=== PATIENT | male | born 1930 | race Caucasian/White ===

== ENCOUNTER 2017-05-22 13:32 | Inpatient (IN) | payer MEDICARE ==
[~2017-05-22] VITALS: Ht 182.9 cm; Wt 79.4 kg
[~2017-05-22 13:32] MED LIST: AMLODIPINE BESYL5 MG PO; ASPIRIN EC81 MG PO; BRIMONIDINE TAR10 ML OP; DORZOLAMIDE-TIM10 ML OP; FUROSEMIDE40 MG PO; GABAPENTIN300 MG PO; LANTUS 3ML100 UNITS/ SC; LATANOPROST2.5 ML OP; LUMIGAN2.5 M1 OP; NOVOLOG100 UNITS1 SC; OMEPRAZOLE40 MG PO; PINDOLOL5 MG PO; POTASSIUM CHLO10 ME1 PO; SIMVASTATIN40 MG PO; TAMSULOSIN HCL0.4 MG PO; TIZANIDINE HCL4 MG PO
--- NOTE | 2017-05-22 15:04 | Diagnostic Imaging Report ---
EXAM: XR CHEST 1 VIEW DATE: 05/22/2017 2:07 PM INDICATION: Altered mental status COMPARISON: None FINDINGS: Lines and Tubes: Battery pack device overlies right upper abdomen/lower chest. Heart and Mediastinum: Widening of the mediastinum with questionable prominence of the arch. Vascular calcifications present. Lungs and Pleura: Mild elevation right hemidiaphragm. Minimal basilar opacities. Chin partially secures apices. Bones and Soft Tissues: No acute findings. IMPRESSION: 1. Probable prominence aortic arch. 2. Basilar atelectasis, with developing pneumonia, particularly on the left, not excluded. Signed by: Dr. Joshua Nguyen MD on 05/22/2017 3:01 PM
[2017-05-22 15:32] LABS: BASOPHILS # (AUTO) 0.1 (0.0-0.1); BASOPHILS % 0.6 % (0.0-1.0); EOSINOPHILS # (AUTO) 0.1 (0.0-0.4); EOSINOPHILS % 0.6 % (0.0-6.0); HEMOGLOBIN 11.9 g/dL (14.0-18.0); LYMPHOCYTES # (AUTO) 1.3 (1.0-3.2); LYMPHOCYTES % 11.7 % (18.0-39.1); MEAN CORPUSCULAR HEMOGLOBIN 27.1 pg (28-32); MEAN CORPUSCULAR HGB CONC 30.5 g/dL (31-35); MEAN CORPUSCULAR VOLUME 88.8 fL (81-99); MONOCYTES # (AUTO) 0.9 (0.2-0.8); MONOCYTES % 7.7 % (4.4-11.3); NEUTROPHILS % 78.6 % (38.7-80.0); PLATELET COUNT 265 x10e3/uL (140-360); RED BLOOD COUNT 4.39 x10e6/uL (4.3-5.7); RED CELL DISTRIBUTION WIDTH 15.7 % (11.7-14.4)
[2017-05-22 15:33] LABS: BILIRUBIN,URINE NEGATIVE (NEGATIVE); COLOR,URINE YELLOW (YELLOW); KETONES,URINE 2+ (NEGATIVE); LEUKOCYTE ESTERASE ,URINE 2+ (NEGATIVE); NITRITE,URINE NEGATIVE (NEGATIVE); PROTEIN,URINE DIPSTICK 3+ (NEGATIVE); URINE UROBILINOGEN 0.2 mg/dL (0.2 - 1)
[2017-05-22 15:40] LABS: CLARITY,URINE TURBID (CLEAR)
[2017-05-22 15:47] LABS: BACTERIA,URINE MODERATE /HPF; WBC,URINE (MAN) >50 /HPF (0-5); YEAST,URINE FEW
--- NOTE | 2017-05-22 15:55 | Diagnostic Imaging Report ---
Examination: CT BRAIN WITHOUT CONTRAST History:Confusion. Altered mental status. Comparison studies:Head CT performed 2016 Technique: Axial images were obtained from the skull base to the vertex. Coronal and sagittal images reconstructed from the axial data. Intravenous contrast: None Findings: Scalp: No abnormalities. Bones: No fractures, blastic or lytic lesions. Brain sulci: Mild volume loss for age. Ventricles: No hydrocephalus. Extra-axial space: No acute hemorrhage. Bifrontal subdural hygromas, unchanged (15 mm thick on the right and 11 mm thick on the left). 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 There are mild patchy areas of hypoattenuation in the periventricular and subcortical white matter, nonspecific. No masses, hemorrhage, or acute cortical-based vascular insults. Sellar/suprasellar region: No abnormalities. Craniocervical junction: Patent foramen magnum. No Chiari one malformation. Incidental findings: Dependent fluid in the partially visualized right maxillary sinus. Near complete opacification of the right anterior ethmoid air cells. Atherosclerotic calcification of the cavernous and supraclinoid internal carotid and V4 segments of the bilateral vertebral arteries. Impression: 1. No new acute intracranial abnormalities when compared to prior head CT performed April 20, 2017. Specifically, no acute infarct in the right lentiform nucleus or intraparenchymal or extra-axial hemorrhage. 2. Unchanged chronic lacunar infarcts, as above. 3. Unchanged mild chronic microvascular ischemic change. 4. Unchanged mild generalized volume loss. 5. Unchanged bifrontal subdural hygromas. Signed by: Dr. Ryann Harmon M.D. on 05/22/2017 3:51 PM
[2017-05-22 15:58] LABS: ALBUMIN 3.1 g/dL (3.5-5.0); ALBUMIN/GLOBULIN RATIO 0.8 (0.8-2.0); ANION GAP 16.6 mmol/L (8-16); CALCIUM 10.1 mg/dL (8.4-10.2); CREATININE, SERUM 1.61 mg/dL (0.72-1.25); POTASSIUM 3.6 mmol/L (3.5-5.1)
[2017-05-22 16:20] LABS: THYROID STIMULATING HORMONE 1.146 uIU/mL (0.350-4.940); TROPONIN I 0.085 ng/mL (0-0.300)
[2017-05-22] MEDS ORDERED: DEXTROSE 50% SYRINGE 50 ML IV PRN (16:45)
[2017-05-22] MEDS ORDERED: CEFEPIME HCL 1GM 1 GM in WATER STERILE 10ML VIAL 10 ML IV ONE (17:30)
[2017-05-22] MEDS ORDERED: AZITHROMYCIN 500MG/NS 250 ML 250 ML IV ONE (17:30)
[2017-05-22] MEDS: D5.45%NS/KCL 20MEQ 1,000 ML IV SCH (17:45)
[2017-05-22 19:35] VITALS: BP 180/85
[2017-05-22 20:30] VITALS: BP 180/85
[2017-05-22] MEDS: INSULIN REGULAR, HUMAN 100 UNIT/1 ML 3ML VIAL SQ SCH (21:00)
[2017-05-23 00:19] VITALS: BP 161/74
[2017-05-23] MEDS ORDERED: CEFEPIME HCL 1 GM VIAL ONE ×2 (01:43→21:49)
[2017-05-23] MEDS ORDERED: SODIUM CHLORIDE 0.9% 200 ML ONE (01:44)
[2017-05-23] MEDS: D5.45%NS/KCL 20MEQ 1,000 ML IV SCH ×4 (01:46→22:38)
[2017-05-23] MEDS: CEFEPIME HCL 1GM 1 GM in WATER STERILE 10ML VIAL 10 ML IV SCH ×4 (01:54→22:31)
[2017-05-23 04:00] VITALS: BP 169/77
[2017-05-23 06:57] LABS: CREATINE KINASE MB 3.5 ng/mL (0.00-5.00); TROPONIN I 0.078 ng/mL (0-0.300)
[2017-05-23 08:00] VITALS: BP 158/83
[2017-05-23] MEDS: INSULIN REGULAR, HUMAN 100 UNIT/1 ML 3ML VIAL SQ SCH ×4 (08:03→20:54)
[2017-05-23] MEDS: AZITHROMYCIN 500MG/NS 250 ML 250 ML IV SCH (09:51)
[2017-05-23 12:00] VITALS: BP 147/65
[2017-05-23 16:00] VITALS: BP 184/85
[2017-05-23 20:00] VITALS: BP 188/66
[2017-05-23] MEDS ORDERED: CLONIDINE HCL 0.1 MG/24 HR 1 EA PATCH TOP SCH (23:00)
[2017-05-24] VITALS: BP 141/53
[2017-05-24 04:00] VITALS: BP 114/59
[2017-05-24] MEDS ORDERED: CEFEPIME HCL 1 GM VIAL ONE ×2 (05:33→21:39)
[2017-05-24 06:17] LABS: BASOPHILS # (AUTO) 0.1 (0.0-0.1); BASOPHILS % 0.8 % (0.0-1.0); EOSINOPHILS # (AUTO) 0.1 (0.0-0.4); EOSINOPHILS % 1.6 % (0.0-6.0); HEMATOCRIT 32.6 % (38.2-49.6); HEMOGLOBIN 10.1 g/dL (14.0-18.0); LYMPHOCYTES # (AUTO) 1.4 (1.0-3.2); LYMPHOCYTES % 17.6 % (18.0-39.1); MEAN CORPUSCULAR HEMOGLOBIN 27.7 pg (28-32); MEAN CORPUSCULAR VOLUME 89.6 fL (81-99); MONOCYTES # (AUTO) 0.7 (0.2-0.8); MONOCYTES % 8.5 % (4.4-11.3); NEUTROPHILS # (AUTO) 5.6 (2.1-6.9); PLATELET COUNT 202 x10e3/uL (140-360); RED BLOOD COUNT 3.64 x10e6/uL (4.3-5.7); RED CELL DISTRIBUTION WIDTH 15.5 % (11.7-14.4)
[2017-05-24] MEDS: CEFEPIME HCL 1GM 1 GM in WATER STERILE 10ML VIAL 10 ML IV SCH ×3 (06:18→21:47)
[2017-05-24 06:43] LABS: ANION GAP 9.9 mmol/L (8-16); CALCIUM 8.7 mg/dL (8.4-10.2); CREATININE, SERUM 1.56 mg/dL (0.72-1.25); POTASSIUM 3.9 mmol/L (3.5-5.1)
[2017-05-24 08:00] VITALS: BP 186/81
[2017-05-24] MEDS: D5.45%NS/KCL 20MEQ 1,000 ML IV SCH ×2 (08:19→17:49)
[2017-05-24] MEDS: AZITHROMYCIN 500MG/NS 250 ML 250 ML IV SCH (08:19)
[2017-05-24] MEDS: INSULIN REGULAR, HUMAN 100 UNIT/1 ML 3ML VIAL SQ SCH ×4 (08:20→21:47)
[2017-05-24] MEDS ORDERED: MICAFUNGIN SODIUM 50 MG/50 ML BAG IV SCH (10:15)
[2017-05-24 12:00] VITALS: BP 180/77
[2017-05-24] MEDS: MICAFUNGIN SODIUM 50 ML IV SCH (13:02)
[2017-05-24 16:00] VITALS: BP 193/89
[2017-05-25] MEDS: D5.45%NS/KCL 20MEQ 1,000 ML IV SCH ×3 (00:45→17:05)
[2017-05-25] MEDS ORDERED: LABETALOL HCL IV 5 MG/ML 20ML MDV IV STA (05:13)
[2017-05-25] MEDS: CEFEPIME HCL 1GM 1 GM in WATER STERILE 10ML VIAL 10 ML IV SCH ×3 (06:00→21:59)
[2017-05-25 06:10] LABS: BASOPHILS # (AUTO) 0.1 (0.0-0.1); BASOPHILS % 0.7 % (0.0-1.0); EOSINOPHILS # (AUTO) 0.2 (0.0-0.4); HEMATOCRIT 34.4 % (38.2-49.6); HEMOGLOBIN 10.3 g/dL (14.0-18.0); LYMPHOCYTES # (AUTO) 1.6 (1.0-3.2); LYMPHOCYTES % 22.6 % (18.0-39.1); MEAN CORPUSCULAR HEMOGLOBIN 27.2 pg (28-32); MEAN CORPUSCULAR HGB CONC 29.9 g/dL (31-35); MONOCYTES # (AUTO) 0.6 (0.2-0.8); NEUTROPHILS # (AUTO) 4.5 (2.1-6.9); NEUTROPHILS % 65.3 % (38.7-80.0); PLATELET COUNT 173 x10e3/uL (140-360); RED BLOOD COUNT 3.78 x10e6/uL (4.3-5.7); RED CELL DISTRIBUTION WIDTH 15.6 % (11.7-14.4)
[2017-05-25 06:36] LABS: CALCIUM 8.9 mg/dL (8.4-10.2); CREATININE, SERUM 1.45 mg/dL (0.72-1.25)
--- NOTE | 2017-05-25 06:47 | Diagnostic Imaging Report ---
EXAM: CHEST SINGLE (PORTABLE), AP 1 view DATE: 05/25/2017 5:13 AM Time stamp on exam: 0552 hours INDICATION: Shortness of breath COMPARISON: AP view of the chest May 22, 2017 FINDINGS: LINES/TUBES: None LUNGS: Bibasilar atelectasis. PLEURA: No effusions or pneumothorax. HEART AND MEDIASTINUM: Normal size and contour. BONES AND SOFT TISSUES: No acute findings. Generator projects over the right chest. Chronic right posterior rib deformities. IMPRESSION: No interval change. Signed by: Dr. Rama Martinez M.D. on 05/25/2017 6:44 AM
[2017-05-25] MEDS: INSULIN REGULAR, HUMAN 100 UNIT/1 ML 3ML VIAL SQ SCH ×4 (07:30→20:36)
[2017-05-25] MEDS: ALBUTEROL/IPRATROPIUM 3 ML NEB NEB SCH ×3 (07:50→20:15)
[2017-05-25 08:00] VITALS: BP 193/92
[2017-05-25] MEDS: AZITHROMYCIN 500MG/NS 250 ML 250 ML IV SCH (09:25)
[2017-05-25 09:26] VITALS: BP 160/77
[2017-05-25] MEDS: MICAFUNGIN SODIUM 50 ML IV SCH (11:42)
[2017-05-25 12:00] VITALS: BP 175/71
[2017-05-25] MEDS: HYDRALAZINE HCL 20 MG/ML VIAL IV PRN ×2 (12:36→20:33)
[2017-05-25] MEDS ORDERED: CEFEPIME HCL 1 GM VIAL ONE ×2 (14:20→23:25)
[2017-05-25 16:00] VITALS: BP 160/79
[2017-05-25 20:00] VITALS: BP 190/78
[2017-05-25] MEDS: ACETAMINOPHEN 650 MG SUPP PR PRN (20:34)
[2017-05-26] VITALS: BP 133/63
[2017-05-26] MEDS: D5.45%NS/KCL 20MEQ 1,000 ML IV SCH ×3 (00:45→16:55)
[2017-05-26] MEDS: ALBUTEROL/IPRATROPIUM 3 ML NEB NEB SCH ×4 (01:20→20:35)
[2017-05-26 04:00] VITALS: BP 165/74
[2017-05-26] MEDS ORDERED: CEFEPIME HCL 1 GM VIAL ONE ×3 (05:01→21:25)
[2017-05-26] MEDS: CEFEPIME HCL 1GM 1 GM in WATER STERILE 10ML VIAL 10 ML IV SCH ×3 (05:09→21:26)
[2017-05-26] MEDS: AZITHROMYCIN 500MG/NS 250 ML 250 ML IV SCH (07:48)
[2017-05-26 08:00] VITALS: BP 170/81
[2017-05-26] MEDS: INSULIN REGULAR, HUMAN 100 UNIT/1 ML 3ML VIAL SQ SCH ×4 (08:04→21:32)
[2017-05-26 12:00] VITALS: BP 176/76
[2017-05-26] MEDS: HYDRALAZINE HCL 20 MG/ML VIAL IV PRN ×2 (12:10→17:33)
[2017-05-26] MEDS: MICAFUNGIN SODIUM 50 ML IV SCH (12:58)
[2017-05-26] MEDS: ACETAMINOPHEN 650 MG SUPP PR PRN (14:12)
[2017-05-26 16:00] VITALS: BP 177/75
[2017-05-26 20:00] VITALS: BP 157/80
[2017-05-27] VITALS: BP 183/76
[2017-05-27] MEDS: HYDRALAZINE HCL 20 MG/ML VIAL IV PRN (00:27)
[2017-05-27] MEDS: D5.45%NS/KCL 20MEQ 1,000 ML IV SCH ×2 (00:45→09:11)
[2017-05-27 04:00] VITALS: BP 172/70
[2017-05-27] MEDS ORDERED: CEFEPIME HCL 1 GM VIAL ONE (04:55)
[2017-05-27] MEDS: CEFEPIME HCL 1GM 1 GM in WATER STERILE 10ML VIAL 10 ML IV SCH (05:09)
[2017-05-27] MEDS: INSULIN REGULAR, HUMAN 100 UNIT/1 ML 3ML VIAL SQ SCH ×2 (07:30→12:38)
[2017-05-27] MEDS: ALBUTEROL/IPRATROPIUM 3 ML NEB NEB SCH ×2 (07:59→13:44)
[2017-05-27 08:00] VITALS: BP_SYST 101; BP_SYST 165; BP_DIAS 72; BP_DIAS 73
[2017-05-27] MEDS: AZITHROMYCIN 500MG/NS 250 ML 250 ML IV SCH (09:10)
[2017-05-27] MEDS ORDERED: BUPIVACAINE 0.25%/EPI 30ML SDV INJ ONE (11:10)
[2017-05-27 12:00] VITALS: BP 154/68
[2017-05-27] MEDS: MICAFUNGIN SODIUM 50 ML IV SCH (12:00)
[2017-05-27] MEDS ORDERED: CEFEPIME HCL 1 GM VIAL IV SCH (14:00)
[2017-05-27] MEDS ORDERED: WATER STERILE 10 ML VIAL IV SCH (14:00)
== END 2017-05-27 16:01 | DRG 727 ==
LOC: ER 13:38 → ERHOLD 17:59 → UNDOADMIN 17:59 → ERHOLD 18:00 → MED/SURG2 18:01 → ERHOLD 18:01
DX: B37.49 Other urogenital candidiasis (principal); J18.9 Pneumonia, unspecified organism; J44.0 Chronic obstructive pulmonary disease with (acute) lower respiratory infection; I11.0 Hypertensive heart disease with heart failure; D64.9 Anemia, unspecified; I50.9 Heart failure, unspecified; E86.0 Dehydration; E11.9 Type 2 diabetes mellitus without complications; F03.90 Unspecified dementia, unspecified severity, without behavioral disturbance, psychotic disturbance, mood disturbance, and anxiety; J44.1 Chronic obstructive pulmonary disease with (acute) exacerbation; Z86.73 Personal history of transient ischemic attack (TIA), and cerebral infarction without residual deficits; R63.0 Anorexia; I25.10 Atherosclerotic heart disease of native coronary artery without angina pectoris; Z66 Do not resuscitate
CPT/HCPCS: 36415; 70450; 71010; 80048; 80053; 81001; 82550; 82553; 82948; 84443; 84484; 85025; 87040; 87086; 93005; 99285; J0360; J0456; J0692; J7050; J7799

== ENCOUNTER 2017-08-16 16:59 | Inpatient (IN) | payer MEDICARE ==
[~2017-08-16] VITALS: Ht 182.9 cm; Wt 87.8 kg
--- OUTSIDE RECORDS SUMMARY | 2017-08-16 17:01 | XMS REPORT | Clinical Summary ---
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 Disp. Refills Start End Date Status Date tamsulosin (FLOMAX) 0.4 Take 0.4 mg by mouth 3 08/20/19 Active mg capsule,extended nightly. 17 release 24hr brimonidine (ALPHAGAN) Administer 1 drop to the 08/16/19 Active 0.15 % ophthalmic right eye 3 (three) times 17 solution a day. gabapentin (NEURONTIN) Take 300 mg by mouth 3 07/21/19 Active 300 mg capsule (three) times a day. 17 furosemide (LASIX) 20 mg Take 20 mg by mouth 2 07/21/19 Active tablet (two) times a day. 17 NOVOLOG 100 unit/mL Inject 10-18 Units under 07/21/19 Active injection the skin 3 (three) times 17 a day before meals. LANTUS 100 unit/mL Inject 45 Units under the 07/21/19 Active injection (vial) skin every morning. 17 amLODIPine (NORVASC) 5 mg Take 5 mg by mouth every 07/21/19 Active tablet morning. 17 simvastatin (ZOCOR) 40 MG Take 40 mg by mouth 07/21/19 Active tablet nightly. 17 omeprazole (PriLOSEC) 40 Take 40 mg by mouth 07/21/19 Active MG capsule daily. 17 bimatoprost (LUMIGAN) Administer 1 drop to the Active 0.01 % ophthalmic drops right eye nightly. dorzolamide-timolol Administer 1 drop to the Active (COSOPT) 22.3-6.8 mg/mL right eye 3 (three) times ophthalmic solution a day. pindolol (VISKEN) 5 MG Take 5 mg by mouth 2 3 02/23/20 Active tablet (two) times a day. 17 tiZANidine (ZANAFLEX) 4 TAKE 1 TABELT BY MOUTH 2 3 12/14/19 Active MG tablet TIMES A DAY 17 aspirin (ECOTRIN) 81 MG Take 81 mg by mouth Active enteric coated tablet daily. sodium chloride 0.9 % Take 10 mg/hr by 03/11/20 Discontin solution for nebulization nebulization 17 ued 0.88 mL with albuterol 5 continuously. mg/mL solution for nebulization 0.6 mg sodium,potassium,mag Please use as directed 354 mL 0 09/10/19 Discontin sulfates (SUPREP BOWEL 17 17 ued PREP KIT) 17.5-3.13-1.6 gram recon soln amoxicillin-pot TAKE 1 TABLET BY MOUTH 0 03/07/20 03/11/20 Discontin clavulanate (AUGMENTIN) TWICE A DAY WITH FOOD FOR 17 17 ued 500-125 mg per tablet 10 DAYS TRUE METRIX GLUCOSE TEST 02/29/20 03/11/20 Discontin STRIP strip test strips 17 17 ued TRUEPLUS LANCETS 28 gauge 02/29/20 03/11/20 Discontin misc 17 17 ued amLODIPine (NORVASC) 2.5 Take 2.5 mg by mouth 03/28/20 Discontin mg tablet every evening. 17 ued latanoprost (XALATAN) Administer 1 drop to the 1.5 mL 0 03/25/2011/06 0.005 % ophthalmic right eye nightly for 30 17 17 solution days. potassium chloride Take 15 mL (20 mEq total) 450 mL 0 03/25/2004/24 (KAYCIEL) 20 mEq/15 mL by mouth daily for 30 17 17 solution days. Active Problems Problem Noted Date SOB (shortness of breath) 03/11/2017 Tubular adenoma of colon 10/11/2016 Diverticulosis large intestine w/o perforation or abscess w/o bleeding 10/11 Internal hemorrhoids 10/11/2016 Personal history of colonic polyps 09/09/2016 Heme positive stool 09/09/2016 Encounters Date Type Specialty Care Team Description 04/18/2017 Emergency Emergency Medicine Jose Douglas CLARENCE (acute kidney injury) - MD Jason (Primary Dx); 04/19/2017 Hypoglycemia 03/11/2017 [facility] General Internal Medicine Matthias Parson COPD exacerbation - Encounter Isidro Sanders MD (Primary Dx) 03/28/2017 Shabbir Steel MD 10/11/2016 Office Visit Gastroenterology Daquan Mccurdy MD Tubular adenoma of colon (Primary Dx); Diverticulosis large intestine w/o perforation or abscess w/o bleeding; Internal hemorrhoids 10/06/2016 Hospital Gastroenterology Daquan Mccurdy MD Encounter 09/21/2016 [facility] General Internal Medicine Physician, Emergency, MD - Encounter Rehrer, Amilcar Obrien DO 09/22/2016 Shabbir Steel MD 09/21/2016 Orders Only General Internal Medicine Denton Huerta MD 09/21/2016 Orders Only Emergency Medicine Rehrer, Amilcar Obrien DO 09/09/2016 Office Visit Gastroenterology Daquan Mccurdy MD Personal history of colonic polyps (Primary Dx); Heme positive stool after 08/15/2016 Family History Medical History Relation Name Comments Cancer Brother No Known Problems Father No Known Problems Maternal Aunt No Known Problems Maternal Grandfather No Known Problems Maternal Grandmother No Known Problems Maternal Uncle No Known Problems Mother No Known Problems Paternal Aunt No Known Problems Paternal Grandfather No Known Problems Paternal Grandmother No Known Problems Paternal Uncle No Known Problems Sister Garcia's esophagus Neg Hx Breast cancer Neg Hx Celiac disease Neg Hx Cirrhosis Neg Hx Colon cancer Neg Hx Colon polyps Neg Hx Crohn's disease Neg Hx Cystic fibrosis Neg Hx Eating disorder Neg Hx Esophageal cancer Neg Hx GERD Neg Hx EDUCATION REP Cancer Neg Hx Hemochromatosis Neg Hx Inflammatory bowel Neg Hx disease Irritable bowel syndrome Neg Hx Liver cancer Neg Hx Liver disease Neg Hx Pancreatic cancer Neg Hx Pancreatitis Neg Hx Rectal cancer Neg Hx Stomach cancer Neg Hx Ulcerative colitis Neg Hx Relation Name Status Comments Brother Father Maternal Aunt Maternal Grandfather Maternal Grandmother Maternal Uncle Mother Paternal Aunt Paternal Grandfather Paternal Grandmother Paternal Uncle Sister Social History Tobacco Use Types Packs/Day Years Used Date Former Smoker Quit: 09/09/1966 Alcohol Use Drinks/Week oz/Week Comments No Sex Assigned at Date Recorded Not on file Last Filed Vital Signs Vital Sign Reading Time Taken Blood Pressure 153/80 04/19/2017 1:00 AM CDT Pulse 82 04/19/2017 1:00 AM CDT Temperature 36.7 C (98.1 F) 04/18/2017 8:44 PM CDT Respiratory Rate 17 04/19/2017 1:00 AM CDT Oxygen Saturation 98% 04/19/2017 1:00 AM CDT Inhaled Oxygen - - Concentration Weight 94.7 kg (208 lb 11.2 oz) 03/22/2017 4:00 AM CDT Height 182.9 cm (6') 04/18/2017 8:44 PM CDT Body Mass Index 28.3 03/22/2017 4:00 AM CDT Plan of Treatment Health Maintenance Due Date Last Done Comments ZOSTER VACCINE 1990 PNEUMOCOCCAL 1995 POLYSACCHARIDE VACCINE AGE 65 AND OVER PNEUMOCOCCAL-13 1995 INFLUENZA VACCINE 01/18/2017 Procedures Procedure Name Priority Date/Time Associated Diagnosis Comments HC CATH DUAL LUMEN PICC Routine 03/21/2017 Results for this 12:51 PM CDT procedure are in the results section. HC US GUIDED VASCULAR Routine 03/21/2017 Results for this ACCESS 12:51 PM CDT procedure are in the results section. HC CVL PICC INSERT 5 YRS Routine 03/21/2017 Results for this OR > 12:51 PM CDT procedure are in the results section. EEG AWAKE/ASLEEP LESS Routine 03/15/2017 Results for this THAN 41 MIN 10:34 PM CDT procedure are in the results section. after 08/15/2016 Results * POC glucose (04/19/2017 1:26 AM) Only the most recent of 105 results within the time period is included. Component Value Ref Range POC glucose 142 (H) 65 - 100 mg/dL Comment: Meter ID: [id number] Treasury Director: Sandy Hernandez Specimen Performing Laboratory [facility]OMIC MEDICINE [address] [place] [address] [place] [address] * Estimated GFR (04/19/2017 1:22 AM) Only the most recent of 23 results within the time period is included. Component Value Ref Range GFR Non Af Amer 36 (A) mL/min/1.73 m2 GFR Af Amer 43 (A) mL/min/1.73 m2 Comment: Chronic kidney disease: <60 mL/min/1.73m2 Kidney failure: <15 mL/min/1.73m2 The estimated GFR is calculated from the IDMS-traceable Modification of Diet in Renal Disease Equation. The accuracy of the calculation is poor when the creatinine is normal. Calculated values >90 mL/min/1.73m2 are not reported. This equation has not been validated in children (<18 years), women, the elderly (>70 years), or ethnic groups other than Caucasians and Americans. Specimen Performing Laboratory Plasma specimen [facility]OMIC MEDICINE [address] [place] [address] * Basic metabolic panel (04/19/2017 1:22 AM) Only the most recent of 21 results within the time period is included. Component Value Ref Range Sodium 143 135 - 150 mEq/L Potassium 3.5 3.5 - 5.0 mEq/L Chloride 112 (H) 100 - 109 mEq/L CO2 23 (L) 24 - 32 mmol/L Anion gap 8 7 - 15 mEq/L Comment: Starting from September , anion gap calculation no longer incorporates potassium. Please note the change. BUN 33 (H) 7 - 18 mg/dL Creatinine 1.8 (H) 0.8 - 1.5 mg/dL Glucose 121 (H) 65 - 100 mg/dL Calcium 7.6 (L) 8.6 - 10.7 mg/dL Specimen Performing Laboratory Plasma specimen [facility]OM[facility]IC[facility] [address] [place] [address] * CBC with platelet and differential (04/18/2017 9:41 PM) Only the most recent of 13 results within the time period is included. Component Value Ref Range WBC 11.0 4.2 - 11.0 k/uL RBC 3.56 (L) 4.04 - 5.86 m/uL HGB 10.0 (L) 13.0 - 17.3 g/dL HCT 31.5 (L) 34.0 - 45.0 % MCV 88.5 80.0 - 98.0 fL MCH 28.1 27.0 - 34.0 pg MCHC 31.7 31.5 - 36.5 g/dL RDW - SD 51.1 (H) 37.0 - 51.0 fL MPV 10.3 7.4 - 10.4 fL Platelet count 232 150 - 400 k/uL Nucleated RBC 0.00 /100 WBC Neutrophils 74.2 (H) 36.0 - 66.0 % Lymphocytes 16.3 (L) 24.0 - 44.0 % Monocytes 7.6 (H) 0.0 - 6.0 % Eosinophils 1.0 0.0 - 6.0 % Basophils 0.3 0.0 - 1.2 % Immature granulocytes 0.6 0.0 - 1.0 % Specimen Performing Laboratory Blood [facility]OMIC MEDICINE [address] [place] [address] * CT Head Wo Contrast (04/18/2017 9:28 PM) Only the most recent of 3 results within the time period is included. Specimen Performing Laboratory [facility] [address] [place] [address] Narrative EXAMINATION: CT HEAD WO CONTRAST CLINICAL HISTORY: fall COMPARISON:04/16/[address] TECHNIQUE: Noncontrast enhanced images of the brain were obtained from the skull base to the vertex. Both soft tissue and bone reconstruction algorithms were performed. CT scans are performed using radiation dose reduction techniques (iterative reconstruction and/or automated exposure control). Technical factors are evaluated and adjusted to ensure appropriate moderation of exposure. Automated dose management technology is applied to adjust radiation exposure while achieving a diagnostic quality image. FINDINGS: No significant change from the prior head CT. 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 There is a generalized age-related brain parenchymal volume loss. Patchy hypoattenuation of the supratentorial white matter, likely chronic microangiopathic changes. Mild cerebrovascular calcifications. The brain parenchyma is otherwise unremarkable. The brady-white matter differentiation is preserved. No evidence of acute intra or extra-axial hemorrhage, mass, mass effect or acute territorial infarction. There is no acute hydrocephalus. Basal cisterns are patent. No acute soft tissue hematoma or laceration. No skull fractures or aggressive bony lesions. Mild paranasal sinus mucosal thickening is nonspecific. The mastoid air cells are clear. Orbits are normal. IMPRESSION: Involutional changes as detailed above with no acute intracranial abnormality. [facility]-[id number] Procedure Note Interface, Radiology Results Incoming - 04/18/2017 9:36 PM CDT EXAMINATION: CT HEAD WO CONTRAST CLINICAL HISTORY: fall COMPARISON: 04/16/[address] TECHNIQUE: Noncontrast enhanced images of the brain were obtained from the skull base to the vertex. Both soft tissue and bone reconstruction algorithms were performed. CT scans are performed using radiation dose reduction techniques (iterative reconstruction and/or automated exposure control). Technical factors are evaluated and adjusted to ensure appropriate moderation of exposure. Automated dose management technology is applied to adjust radiation exposure while achieving a diagnostic quality image. FINDINGS: No significant change from the prior head CT. 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 There is a generalized age-related brain parenchymal volume loss. Patchy hypoattenuation of the supratentorial white matter, likely chronic microangiopathic changes. Mild cerebrovascular calcifications. The brain parenchyma is otherwise unremarkable. The brady-white matter differentiation is preserved. No evidence of acute intra or extra-axial hemorrhage, mass, mass effect or acute territorial infarction. There is no acute hydrocephalus. Basal cisterns are patent. No acute soft tissue hematoma or laceration. No skull fractures or aggressive bony lesions. Mild paranasal sinus mucosal thickening is nonspecific. The mastoid air cells are clear. Orbits are normal. IMPRESSION: Involutional changes as detailed above with no acute intracranial abnormality. [facility]-[id number] * CT Cervical Spine Wo Contrast (03/28/2017 4:31 PM) Specimen Performing Laboratory [facility] [address] [place] [address] Narrative EXAMINATION:CT CERVICAL SPINE WO CONTRAST CLINICAL HISTORY:lower extremities weakness COMPARISON:None. TECHNIQUE: Axial helical CT images throughout the cervical spine were performed without IV contrast. Sagittal and coronal reformatted images were generated. All CT images were acquired using low-dose technique with automated exposure control. FINDINGS: There is no evidence of acute fracture, subluxation, or dislocation. There is normal cervical lordosis and alignment. Vertebral bodies are preserved. There is no evidence of paraspinal hematoma. There is anterior interbody fusion with plate and screws between C5 and C6 levels with solid ankylosis of the disc space. There is a mild superjacent segment disease at C4-C5 level with disc space narrowing and mild posterior disc ossified complex. Minimal spondylotic anterior translation of C3 and C4 is appreciated. IMPRESSION: No acute cervical spine bony abnormality. [facility]-[id number] Procedure Note Interface, Radiology Results Incoming - 03/28/2017 4:40 PM CDT EXAMINATION: CT CERVICAL SPINE WO CONTRAST CLINICAL HISTORY: lower extremities weakness COMPARISON: None. TECHNIQUE: Axial helical CT images throughout the cervical spine were performed without IV contrast. Sagittal and coronal reformatted images were generated. All CT images were acquired using low-dose technique with automated exposure control. FINDINGS: There is no evidence of acute fracture, subluxation, or dislocation. There is normal cervical lordosis and alignment. Vertebral bodies are preserved. There is no evidence of paraspinal hematoma. There is anterior interbody fusion with plate and screws between C5 and C6 levels with solid ankylosis of the disc space. There is a mild superjacent segment disease at C4-C5 level with disc space narrowing and mild posterior disc ossified complex. Minimal spondylotic anterior translation of C3 and C4 is appreciated. IMPRESSION: No acute cervical spine bony abnormality. [facility]-[id number] * XR Abdomen 1 Vw (03/28/2017 3:20 PM) Specimen Performing Laboratory [facility] [address] [place] [address] Narrative PROCEDURE:XR ABDOMEN 1 VW CLINICAL HISTORY:ABDOMINAL PAIN COMPARISON:April 05, 2015 TECHNIQUE: A single view of the abdomen was performed in the AP supine projection. FINDINGS: No indirect evidence of free air is seen.. No distended loops of small or large bowel are identified. No radiopaque calculus is identified in the abdomen. Surgical shawnee are seen projected over the right upper quadrant of the abdomen consistent with prior cholecystectomy. IMPRESSION: Nonspecific bowel gas pattern. [id number] . Procedure Note Interface, Radiology Results Incoming - 03/28/2017 4:09 PM CDT PROCEDURE: XR ABDOMEN 1 VW CLINICAL HISTORY: ABDOMINAL PAIN COMPARISON: April 05, 2015 TECHNIQUE: A single view of the abdomen was performed in the AP supine projection. FINDINGS: No indirect evidence of free air is seen.. No distended loops of small or large bowel are identified. No radiopaque calculus is identified in the abdomen. Surgical shawnee are seen projected over the right upper quadrant of the abdomen consistent with prior cholecystectomy. IMPRESSION: Nonspecific bowel gas pattern. [id number] . * Phosphorus level (03/28/2017 5:30 AM) Only the most recent of 5 results within the time period is included. Component Value Ref Range Phosphorus 2.8 2.5 - 4.5 mg/dL Specimen Performing Laboratory Plasma specimen [facility] [address] [place] [address] * Magnesium level (03/28/2017 5:30 AM) Only the most recent of 6 results within the time period is included. Component Value Ref Range Magnesium 2.30 1.60 - 2.40 mg/dL Specimen Performing Laboratory Plasma specimen [facility]OM[facility]IC[facility] [address] [place] [address] * Salmonella/shigella culture (03/27/2017 4:08 PM) Component Value Ref Range Salmonella/shigella No Aeromonas isolated culture isolate Comment: Specimen Information Specimen Source: Stool Specimen Site: Nonpreserved Specimen Performing Laboratory [facility] [address] [address] * Gastrointestinal panel (03/27/2017 4:08 PM) Component Value Ref Range Gastrointestinal panel Negative for all pathogens tested: Negative for Salmonella Negative for Campylobacter Negative for Diarrheagenic E coli/Shigella Negative for Shiga-like toxin-producing E coli Negative for Plesiomonas shigelloides Negative for Yersinia enterocolitica Negative for Vibrio species Negative for Clostridium difficile (Toxin A/B) Negative for Cryptosporidium Negative for Giardia lamblia Negative for Cyclospora cayeteanensis Negative for Entamoeba histolytica Negative for Adenovirus F 40/41 Negative for Astrovirus Negative for Norovirus GI/GII Negative for Rotavirus A Negative for Sapovirus Negative for Clostridium difficile toxin Negative for E coli 0157 This real-time PCR assay detects the presence of nucleic acids (RNA or DNA) for the gastrointestinal pathogens listed. A result of "Not-detected" does not exclude the possibility of the presence of one or more pathogens at concentrations less than the detectable limits of the assay. Comment: Specimen Information Specimen Source: Stool Specimen Site: Nonpreserved Specimen Performing Laboratory [facility] AND [address] [address] * ECG 12 lead (03/23/2017 12:30 PM) Only the most recent of 5 results within the time period is included. Component Value Ref Range Ventricular rate 69 Atrial rate 56 QRSD interval 84 QT interval 472 QTC interval 505 QRS axis 1 30 T wave axis 11 EKG impression Atrial fibrillation with a competing junctional pacemaker-Prolonged QT-Abnormal ECG-In automated comparison with ECG of 11-MAR-2017 13:06,-Atrial fibrillation has replaced Junctional rhythm- Specimen Performing Laboratory [facility] MUSE [address] [place] [address] * [place] Modified Barium Swallow (03/23/2017 12:10 PM) [facility]imen [facility] [address] [place] [address] Narrative EXAMINATION:FL MODIFIED BARIUM SWALLOW CLINICAL HISTORY:Dysphagia COMPARISON:None. Fluoroscopy time: 1.8 minutes FINDINGS: The patient swallowed varying consistencies of barium under direct lateral fluoroscopic evaluation. The study was performed in conjunction with speech pathology. IMPRESSION: Mild aspiration is seen with thin barium which is clear with chin tuck maneuver.. The patient otherwise swallowed the remainder of the consistencies without evidence of laryngeal penetration or aspiration. Please refer to Speech Pathology report for further details. [id number] Procedure Note Interface, Radiology Results Incoming - 03/23/2017 3:46 PM CDT EXAMINATION: FL MODIFIED BARIUM SWALLOW CLINICAL HISTORY: Dysphagia COMPARISON: None. Fluoroscopy time: 1.8 minutes FINDINGS: The patient swallowed varying consistencies of barium under direct lateral fluoroscopic evaluation. The study was performed in conjunction with speech pathology. IMPRESSION: Mild aspiration is seen with thin barium which is clear with chin tuck maneuver.. The patient otherwise swallowed the remainder of the consistencies without evidence of laryngeal penetration or aspiration. Please refer to Speech Pathology report for further details. [id number] * Vancomycin level, random (03/22/2017 6:00 AM) Only the most recent of 2 results within the time period is included. Component Value Ref Range Vancomycin, random 9.4 ug/mL Comment: Therapeutic Ranges: Peak 30.0 - 40.0 ug/mL Trough 10.0 - 20.0 ug/mL Specimen Performing Laboratory Blood [facility] AND GENOMIC MEDICINE [address] [address] * Urea nitrogen, urine, random (03/21/2017 5:50 PM) Component Value Ref Range Urea nitrogen, urine, 1,122 mg/dL random Specimen Performing Laboratory Urine [facility] DEPARTMENT OF PATHOLOGY AND GENOMIC MEDICINE [address] [place] [address] * Sodium level, urine, random (03/21/2017 5:50 PM) Component Value Ref Range Sodium, urine, random 27 (A) mEQ/L Specimen Performing Laboratory Urine - Urine, clean [facility] AND GENOMIC MEDICINE catch [place] [address] * Protein, urine, random (03/21/2017 5:50 PM) Component Value Ref Range Protein, urine random 222 mg/dL Specimen Performing Laboratory Urine - Urine, clean [facility] AND GENOMIC MEDICINE catch [address] [place] [address] * Potassium, urine, random (03/21/2017 5:50 PM) Component Value Ref Range Potassium, urine, random 29 mEq/L Specimen Performing Laboratory Urine - Urine, clean [facility] AND GENOMIC MEDICINE catch [address] [place] [address] * Creatinine level, urine, random (03/21/2017 5:50 PM) Component Value Ref Range Creatinine, urine, random 140 mg/dL Specimen Performing Laboratory Urine - Urine, clean [facility] AND GENOMIC MEDICINE catch [address] [place] [address] * C difficile toxin (03/21/2017 4:44 PM) Component Value Ref Range Clostridium difficile No Clostridium difficle toxin present toxin Comment: Specimen Information Specimen Source: Stool Specimen Site: Nonpreserved Specimen Performing Laboratory Stool - Nonpreserved [facility] DEPARTMENT OF PATHOLOGY AND GENOMIC MEDICINE [address] [place] [address] * PICC INSERTION (03/21/2017 12:51 PM) Narrative Agustina Pinzon RN 03/21/2017 12:51 PM PICC insertion Date/Time: 03/21/2017 12:47 PM Performed by: AGUSTINA PINZON Authorized by: SHABBIR STEEL Consent: Consent obtained:Written Consent given by:Patient and spouse Risks discussed: arterial puncture, incorrect placement, nerve damage, bleeding, infection and pneumothorax Alternatives discussed:No treatment Royal protocol: Procedure explained and questions answered to patient or proxy's satisfaction: yes Relevant documents present and verified: yes Test results available and properly labeled: yes Imaging studies available: yes Required blood products, implants, devices, and special equipment available: yes Site/side marked: yes Immediately prior to procedure, a time out was called: yes Patient identity confirmed:Verbally with patient, arm band, provided demographic data and hospital-assigned identification number Pre-procedure details: Hand hygiene: Hand hygiene performed prior to insertion Sterile barrier technique: All elements of maximal sterile technique followed Skin preparation:ChloraPrep Skin preparation agent: Skin preparation agent completely dried prior to procedure PICC Line Placement Details (Will create an LDA): Extremity Cirumference Upper (cm):34 Extremity Circumference Forearm (cm):33 Extremity Circumference Site:32.5 Patient position:Flat Vessel Size (mm):3 Indication:Vesicants Location:Left basilic Site selection rationale:DEVICE TO RIGHT CHEST Device Type:Valved Catheter size:5 Fr PICC Characteristics: Catheter Brand:POWER PICC SOLO 5FR TLS CATHETER External Catheter Length (cm):0 Internal Catheter Length (cm):47 Total Catheter Length (cm):47 Catheter Lot Number:[id number] Catheter Expiration Date:09/17/2017 Procedure Details: Landmarks identified: yes Ultrasound guidance: yes Sterile ultrasound techniques: Sterile gel and sterile probe covers were used Number of attempts:1 Number of PICC kits used during procedure:1 Purpose of procedure:PICC Placement Successful PICC Placement: Yes Patency/Placement:Flushes without difficulty, positive blood return and flushed with 10 mL normal saline PICC placed utlizing ultrasound-guided Modified Seldinger Technique: Yes Dressing/Securement:Gauze applied and catheter securement device Blood Loss Amount:Less than 20 mL Post-Procedure Details: Post-procedure:Dressing applied Name of provider who confirmed tip placement::POSITIVE 3CG CONFIRMATION IN PROGRESS, EASY FLUSH WITH BLOOD ASPIRTATION Patient tolerance of procedure:Tolerated well, no immediate complications Comments: PT HAS RIGHT INTERNAL DEVICE IMPLANTED 10 YEARS AGO PER AT BEDSIDE. STATED PT HAD A "CRUSHED HAND AND NEEDED IT FOR NERVE PROBLEMS, LEFT ARM BASILIC VEIN ACCESSED AND PLACED 5FR TLS POWER PICC FOR MULTIPLE IV DRIPS AT 47CM. NO COMPLICATIONS, POSITIVE PLACEMENT OF 3CG TIP CONFIRMATION AND PLACED IN PROGRESS PER POLICY. REPORTED OFF TO KALYANI ARMENDARIZ RN * FL GI NG or OG Tube Placement (03/19/2017 12:53 PM) Specimen Performing Laboratory [facility] [address] [place] [address] Narrative Title:Nasogastric tube placement with steerable angiographic catheter and guidewire. Reason for exam:Nasogastric tube placement with angiographic catheter and guidewire. Technique: Fluoroscopy time 3.9 minutes. 2 images. Comparison studies: Chest x-ray 03/18/2017 PROCEDURE: A nasogastric gastric tube was passed without fluoroscopic guidance and persistently entered the trachea. A angiographic catheter with guidewire was inserted through the nasal sinuses and the guidewire was passed with fluoroscopy into the esophagus and into the stomach. A nasogastric tube was then inserted and passed into the stomach. Proper nasogastric tube placement coiled in the stomach was documented by fluoroscopy and overhead spot films. IMPRESSION: The patient tolerated the procedure well and left the radiology Department in good condition. [id number] Procedure Note Interface, Radiology Results Incoming - 03/19/2017 4:46 PM CDT Title:Nasogastric tube placement with steerable angiographic catheter and guidewire. Reason for exam:Nasogastric tube placement with angiographic catheter and guidewire. Technique: Fluoroscopy time 3.9 minutes. 2 images. Comparison studies: Chest x-ray 03/18/2017 PROCEDURE: A nasogastric gastric tube was passed without fluoroscopic guidance and persistently entered the trachea. A angiographic catheter with guidewire was inserted through the nasal sinuses and the guidewire was passed with fluoroscopy into the esophagus and into the stomach. A nasogastric tube was then inserted and passed into the stomach. Proper nasogastric tube placement coiled in the stomach was documented by fluoroscopy and overhead spot films. IMPRESSION: The patient tolerated the procedure well and left the radiology Department in good condition. [id number] * XR Chest 1 Vw Portable (03/18/2017 7:35 PM) Only the most recent of 5 results within the time period is included. Specimen Performing Laboratory [facility] [address] [place] [id number] Narrative EXAMINATION:XR CHEST 1 VW PORTABLE CLINICAL HISTORY:Fever COMPARISON:Single view chest from 03/09/1717 IMPRESSION: No significant change in appearance of the chest when compared to previous exam. The lungs are clear. No focal consolidation or pleural effusion. No pneumothorax or midline shift. The mediastinal contours and cardiac silhouette are unchanged. Atherosclerotic disease. The bones are unremarkable. [id number] Procedure Note Interface, Radiology Results Incoming - 03/18/2017 7:47 PM CDT EXAMINATION: XR CHEST 1 VW PORTABLE CLINICAL HISTORY: Fever COMPARISON: Single view chest from 03/09/1717 IMPRESSION: No significant change in appearance of the chest when compared to previous exam. The lungs are clear. No focal consolidation or pleural effusion. No pneumothorax or midline shift. The mediastinal contours and cardiac silhouette are unchanged. Atherosclerotic disease. The bones are unremarkable. [id number] * Blood culture, aerobic & anaerobic (03/18/2017 5:39 PM) Only the most recent of 4 results within the time period is included. Component Value Ref Range Blood culture isolate No growth after 5 days of incubation. Comment: Specimen Information Specimen Source: Blood Specimen Site: Hand Right Specimen Performing Laboratory Blood [facility] DEPARTMENT OF PATHOLOGY AND GENOMIC MEDICINE [address] [place] [address] * IR Lumbar Puncture by Radiology (03/17/2017 12:01 PM) Specimen Performing Laboratory [facility] [address] [place] [address] Narrative Examination: Fluoroscopic guided lumbar puncture. CLINICAL HISTORY: LP COMPARISON STUDIES: None PROCEDURE: Fluoroscopy time: 0.4 minutes. Informed consent was obtained. The procedure and risks as well as other options were discussed. The lower back was prepped and draped in a sterile fashion. Local anesthetic was given. A 20-gauge spinal needle was placed into the subarachnoid space using fluoroscopic guidance. The opening pressure was 25 cm of water. 16 cc of clear cerebral spinal fluid were removed and sent to the laboratory for analysis. Patient tolerated the procedure well and left the radiology department in good condition. IMPRESSION: There were no complications. [id number] Procedure Note Interface, Radiology Results Incoming - 03/17/2017 1:20 PM CDT Examination: Fluoroscopic guided lumbar puncture. CLINICAL HISTORY: LP COMPARISON STUDIES: None PROCEDURE: Fluoroscopy time: 0.4 minutes. Informed consent was obtained. The procedure and risks as well as other options were discussed. The lower back was prepped and draped in a sterile fashion. Local anesthetic was given. A 20-gauge spinal needle was placed into the subarachnoid space using fluoroscopic guidance. The opening pressure was 25 cm of water. 16 cc of clear cerebral spinal fluid were removed and sent to the laboratory for analysis. Patient tolerated the procedure well and left the radiology department in good condition. IMPRESSION: There were no complications. [id number] * Gram stain only (03/17/2017 11:45 AM) Component Value Ref Range Gram stain result No WBC's or organisms seen Comment: Specimen Information Specimen Source: CSF (Spinal Fluid) Specimen Site: Tube 3 Specimen Performing Laboratory Cerebrospinal fluid - [facility] DEPARTMENT OF PATHOLOGY AND GENOMIC MEDICINE Tube [address] [place] [address] * West Nile virus by PCR, CSF (03/17/2017 11:45 AM) Component Value Ref Range West Nile virus PCR, CSF Not-Detected Not-Detected West Nile virus PCR, CSF See link below for PDF Lab ReportComment: Specimen Performing Laboratory Cerebrospinal fluid [facility] DEPARTMENT OF PATHOLOGY AND GENOMIC MEDICINE [address] [place] [address] Narrative CSF TUBE # 3 ABOUT 1CC * West Nile virus antibody IgM, CSF (03/17/2017 11:45 AM) Component Value Ref Range West Nile IgM, CSF 0.01 <=0.89 IV Comment: INTERPRETIVE INFORMATION: West Nile Virus Ab IgM by ROSARIO, CSF 0.89 IV or less ...... Negative - No significant level of West Nile virus IgM antibody detected. 0.90-1.10 IV ......... Equivocal - Questionable presence of West Nile virus IgM antibody detected. Repeat testing in 10-14 days may be helpful. 1.11 IV or greater ... Positive - Presence of IgM antibody to West Nile virus detected, suggestive of current or recent infection. This test is intended to be used as a semi-quantitative means of detecting West Nile virus-specific IgM in CSF samples in which there is a clinical suspicion of West Nile virus infection. This test should not be used solely for quantitative purposes, nor should the results be used without correlation to clinical history or other data. Because other members of the Flaviviridae family, such as [place] encephalitis virus, show extensive cross-reactivity with West Nile virus, serologic testing specific for these species should be considered. The detection of antibodies to West Nile virus in cerebrospinal fluid may indicate central nervous system infection. However, consideration must be given to possible contamination by blood or transfer of serum antibodies across the blood-brain barrier. Test developed and characteristics determined by [facility]. See Compliance Statement B: [facility] Performed by [facility], [address] [place] [id number] www.[employer], Murray Johnson MD - Lab. Director Specimen Performing Laboratory Cerebrospinal fluid [facility] [address] [place] [address] Narrative CSF TUBE # 3 ABOUT 1CC * West Nile virus antibody IgG, CSF (03/17/2017 11:45 AM) Component Value Ref Range West Nile IgG, CSF 0.07 <=1.29 IV Comment: INTERPRETIVE INFORMATION: West Nile Virus Ab IgG by ROSARIO, CSF 1.29 IV or less ....... Negative: No significant level of West Nile virus IgG antibody detected. 1.30 - 1.49 IV ........ Equivocal: Questionable presence of West Nile virus IgG antibody detected. Repeat testing in 10-14 days may be helpful. 1.50 IV or greater .... Positive: Presence of IgG antibody to West Nile virus detected, suggestive of current or past infection. This test is intended to be used as a semi-quantitative means of detecting West Nile virus-specific IgG in CSF samples in which there is a clinical suspicion of West Nile Virus infection. This test should not be used solely for quantitative purposes, nor should the results be used without correlation to clinical history or other data. Because other members of the Flaviviridae family, such as [place] encephalitis virus, show extensive cross-reactivity with West Nile virus, serologic testing specific for these species should be considered. The detection of antibodies to West Nile virus in cerebrospinal fluid may indicate central nervous system infection. However, consideration must be given to possible contamination by blood or transfer of serum antibodies across the blood-brain barrier. Test developed and characteristics determined by [facility]. See Compliance Statement B: [facility] Performed by [facility], [address] [place] [phone] www[facility], Murray Johnson MD - Lab. Director Specimen Performing Laboratory Cerebrospinal fluid [facility] [address] [place] [address] Narrative CSF TUBE # 3 ABOUT 1CC * Fungal antibodies by CF, CSF (03/17/2017 11:45 AM) Component Value Ref Range Coccidioides Ab CF, CSF <1:2 <1:2 Comment: INTERPRETIVE INFORMATION: Coccidioides Ab by Complement Fixation (CF) Any titer suggests past or current infection. However, greater than 30% of cases with chronic residual pulmonary disease have negative CF tests. Titers of less than 1:32 (even as low as 1:2) may indicate past infection or self-limited disease; titers greater than or equal to 1:32 may indicate disseminated infection. CF serology may be used to follow therapy. Antibody in CSF is considered diagnostic for coccidioidal meningitis, although 10% of patients with coccidioidal meningitis will not have antibody in CSF. Blastomyces Ab CF, CSF see note Comment: SOURCE: CSF BLASTOMYCES ANTIBODY, COMPLEMENT FIXATION, CSF BLASTOMYCES ANTIBODY <1:1 REFERENCE RANGE: <1:1 INTERPRETIVE CRITERIA: <1:1 Antibody Not Detected > or=1:1 Antibody Detected Diagnosis of infections of the central nervous system is accomplished by demonstrating the presence of intrathecally-produced specific antibody. Interpretation of results may be complicated by low antibody levels found in CSF, passive transfer of antibody from blood, and contamination via bloody taps. The interpretation of CSF results must consider CSF-serum antibody ratios to the infectious agent. This test was developed and its analytical performance characteristics have been determined by [facility]. It has not been cleared or approved by FDA. This assay has been validated pursuant to the CLIA regulations and is used for clinical purposes. This is a temporary referral of an in house test [facility] reference ranges do not apply. Test performed by: [facility] [address] [place] [address] Performed at: [facility] [address] [place] [address] Histoplasma Ab mycelial <1:2 <1:2 CF, CSF Histoplasma Ab yeast CF, <1:2 <1:2 CSF Aspergillus Ab CF, CSF <1:2 <1:2 Comment: INTERPRETIVE INFORMATION: Fungal Abs, CSF by Complement Fixation (CF) Test performed on cerebrospinal fluid sample. The clinical significance and criteria for the interpretation of these results have only been established for the Coccidioides Antibody test and not for remainder of this panel. Performed by [facility], [address] [place] [phone] www[facility], Murray Johnson MD - Lab. Director Specimen Performing Laboratory Cerebrospinal fluid [facility] [address] [place] [address] Narrative CSF TUBE # 3 ABOUT 1CC * Miscellaneous referral test (03/17/2017 11:45 AM) Component Value Ref Range [facility] test name ARBOVIRUS PANEL TO [facility] test result SEE NOTE Comment: Arbovirus Ab Panel IgG and IgM, CSF [place]) Encep Ab, IgG,CSF....<1:10 REFERENCE: <1:10 [place] Encep Ab, IgM,CSF....<1:10 REFERENCE: <1:10 [place] Enceph Ab, IgG, CSF....<1:10 REFERENCE: <1:10 [place] Enceph Ab, IgM, CSF....<1:10 REFERENCE: <1:10 [place] Enceph Ab, IgG, CSF....<1:10 REFERENCE: <1:10 [place] Enceph Ab, IgM, CSF....<1:10 REFERENCE: <1:10 [place] Enceph Ab, IgG, CSF....<1:10 REFERENCE: <1:10 [place] Enceph Ab, IgM, CSF....<1:10 REFERENCE: <1:10 Performing LAB [facility] [address] [facility] [address] Specimen Performing Laboratory [facility] [address] [place] [address] Narrative CSF TUBE # 2 ABOUT 3CC- CHEMISTRY TUBE # 3 ABOUT 1CC- SEND OUTS TUBE # 3 ABOUT 3CC- HEMATOLOGY CSF CELLCOUNT DONE ON TUBE #4 * Herpes simplex virus by PCR (03/17/2017 11:45 AM) Component Value Ref Range Herpes virus, PCR Not-Detected Not-Detected Herpes virus, PCR See link below for PDF Lab ReportComment: Specimen Performing Laboratory [facility] DEPARTMENT OF PATHOLOGY AND GENOMIC MEDICINE [address] [place] [address] Narrative CSF TUBE # 3 ABOUT 1CC * Oligoclonal banding, CSF (03/17/2017 11:45 AM) Component Value Ref Range Protein, CSF 64 (H) 15 - 45 mg/dL Prealbumin, CSF 2.0 (L) 3.5 - 11.1 % Albumin, CSF 64.8 40.8 - 66.2 % Alpha 1, CSF 4.1 2.3 - 6.4 % Alpha 2, CSF 9.7 6.1 - 12.6 % Beta, CSF 13.6 11.7 - 24.1 % Gamma, CSF 5.8 5.6 - 12.2 % CSF extended See CommentComment: No oligoclonal bands are seen. interpretation CSF interpretation See CommentComment: Babak Pedersen MD; Marito Suárez, PhD; Mady Grant, PhD; Sandy Kelley MD Specimen Performing Laboratory Cerebrospinal fluid [facility] DEPARTMENT OF PATHOLOGY AND GENOMIC MEDICINE [address] [place] [address] * Gram stain (03/17/2017 11:45 AM) Only the most recent of 2 results within the time period is included. Component Value Ref Range Gram stain isolate Occasional WBC's No organisms seen Comment: Specimen Information Specimen Source: CSF (Spinal Fluid) Specimen Site: CSF (spinal fluid) Specimen Performing Laboratory Cerebrospinal fluid - CSF [facility] DEPARTMENT OF PATHOLOGY AND GENOMIC MEDICINE (spinal fluid) [address] [place] [address] Narrative CSF TUBE # 3 ABOUT 1CC * CSF culture (03/17/2017 11:45 AM) Component Value Ref Range CSF culture isolate No growth after 3 days. Comment: Specimen Information Specimen Source: CSF (Spinal Fluid) Specimen Site: CSF (spinal fluid) Specimen Performing Laboratory Cerebrospinal fluid - CSF [facility] DEPARTMENT OF PATHOLOGY AND GENOMIC MEDICINE (spinal fluid) [address] [place] [address] Narrative CSF TUBE # 3 ABOUT 1CC * CSF cell count with differential (03/17/2017 11:45 AM) Component Value Ref Range Color, CSF Colorless Appearance, CSF Clear CSF supernatant Colorless RBC, CSF 1 0 - 1 /CMM WBC, CSF 1 0 - 4 /CMM Lymphocytes, CSF 60 30 - 90 % Monocytes, CSF 40 10 - 50 % Specimen Performing Laboratory Cerebrospinal fluid [facility] DEPARTMENT OF PATHOLOGY AND GENOMIC MEDICINE [address] [place] [address]. [place] [address] Narrative CSF TUBE # 2 ABOUT 3CC- CHEMISTRY TUBE # 3 ABOUT 1CC- SEND OUTS TUBE # 3 ABOUT 3CC- HEMATOLOGY * Protein, CSF (03/17/2017 11:45 AM) Component Value Ref Range Protein, CSF 81 (H) 12 - 60 mg/dL Specimen Performing Laboratory Cerebrospinal fluid [facility]MENT OF PATHOLOGY AND GENOMIC MEDICINE [address] [place] [address]. [place] [address] Narrative CSF TUBE # 2 ABOUT 3CC- CHEMISTRY TUBE # 3 ABOUT 1CC- SEND OUTS TUBE # 3 ABOUT 3CC- HEMATOLOGY * Glucose level, CSF (03/17/2017 11:45 AM) Component Value Ref Range Glucose, CSF 92 (H) 41 - 84 mg/dL Specimen Performing Laboratory Cerebrospinal fluid [facility]PARTMENT OF PATHOLOGY AND GENOMIC MEDICINE [address] [place] [address]. [place] [address] Narrative CSF TUBE # 2 ABOUT 3CC- CHEMISTRY TUBE # 3 ABOUT 1CC- SEND OUTS TUBE # 3 ABOUT 3CC- HEMATOLOGY * Partial thromboplastin time, activated (03/17/2017 8:02 AM) Only the most recent of 2 results within the time period is included. Component Value Ref Range PTT 36.9 (H) 23.0 - 36.0 sec Comment: PTT therapeutic range for unfractionated heparin is 61.0-112.0 seconds which corresponds to Anti-Xa 0.3-0.7 U/ml. Note: Change in Panic Value The PTT Panic Value is changing from 110 sec. to 100 sec. due to new instrumentation and reagents. Correlation studies have been performed to validate this result. Specimen Performing Laboratory Blood [facility] DEPARTMENT OF PATHOLOGY AND GENOMIC MEDICINE [address] [place] [address]. [place] [address] * Prothrombin time with INR (03/17/2017 8:02 AM) Only the most recent of 2 results within the time period is included. Component Value Ref Range Prothrombin time 15.3 (H) 12.0 - 15.0 sec INR 1.20 (H) 0.92 - 1.12 Comment: For patients on anticoagulant therapy, reference ranges below: Indication: INR Value Treatment of Venous Thrombosis, 2.0-3.0 pulmonary emboli, or prophylaxis of a venous thrombosis, or systemic emboli. High dose, high risk patients 3.0-4.5 with mechanical valves. NOTE: INR values over 3.0 are sometimes associated with gastrointestinal hemorrhage, especially values over 4.0. Specimen Performing Laboratory Blood [facility] DEPARTMENT OF PATHOLOGY AND GENOMIC MEDICINE [address] [place] [address] * Urinalysis screen and microscopy, with reflex to culture (03/16/2017 1:53 PM) Component Value Ref Range Specimen site Catheterized Color, UA Yellow Appearance, UA Slightly-Cloudy Specific gravity, UA 1.011 1.001 - 1.035 pH, UA 5.0 5.0 - 8.5 Protein, UA 3+ (A) Negative Glucose, UA Negative Negative Ketones, UA Trace (A) Negative Bilirubin, UA Negative Negative Blood, UA Small (A) Negative Nitrite, UA Negative Negative Urobilinogen, UA Negative <2.0 Leukocyte esterase, UA Large (A) Negative WBC, UA 40 (A) 0 - 1 /HPF RBC, UA 27 (H) 0 - 1 /HPF Bacteria, UA Trace None seen Yeast, UA Moderate (A) Yeast with pseudohyphae, None seen UA Hyaline casts, UA 34 /LPF Specimen Performing Laboratory Urine [facility] DEPARTMENT OF PATHOLOGY AND GENOMIC MEDICINE [address] [place] [address] * Urine culture (03/16/2017 1:51 PM) Component Value Ref Range Urine culture isolate Melba glabrata 10-4 cfu/ml The performance characteristics of this assay on this isolate were validated by the Microbiology Laboratory at [facility]. This source has not been approved by the U.S. Food and Drug Administration. The results are not intended to be used as the sole means for clinical diagnosis or patient management. The Microbiology Laboratory is authorized under the clinical Laboratory Improvement Amendments of 1988 (CLIA-88) to perform high complexity testing. (A) Comment: Specimen Information Specimen Source: Urine Specimen Site: See UA Specimen Performing Laboratory Urine [facility] DEPARTMENT OF PATHOLOGY AND GENOMIC MEDICINE [address] [place] [address] Organism Antibiotic Method Susceptibility Melba glabrata Micafungin BP 0.016 mcg/mL: Susceptible Melba glabrata Amphotericin B BP 1 mcg/mL Melba glabrata Posiconazole BP 1 mcg/mL Melba glabrata Itraconazole BP 0.5 mcg/mL Melba glabrata Fluconazole BP 16 mcg/mL: Susceptible * EEG (routine) (03/15/2017 10:34 PM) Narrative ROUTINE EEG REPORT Patient Name: Robbie Veliz Date of : 1930 Gender: male Date of Procedure: 03/15/2017 Indication AMS Background activity consists of occipital rhythm of 4/5 c/s poorly organized. Central activity 3-4 c/s. There is a slow and sharp wave focus noted in the left central parietal region, which appear to be intermittently active throughout the recording. No epileptic discharges were noted. Awake Recording: was performed, no abnormality detected Sleep Recording: was not performed Hyperventilation: was not performed Photic Stimulation: was performed, no abnormality detected Impression EEG not only shows generalized slowness of background activity compatible with diffuse encephalopathic process, but also demonstrates the presence of the intermittent slow and sharp wave activity arising from the left central parietal focus. This abnormality can be potentially epileptogenic. Clinical correlation required for full interpretation of these findings. ICD10 Code/Diagnosis: AMS * B natriuretic peptide (03/14/2017 6:40 AM) Only the most recent of 6 results within the time period is included. Component Value Ref Range BNP 239 (H) 0 - 100 pg/mL Specimen Performing Laboratory Blood [facility] OF [facility]OLOGY AND GENOMIC MEDICINE [address] [place] [address] [place] [address] * ECG ED Preliminary Interpretation - NOT AN ORDER (03/12/2017 8:17 AM) Narrative Matthias Parson Jr., MD 03/12/20178:17 AM ECG ED Preliminary Interpretation - Not an Order Performed by: MATTHIAS PARSON JR Authorized by: MATTHIAS PARSON JR ECG reviewed by ED Physician in the absence of a senior web architect: yes Interpretation: Interpretation: abnormal Rate: ECG rate:60 ECG rate assessment: normal Rhythm: Rhythm comment:Sinus arrhythmia Ectopy: Ectopy: none QRS: QRS axis:Normal Conduction: Conduction: normal ST segments: ST segments:Normal T waves: T waves: normal Comments: Wandering baseline. * Bedside glucose (03/11/2017 9:07 PM) Component Value Ref Range POC glucose 330 mg/dl Specimen Performing Laboratory Blood * Arterial blood gas (03/11/2017 5:34 PM) Component Value Ref Mason[employer] Teacher HANK [facility] Collection site LRA O2 therapy 2L pH, arterial 7.368 7.350 - 7.450 units pCO2, arterial 35.8 35.0 - 45.0 mmHg pO2, arterial 71.0 (L) 80.0 - 90.0 mmHg O2 saturation, arterial 94.3 (L) 95.0 - 100.0 % Base excess, arterial -4.7 mEq/L Bicarbonate 20.6 (L) 21.0 - 28.0 mEq/L O2 content 15.6 VOL% FiO2, inspired O2% 28.0 % Carboxyhemoglobin 0.7 0.0 - 1.4 % Comment: Reference Ranges: Carboxyhemoglobin Non smoker: 0.0 - 2.0% Smoker: 2.1 - 5.0% Heavy smoker: 5.1 - 9% Methemoglobin 0.8 0.0 - 1.0 % Hemoglobin, blood gas 11.9 (L) 14.0 - 18.0 g/dL pO2, A-a 88.0 mmHg Specimen Performing Laboratory Blood [facility] [address] [place] [address] [place] [address] * Troponin (03/11/2017 8:00 AM) Only the most recent of 4 results within the time period is included. Component Value Ref Range Troponin 0.02 0.00 - 0.60 ng/mL Comment: 0.11 - 1.49 ng/ml May indicate increased risk of acute coronary syndrome. >=1.5 ng/ml Consistent with acute myocardial infarction. The diagnostic value of a single normal or non-diagnostic result is questionable. Serial samples at 2-6 hour intervals are required to rule out acute myocardial injury. Specimen Performing Laboratory Plasma specimen [facility] [address] [place] [address] [place] [address] * NM Lung Ventilation Perfusion (03/11/2017 7:49 AM) Specimen Performing Laboratory [facility] [address] [place] [id number] Narrative PROCEDURE: NUCLEAR MEDICINENM LUNG VENTILATION PERFUSION CLINICAL HISTORY:hx of lung cancer with new sob hypoxia r o PE COMPARISON:Chest x-ray 03/11/2017 TECHNIQUE: The ventilation portion of the study was performed by inhalation of 16 of xenon- 133 gas with images taken in the posterior projection during the single breath, equilibrium, and washout phases. Following injection of 4.5 mCi of 99m-Tc MAA without infiltration. Images of the lungs were taken in the posterior, anterior, RPO, LPO, DYE, GUINEAN, right and left lateral projections. The images were acquired on a dual head GE camera system. FINDINGS: The ventilation study demonstrates uniform uptake of isotope with good washout and no air trapping.. The lung perfusion study demonstrates no peripheral wedge-shaped perfusion defects. The correlative chest radiograph done within the past 24 hours shows pulmonary vascular congestion.. IMPRESSION: Low probability for pulmonary embolus. [id number] . Procedure Note Interface, Radiology Results Incoming - 03/11/2017 8:02 AM CDT PROCEDURE: NUCLEAR MEDICINE NM LUNG VENTILATION PERFUSION CLINICAL HISTORY:hx of lung cancer with new sob hypoxia r o PE COMPARISON: Chest x-ray 03/11/2017 TECHNIQUE: The ventilation portion of the study was performed by inhalation of 16 of xenon- 133 gas with images taken in the posterior projection during the single breath, equilibrium, and washout phases. Following injection of 4.5 mCi of 99m-Tc MAA without infiltration. Images of the lungs were taken in the posterior, anterior, RPO, LPO, DYE, GUINEAN, right and left lateral projections. The images were acquired on a dual head GE camera system. FINDINGS: The ventilation study demonstrates uniform uptake of isotope with good washout and no air trapping.. The lung perfusion study demonstrates no peripheral wedge-shaped perfusion defects. The correlative chest radiograph done within the past 24 hours shows pulmonary vascular congestion.. IMPRESSION: Low probability for pulmonary embolus. [id number] . * PV Duplex Venous Lower Extremity (03/11/2017 6:33 AM) Specimen Performing Laboratory [facility] [address] [place] [address] Narrative EXAMINATION:US DUPLEX VENOUS LOWER EXTREMITY LEFT CLINICAL HISTORY:asymmetric LE swelling. COMPARISON:None. TECHNIQUE:Grayscale, color Doppler, and spectral waveform analysis of the left lower extremity deep venous systems was performed. The common femoral, superficial femoral, proximal deep femoral, greater saphenous, and popliteal veins were evaluated. The calf vessels were also evaluated. Spectral Doppler evaluation of the right common femoral vein was also performed. FINDINGS: The left common femoral, superficial femoral, and popliteal veins are compressible. They demonstrate normal venous waveforms and response to augmentation. There is flow in the visualized calf veins. There is no evidence of a popliteal or Goel's cyst. The right common femoral vein is also patent. IMPRESSION: No evidence of venous thrombosis of the visualized left lower extremity veins. [facility]-[id number] Procedure Note [facility], Radiology Results Incoming - 03/11/2017 6:38 AM CDT EXAMINATION: US DUPLEX VENOUS LOWER EXTREMITY LEFT CLINICAL HISTORY: asymmetric LE swelling. COMPARISON: None. TECHNIQUE: Grayscale, color Doppler, and spectral waveform analysis of the left lower extremity deep venous systems was performed. The common femoral, superficial femoral, proximal deep femoral, greater saphenous, and popliteal veins were evaluated. The calf vessels were also evaluated. Spectral Doppler evaluation of the right common femoral vein was also performed. FINDINGS: The left common femoral, superficial femoral, and popliteal veins are compressible. They demonstrate normal venous waveforms and response to augmentation. There is flow in the visualized calf veins. There is no evidence of a popliteal or Goel's cyst. The right common femoral vein is also patent. IMPRESSION: No evidence of venous thrombosis of the visualized left lower extremity veins. [facility]-[id number] * Venous blood gas (03/11/2017 4:42 AM) Component Value Ref [employer] JDZ[facility] Collection site L WRIST O2 therapy BYPAP Respiratory rate 21 bpm pH, venous 7.318 (L) 7.320 - 7.420 units pCO2, venous 51.6 (H) 45.0 - 51.0 mmHg pO2, venous 51.5 (H) 25.0 - 40.0 mmHg O2 saturation, venous 83.9 (H) 40.0 - 70.0 % Base excess, venous 0.3 -2.0 - 2.0 mEq/L O2 content 13.8 VOL% Carboxyhemoglobin 1.0 0.0 - 1.4 % Comment: Reference Ranges: Carboxyhemoglobin Non smoker: 0.0 - 2.0% Smoker: 2.1 - 5.0% Heavy smoker: 5.1 - 9% Methemoglobin 0.1 0.0 - 1.0 % Hemoglobin, blood gas 11.8 (L) 14.0 - 18.0 g/dL Specimen Performing Laboratory Blood [facility] [place] [address] * Creatine kinase, total (CPK) (03/11/2017 4:07 AM) Only the most recent of 3 results within the time period is included. Component Value Ref Range Creatine kinase 295 (H) 61 - 224 U/L Specimen Performing Laboratory Plasma specimen [facility] [address] [place] [address] * Comprehensive metabolic panel (03/11/2017 4:07 AM) Only the most recent of 2 results within the time period is included. Component Value Ref Range Sodium 141 135 - 150 mEq/L Potassium 4.3 3.5 - 5.0 mEq/L Chloride 108 100 - 109 mEq/L CO2 26 24 - 32 mmol/L Anion gap 7 7 - 15 mEq/L Comment: Starting from September , anion gap calculation no longer incorporates potassium. Please note the change. BUN 28 (H) 7 - 18 mg/dL Creatinine 1.9 (H) 0.8 - 1.5 mg/dL Glucose 182 (H) 65 - 100 mg/dL Calcium 8.8 8.6 - 10.7 mg/dL Protein 6.7 6.3 - 8.2 g/dL Albumin 3.3 3.2 - 5.0 g/dL A/G ratio 1.0 0.7 - 3.8 Alkaline phosphatase 72 30 - 120 U/L AST 27 15 - 37 U/L ALT 43 30 - 65 U/L Total bilirubin 0.4 0.2 - 1.2 mg/dL Specimen Performing Laboratory Plasma specimen [facility] [address] [place] [address] * Surgical pathology request (10/06/2016 9:40 AM) Specimen Performing Laboratory Other [facility] DEPARTMENT OF PATHOLOGY AND GENOMIC MEDICINE [address] [place] [id number] * Lipid panel (09/22/2016 4:49 AM) Component Value Ref Range Cholesterol 126 120 - 200 mg/dL Triglycerides 151 (H) 50 - 150 mg/dL HDL cholesterol 35 (L) 40 - 60 mg/dL LDL cholesterol 72Comment: Result obtained by direct LDL mg/dL measurement Specimen Performing Laboratory [facility] [address] [place] [address] * Myoglobin (09/21/2016 2:08 PM) Component Value Ref Range Myoglobin 187.0 (H) 16.3 - 96.5 ng/mL Specimen Performing Laboratory [facility] [address] [place] [address] * CK-MB (09/21/2016 2:08 PM) Only the most recent of 2 results within the time period is included. Component Value Ref Range CK-MB 6.1 (H) 0.5 - 3.2 ng/mL Specimen Performing Laboratory [facility] [address] [place] [address] after 08/15/2016 Insurance Payer Benefit Subscriber ID Type Phone Address Plan / Group [employer] TEX[employer] xxxxxxxxx [facility]
--- OUTSIDE RECORDS SUMMARY | 2017-08-16 17:01 | XMS REPORT ---
[facility] Address Unknown Phone Unavailable Care Team Providers Care Lump Receiver Name Role Phone PURA MENON Unavailable Unavailable SHAN EVANGELISTA Unavailable Unavailable Problems This patient has no known problems. Allergies, Adverse Reactions, Alerts This patient has no known allergies or adverse reactions. Medications This patient has no known medications. Results Test Description Test Time Test Comments Text Results Atomic Results Result Comments CHEST SINGLE (PORTABLE) [place] [address] Patient Name: ROBBIE MICHAEL MR #: [id number] : 1930 Age/Sex: 86/M Req #: [id number] Adm Physician: PURA MENON MD Ordered by: PURA MENON MD Report #: [id number] Location: MED/SURG Room/Bed: [facility] Procedure: [id number] DX/CHEST SINGLE (PORTABLE) Exam Date: Exam Time: REPORT STATUS: Signed EXAM: CHEST SINGLE (PORTABLE), AP 1 view DATE: 05/25/2017 5:13 AM Time stamp on exam: 0552 hours INDICATION: Shortness of breath COMPARISON: AP view of the chest May 22, 2017 FINDINGS: LINES/TUBES: None LUNGS: Bibasilar atelectasis. PLEURA: No effusions or pneumothorax. HEART AND MEDIASTINUM: Normal size and contour. BONES AND SOFT TISSUES: No acute findings. Generator projects over the right chest. Chronic right posterior rib deformities. IMPRESSION: No interval change. Signed by: Dr. Bill Martinez M.D. on 05/25/2017 6:44 AM Dictated By: BILL MARTINEZ MD 3 Transcribed By: SEVEN on 05/25/17643 COPY TO: PURA MENON MD CHEST SINGLE (PORTABLE) [place] [address] Patient Name: ROBBIE MICHAEL MR #: [id number] : 1930 Age/Sex: 86/M Req #: [id number] Adm Physician: Ordered by: ANAT GALVAN MD Report #: [id number] Location: ER Room/Bed: Procedure: [id number] DX/CHEST SINGLE (PORTABLE) Exam Date: 05/22/17 Exam Time: 1415 REPORT STATUS: Signed EXAM: XR CHEST 1 VIEW DATE: 05/22/2017 2:07 PM INDICATION: Altered mental status COMPARISON: None FINDINGS: Lines and Tubes: Battery pack device overlies right upper abdomen/lower chest. Heart and Mediastinum: Widening of the mediastinum with questionable prominence of the arch. Vascular calcifications present. Lungs and Pleura: Mild elevation right hemidiaphragm. Minimal basilar opacities. Chin partially secures apices. Bones and Soft Tissues: No acute findings. IMPRESSION: 1. Probable prominence aortic arch. 2. Basilar atelectasis, with developing pneumonia , particularly on the left, not excluded. Signed by: Dr. Raza Nguyen MD on 05/22/2017 3:01 PM Dictated By: RAZA NGUYEN MD 1501 Transcribed By: SEVEN on 1501 COPY TO: ANAT GALVAN MD CT BRAIN WO [place] [address] Patient Name: ROBBIE MICHAEL MR #: [id number] : 1930 Age/Sex: 86/M Req # : [id number] Adm Physician: Ordered by: ANAT GALVAN MD Report #: [id number] Location: ER Room/Bed: Procedure: [id number] CT/CT BRAIN WO Exam Date: 05/22/17 Exam Time: 1415 REPORT STATUS: Signed Examination: CT BRAIN WITHOUT CONTRAST History:Confusion. Altered mental status. Comparison studies:Head CT performed 2016 Technique: Axial images were obtained from the skull base to the vertex. Coronal and sagittal images reconstructed from the axial data. Intravenous contrast: None Findings: Scalp: No abnormalities. Bones: No fractures, blastic or lytic lesions. Brain sulci : Mild volume loss for age. Ventricles: No hydrocephalus. Extra-axial space: No acute hemorrhage. Bifrontal subdural hygromas, unchanged (15 mm thick on the right and 11 mm thick on the left). 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 There are mild patchy areas of hypoattenuation in the periventricular and subcortical white matter, nonspecific. No masses, hemorrhage, or acute cortical-based vascular insults. Sellar/suprasellar region: No abnormalities. Craniocervical junction: Patent foramen magnum. No Chiari one malformation. Incidental findings: Dependent fluid in the partially visualized right maxillary sinus. Near complete opacification of the right anterior ethmoid air cells. Atherosclerotic calcification of the cavernous and supraclinoid internal carotid and V4 segments of the bilateral vertebral arteries. Impression: 1. No new acute intracranial abnormalities when compared to prior head CT performed April 20, 2017. Specifically, no acute infarct in the right lentiform nucleus or intraparenchymal or extra-axial hemorrhage. 2. Unchanged chronic lacunar infarcts, as above. 3. Unchanged mild chronic microvascular ischemic change. 4. Unchanged mild generalized volume loss. 5. Unchanged bifrontal subdural hygromas. Signed by: Dr. Rylie Harmon M.D. on 05/22/2017 3:51 PM Dictated By: RYLIE JIMENEZ MD 50 COPY TO: ANAT GALVAN MD CT PELVIS W [place] [address] Patient Name: ROBBIE MICHAEL MR #: [id number] : 1930 Age/Sex: 86/M Req # : [id number] Adm Physician: SHAN EVANGELISTA MD Ordered by: JACKIE GUAJARDO MD Report #: [id number] Location: [facility] Room/Bed: [place] [address] _ Procedure: [id number] CT/CT PELVIS W Exam Date: 04/20/17 Exam Time: 2009 REPORT STATUS: Signed EXAM: CT PELVIS W DATE: 04/20/2017 6:35 PM INDICATION: S STAT CT CYSTOGRAM FOR HEMATURIA S [id number] S 2009 COMPARISON: None TECHNIQUE: CT cystogram of the pelvis was scanned using a multidetector helical scanner. CT of the pelvis was performed before and after inflation of contrast into the bladder. Coronal and sagittal reformations were obtained. Routine CT cystogram protocol performed. Instilled Contrast: 50 ml Isovue 370 FINDINGS: GI TRACT: Extensive diverticulosis. No bowel obstruction. VESSELS: Severe atherosclerotic calcifications with focal chronic infrarenal abdominal aortic dissection as seen on previous CT, though suboptimally assessed without IV contrast. PERITONEUM/RETROPERITONEUM: Mild bilateral retroperitoneal stranding again noted. LYMPH NODES: No lymphadenopathy REPRODUCTIVE ORGANS/BLADDER: A Shepherd is seen in the bladder which is thick-walled/ trabeculated; small diverticula is seen anteriorly. Mild bilateral ureterectasis with right inferior renal lesion better seen on CT abdomen. Prostate is borderline enlarged with possible TURP defect. SOFT TISSUES: Unremarkable BONES: Degenerative changes are seen about the spine. IMPRESSION: Findings which can be seen with cystitis, possibly chronic given borderline prostate size and presumed TURP defect. Correlate with urinalysis. Mild bilateral ureterectasis as seen on prior CT. Signed by: Dr Marcie Stanley MD on 04/20/2017 9:22 PM Dictated By: MARCIE STANLEY MD 21 Transcribed By: SEVEN on 04/20/172121 COPY TO: JACKIE GUAJARDO MD CT ABDOMEN/PELVIS WO [place] [address] Patient Name: ROBBIE MICHAEL MR #: [id number] : 1930 Age/Sex: 86/M Req #: [id number] Adm Physician: Ordered by: HOUSTON CARRILLO MD Report #: [id number] Location: ER Room/Bed: Procedure: [id number] CT/CT ABDOMEN/PELVIS WO Exam Date: 04/20/17 Exam Time: 0551 REPORT STATUS: Signed EXAM: CT ABDOMEN/ PELVIS WO DATE: 04/20/2017 5:07 AM INDICATION: Trauma, pain COMPARISON: None TECHNIQUE: The abdomen and pelvis were scanned using a multidetector helical scanner. Coronal and sagittal reformations were obtained. Routine protocol performed. IV Contrast none FINDINGS: Lack of IV contrast decreases sensitivity in evaluating abdominal and pelvic organs. LOWER THORAX: Right basilar scarring and volume loss with trace right pleural effusion and/or thickening. Extensive coronary artery and aortic atherosclerotic calcification. LIVER/BILIARY: No masses. No ductal dilatation. GALLBLADDER: Removed SPLEEN: Unremarkable PANCREAS: Unremarkable ADRENALS: No nodules KIDNEYS/BLADDER: There is an indeterminate 1.5 cm right inferior renal hyperdense lesion. Mild bilateral hydroureteronephrosis related to bladder distention. Bladder appears mildly thick-walled given distention. Bilateral perinephric and perivesicular stranding/edema. GI TRACT: No distention, wall thickening or evidence of obstruction. Extensive diverticulosis. VESSELS: Severe atherosclerotic calcifications throughout the vasculature. Likely focal chronic dissection of the infrarenal abdominal aorta, but not aneurysmal (2.4 cm). PERITONEUM/ RETROPERITONEUM: No free air or fluid LYMPH NODES: No lymphadenopathy REPRODUCTIVE ORGANS: Prostate is normal in size. SOFT TISSUES: Fat- containing left inguinal hernia. BONES: Multilevel degenerative changes. No acute bony abnormality seen. IMPRESSION: 1. Mild bilateral hydroureteronephrosis related to distended bladder with findings of possible cystitis. Correlate with urinalysis. 2. Indeterminate 1.4 cm right inferior renal lesion. Consider follow-up ultrasound or CT/MRI renal mass protocol for characterization. 3. No evidence of acute internal traumatic injury on suboptimal noncontrast evaluation. Signed by: Dr Marcie Stanley MD on 04/20/2017 6:57 AM Dictated By: MARCIE STANLEY MD 6 Transcribed By: SEVEN on 04/20/17656 COPY TO: HOUSTON CARRILLO MD HAND 3+ VIEWS RIGHT [place] [address] Patient Name: ROBBIE MICHAEL MR #: [id number] : 1930 Age/Sex: 86/M Req #: [id number] Adm Physician: Ordered by: HOUSTON CARRILLO MD Report #: [id number] Location: ER Room/Bed: Procedure: DX/HAND 3+ VIEWS RIGHT Exam Date: Exam Time: REPORT STATUS: Signed HAND 3+ VIEWS RIGHT Comparison: None Clinical history: S LACERATION BTW 4TH AND 5TH DIGIT S Y Findings: No radiopaque foreign body. No acute fracture or dislocation. Scattered PIP/DIP degenerative changes. Vascular calcifications and chondrocalcinosis of the TFCC. Impression: No acute bony abnormality a radiopaque foreign body. Signed by: Dr Marcie Stanley MD on 04/20/2017 6:47 AM Dictated By: MARCIE STANLEY MD Transcribed By: SEVEN on 04/20/1747 COPY TO: HOUSTON CARRILLO MD PELVIS AP 1-2 VIEWS [place] [address] Patient Name: ROBBIE MICHAEL MR #: [id number] : 1930 Age/Sex: 86/M Req #: [id number] Adm Physician: Ordered by: HOUSTON CARRILLO MD Report #: [id number] Location: ER Room/Bed: Procedure: [id number] DX/PELVIS AP 1-2 VIEWS Exam Date: Exam Time: REPORT STATUS: Signed PELVIS AP 1-2 VIEWS Comparison: None Clinical history: Pain Findings: Vascular calcifications. Mild bilateral hip degenerative changes. No acute fracture or dislocation seen. Impression: No acute bony abnormality Signed by: Dr Marcie Stanley MD on 04/20/2017 6:48 AM Dictated By: MARCIE STANLEY MD Transcribed By: SEVEN on 04/20/1748 COPY TO: HOUSTON CARRILLO MD CT MAXIO FAC/PARANAS WO [place] [address] Patient Name: ROBBIE MICHAEL MR #: [id number] : 1930 Age/Sex: 86/M Req #: [id number] Adm Physician: Ordered by: HOUSTON CARRILLO MD Report #: [id number] Location: ER Room/Bed: Procedure: [id number] CT/CT MAXIO FAC/PARANAS WO Exam Date: 04/20/17 Exam Time: 0500 REPORT STATUS: Signed History:Status post fall. Comparison studies: None Technique: Axial images were obtained through the maxillofacial region. Coronal and sagittal images reconstructed from the axial data. Intravenous contrast: None Findings: Soft tissues: Mild perinasal soft tissue edema/hematoma. Mild soft tissue prominence in the anterior aspect of the nasal septum. Bones: Acute displaced fracture of the nasal bones and perpendicular plate of the ethmoid/nasal septum. Orbits: Globes: Intact Extra or intraconal abnormalities: None. Paranasal sinuses: Mild mucosal thickening in bilateral anterior ethmoid and maxillary sinuses. IMPRESSION: 1. Mild perinasal soft tissue edema/hematoma. 2. Acute displaced fracture of the nasal bones and nasal septum. Signed by: Dr. Janeth Rodrigez M.D. on 04/20/2017 7:01 AM Dictated By: JANETH RODRIGEZ MD 0 Transcribed By: SEVEN on 04/20/17700 COPY TO: HOUSTON CARRILLO MD CHEST SINGLE (PORTABLE) [place] [address] Patient Name: ROBBIE MICHAEL MR #: [id number] : 1930 Age/Sex: 86/M Req #: [id number] Adm Physician: Ordered by: HOUSTON CARRILLO MD Report #: [id number] Location: ER Room/Bed: Procedure: [id number] DX/CHEST SINGLE (PORTABLE) Exam Date: Exam Time: REPORT STATUS: Signed CHEST SINGLE (PORTABLE), 04/20/2017 4:47 AM Technique: CHEST SINGLE (PORTABLE) Comparison: None available. Clinical history: Fall, pain Findings: See Impression Impression: Limited portable AP views are provided 1. Lines/tubes: Electronic device overlies the right chest wall. Partially imaged ACDF. 2. Heart size within normal limits. Prominent mediastinum which may be related to technique. 3. No consolidation or pneumothorax. 4. Mildly elevated right hemidiaphragm with small right effusion versus pleural thickening. Signed by: Dr Marcie Stanley MD on 04/20/2017 6:43 AM Dictated By: MARCIE STANLEY MD 2 Transcribed By: SEVEN on 04/20/17642 COPY TO: HOUSTON CARRILLO MD CT CERVICAL SPINE WO [facility] [address] [place] [address] Patient Name: ROBBIE MICHAEL MR #: [id number] : 1930 Age/Sex: 86/M Req #: [id number] Adm Physician: Ordered by: HOUSTON CARRILLO MD Report #: [id number] Location: ER Room/Bed: Procedure: [id number] CT/CT CERVICAL SPINE WO Exam Date: 04/20/17 Exam Time: 0500 REPORT STATUS: Signed History: Status post fall. Comparison studies: None Technique: Axial images were obtained through the cervical region.. Coronal and sagittal images reconstructed from the axial data.. Intravenous contrast: None Findings: Fractures: None. Soft tissue injuries: Moderate prominence of prevertebral soft tissues from level C3-C7 may represent prevertebral soft tissue edema. Atlantoaxial articulation: Intact. Alignment: Loss of normal cervical lordosis may be positional or due to muscle spasm. No scoliosis. 1.5 mm grade 1 anterolisthesis at C7-T1 is likely degenerative. Cervicomedullary junction: No abnormalities. The foramen magnum is patent. Soft tissues: Extensive vascular calcification in V4 segment of bilateral vertebral arteries, bilateral carotid bulb and common carotid arteries. Vertebrae: Expected postoperative changes from prior anterior cervical spine fusion at level C5-C6 with complete osseous bridging at this level. Metallic plate and screws are intact. Suboptimal evaluation at this level due to metallic streak artifacts. No fractures, infection or neoplasm. Degenerative changes: Moderate degenerative changes in the anterior atlantodental joint. C2-C3: Bilateral facet arthrosis without foraminal stenosis. C3-C4: Mild left foraminal stenosis due to facet arthrosis. C4-C5 : Moderate degenerative disc disease with decreased intervertebral disc space , endplate sclerosis and anterior vertebral osteophyte. Mild left foraminal stenosis due to facet and uncovertebral arthrosis. C5-C6: Moderate right and mild left foraminal stenosis due to facet and uncovertebral arthrosis. C6-C7 : Mild right foraminal stenosis due to uncovertebral arthrosis. C7-T1: Mild right foraminal stenosis due to facet and uncovertebral arthrosis.. IMPRESSION: 1. No acute cervical spine fracture. Loss of normal cervical lordosis is either positional or due to muscle spasm. Nonspecific moderate prominence of prevertebral soft tissues may represent edema. 2. Ligament , spinal cord and or vascular abnormalities cannot be excluded on the basis of this examination. 3. Cervical spondylosis as detailed above. Expected postoperative changes from prior anterior cervical spine fusion at level C5- C6. Signed by: Dr. Janeth Rodrigez M.D. on 04/20/2017 6:52 AM Dictated By: JANETH RODRIGEZ MD 1 Transcribed By: SEVEN on 04/20/17651 COPY TO: HOUSTON CARRILLO MD CT BRAIN WO [place] [address] Patient Name: ROBBIE MICHAEL MR #: [id number] : 1930 Age/Sex: 86/M Req # : [id number] Adm Physician: Ordered by: HOUSTON CARRILLO MD Report #: [id number] Location: ER Room/Bed: Procedure: [id number] CT/CT BRAIN WO Exam Date: 04/20/17 Exam Time: 0500 REPORT STATUS: Signed EXAMINATION: Head CT without contrast. HISTORY:Trauma, status post fall. COMPARISON:None. TECHNIQUE: Multidetector axial images were obtained from the foramen magnum to the vertex without contrast. The images were reconstructed using brain and bone algorithms. Thin section brain images were reformatted into coronal and sagittal planes. Intravenous contrast: None IMAGE QUALITY: Acceptable. FINDINGS: Skull/scalp: No abnormality. Parenchyma: Nonspecific bilateral frontoparietal confluent and patchy white matter hypodensity are likely related to small vessel ischemic changes. Focal hypodensity involving the left caudate head, anterior limb of left internal capsule and anterior aspect of left putamen with associated regional volume loss and exvacuodilatation of the left frontal horn of lateral ventricle represents chronic encephalomalacia related to old vascular insult. Focal hypodensity in right lentiform nucleus represents age indeterminate lacunar infarct. No acute hemorrhage, mass or acute major vascular territorial infarct. Arteries: Marked atherosclerotic calcification in bilateral carotid siphon and V4 segment of the vertebral arteries. Dural sinuses: No abnormal density suggestive of thrombosis. Ventricles: Exvacuodilatation of the frontal horn of left lateral ventricle. No hydrocephalus. Extra-axial spaces: No abnormal density. Brain volume: Advanced generalized cerebral volume loss. Craniocervical junction : No mass, Chiari malformation, or basilar invagination. Sella: No mass. Paranasal/mastoid sinuses: Mild mucosal thickening in bilateral anterior ethmoid sinuses. Incidental finding: Mild perinasal soft tissue edema/hematoma with acute mildly displaced nasal bone fracture. IMPRESSION: 1. No acute posttraumatic intracranial abnormality. 2. Age indeterminate lacunar infarct in right lentiform nucleus. Old vascular insult in left striato- capsular region. 3. Mild supratentorial white matter microvascular ischemic changes. 4. Advanced generalized cerebral volume loss. 5. Incidental perinasal soft tissue edema/hematoma with acute displaced nasal bone fracture. Signed by: Dr. Janeth Rodrigez M.D. on 6:57 AM Dictated By: JANETH RODRIGEZ MD 6 Transcribed By: SEVEN on 04/20/17656 COPY TO: HOUSTON CARRILLO MD US RENAL RETROPERITONEAL COMP [place] [address] Patient Name: ROBBIE MICHAEL MR #: [id number] : 1930 Age/Sex: 86/M [facility] #: [id number] [facility] Physician: SHAN EVANGELISTA MD Ordered by: SHAN EVANGELISTA MD Report #: [id number] Location: [facility] Room/Bed: [place] [address] Procedure: [id number] US/US RENAL RETROPERITONEAL COMP Exam Date: 04/20/17 Exam Time: 1123 REPORT STATUS: Signed PROCEDURE: US RETROPERITONEAL ( KIDNEY ). COMPARISON: Abdominal CT 04/20/2017. INDICATIONS: Right Renal Lesion TECHNIQUE: Hercules- scale and color sonographic images of the bilateral kidneys and bladder where obtained in transverse and longitudinal planes. FINDINGS: RIGHT KIDNEY: 11.7 x 6.3 x 5.6 cm, cortex 1.8 cm Cysts: Inferior pole 1.5 x 1.6 x 1.5 cm hypoechoic lesion with well-defined posterior back wall and posterior acoustic enhancement. No detectable vascularity. Solid masses: None Stones: None Hydronephrosis: Mild Echogenicity: Increased LEFT KIDNEY: 10.9 x 5.5 x 5.2 cm, cortex 1.5 cm Cysts: Interpolar 1 x 0.8 x 1.2 cm anechoic simple cyst. No detectable vascularity. Solid masses: None Stones: None Hydronephrosis: Mild Echogenicity: Increased Bladder: Decompressed with Shepherd catheter in place. Prostate: Not visualized CONCLUSION: 1. Hypoechoic lesion in the inferior right renal pole corresponds to the lesion on same day non-contrast CT and may represent a cyst with internal debris given its attenuation on CT. Given probable low GFR, recommend follow up ultrasound in 6 months. 2. Increased echogenicity of the kidneys compatible with medical renal disease. 3. Mild bilateral hydronephrosis. Dictated by: Ike Reilly M.D. on 04/20/2017 at 12:16 Electronically approved by: Ike Reilly M.D. on 04/20/2017 at 12:16 Dictated By: IKE REILLY MD 1216 Transcribed By: XANDER on 04/20/17 1216 COPY TO: SHAN EVANGELISTA MD
[2017-08-16] MEDS ORDERED: CEFTRIAXONE SOD 1 GM VIAL IV SCH (17:30)
[2017-08-16] MEDS ORDERED: AZITHROMYCIN 500MG/NS 250 ML 250 ML IV ONE (17:30)
[2017-08-16] MEDS ORDERED: ALBUTEROL SULF 0.083% NEB SOLN 3 ML NEB NEB STA (17:39)
[2017-08-16] MEDS ORDERED: IPRATROPIUM BROMIDE 0.02% 2.5 ML NEB NEB STA (17:39)
--- NOTE | 2017-08-16 18:00 | Diagnostic Imaging Report ---
PROCEDURE: A single AP view of the chest. COMPARISON: Chest x-ray 05/25/2017. INDICATIONS: SHORTNESS OF BREATH FINDINGS: Lines/tubes: Partially visualized right sided battery pack. Lungs: Central pulmonary venous congestion with bibasilar atelectasis. Pleura: Small bilateral pleural effusions. Heart and mediastinum: Mild cardiomegaly. Atherosclerotic calcifications in the aorta. Bones: No acute bony abnormality. Stable anterior cervical fusion plate. IMPRESSION: Central pulmonary venous congestion with bilateral pleural effusions, likely mild fluid overload. Bibasilar atelectasis. Dictated by: Perry Ford M.D. on 08/16/2017 at 17:59 Electronically approved by: Perry Ford M.D. on 08/16/2017 at 17:59
[2017-08-16 18:28] LABS: BASOPHILS % 0.4 % (0.0-1.0); EOSINOPHILS # (AUTO) 0.1 (0.0-0.4); EOSINOPHILS % 1.1 % (0.0-6.0); HEMATOCRIT 28.2 % (38.2-49.6); HEMOGLOBIN 9.1 g/dL (14.0-18.0); LYMPHOCYTES # (AUTO) 1.3 (1.0-3.2); LYMPHOCYTES % 14.7 % (18.0-39.1); MEAN CORPUSCULAR HEMOGLOBIN 27.4 pg (28-32); MEAN CORPUSCULAR HGB CONC 32.3 g/dL (31-35); MEAN CORPUSCULAR VOLUME 84.9 fL (81-99); MONOCYTES # (AUTO) 0.8 (0.2-0.8); MONOCYTES % 8.7 % (4.4-11.3); NEUTROPHILS # (AUTO) 6.8 (2.1-6.9); NEUTROPHILS % 74.7 % (38.7-80.0); PLATELET COUNT 212 x10e3/uL (140-360); RED BLOOD COUNT 3.32 x10e6/uL (4.3-5.7); RED CELL DISTRIBUTION WIDTH 14.6 % (11.7-14.4)
[2017-08-16 18:39] LABS: INR 1.16; PROTHROMBIN TIME 13.9 seconds (11.9-14.5)
[2017-08-16 18:48] LABS: ALBUMIN 3.3 g/dL (3.5-5.0); ALBUMIN/GLOBULIN RATIO 1.2 (0.8-2.0); ANION GAP 13.7 mmol/L (8-16); CALCIUM 8.9 mg/dL (8.4-10.2); CREATININE, SERUM 1.63 mg/dL (0.72-1.25); POTASSIUM 4.7 mmol/L (3.5-5.1)
[2017-08-16 18:54] LABS: CREATINE KINASE MB 9.1 ng/mL (0-5.0)
[2017-08-16 20:26] LABS: BILIRUBIN,URINE NEGATIVE (NEGATIVE); COLOR,URINE YELLOW (YELLOW); KETONES,URINE NEGATIVE (NEGATIVE); LEUKOCYTE ESTERASE ,URINE NEGATIVE (NEGATIVE); NITRITE,URINE NEGATIVE (NEGATIVE); PROTEIN,URINE DIPSTICK 3+ (NEGATIVE); URINE UROBILINOGEN 0.2 mg/dL (0.2 - 1)
[2017-08-16 20:27] LABS: CLARITY,URINE SL CLOUDY (CLEAR)
[2017-08-16] MEDS ORDERED: FUROSEMIDE INJ 10 MG/ML 4 ML VIAL IV ONE (20:30)
[2017-08-16 20:38] LABS: MUCUS,URINE MANY (RARE); RBC,URINE 0-5 /HPF (0-5); WBC,URINE (MAN) 0-5 /HPF (0-5)
[2017-08-16] MEDS ORDERED: SODIUM CHLORIDE FLUSH 10 ML SYR INJ PRN (20:45)
[2017-08-16] MEDS ORDERED: DEXTROSE 50% SYRINGE 50 ML IV PRN (20:45)
--- OUTSIDE RECORDS SUMMARY | 2017-08-16 21:16 | XMS REPORT | Clinical Summary ---
Author Author [facility] Organization [place] [facility] Address Unknown Phone Unavailable Care Team Providers Care Veneer Drier Tailer Name Role Phone Inocente Paulino MD PCP [...] MD Jason (Primary Dx); 04/19/2017 Hypoglycemia 03/11/2017 [facility] General Internal Medicine Matthias Parson COPD exacerbation - Encounter Isidro Sanders MD (Primary Dx) 03/28/2017 Shabbir Steel MD 10/11/2016 Office Visit Gastroenterology Daquan Mccurdy MD Tubular adenoma of colon (Primary Dx); Diverticulosis large intestine w/o perforation or abscess w/o bleeding; Internal hemorrhoids 10/06/2016 Hospital Gastroenterology Daquan Mccurdy MD Encounter 09/21/2016 [facility] General Internal Medicine Physician, Emergency, MD - [...] Esophageal cancer Neg Hx GERD Neg Hx KAI WHAKARURUHAU Cancer Neg Hx Hemochromatosis Neg Hx Inflammatory [...] 65 - 100 mg/dL Comment: Meter ID: [id number] Head Filter Press Tender: Sandy Hernandez Specimen Performing Laboratory [facility] DEPARTMENT OF PATHOLOGY AND GENOMIC MEDICINE [address] [place] [address] [place] [address] * Estimated GFR (04/19/2017 1:22 AM) Only [...] and Americans. Specimen Performing Laboratory Plasma specimen [facility] DEPARTMENT OF PATHOLOGY AND GENOMIC MEDICINE [address] [place] [address] * Basic metabolic panel (04/19/2017 1:22 AM) [...] 10.7 mg/dL Specimen Performing Laboratory Plasma specimen [facility] DEPARTMENT OF PATHOLOGY AND GENOMIC MEDICINE [address] [place] [address] * CBC with platelet and differential (04/18/2017 [...] - 1.0 % Specimen Performing Laboratory Blood [facility] DEPARTMENT OF PATHOLOGY AND GENOMIC MEDICINE [address] [place] [address] * CT Head Wo Contrast (04/18/2017 9:28 PM) Only the most recent of 3 results within the time period is included. Specimen Performing Laboratory [facility] [address] [place] [address] Narrative EXAMINATION: CT HEAD WO CONTRAST CLINICAL [...] detailed above with no acute intracranial abnormality. [id number] Procedure Note Interface, Radiology Results Incoming - [...] detailed above with no acute intracranial abnormality. [id number] * CT Cervical Spine Wo Contrast (03/28/2017 4:31 PM) Specimen Performing Laboratory [facility] [address] [place] [address] Narrative EXAMINATION:CT CERVICAL SPINE WO CONTRAST CLINICAL [...] IMPRESSION: No acute cervical spine bony abnormality. [id number] Procedure Note Interface, Radiology Results Incoming - [...] IMPRESSION: No acute cervical spine bony abnormality. [id number] * XR Abdomen 1 Vw (03/28/2017 3:20 PM) Specimen Performing Laboratory [facility] [address] [place] [address] Narrative PROCEDURE:XR ABDOMEN 1 VW CLINICAL HISTORY:ABDOMINAL [...] prior cholecystectomy. IMPRESSION: Nonspecific bowel gas pattern. [id number] . Procedure Note Interface, Radiology Results Incoming [...] prior cholecystectomy. IMPRESSION: Nonspecific bowel gas pattern. [id number] . * Phosphorus level (03/28/2017 5:30 AM) Only the most recent of 5 results within the time period is included. Component Value Ref Range Phosphorus 2.8 2.5 - 4.5 mg/dL Specimen Performing Laboratory Plasma specimen [facility] DEPARTMENT OF PATHOLOGY AND GENOMIC MEDICINE [address] [place] [address] * Magnesium level (03/28/2017 5:30 AM) Only the most recent of 6 results within the time period is included. Component Value Ref Range Magnesium 2.30 1.60 - 2.40 mg/dL Specimen Performing Laboratory Plasma specimen [facility] DEPARTMENT OF PATHOLOGY AND GENOMIC MEDICINE [address] [place] [address] * Salmonella/shigella culture (03/27/2017 4:08 PM) Component Value Ref Range Salmonella/shigella No Aeromonas isolated culture isolate Comment: Specimen Information Specimen Source: Stool Specimen Site: Nonpreserved Specimen Performing Laboratory [facility] AND [address] [address] * Gastrointestinal panel (03/27/2017 4:08 PM) Component [...] Site: Nonpreserved Specimen Performing Laboratory [facility] AND [address] [address] * ECG 12 lead (03/23/2017 12:30 PM) [...] has replaced Junctional rhythm- Specimen Performing Laboratory [facility] MUSE [address] [place] [address] * FL Modified Barium Swallow (03/23/2017 12:10 PM) Specimen [facility] [address] [place] [address] Narrative EXAMINATION:FL MODIFIED BARIUM SWALLOW CLINICAL HISTORY:Dysphagia [...] to Speech Pathology report for further details. [id number] Procedure Note Interface, Radiology Results Incoming - [...] to Speech Pathology report for further details. [id number] * Vancomycin level, random (03/22/2017 6:00 AM) Only the most recent of 2 results within the time period is included. Component Value Ref Range Vancomycin, random 9.4 ug/mL Comment: Therapeutic Ranges: Peak 30.0 - 40.0 ug/mL Trough 10.0 - 20.0 ug/mL Specimen Performing Laboratory Blood [facility] DEPARTMENT OF PATHOLOGY AND GENOMIC MEDICINE [place] [address] * Urea nitrogen, urine, random (03/21/2017 5:50 PM) Component Value Ref Range Urea nitrogen, urine, 1,122 mg/dL random Specimen Performing Laboratory Urine [facility] DEPARTMENT OF PATHOLOGY AND GENOMIC MEDICINE [address] [place] [address] * Sodium level, urine, random (03/21/2017 5:50 PM) Component Value Ref Range Sodium, urine, random 27 (A) mEQ/L Specimen Performing Laboratory Urine - Urine, clean [facility] DEPARTMENT OF PATHOLOGY AND GENOMIC MEDICINE [place] [address] * Protein, urine, random (03/21/2017 5:50 PM) Component Value Ref Range Protein, urine random 222 mg/dL Specimen Performing Laboratory Urine - Urine, clean [facility] DEPARTMENT OF PATHOLOGY AND GENOMIC MEDICINE catch [address] [place] [address] * Potassium, urine, random (03/21/2017 5:50 PM) Component Value Ref Range Potassium, urine, random 29 mEq/L Specimen Performing Laboratory Urine - Urine, clean [facility] DEPARTMENT OF PATHOLOGY AND GENOMIC MEDICINE catch [address] [place] [address] * Creatinine level, urine, random (03/21/2017 5:50 PM) Component Value Ref Range Creatinine, urine, random 140 mg/dL Specimen Performing Laboratory Urine - Urine, clean [facility] DEPARTMENT OF PATHOLOGY AND GENOMIC MEDICINE catch [address] [place] [address] * C difficile toxin (03/21/2017 4:44 PM) Component Value Ref Range Clostridium difficile No Clostridium difficle toxin present toxin Comment: Specimen Information Specimen Source: Stool Specimen Site: Nonpreserved Specimen Performing Laboratory Stool - Nonpreserved [facility] DEPARTMENT OF PATHOLOGY AND GENOMIC MEDICINE [address] [place] [address] * PICC INSERTION (03/21/2017 12:51 PM) Narrative Agustina Pinzon RN 03/21/2017 12:51 PM PICC insertion Date/Time: 03/21/2017 12:47 PM Performed by: AGUSTINA PINZON Authorized by: SHABBIR STEEL Consent: Consent obtained:Written Consent given by:Patient and spouse Risks discussed: arterial puncture, incorrect placement, nerve damage, bleeding, infection and pneumothorax Alternatives discussed:No treatment [place] protocol: Procedure explained and questions answered to [...] (cm):47 Total Catheter Length (cm):47 Catheter Lot Number:[id number] Catheter Expiration Date:09/17/2017 Procedure Details: Landmarks identified: [...] Placement (03/19/2017 12:53 PM) Specimen Performing Laboratory [facility] [address] [place] [address] Narrative Title:Nasogastric tube placement with steerable angiographic [...] left the radiology Department in good condition. [id number] Procedure Note Interface, Radiology Results Incoming - [...] left the radiology Department in good condition. [id number] * XR Chest 1 Vw Portable (03/18/2017 7:35 PM) Only the most recent of 5 results within the time period is included. Specimen Performing Laboratory [facility] [address] [place] [address] Narrative EXAMINATION:XR CHEST 1 VW PORTABLE CLINICAL HISTORY:Fever COMPARISON:Single view chest from 03/09/1717 IMPRESSION: No significant change in appearance of the chest when compared to previous exam. The lungs are clear. No focal consolidation or pleural effusion. No pneumothorax or midline shift. The mediastinal contours and cardiac silhouette are unchanged. Atherosclerotic disease. The bones are unremarkable. [id number] Procedure Note Interface, Radiology Results Incoming - [...] unchanged. Atherosclerotic disease. The bones are unremarkable. [id number] * Blood culture, aerobic & anaerobic (03/18/2017 5:39 PM) Only the most recent of 4 results within the time period is included. Component Value Ref Range Blood culture isolate No growth after 5 days of incubation. Comment: Specimen Information Specimen Source: Blood Specimen Site: Hand Right Specimen Performing Laboratory Blood [facility] DEPARTMENT OF PATHOLOGY AND GENOMIC MEDICINE [address] [place] [address] * IR Lumbar Puncture by Radiology (03/17/2017 12:01 PM) Specimen Performing Laboratory [facility] [address] [place] [address] Narrative Examination: Fluoroscopic guided lumbar puncture. CLINICAL [...] good condition. IMPRESSION: There were no complications. [id number] Procedure Note Interface, Radiology Results Incoming - [...] good condition. IMPRESSION: There were no complications. [id number] * Gram stain only (03/17/2017 11:45 AM) Component Value Ref Range Gram stain result No WBC's or organisms seen Comment: Specimen Information Specimen Source: CSF (Spinal Fluid) Specimen Site: Tube 3 Specimen Performing Laboratory Cerebrospinal fluid - [facility] DEPARTMENT OF PATHOLOGY AND GENOMIC MEDICINE Tube 3 [address] [place] [address] * West Nile virus by PCR, CSF (03/17/2017 11:45 AM) Component Value Ref Range West Nile virus PCR, CSF Not-Detected Not-Detected West Nile virus PCR, CSF See link below for PDF Lab ReportComment: Specimen Performing Laboratory Cerebrospinal fluid [facility] DEPARTMENT OF PATHOLOGY AND GENOMIC MEDICINE [address] [place] [address] Narrative CSF TUBE # 3 ABOUT 1CC [...] members of the Flaviviridae family, such as Anderson encephalitis virus, show extensive cross-reactivity with West Nile virus, serologic testing specific for these species should be considered. The detection of antibodies to West Nile virus in cerebrospinal fluid may indicate central nervous system infection. However, consideration must be given to possible contamination by blood or transfer of serum antibodies across the blood-brain barrier. Test developed and characteristics determined by [facility]. See Compliance Statement B: Futon/CS Performed by [facility], [address] [place] [phone] [email or web address].[employer], [place] Johnson MD - Lab. Director Specimen Performing Laboratory Cerebrospinal fluid [facility] [address] [place] [address] Narrative CSF TUBE # 3 ABOUT 1CC [...] members of the Flaviviridae family, such as Anderson encephalitis virus, show extensive cross-reactivity with West Nile virus, serologic testing specific for these species should be considered. The detection of antibodies to West Nile virus in cerebrospinal fluid may indicate central nervous system infection. However, consideration must be given to possible contamination by blood or transfer of serum antibodies across the blood-brain barrier. Test developed and characteristics determined by [facility]. See Compliance Statement B: Futon/CS Performed by [facility], [address] [place] [phone] [email or web address][employer], Murray Johnson MD - Lab. Director Specimen Performing Laboratory Cerebrospinal fluid [facility] [address] [place] [address] Narrative CSF TUBE # 3 ABOUT 1CC [...] analytical performance characteristics have been determined by [facility]. It has not been cleared or approved by FDA. This assay has been validated pursuant to the CLIA regulations and is used for clinical purposes. This is a temporary referral of an in house test [facility] reference ranges do not apply. Test performed by: [facility] [address] [place] [address] Performed at: [facility] [address] [place] [address] Histoplasma Ab mycelial <1:2 <1:2 CF, CSF [...] for remainder of this panel. Performed by [facility], [address] [place] [phone] www[employer], Murray Johnson MD - Lab. Director Specimen Performing Laboratory Cerebrospinal fluid [facility] [address] [place] [address] Narrative CSF TUBE # 3 ABOUT 1CC * Miscellaneous referral test (03/17/2017 11:45 AM) Component Value Ref Range [facility] test name ARBOVIRUS PANEL TO [facility] test result SEE NOTE Comment: Arbovirus Ab Panel IgG and IgM, CSF [place] Encep Ab, IgG,CSF....<1:10 REFERENCE: <1:10 [place] Encep Ab, IgM,CSF....<1:10 REFERENCE: <1:10 [place] Enceph Ab, IgG, CSF....<1:10 REFERENCE: <1:10 [place] Enceph Ab, IgM, CSF....<1:10 REFERENCE: <1:10 Anderson Enceph Ab, IgG, CSF....<1:10 REFERENCE: <1:10 [place] Enceph Ab, IgM, CSF....<1:10 REFERENCE: <1:10 [place] Enceph Ab, IgG, CSF....<1:10 REFERENCE: <1:10 [place] Enceph Ab, IgM, CSF....<1:10 REFERENCE: <1:10 Performing LAB [facility] [address] [facility] [address] [address] [facility] [address] [place] [address] Narrative CSF TUBE # 2 ABOUT 3CC- CHEMISTRY TUBE # 3 ABOUT 1CC- SEND OUTS TUBE # 3 ABOUT 3CC- HEMATOLOGY CSF CELLCOUNT DONE ON TUBE #4 * Herpes simplex virus by PCR (03/17/2017 11:45 AM) Component Value Ref Range Herpes virus, PCR Not-Detected Not-Detected Herpes virus, PCR See link below for PDF Lab ReportComment: Specimen Performing Laboratory [facility] DEPARTMENT OF PATHOLOGY AND GENOMIC MEDICINE [address] [place] [address] Narrative CSF TUBE # 3 ABOUT 1CC [...] Kelley MD Specimen Performing Laboratory Cerebrospinal fluid [facility] DEPARTMENT OF PATHOLOGY AND GENOMIC MEDICINE [address] [place] [address] * Gram stain (03/17/2017 11:45 AM) Only the most recent of 2 results within the time period is included. Component Value Ref Range Gram stain isolate Occasional WBC's No organisms seen Comment: Specimen Information Specimen Source: CSF (Spinal Fluid) Specimen Site: CSF (spinal fluid) Specimen Performing Laboratory Cerebrospinal fluid - CSF [facility] DEPARTMENT OF PATHOLOGY AND GENOMIC MEDICINE (spinal fluid) [address] [place] [address] Narrative CSF TUBE # 3 ABOUT 1CC * CSF culture (03/17/2017 11:45 AM) Component Value Ref Range CSF culture isolate No growth after 3 days. Comment: Specimen Information Specimen Source: CSF (Spinal Fluid) Specimen Site: CSF (spinal fluid) Specimen Performing Laboratory Cerebrospinal fluid - CSF [facility] DEPARTMENT OF PATHOLOGY AND GENOMIC MEDICINE (spinal fluid) [address] [place] [address] Narrative CSF TUBE # 3 ABOUT 1CC * CSF cell count with differential (03/17/2017 11:45 AM) Component Value Ref Range Color, CSF Colorless Appearance, CSF Clear CSF supernatant Colorless RBC, CSF 1 0 - 1 /CMM WBC, CSF 1 0 - 4 /CMM Lymphocytes, CSF 60 30 - 90 % Monocytes, CSF 40 10 - 50 % Specimen Performing Laboratory Cerebrospinal fluid [facility] DEPARTMENT OF PATHOLOGY AND GENOMIC MEDICINE [address] [place] [address]. [place] [address] Narrative CSF TUBE # 2 ABOUT 3CC- CHEMISTRY TUBE # 3 ABOUT 1CC- SEND OUTS TUBE # 3 ABOUT 3CC- HEMATOLOGY * Protein, CSF (03/17/2017 11:45 AM) Component Value Ref Range Protein, CSF 81 (H) 12 - 60 mg/dL Specimen Performing Laboratory Cerebrospinal fluid [facility] DEPARTMENT OF PATHOLOGY AND GENOMIC MEDICINE [address] [place] [address]. [place] [address] Narrative CSF TUBE # 2 ABOUT 3CC- CHEMISTRY TUBE # 3 ABOUT 1CC- SEND OUTS TUBE # 3 ABOUT 3CC- HEMATOLOGY * Glucose level, CSF (03/17/2017 11:45 AM) Component Value Ref Range Glucose, CSF 92 (H) 41 - 84 mg/dL Specimen Performing Laboratory Cerebrospinal fluid [facility] DEPARTMENT OF PATHOLOGY AND GENOMIC MEDICINE [address] [place] [address]. [place] [address] Narrative CSF TUBE # 2 ABOUT 3CC- [...] validate this result. Specimen Performing Laboratory Blood [facility] DEPARTMENT OF PATHOLOGY AND GENOMIC MEDICINE [address] [place] [address]. [place] [address] * Prothrombin time with INR (03/17/2017 8:02 [...] values over 4.0. Specimen Performing Laboratory Blood [facility] DEPARTMENT OF PATHOLOGY AND GENOMIC MEDICINE [address] [place] [address] * Urinalysis screen and microscopy, with reflex [...] UA 34 /LPF Specimen Performing Laboratory Urine [facility] DEPARTMENT OF PATHOLOGY AND GENOMIC MEDICINE [address] [place] [address] * Urine culture (03/16/2017 1:51 PM) Component Value Ref Range Urine culture isolate Melba glabrata 10-4 cfu/ml The performance characteristics of this assay on this isolate were validated by the Microbiology Laboratory at [facility]. This source has not been approved by [...] Site: See UA Specimen Performing Laboratory Urine [facility] DEPARTMENT OF PATHOLOGY AND GENOMIC MEDICINE [address] [place] [address] Organism Antibiotic Method Susceptibility Melba glabrata Micafungin [...] - 100 pg/mL Specimen Performing Laboratory Blood [facility] DEPARTMENT OF PATHOLOGY AND GENOMIC MEDICINE [address] [place] [address] [place] [address] * ECG ED Preliminary Interpretation - NOT AN ORDER (03/12/2017 8:17 AM) Narrative Matthias Parson Jr., MD 03/12/20178:17 AM ECG ED Preliminary Interpretation - Not an Order Performed by: MATTHIAS PARSON JR Authorized by: MATTHIAS PARSON JR ECG reviewed by ED Physician in the absence of a project director: yes Interpretation: Interpretation: abnormal Rate: ECG rate:60 [...] gas (03/11/2017 5:34 PM) Component Value Ref [employer] HANK MACK Collection site LRA O2 therapy [...] A-a 88.0 mmHg Specimen Performing Laboratory Blood [facility] DEPARTMENT OF PATHOLOGY AND GENOMIC MEDICINE [address] [place] [address] [place] [address] * Troponin (03/11/2017 8:00 AM) Only the [...] myocardial injury. Specimen Performing Laboratory Plasma specimen [facility] DEPARTMENT OF PATHOLOGY AND GENOMIC MEDICINE [address] [place] [address] [place] [address] * NM Lung Ventilation Perfusion (03/11/2017 7:49 AM) Specimen Performing Laboratory [facility] [address] [place] [address] Narrative PROCEDURE: NUCLEAR MEDICINENM LUNG VENTILATION PERFUSION [...] in the posterior, anterior, RPO, LPO, DYE, CYMRAES, right and left lateral projections. The images were acquired on a dual head GE camera system. FINDINGS: The ventilation study demonstrates uniform uptake of isotope with good washout and no air trapping.. The lung perfusion study demonstrates no peripheral wedge-shaped perfusion defects. The correlative chest radiograph done within the past 24 hours shows pulmonary vascular congestion.. IMPRESSION: Low probability for pulmonary embolus. [id number] . Procedure Note Interface, Radiology Results Incoming [...] in the posterior, anterior, RPO, LPO, DYE, CYMRAES, right and left lateral projections. The images were acquired on a dual head GE camera system. FINDINGS: The ventilation study demonstrates uniform uptake of isotope with good washout and no air trapping.. The lung perfusion study demonstrates no peripheral wedge-shaped perfusion defects. The correlative chest radiograph done within the past 24 hours shows pulmonary vascular congestion.. IMPRESSION: Low probability for pulmonary embolus. [id number] . * PV Duplex Venous Lower Extremity (03/11/2017 6:33 AM) Specimen Performing Laboratory [facility] [address] [place] [address] Narrative EXAMINATION:US DUPLEX VENOUS LOWER EXTREMITY LEFT [...] of the visualized left lower extremity veins. [id number] Procedure Note [employer], Radiology Results Incoming - 03/11/2017 6:38 AM [...] of the visualized left lower extremity veins. [id number] * Venous blood gas (03/11/2017 4:42 AM) Component Value Ref [employer] JDZD Collection site L WRIST O2 therapy [...] - 18.0 g/dL Specimen Performing Laboratory Blood [facility] DEPARTMENT OF PATHOLOGY AND GENOMIC MEDICINE [place] [address] * Creatine kinase, total (CPK) (03/11/2017 4:07 AM) Only the most recent of 3 results within the time period is included. Component Value Ref Range Creatine kinase 295 (H) 61 - 224 U/L Specimen Performing Laboratory Plasma specimen [facility] DEPARTMENT OF PATHOLOGY AND GENOMIC MEDICINE [address] [place] [address] * Comprehensive metabolic panel (03/11/2017 4:07 AM) [...] 1.2 mg/dL Specimen Performing Laboratory Plasma specimen [facility] DEPARTMENT OF PATHOLOGY AND GENOMIC MEDICINE [address] [place] [address] * Surgical pathology request (10/06/2016 9:40 AM) Specimen Performing Laboratory Other [facility] DEPARTMENT OF PATHOLOGY AND GENOMIC MEDICINE [address] [place] [address] * Lipid panel (09/22/2016 4:49 AM) Component Value Ref Range Cholesterol 126 120 - 200 mg/dL Triglycerides 151 (H) 50 - 150 mg/dL HDL cholesterol 35 (L) 40 - 60 mg/dL LDL cholesterol 72Comment: Result obtained by direct LDL mg/dL measurement Specimen Performing Laboratory [facility] DEPARTMENT OF PATHOLOGY AND GENOMIC MEDICINE [address] [place] [address] * Myoglobin (09/21/2016 2:08 PM) Component Value Ref Range Myoglobin 187.0 (H) 16.3 - 96.5 ng/mL Specimen Performing Laboratory [facility] DEPARTMENT OF PATHOLOGY AND GENOMIC MEDICINE [address] [place] [address] * CK-MB (09/21/2016 2:08 PM) Only the most recent of 2 results within the time period is included. Component Value Ref Range CK-MB 6.1 (H) 0.5 - 3.2 ng/mL Specimen Performing Laboratory [facility] DEPARTMENT OF PATHOLOGY AND GENOMIC MEDICINE [address] [place] [address] after 08/15/2016 Insurance Payer Benefit Subscriber ID Type Phone Address Plan / Group [employer] xxxxxxxxx [facility]
[2017-08-16] MEDS: INSULIN REGULAR, HUMAN 100 UNIT/1 ML 3ML VIAL SQ SCH (21:31)
[2017-08-16] MEDS: HYDRALAZINE HCL 20 MG/ML VIAL IV PRN (23:15)
[2017-08-17] VITALS (8 sets, daily range): BP systolic 129–203; BP diastolic 61–132
[2017-08-17] MEDS ORDERED: ACETAMINOPHEN325 M1 PO (02:06)
[2017-08-17 03:38] LABS: CREATINE KINASE MB 7.6 ng/mL (0-5.0)
[2017-08-17] MEDS: ALBUTEROL/IPRATROPIUM 3 ML NEB NEB SCH ×6 (07:00→21:00)
[2017-08-17] MEDS: INSULIN REGULAR, HUMAN 100 UNIT/1 ML 3ML VIAL SQ SCH ×4 (08:00→21:22)
[2017-08-17] MEDS ORDERED: INFLUENZA VIRUS VAC SPLIT INJ 0.5 ML SYR IM ONE (09:00)
[2017-08-17] MEDS: FUROSEMIDE INJ 10 MG/ML 4 ML VIAL IV SCH ×2 (09:02→17:07)
[2017-08-17] MEDS: HYDRALAZINE HCL 20 MG/ML VIAL IV PRN ×2 (09:03→15:05)
[2017-08-17 11:17] LABS: CREATINE KINASE MB 8.7 ng/mL (0-5.0)
[2017-08-17] MEDS: ASPIRIN 81 MG ENTERIC COATED PO SCH (12:03)
[2017-08-17] MEDS: AMLODIPINE BESYLATE 5 MG TAB PO SCH (12:04)
[2017-08-17] MEDS: PANTOPRAZOLE SOD 40 MG TABEC PO SCH (12:04)
[2017-08-17] MEDS ORDERED: BISCOLAX10 MG RC (13:07)
[2017-08-17] MEDS ORDERED: CLONIDINE1 EAC1 (13:07)
[2017-08-17] MEDS ORDERED: DOCUSATE SODIU100 MG PO (13:07)
[2017-08-17] MEDS ORDERED: AUGMENTIN 500-1 EACH PO (13:07)
[2017-08-17] MEDS ORDERED: ATIVAN0.5 MG PO (13:07)
[2017-08-17] MEDS ORDERED: LISINOPRIL10 MG PO (13:07)
[2017-08-17] MEDS ORDERED: TRAZODONE HCL50 MG PO (13:07)
[2017-08-17] MEDS ORDERED: CLONIDINE HCL 0.1 MG/24 HR 1 EA PATCH TOP SCH (13:15)
[2017-08-17] MEDS ORDERED: LORAZEPAM 0.5 MG TAB PO PRN (13:15)
[2017-08-17] MEDS ORDERED: BISACODYL 10 MG SUPP PR PRN (13:15)
[2017-08-17] MEDS: DORZOLAMIDE/TIMOLOL (OPTH SOL) 10 ML DRPETTE OP SCH ×2 (15:00→21:20)
[2017-08-17] MEDS: LIDOCAINE 5% PATCH TP SCH (15:04)
[2017-08-17] MEDS: BRIMONIDINE TARTRATE 0.15% OPTH DRPS 10ML BTL OP SCH ×2 (15:04→21:00)
[2017-08-17] MEDS: GABAPENTIN 300 MG CAP PO SCH ×2 (15:05→21:21)
[2017-08-17] MEDS ORDERED: FUROSEMIDE 40 MG TAB PO SCH (17:00)
[2017-08-17] MEDS ORDERED: FUROSEMIDE 20 MG TAB PO SCH (17:00)
[2017-08-17] MEDS: DOCUSATE SODIUM 100 MG CAP PO SCH (17:07)
[2017-08-17] MEDS: LISINOPRIL 20 MG TAB PO SCH (17:07)
[2017-08-17] MEDS: TIZANIDINE HCL 4 MG TAB PO SCH (17:08)
[2017-08-17] MEDS: BIMATOPROST(OPTH) 2.5 ML BOTTLE OP SCH (21:00)
[2017-08-17] MEDS: LATANOPROST(OPTH) 2.5 ML BTL OP SCH (21:00)
[2017-08-17] MEDS: SIMVASTATIN 40 MG TAB PO SCH (21:21)
[2017-08-17] MEDS: TAMSULOSIN HCL 0.4 MG CAP PO SCH (21:21)
[2017-08-17] MEDS: TRAZODONE HCL 50 MG TAB PO SCH (21:21)
[2017-08-18] VITALS (7 sets, daily range): BP systolic 146–167; BP diastolic 66–72
[2017-08-18] MEDS: ALBUTEROL/IPRATROPIUM 3 ML NEB NEB SCH ×6 (01:37→23:23)
[2017-08-18 07:19] LABS: BASOPHILS # (AUTO) 0.1 (0.0-0.1); BASOPHILS % 0.5 % (0.0-1.0); EOSINOPHILS # (AUTO) 0.3 (0.0-0.4); EOSINOPHILS % 3.1 % (0.0-6.0); HEMATOCRIT 27.4 % (38.2-49.6); HEMOGLOBIN 8.7 g/dL (14.0-18.0); LYMPHOCYTES # (AUTO) 1.4 (1.0-3.2); LYMPHOCYTES % 14.9 % (18.0-39.1); MEAN CORPUSCULAR HEMOGLOBIN 27.7 pg (28-32); MEAN CORPUSCULAR HGB CONC 31.8 g/dL (31-35); MEAN CORPUSCULAR VOLUME 87.3 fL (81-99); MONOCYTES % 10.5 % (4.4-11.3); NEUTROPHILS # (AUTO) 6.6 (2.1-6.9); PLATELET COUNT 220 x10e3/uL (140-360); RED BLOOD COUNT 3.14 x10e6/uL (4.3-5.7); RED CELL DISTRIBUTION WIDTH 14.9 % (11.7-14.4)
[2017-08-18] MEDS: INSULIN REGULAR, HUMAN 100 UNIT/1 ML 3ML VIAL SQ SCH ×4 (07:30→21:00)
[2017-08-18 07:43] LABS: CALCIUM 8.5 mg/dL (8.4-10.2); CREATININE, SERUM 1.75 mg/dL (0.72-1.25)
[2017-08-18] MEDS ORDERED: INSULIN DETEMIR 100 UNIT/ML PEN SQ SCH (09:00)
[2017-08-18] MEDS: TIZANIDINE HCL 4 MG TAB PO SCH ×2 (09:00→17:00)
[2017-08-18] MEDS ORDERED: POTASSIUM CHLORIDE 10 MEQ TABCR PO SCH (09:00)
[2017-08-18] MEDS: DORZOLAMIDE/TIMOLOL (OPTH SOL) 10 ML DRPETTE OP SCH ×3 (09:00→21:00)
[2017-08-18] MEDS: FUROSEMIDE INJ 10 MG/ML 4 ML VIAL IV SCH ×2 (09:53→17:29)
[2017-08-18] MEDS: BRIMONIDINE TARTRATE 0.15% OPTH DRPS 10ML BTL OP SCH ×3 (09:53→21:00)
[2017-08-18] MEDS: ASPIRIN 81 MG ENTERIC COATED PO SCH (09:54)
[2017-08-18] MEDS: GABAPENTIN 300 MG CAP PO SCH ×3 (09:54→22:25)
[2017-08-18] MEDS: INSULIN DETEMIR 100 UNIT/ML PEN SQ SCH (09:54)
[2017-08-18] MEDS: POTASSIUM CHLORIDE 20 MEQ TAB CR PO SCH (09:54)
[2017-08-18] MEDS: LISINOPRIL 20 MG TAB PO SCH ×2 (09:54→17:30)
[2017-08-18] MEDS: PANTOPRAZOLE SOD 40 MG TABEC PO SCH (09:54)
[2017-08-18] MEDS: DOCUSATE SODIUM 100 MG CAP PO SCH ×2 (09:54→17:29)
[2017-08-18] MEDS: AMLODIPINE BESYLATE 5 MG TAB PO SCH (09:54)
[2017-08-18] MEDS: LIDOCAINE 5% PATCH TP SCH (09:55)
--- NOTE | 2017-08-18 13:55 | Consultation ---
DATE OF CONSULTATION: August 17, 2017 CARDIOLOGY CONSULTATION ATTENDING PHYSICIAN: Dr. Alvaro Martin. Thank you so much for asking us to see Mr. Veliz again in consultation. He is an elderly 87-year-old man with severe COPD and type 2 adult onset diabetes who was sent from the [facility] because of development of shortness of breath. HISTORY OF PRESENT ILLNESS: The patient's family tells me that he was felt to be dehydrated according to laboratory studies a week or so ago and instructed to drink more fluids, but then he noted he started developing trace of edema in the legs and more shortness of breath. PAST MEDICAL HISTORY: Long and complex. He had a right lower lobectomy for lung cancer in 2009. He had a crush injury to his right arm with pain in 1997 and had a nerve stimulator implanted in his chest that goes down the arm. He was hospitalized in 2017 at [facility] for recurrent pneumonia and urinary tract infections. CURRENT MEDICATIONS: 1. Furosemide 40 mg b.i.d., which was started on hospital admission. 2. Amlodipine 5 mg daily. 3. Simvastatin 40 mg at bedtime. 4. Ceftriaxone. 5. Sliding scale insulin. 6. Aspirin 81 mg daily. 7. Potassium 20 mEq daily. 8. Hydralazine. PERSONAL AND SOCIAL HISTORY: He has not smoked in many years. REVIEW OF SYSTEMS CARDIAC: He has never known of any coronary disease or chest pains. PHYSICAL EXAMINATION GENERAL: Shows an elderly white man, sitting on the side of the bed, wearing nasal cannula oxygen. VITALS: Blood pressure 150/70 and pulse is 70 and irregular. HEENT: Otherwise unremarkable. NECK: No jugular venous distention. THORAX: There is a right thoracotomy scar and there is a device in the right chest wall. HEART: Sounds S1 and S2 are equal and regular. No distinct murmur. LUNGS: Diffuse rhonchi bilaterally. ABDOMEN: Protuberant. EXTREMITIES: Trace pretibial edema. LABORATORY DATA: Admitting laboratory study showed BUN of 42 and creatinine 1.63. Hemoglobin 9.1. Glucose 235. BNP 666. Troponins are negative x2. ASSESSMENT: 1. Congestive heart failure, diagnosed by elevated BNP and trace edema. 2. Severe chronic obstructive pulmonary disease. 3. Renal insufficiency. 4. Type 2 adult onset diabetes. 5. Mild dementia. 6. Arrhythmia as noted by telemetry strips with competing junctional rhythm and sinus bradycardia. 7. Anemia. 8. History of lung cancer. PLAN: Agree with diuresis. We will check echocardiogram and EKGs. We will monitor him on telemetry. I have discussed these findings with the family at the bedside. Thank you for asking to see him in consultation. Job#: [id number] VAS
[2017-08-18] MEDS: LATANOPROST(OPTH) 2.5 ML BTL OP SCH (21:00)
[2017-08-18] MEDS: BIMATOPROST(OPTH) 2.5 ML BOTTLE OP SCH (21:00)
[2017-08-18] MEDS: TAMSULOSIN HCL 0.4 MG CAP PO SCH (22:25)
[2017-08-18] MEDS: TRAZODONE HCL 50 MG TAB PO SCH (22:25)
[2017-08-18] MEDS: SIMVASTATIN 40 MG TAB PO SCH (22:25)
[2017-08-19] VITALS (9 sets, daily range): BP systolic 133–177; BP diastolic 61–74
[2017-08-19] MEDS: ALBUTEROL/IPRATROPIUM 3 ML NEB NEB SCH ×6 (03:15→23:26)
[2017-08-19 06:55] LABS: BASOPHILS % 0.4 % (0.0-1.0); EOSINOPHILS # (AUTO) 0.3 (0.0-0.4); EOSINOPHILS % 3.2 % (0.0-6.0); HEMATOCRIT 26.4 % (38.2-49.6); HEMOGLOBIN 8.2 g/dL (14.0-18.0); LYMPHOCYTES # (AUTO) 1.5 (1.0-3.2); LYMPHOCYTES % 17.4 % (18.0-39.1); MEAN CORPUSCULAR HEMOGLOBIN 27.6 pg (28-32); MEAN CORPUSCULAR HGB CONC 31.1 g/dL (31-35); MEAN CORPUSCULAR VOLUME 88.9 fL (81-99); MONOCYTES # (AUTO) 0.8 (0.2-0.8); MONOCYTES % 9.3 % (4.4-11.3); NEUTROPHILS # (AUTO) 5.9 (2.1-6.9); NEUTROPHILS % 69.1 % (38.7-80.0); PLATELET COUNT 199 x10e3/uL (140-360); RED BLOOD COUNT 2.97 x10e6/uL (4.3-5.7); RED CELL DISTRIBUTION WIDTH 14.8 % (11.7-14.4)
[2017-08-19 07:23] LABS: ANION GAP 14.4 mmol/L (8-16); CALCIUM 8.7 mg/dL (8.4-10.2); CREATININE, SERUM 2.46 mg/dL (0.72-1.25); POTASSIUM 5.4 mmol/L (3.5-5.1)
[2017-08-19] MEDS: GABAPENTIN 300 MG CAP PO SCH ×3 (08:59→20:44)
[2017-08-19] MEDS: POTASSIUM CHLORIDE 20 MEQ TAB CR PO SCH (08:59)
[2017-08-19] MEDS: DOCUSATE SODIUM 100 MG CAP PO SCH ×2 (08:59→17:00)
[2017-08-19] MEDS: DORZOLAMIDE/TIMOLOL (OPTH SOL) 10 ML DRPETTE OP SCH ×3 (08:59→21:05)
[2017-08-19] MEDS: BRIMONIDINE TARTRATE 0.15% OPTH DRPS 10ML BTL OP SCH ×3 (08:59→21:04)
[2017-08-19] MEDS: ASPIRIN 81 MG ENTERIC COATED PO SCH (08:59)
[2017-08-19] MEDS: FUROSEMIDE INJ 10 MG/ML 4 ML VIAL IV SCH ×2 (08:59→17:00)
[2017-08-19] MEDS: LISINOPRIL 20 MG TAB PO SCH ×2 (08:59→17:00)
[2017-08-19] MEDS: PANTOPRAZOLE SOD 40 MG TABEC PO SCH (08:59)
[2017-08-19] MEDS: LIDOCAINE 5% PATCH TP SCH (09:00)
[2017-08-19] MEDS: INSULIN DETEMIR 100 UNIT/ML PEN SQ SCH (09:07)
[2017-08-19] MEDS: INSULIN REGULAR, HUMAN 100 UNIT/1 ML 3ML VIAL SQ SCH ×4 (09:08→20:47)
[2017-08-19] MEDS: TIZANIDINE HCL 4 MG TAB PO SCH ×2 (09:09→17:00)
[2017-08-19 09:31] LABS: THYROID STIMULATING HORMONE 2.999 uIU/mL (0.350-4.940)
--- NOTE | 2017-08-19 11:44 | Diagnostic Imaging Report ---
PROCEDURE:US RETROPERITONEAL ( KIDNEY ). COMPARISON:Patients [facility], CT, CT ABDOMEN/PELVIS WO, 04/20/2017, 5:51. Patients [facility], US, US RETROPERITONEAL ( KIDNEY )., 04/20/2017, 11:23. INDICATIONS:CLARENCE TECHNIQUE: Hercules-scale and color sonographic images of the bilateral kidneys and bladder where obtained in transverse and longitudinal planes. FINDINGS: RIGHT KIDNEY: 11.0 cm, cortex 1.1 cm Cysts: Stable 1.6 x 1.3 x 1.2 cm cystic, anechoic, mostly exophytic simple cyst in the inferior aspect. Solid masses: None. A 2.1 x 0.7 x 0.7 cm elongated hyperechoic area in the medial mid right aspect corresponds to crescentic perirenal fat noted on prior CT dated 04/20/2017 Stones: None Hydronephrosis: None Echogenicity: Increased There is trace free fluid surrounding the right kidney, similar to prior CT LEFT KIDNEY: 9.7 cm, cortex 1.2 Cysts: stable 1.0 x 0.7 x 0.8 cm cystic, anechoic, partially exophytic lesion in the superior pole cm Solid masses: None. Stones: None Hydronephrosis: None Echogenicity: Increased Bladder: Decompressed, with Shepherd catheter in place. Incidental note is made of a left pleural effusion. CONCLUSION: 1. Decreased size of the left kidney compared to the right. Increased bilateral renal cortical echogenicity, consistent with medical renal disease. No hydronephrosis, stones or obstruction. 2. Trace free fluid surrounding the right kidney, similar to prior CT. 3. Stable bilateral simple cysts. 4. Left pleural effusion. Steve Santos M.D. Dictated by: Steve Santos M.D. on 08/19/2017 at 11:44 Electronically approved by: Steve Santos M.D. on 08/19/2017 at 11:44
[2017-08-19] MEDS ORDERED: SOD POLYSTYRENE SULFONATE SUSP 15 GM/60 ML BTL PO STA (13:08)
[2017-08-19] MEDS ORDERED: LACTULOSE SYRUP 20 GM/30 ML UDC PO STA (13:08)
[2017-08-19] MEDS: SODIUM CHLORIDE 0.9% 1000ML 1,000 ML IV SCH (18:56)
--- NOTE | 2017-08-19 19:11 | Consultation ---
DATE OF CONSULTATION: August 19, 2017 HISTORY OF PRESENT ILLNESS: This is an 87-year-old white gentleman who is known to our nephrology service. He had seen in the office for chronic kidney disease. Has multiple medical issues including history of COPD. Had lung cancer, status post right lower lobectomy, history of hypertension, history of hyperlipidemia, congestive heart failure, possibly dementia, type 2 diabetes, anemia and arrhythmia. Currently laying supine in no apparent distress. Renal consult for management of kidney failure. Labs show white count 8.49. Hemoglobin 8.2. Platelets 199,000. Potassium 5.4. Bicarbonate 23. BUN 54. Creatinine 2.46. ALLERGIES: NO APPARENT DRUG ALLERGIES. Workup includes kidney ultrasound which I ordered today, shows right kidney 11 cm. No solid mass was noted but a 2.1 cm elongated hyperechoic area in the medial mid right aspect corresponding to crescentic perirenal fat noted on CT. Left kidney 9.7 cm. Bilateral echogenic kidneys. Stable bilateral simple cyst, left-sided pleural effusion. Chest x-ray, please see official report, shows central pulmonary vascular congestion and bilateral pleural effusions. SOCIAL HISTORY: Patient used to smoke in the past, has quit. Denies smoking or alcohol use. CURRENT MEDICATIONS: Include Prinivil 20 mg p.o. b.i.d. and lactulose p.r.n., hydralazine p.r.n. He is on furosemide 40 mg IV twice a day, gabapentin 300 mg p.o. b.i.d. He is also on albuterol and Atrovent nebulizers. Aspirin 81 mg daily. He is on a clonidine, Catapres TTS #1 topically q. 7 days. He is on gabapentin 300 mg p.o. t.i.d. Insulin. Lactulose p.r.n.. He is on simvastatin 40 mg at bedtime. Flomax 0.4 mg at bedtime. Zanaflex 4 mg p.o. b.i.d. and trazodone 50 mg p.o. nightly. FAMILY HISTORY: Significant for hypertension. Urine and blood cultures so far negative. PHYSICAL EXAMINATION: GENERAL: Awake, alert and lying supine. No apparent distress. VITALS: Blood pressure 143/66, pulse rate 44, afebrile, respiratory rate 20. Oxygen saturation 100% on 2 liters nasal cannula. HEAD AND NECK: Cornea clear. Arcus senilis noted. Oral mucosa dry. Neck veins flat. LUNGS: Somewhat decreased air entry lower zones, mostly, but occasional rhonchi. No rales noted. HEART: S1 and S2 audible. ABDOMEN: Otherwise soft and nontender. LOWER EXTREMITY EXAMINATION: No edema. IMPRESSION: 1. [id number] kidney failure. 2. Underlying nephrosclerosis. 3. Chronic kidney disease stage 3. 4. Hyperkalemia. PLAN: Patient is on regular diet which I am going to change to a strict 2 gram potassium diet. No orange juice. I will discontinue lisinopril and diuretics. No clear cut evidence of congestive heart failure at this point in time. I will obtain clinic records from our [place] facility. Please see workup. Job#: [id number]
[2017-08-19] MEDS: TAMSULOSIN HCL 0.4 MG CAP PO SCH (20:44)
[2017-08-19] MEDS: TRAZODONE HCL 50 MG TAB PO SCH (20:44)
[2017-08-19] MEDS: SIMVASTATIN 40 MG TAB PO SCH (20:46)
[2017-08-19] MEDS: HYDRALAZINE HCL 20 MG/ML VIAL IV PRN (20:49)
[2017-08-19] MEDS: BIMATOPROST(OPTH) 2.5 ML BOTTLE OP SCH (21:05)
[2017-08-19] MEDS: LATANOPROST(OPTH) 2.5 ML BTL OP SCH (21:05)
[2017-08-20] VITALS (7 sets, daily range): BP systolic 158–179; BP diastolic 70–83
[2017-08-20] MEDS: ALBUTEROL/IPRATROPIUM 3 ML NEB NEB SCH ×6 (01:52→22:00)
[2017-08-20] MEDS: SODIUM CHLORIDE 0.9% 1000ML 1,000 ML IV SCH (04:00)
[2017-08-20] MEDS: HYDRALAZINE HCL 20 MG/ML VIAL IV PRN (08:00)
[2017-08-20 08:09] LABS: ALBUMIN 3.2 g/dL (3.5-5.0); ALBUMIN/GLOBULIN RATIO 1.1 (0.8-2.0); ANION GAP 15.4 mmol/L (8-16); CALCIUM 8.6 mg/dL (8.4-10.2); CREATININE, SERUM 2.16 mg/dL (0.72-1.25); POTASSIUM 4.4 mmol/L (3.5-5.1)
[2017-08-20] MEDS: DORZOLAMIDE/TIMOLOL (OPTH SOL) 10 ML DRPETTE OP SCH ×3 (08:10→20:58)
[2017-08-20] MEDS: BRIMONIDINE TARTRATE 0.15% OPTH DRPS 10ML BTL OP SCH ×3 (08:10→20:58)
[2017-08-20] MEDS: TIZANIDINE HCL 4 MG TAB PO SCH ×2 (08:10→16:55)
[2017-08-20] MEDS: LIDOCAINE 5% PATCH TP SCH (08:10)
[2017-08-20] MEDS: ASPIRIN 81 MG ENTERIC COATED PO SCH (08:10)
[2017-08-20] MEDS: DOCUSATE SODIUM 100 MG CAP PO SCH ×2 (08:10→16:55)
[2017-08-20] MEDS: GABAPENTIN 300 MG CAP PO SCH ×3 (08:10→21:10)
[2017-08-20] MEDS: PANTOPRAZOLE SOD 40 MG TABEC PO SCH (08:10)
[2017-08-20] MEDS: INSULIN REGULAR, HUMAN 100 UNIT/1 ML 3ML VIAL SQ SCH ×4 (09:56→20:39)
[2017-08-20] MEDS: INSULIN DETEMIR 100 UNIT/ML PEN SQ SCH (09:57)
--- NOTE | 2017-08-20 11:49 | Diagnostic Imaging Report ---
EXAMINATION: CHEST SINGLE (PORTABLE) INDICATION: \S\CHF \[id number] \S\1105 \S\Y COMPARISON: Chest radiograph from 08/16/2017 FINDINGS: AP view TUBES and LINES: Generator projecting over the right lower chest, unchanged. LUNGS: Lungs are well inflated. Bibasilar atelectasis. Central pulmonary vascular congestion. PLEURA: No pleural effusion or pneumothorax. HEART AND MEDIASTINUM: Prominent cardiac silhouette.. BONES AND SOFT TISSUES: Cervical spine fusion. Unchanged right-sided rib fractures. Soft tissues are unremarkable. UPPER ABDOMEN: No free air under the diaphragm. IMPRESSION: Interval worsening bilateral central pulmonary vascular congestion. Signed by: Dr. Marika Dumont M.D. on 08/20/2017 11:45 AM
[2017-08-20] MEDS ORDERED: EPOETIN ALFA 10000 UNIT/ML VIAL SC NR (16:00)
[2017-08-20] MEDS: FERROUS SULFATE 325 MG TAB PO SCH (16:46)
[2017-08-20] MEDS: IRON SUCROSE 100 MG in SODIUM CHLORIDE 0.9% 100 ML 100 ML IV SCH (16:46)
[2017-08-20] MEDS: BIMATOPROST(OPTH) 2.5 ML BOTTLE OP SCH (20:59)
[2017-08-20] MEDS: LATANOPROST(OPTH) 2.5 ML BTL OP SCH (21:10)
[2017-08-20] MEDS: TAMSULOSIN HCL 0.4 MG CAP PO SCH (21:10)
[2017-08-20] MEDS: TRAZODONE HCL 50 MG TAB PO SCH (21:10)
[2017-08-20] MEDS: SIMVASTATIN 40 MG TAB PO SCH (21:10)
[2017-08-21] VITALS (9 sets, daily range): BP systolic 125–184; BP diastolic 61–112
[2017-08-21] MEDS: ALBUTEROL/IPRATROPIUM 3 ML NEB NEB SCH ×6 (03:00→23:05)
[2017-08-21 07:23] LABS: BASOPHILS % 0.4 % (0.0-1.0); EOSINOPHILS # (AUTO) 0.2 (0.0-0.4); EOSINOPHILS % 3.1 % (0.0-6.0); HEMOGLOBIN 8.8 g/dL (14.0-18.0); LYMPHOCYTES # (AUTO) 1.5 (1.0-3.2); LYMPHOCYTES % 18.6 % (18.0-39.1); MEAN CORPUSCULAR HEMOGLOBIN 27.8 pg (28-32); MEAN CORPUSCULAR HGB CONC 31.4 g/dL (31-35); MEAN CORPUSCULAR VOLUME 88.3 fL (81-99); MONOCYTES # (AUTO) 0.7 (0.2-0.8); MONOCYTES % 8.8 % (4.4-11.3); NEUTROPHILS # (AUTO) 5.3 (2.1-6.9); NEUTROPHILS % 67.6 % (38.7-80.0); PLATELET COUNT 231 x10e3/uL (140-360); RED BLOOD COUNT 3.17 x10e6/uL (4.3-5.7); RED CELL DISTRIBUTION WIDTH 14.3 % (11.7-14.4)
[2017-08-21] MEDS: INSULIN REGULAR, HUMAN 100 UNIT/1 ML 3ML VIAL SQ SCH ×4 (07:30→21:19)
[2017-08-21 07:45] LABS: ALBUMIN 2.8 g/dL (3.5-5.0); ALBUMIN/GLOBULIN RATIO 1.1 (0.8-2.0); CALCIUM 8.3 mg/dL (8.4-10.2); CREATININE, SERUM 1.68 mg/dL (0.72-1.25)
[2017-08-21] MEDS: DOCUSATE SODIUM 100 MG CAP PO SCH ×2 (08:21→16:55)
[2017-08-21] MEDS: FERROUS SULFATE 325 MG TAB PO SCH ×2 (08:21→16:45)
[2017-08-21] MEDS: DORZOLAMIDE/TIMOLOL (OPTH SOL) 10 ML DRPETTE OP SCH ×3 (08:21→21:21)
[2017-08-21] MEDS: BRIMONIDINE TARTRATE 0.15% OPTH DRPS 10ML BTL OP SCH ×3 (08:21→21:20)
[2017-08-21] MEDS: ASPIRIN 81 MG ENTERIC COATED PO SCH (08:21)
[2017-08-21] MEDS: INSULIN DETEMIR 100 UNIT/ML PEN SQ SCH (08:22)
[2017-08-21] MEDS: TIZANIDINE HCL 4 MG TAB PO SCH ×2 (08:22→16:55)
[2017-08-21] MEDS: GABAPENTIN 300 MG CAP PO SCH ×3 (08:22→21:21)
[2017-08-21] MEDS: LIDOCAINE 5% PATCH TP SCH (08:22)
[2017-08-21] MEDS: PANTOPRAZOLE SOD 40 MG TABEC PO SCH (08:22)
[2017-08-21] MEDS: HYDRALAZINE HCL 20 MG/ML VIAL IV PRN ×2 (08:40→16:45)
[2017-08-21] MEDS ORDERED: FUROSEMIDE INJ 10 MG/ML 4 ML VIAL IV NR (11:15)
[2017-08-21] MEDS: IRON SUCROSE 100 MG in SODIUM CHLORIDE 0.9% 100 ML 100 ML IV SCH ×3 (15:45→21:20)
[2017-08-21] MEDS: AZELASTINE HCL 137 MCG NASAL SPRAY NS SCH ×2 (16:44→16:56)
[2017-08-21] MEDS: TAMSULOSIN HCL 0.4 MG CAP PO SCH (21:21)
[2017-08-21] MEDS: BIMATOPROST(OPTH) 2.5 ML BOTTLE OP SCH (21:21)
[2017-08-21] MEDS: LATANOPROST(OPTH) 2.5 ML BTL OP SCH (21:21)
[2017-08-21] MEDS: TRAZODONE HCL 50 MG TAB PO SCH (21:21)
[2017-08-21] MEDS: SIMVASTATIN 40 MG TAB PO SCH (21:21)
[2017-08-22 00:20] VITALS: BP 124/81
[2017-08-22 01:13] VITALS: BP 124/81
[2017-08-22] MEDS: ALBUTEROL/IPRATROPIUM 3 ML NEB NEB SCH ×3 (02:49→11:00)
[2017-08-22 04:50] VITALS: BP 183/77
[2017-08-22 07:12] LABS: BASOPHILS % 0.5 % (0.0-1.0); EOSINOPHILS # (AUTO) 0.3 (0.0-0.4); EOSINOPHILS % 3.2 % (0.0-6.0); HEMATOCRIT 26.9 % (38.2-49.6); HEMOGLOBIN 8.5 g/dL (14.0-18.0); LYMPHOCYTES # (AUTO) 1.7 (1.0-3.2); LYMPHOCYTES % 19.1 % (18.0-39.1); MEAN CORPUSCULAR HEMOGLOBIN 27.5 pg (28-32); MEAN CORPUSCULAR HGB CONC 31.6 g/dL (31-35); MEAN CORPUSCULAR VOLUME 87.1 fL (81-99); MONOCYTES # (AUTO) 0.8 (0.2-0.8); MONOCYTES % 8.9 % (4.4-11.3); NEUTROPHILS # (AUTO) 5.8 (2.1-6.9); NEUTROPHILS % 65.9 % (38.7-80.0); PLATELET COUNT 226 x10e3/uL (140-360); RED BLOOD COUNT 3.09 x10e6/uL (4.3-5.7); RED CELL DISTRIBUTION WIDTH 14.3 % (11.7-14.4)
[2017-08-22] MEDS: INSULIN REGULAR, HUMAN 100 UNIT/1 ML 3ML VIAL SQ SCH ×2 (07:30→12:13)
[2017-08-22 07:41] VITALS: BP 175/73
[2017-08-22 07:54] LABS: ANION GAP 12.8 mmol/L (8-16); CALCIUM 8.3 mg/dL (8.4-10.2); CREATININE, SERUM 1.62 mg/dL (0.72-1.25); POTASSIUM 3.8 mmol/L (3.5-5.1)
[2017-08-22] MEDS: FERROUS SULFATE 325 MG TAB PO SCH (08:24)
[2017-08-22] MEDS: PANTOPRAZOLE SOD 40 MG TABEC PO SCH (08:25)
[2017-08-22] MEDS: BRIMONIDINE TARTRATE 0.15% OPTH DRPS 10ML BTL OP SCH (08:25)
[2017-08-22] MEDS: GABAPENTIN 300 MG CAP PO SCH (08:25)
[2017-08-22] MEDS: ASPIRIN 81 MG ENTERIC COATED PO SCH (08:25)
[2017-08-22] MEDS: LIDOCAINE 5% PATCH TP SCH (08:25)
[2017-08-22] MEDS: DOCUSATE SODIUM 100 MG CAP PO SCH (08:25)
[2017-08-22] MEDS: TIZANIDINE HCL 4 MG TAB PO SCH (08:25)
[2017-08-22] MEDS: AZELASTINE HCL 137 MCG NASAL SPRAY NS SCH (08:26)
[2017-08-22] MEDS: INSULIN DETEMIR 100 UNIT/ML PEN SQ SCH (08:36)
[2017-08-22 08:39] LABS: ANISOCYTOSIS SLIGHT; EOSINOPHILS % (MANUAL) 4 % (0-7); HYPOCHROMASIA SLIGHT; LYMPHOCYTES % (MANUAL) 26 % (19-48); MONOCYTES % (MANUAL) 4 % (3.4-9.0); NEUTROPHILS % (MANUAL) 66 % (40-74); PLATELET ESTIMATE ADEQUATE; PLATELET MORPHOLOGY COMMENT FEW LARGE; POIKILOCYTOSIS SLIGHT; RBC MORPHOLOGY COMMENT NORMAL
[2017-08-22 08:45] VITALS: BP 175/73
[2017-08-22] MEDS ORDERED: DORZOLAMIDE/TIMOLOL (OPTH SOL) 10 ML DRPETTE OP SCH (09:15)
[2017-08-22 11:58] VITALS: BP 163/71
[2017-08-22] MEDS ORDERED: HYDRALAZINE HCL 25 MG TAB PO SCH (12:50)
[2017-08-22] MEDS: IRON SUCROSE 100 MG in SODIUM CHLORIDE 0.9% 100 ML 100 ML IV SCH (12:55)
[2017-08-22] MEDS ORDERED: CLONIDINE HCL 0.1 MG/24 HR 1 EA PATCH TOP SCH (13:15)
== END 2017-08-22 14:26 | DRG 291 ==
LOC: ER 16:59 → ERHOLD 21:13 → MED/SURG 22:25
DX: I13.0 Hypertensive heart and chronic kidney disease with heart failure and stage 1 through stage 4 chronic kidney disease, or unspecified chronic kidney disease (principal); I50.33 Acute on chronic diastolic (congestive) heart failure; N17.9 Acute kidney failure, unspecified; E11.22 Type 2 diabetes mellitus with diabetic chronic kidney disease; F03.90 Unspecified dementia, unspecified severity, without behavioral disturbance, psychotic disturbance, mood disturbance, and anxiety; E87.5 Hyperkalemia; J44.9 Chronic obstructive pulmonary disease, unspecified; N18.3 Chronic kidney disease, stage 3 (moderate); D50.9 Iron deficiency anemia, unspecified; E78.5 Hyperlipidemia, unspecified; I25.10 Atherosclerotic heart disease of native coronary artery without angina pectoris; Z85.118 Personal history of other malignant neoplasm of bronchus and lung; I49.8 Other specified cardiac arrhythmias; R00.1 Bradycardia, unspecified; Z79.82 Long term (current) use of aspirin
CPT/HCPCS: 36415; 71045; 76770; 80048; 80053; 81001; 82550; 82553; 82607; 82728; 82948; 83540; 83735; 83880; 84443; 84466; 84484; 85025; 85045; 85610; 85730; 87040; 87086; 87400; 93005; 93306; 94640; 96372; 99284; J0360; J0456; J0696; J1756; J1940; J7030; Q4081

== ENCOUNTER 2017-09-12 18:52 | Inpatient (IN) | payer MEDICARE ==
[~2017-09-12] VITALS: Ht 182.9 cm; Wt 87.5 kg
[~2017-09-12 18:52] MED LIST changes: +ACETAMINOPHEN325 M1 PO; +ATIVAN0.5 MG PO; +AUGMENTIN 500-1 EACH PO; +BISCOLAX10 MG RC; +CLONIDINE1 EAC1; +DOCUSATE SODIU100 MG PO; +LISINOPRIL10 MG PO; +TRAZODONE HCL50 MG PO
--- OUTSIDE RECORDS SUMMARY | 2017-09-12 18:54 | XMS REPORT | Continuity of Care Document ---
Author Author [facility] Organization [facility] Address [address] [place] [address] Phone Unavailable Care Team Providers Care Engraver Automatic Name Role Phone NO, PCP PCP Unavailable Insurance Providers Guarantor KerenBrian Address [address] [place] [address] Email [email or web address] Payer Medicare A & B Policy Number [id number] Subscriber's Name Brian Veliz Sindy Relationship 18 Self / Same As Patient Group Name RETIRED Effective Date 95 Advance Directives Directive Response Recorded Date/Time Does the patient have an advance directive? No 08/16/17 10:52pm If yes, is advance directive on file with [facility]? No 08/16/17 10:52pm If not on file with [facility] will patient provide a copy? Yes 08/16/17 10:52pm Do you have a Directive to Physician? Yes 08/16/17 6:45pm Do you have a Medical Power of Tube Mounter? Yes 08/16/17 6:45pm Do you have an out of hospital Do Not Resuscitate Order? No 08/16/17 6:45pm Do you have any special needs we should be aware of? No 08/16/17 6:45pm Do you have a support person here with you today? Yes 08/16/17 6:45pm Did patient receive Notice of Privacy Practices? Yes 08/16/17 6:45pm Did patient receive patient rights and responsibilities? Yes 08/16/17 6:45pm Problems Medical Problem Onset Date Status Anemia Unknown CHF (congestive heart failure) Unknown Fall Unknown Hypoglycemia Unknown Laceration of hand Unknown Nasal bone fracture Unknown Nasal laceration Unknown Pneumonia Unknown Renal insufficiency Unknown UTI (urinary tract infection) Unknown Medications Current Home Medications Medication Dose Units Route Directions Days Qty Instructions Start Date Acetaminophen 325 Mg Tablet 650 Mg Oral Every 8 Hours as needed for Pain Amlodipine Besylate 5 Mg Tablet 5 Mg Oral Every 12 Hours 30 Tab Amoxicillin/Potassium Clav (Augmentin 500-125 Tablet) 1 Each Tablet 500 Mg Oral Every 12 Hours 10 Days 60 Tab Aspirin (Aspirin Ec) 81 Mg Tablet.dr 81 Mg Oral Daily 30 Tab Bimatoprost (Lumigan) 2.5 Ml Drops 2.5 Ml Ophthalmic Bedtime Bisacodyl (Biscolax) 10 Mg Supp.rect 10 Supp Rectal Daily as needed for Constipation Brimonidine Tartrate 10 Ml Drops 10 Ml Ophthalmic Three Times A Day Clonidine 1 Each Patch.tdwk 0.1 Mg Use As Directed Docusate Sodium 100 Mg Capsule 100 Mg Oral Twice A Day Dorzolamide Hcl/Timolol Maleat (Dorzolamide-Timolol Eye Drops) 10 Ml Drops 10 Ml Ophthalmic Three Times A Day Furosemide 40 Mg Tablet 20 Mg Oral Twice A Day 30 Tab Gabapentin 300 Mg Capsule 300 Mg Oral Three Times A Day 60 Cap Insulin Aspart (Novolog) 100 Units/1 Ml Inj Subcutaneously Three Times A Day Insulin Glargine (Lantus 3ML Pen) 100 Units/1 Ml Inj 7 Units Subcutaneously Daily Latanoprost 2.5 Ml Drops 2.5 Ml Ophthalmic Bedtime Lisinopril 10 Mg Tablet 20 Mg Oral Twice A Day 30 Tab Lorazepam (Ativan*) 0.5 Mg Tablet 0.5 Mg Oral Every 8 Hours as needed for Anxiety 60 Tab Omeprazole 40 Mg Capsule.dr 1 Cap Oral Daily Pindolol 5 Mg Tablet 1 Tab Oral Twice A Day Potassium Chloride 10 Meq Tab.er.prt 20 Meq Oral Daily Simvastatin 40 Mg Tablet 40 Mg Oral Today At 9:00PM 30 Tab Tamsulosin Hcl 0.4 Mg Cap.er.24h 1 Tab Oral Bedtime Tizanidine Hcl 4 Mg Tablet 4 Mg Oral Twice A Day Trazodone Hcl 50 Mg Tablet 50 Mg Oral Bedtime 30 Tab Social History Social History Problem Response Recorded Date/Time Onset Date Status Hx Psychiatric Problems Y - T[facility] 08/16/2017 10:52pm Not Applicable Not Applicable Hx Eating Disorder No 08/16/2017 10:52pm Not Applicable Not Applicable Hx Substance Use Disorder Y - RECENT [facility] 08/16/2017 10:52pm Not Applicable Not Applicable Hx Depression No 08/16/2017 10:52pm Not Applicable Not Applicable Hx Alcohol Use No 08/16/2017 10:52pm Not Applicable Not Applicable Hx Substance Use Treatment Y - [facility] RECENT 08/16/2017 10:52pm Not Applicable Not Applicable Hx Physical Abuse No 08/16/2017 10:52pm Not Applicable Not Applicable Smoking Status Start Date Stop Date Former smoker Hospital Discharge Instructions No hospital discharge instruction information available. Plan of Care Discharge Date 08/22/17 2:26pm Disposition TRANSFER LONG-TERM Instructions/Education Provided Congestive Heart Failure Prescriptions See Medication Section Functional Status Query Response Date Recorded FUNCTIONAL STATUS . August 18, 2017 4:46pm Assistive Devices Standard Walker August 16, 2017 11:00pm Ambulation Ability Standby Assistance August 16, 2017 11:00pm Toileting Ability Minimum Assistance August 22, 2017 1:45pm Allergies, Adverse Reactions, Alerts No known allergies. Immunizations No immunization information available. Vital Signs Acute Vital Signs Vital Response Date/Time Temperature (Fahrenheit) 96.2 degrees F (97.6 - 99.5) 08/22/2017 11:58am Pulse Pulse Rate (adult) 51 bpm (60 - 90) 08/22/2017 11:58am Respiratory Rate 18 bpm (12 - 24) 08/22/2017 11:58am Blood Pressure 163/71 mm Hg 08/22/2017 11:58am Height 6 ft 0 in 08/17/2017 11:53am Weight 193.56 lb 08/18/2017 8:40am Body Mass Index 26.3 kg/m^2 08/21/2017 11:47pm Results Laboratory Results Test Name Result Units Flags Reference Collection Date/Time Result Date/ Time Comments Hemoglobin A1c Percent 7.1 % H 4.0-7.0 04/20/2017 4:55am 04/20/2017 10: 38am Triglycerides Level 121 MG/DL 0-149 04/20/2017 4:55am 04/20/2017 10: 37am Cholesterol Level 120 MD/DL 0-199 04/20/2017 4:55am 04/20/2017 10:37am Less than 200 mg/dL Low Risk 201 - 239 mg/dL Borderline Risk 240 mg/dl and greater High Risk LDL Cholesterol 60 MG/DL 60-130 04/20/2017 4:55am 04/20/2017 10:37am HDL Cholesterol 36 MG/DL L 40-60 04/20/2017 4:55am 04/20/2017 10:37am Cholesterol/HDL Ratio 3.3 L 3.9-4.7 04/20/2017 4:55am 04/20/2017 10: 37am Urine Yeast FEW H NONE 05/22/2017 3:10pm 05/22/2017 3:47pm White Blood Count 8.83 x10e3/uL 4.8-10.8 08/22/2017 6:30am 08/22/2017 7 :45am Red Blood Count 3.09 x10e6/uL L 4.3-5.7 08/22/2017 6:30am 08/22/2017 7: 45am Hemoglobin 8.5 g/dL L 14.0-18.0 08/22/2017 6:30am 08/22/2017 7:45am Hematocrit 26.9 % L 38.2-49.6 08/22/2017 6:30am 08/22/2017 7:45am Mean Corpuscular Volume 87.1 fL 81-99 08/22/2017 6:30am 08/22/2017 7: 45am Mean Corpuscular Hemoglobin 27.5 pg L 28-32 08/22/2017 6:30am 2017 7:45am Mean Corpuscular Hemoglobin Concent 31.6 g/dL 31-35 08/22/2017 6:30am 08/22/2017 7:45am Red Cell Distribution Width 14.3 % 11.7-14.4 08/22/2017 6:30am 2017 7:45am Platelet Count 226 x10e3/uL 140-360 08/22/2017 6:30am 08/22/2017 7: 45am Neutrophils (%) (Auto) 65.9 % 38.7-80.0 08/22/2017 6:3008/22/2017 7: 45am Lymphocytes (%) (Auto) 19.1 % 18.0-39.1 08/22/2017 6:08/22/2017 7: 45am Monocytes (%) (Auto) 8.9 % 4.4-11.3 08/22/2017 6:30am 08/22/2017 7: 45am Eosinophils (%) (Auto) 3.2 % 0.0-6.0 08/22/2017 6:3008/22/2017 7: 45am Basophils (%) (Auto) 0.5 % 0.0-1.0 08/22/2017 6:3008/22/2017 7:45am IM GRANULOCYTES % 2.4 % H 0.0-1.0 08/22/2017 6:08/22/2017 7:45am Neutrophils # (Auto) 5.8 2.1-6.9 08/22/2017 6:08/22/2017 7:45am Lymphocytes # (Auto) 1.7 1.0-3.2 08/22/2017 6:3008/22/2017 7:45am Monocytes # (Auto) 0.8 0.2-0.8 08/22/2017 6:08/22/2017 7:45am Eosinophils # (Auto) 0.3 0.0-0.4 08/22/2017 6:08/22/2017 7:45am Basophils # (Auto) 0.0 0.0-0.1 08/22/2017 6:3008/22/2017 7:45am Absolute Immature Granulocyte (auto 0.21 x10e3/uL H 0-0.1 08/22/2017 6: 3008/22/2017 7:45am Differential Total Cells Counted 100 08/22/2017 6:3008/22/2017 8 :39am Neutrophils % (Manual) 66 % 40-74 08/22/2017 6:08/22/2017 8:39am Lymphocytes % (Manual) 26 % 19-48 08/22/2017 6:3008/22/2017 8:39am Monocytes % (Manual) 4 % 3.4-9.0 08/22/2017 6:3008/22/2017 8:39am Eosinophils % (Manual) 4 % 0-7 08/22/2017 6:30am 08/22/2017 8:39am Platelet Estimate ADEQUATE 08/22/2017 6:30am 08/22/2017 8:39am Platelet Morphology Comment FEW LARGE 08/22/2017 6:30am 08/22/2017 8:39am Hypochromasia SLIGHT 08/22/2017 6:30am 08/22/2017 8:39am Poikilocytosis SLIGHT 08/22/2017 6:30am 08/22/2017 8:39am Anisocytosis SLIGHT 08/22/2017 6:30am 08/22/2017 8:39am Red Cell Morphology Comment NORMAL 08/22/2017 6:30am 08/22/2017 8: 39am Percent Reticulocyte Count 1.0 % 0.8-2.2 08/19/2017 6:00am 08/19/2017 9 :00am Prothrombin Time 13.9 seconds 11.9-14.5 08/16/2017 5:55pm 08/16/2017 6: 40pm Prothromb Time International Ratio 1.16 08/16/2017 5:55pm 2017 6:40pm Oral Anticoagulant Therapy INR Values: 1. Low Intensity Therapy 1.5 - 2.0 2. Moderate Intensity Therapy 2.0 - 3.0 3. High Intensity Therapy(1) 2.5 - 3.5 4. High Intensity Therapy(2) 3.0 - 4.0 5. Panic Value INR > 5.0 Activated Partial Thromboplast Time 38.0 seconds H 23.8-35.5 08/16/2017 5 :55pm 08/16/2017 6:40pm Urine Color YELLOW YELLOW 08/16/2017 8:08pm 08/16/2017 8:28pm Urine Clarity SL CLOUDY H CLEAR 08/16/2017 8:08pm 08/16/2017 8:28pm Urine Specific [place] 1.015 1.010-1.025 08/16/2017 8:08pm 2017 8:28pm Urine pH 5 5 - 7 08/16/2017 8:08pm 08/16/2017 8:28pm Urine Leukocyte Esterase NEGATIVE NEGATIVE 08/16/2017 8:08pm 2017 8:28pm Urine Nitrite NEGATIVE NEGATIVE 08/16/2017 8:08pm 08/16/2017 8:28pm Urine Protein 3+ H NEGATIVE 08/16/2017 8:08pm 08/16/2017 8:28pm Urine Glucose (UA) NEGATIVE NEGATIVE 08/16/2017 8:08pm 08/16/2017 8: 28pm Urine Ketones NEGATIVE NEGATIVE 08/16/2017 8:08pm 08/16/2017 8:28pm Urine Urobilinogen 0.2 mg/dL 0.2 - 1 08/16/2017 8:08pm 08/16/2017 8: 28pm Urine Bilirubin NEGATIVE NEGATIVE 08/16/2017 8:08pm 08/16/2017 8: 28pm Urine Blood TRACE H NEGATIVE 08/16/2017 8:08pm 08/16/2017 8:28pm Urine WBC 0-5 /HPF 0-5 08/16/2017 8:08pm 08/16/2017 8:38pm Urine RBC 0-5 /HPF 0-5 08/16/2017 8:08pm 08/16/2017 8:38pm Urine Bacteria NONE /HPF NONE 08/16/2017 8:08pm 08/16/2017 8:38pm Urine Epithelial Cells NONE /LPF NONE 08/16/2017 8:08pm 08/16/2017 8: 38pm Urine Mucus MANY H RARE 08/16/2017 8:08pm 08/16/2017 8:38pm Sodium Level 134 mmol/L L 136-145 08/22/2017 6:30am 08/22/2017 7:55am Potassium Level 3.8 mmol/L 3.5-5.1 08/22/2017 6:30am 08/22/2017 7:55am Chloride Level 103 mmol/L 98-107 08/22/2017 6:30am 08/22/2017 7:55am Influenza Virus Types A,B Antigen NEGATIVE NEGATIVE 08/16/2017 5:55pm 08/16/2017 6:47pm Carbon Dioxide Level 22 mmol/L 22-08/22/2017 6:30am 08/22/2017 7: 55am Anion Gap 12.8 mmol/L 8-16 08/22/2017 6:30am 08/22/2017 7:55am Blood Urea Nitrogen 47 mg/dL H 7-26 08/22/2017 6:30am 08/22/2017 7:55am Creatinine 1.62 mg/dL H 0.72-1.25 08/22/2017 6:30am 08/22/2017 7:55am BUN/Creatinine Ratio 29 H 6-25 08/22/2017 6:30am 08/22/2017 7:55am Estimat Glomerular Filtration Rate 41 ML/MIN L 60- 08/22/2017 6:30am 10/2017 7:55am Ranges were taken from the National Kidney Disease Education Program and the National Kid[employer] Foundation literature. Reference ranges: 60 or greater: Normal 16-59 (for 3 consecutive months): Chronic kidney disease 15 or less: Kidney failure Glucose Level 129 mg/dL H 74-118 08/22/2017 6:30am 08/22/2017 7:55am Calcium Level 8.3 mg/dL L 8.4-10.2 08/22/2017 6:30am 08/22/2017 7:55am Bedside Glucose 321 mg/dL H 70-120 08/22/2017 11:40am 08/22/2017 11: 52am Meter ID: [id number] Magnesium Level 2.0 MG/DL 1.3-2.1 08/16/2017 5:55pm 08/16/2017 6:49pm Iron Level 17 ug/dL L 65-175 08/19/2017 6:00am 08/19/2017 9:15am Total Iron Binding Capacity 298 ug/dL 261-478 08/19/2017 6:00am 2017 9:15am Percent Iron Saturation 6 % L 15-50 08/19/2017 6:00am 08/19/2017 9:15am Transferrin 213 mg/dL 174-364 08/19/2017 6:00am 08/19/2017 9:15am Ferritin 129.96 ng/mL 21.81-274.66 08/22/2017 6:30am 08/22/2017 8:42am Total Bilirubin 0.3 mg/dL 0.2-1.2 08/21/2017 7:00am 08/21/2017 8:18am Aspartate Amino Transf (AST/SGOT) 11 IU/L 5-34 08/21/2017 7:00am 2017 8:18am Alanine Aminotransferase (ALT/SGPT) 12 IU/L 0-55 08/21/2017 7:00am 09/2017 8:18am Total Protein 5.4 g/dL L 6.5-8.1 08/21/2017 7:00am 08/21/2017 8:18am Albumin 2.8 g/dL L 3.5-5.0 08/21/2017 7:00am 08/21/2017 8:18am Globulin 2.6 g/dL 2.3-3.5 08/21/2017 7:00am 08/21/2017 8:18am Albumin/Globulin Ratio 1.1 0.8-2.0 08/21/2017 7:00am 08/21/2017 8: 18am Alkaline Phosphatase 50 IU/L 40-150 08/21/2017 7:00am 08/21/2017 8: 18am B-Type Natriuretic Peptide 420.8 pg/mL H 0-100 08/20/2017 11:06am 2017 11:44am Creatine Kinase 97 IU/L 30-200 08/17/2017 10:42am 08/17/2017 11:12am Creatine Kinase MB 8.70 ng/mL H 0-5.0 08/17/2017 10:42am 08/17/2017 11: 17am Troponin I 0.027 ng/mL 0-0.300 08/17/2017 10:42am 08/17/2017 11:17am Vitamin B12 Level 255 pg/mL 213-816 08/19/2017 6:00am 08/19/2017 9: 44am Thyroid Stimulating Hormone (TSH) 2.999 uIU/mL 0.350-4.940 08/19/2017 6: 00am 08/19/2017 9:39am Microbiology Results Procedure Source Organism/Result Collection Date/Time Result Date/Time Result Status Urine Culture Urine,Random GUILLERMINA GLABRATA 05/22/2017 3:10pm 05/27/2017 6 :48am Final Blood Culture Blood NO GROWTH AFTER 5 DAYS, FINAL REPORT 08/16/2017 5:55pm 08/21/2017 6:27pm Final Procedures Procedure Status Date Provider(s) Computed tomography of brain without radiopaque contrast Active 04/20/17 HOUSTON CARRILLO MD Computed tomography of cervical spine without contrast Active 04/20/[address] maxillofacial area wo contrast Active 04/20/[address] of abdomen and pelvis without contrast Active 04/20/17 HOUSTON CARRILLO MD Ultrasound, renal Active 04/20/17 SHAN EVANGELISTA MD Computed tomography of pelvis with contrast Active 04/20/17 JACKIE GUAJARDO MD Computed tomography of brain without radiopaque contrast Active 05/22/17 ANAT GALVAN MD Ultrasound, renal Active 08/19/17 PURA MENON MD Encounters Encounter Location Arrival/Admit Date Discharge/Depart Date Attending Provider Discharged Inpatient [facility] 08/16/17 9:13pm 08/22/17 2:26pm PURA MENON MD Discharged Inpatient [facility] 05/22/17 6:00pm 05/27/17 4:01pm PURA MENON MD Discharged [facility]patient [facility] 04/20/17 8:36am 04/22/17 3:59pm SHAN EVANGELISTA MD
--- OUTSIDE RECORDS SUMMARY | 2017-09-12 18:54 | XMS REPORT | Clinical Summary ---
Author Author [facility] Address Unknown Phone Unavailable Care Team Providers Care Plaster Caster Name Role Phone Inocente Paulino MD PCP [...] MD Jason (Primary Dx); 04/19/2017 Hypoglycemia 03/11/2017 [facility] General Internal Medicine Matthias Parson COPD exacerbation - Encounter Isidro Sanders MD (Primary Dx) 03/28/2017 Shabbir Steel MD 10/11/2016 Office Visit Gastroenterology Daquan Mccurdy MD Tubular adenoma of colon (Primary Dx); Diverticulosis large intestine w/o perforation or abscess w/o bleeding; Internal hemorrhoids 10/06/2016 Hospital Gastroenterology Daquan Mccurdy MD Encounter 09/21/2016 [facility] General Internal Medicine Physician, Emergency, MD - Encounter Rehrer, Amilcar Obrien DO 09/22/2016 Shabbir Steel MD 09/21/2016 Orders Only General Internal Medicine Denton Huerta MD 09/21/2016 Orders Only Emergency Medicine Rehrer, Amilcar Obrien DO after 09/11/2016 Family History Medical History Relation Name Comments [...] Esophageal cancer Neg Hx GERD Neg Hx DIRECTOR LOAN Cancer Neg Hx Hemochromatosis Neg Hx Inflammatory [...] procedure are in the results section. after 09/11/2016 Results * POC glucose (04/19/2017 1:26 AM) Only the most recent of 105 results within the time period is included. Component Value Ref Range POC glucose 142 (H) 65 - 100 mg/dL Comment: Meter ID: [id number] Patent Solicitor: Sandy Hernandez Specimen Performing Laboratory [facility] DEPARTMENT OF PATHOLOGY AND GENOMIC MEDICINE [facility] [place] [address] * Estimated GFR (04/19/2017 1:22 AM) Only [...] Americans. Specimen Performing Laboratory Plasma specimen [facility] DEPARTMENT OF PATHOLOGY AND GENOMIC MEDICINE [address] [place] [address] * Basic metabolic panel (04/19/2017 1:22 AM) [...] mg/dL Specimen Performing Laboratory Plasma specimen [facility] DEPARTMENT OF PATHOLOGY AND GENOMIC MEDICINE [address] [place] [address] * CBC with platelet and differential (04/18/2017 [...] 1.0 % Specimen Performing Laboratory Blood [facility] DEPARTMENT OF PATHOLOGY AND GENOMIC MEDICINE [address] [place] [address] * CT Head Wo Contrast (04/18/2017 9:28 PM) Only the most recent of 3 results within the time period is included. Specimen Performing Laboratory [facility] [address] [place] [address] Narrative EXAMINATION: CT HEAD WO CONTRAST CLINICAL [...] detailed above with no acute intracranial abnormality. [facility]-[id number] Procedure Note Interface, Radiology Results Incoming - [...] detailed above with no acute intracranial abnormality. [facility]-[id number] * CT Cervical Spine Wo Contrast (03/28/2017 4:31 PM) Specimen [place] [address] Narrative EXAMINATION:CT CERVICAL SPINE WO CONTRAST CLINICAL [...] IMPRESSION: No acute cervical spine bony abnormality. [facility]-[id number] Procedure Note Interface, Radiology Results [facility] - 03/28/2017 4:40 PM CDT EXAMINATION: CT [...] IMPRESSION: No acute cervical spine bony abnormality. [facility]-[id number] * XR Abdomen 1 Vw (03/28/2017 3:20 PM) Specimen Performing Laboratory [facility] [address] [place] [address] Narrative PROCEDURE:XR ABDOMEN 1 VW CLINICAL HISTORY:ABDOMINAL [...] cholecystectomy. IMPRESSION: Nonspecific bowel gas pattern. [id number] . Procedure Note Interface, Radiology Results Incoming [...] cholecystectomy. IMPRESSION: Nonspecific bowel gas pattern. [id number] . * Phosphorus level (03/28/2017 5:30 AM) Only the most recent of 5 results within the time period is included. Component Value Ref Range Phosphorus 2.8 2.5 - 4.5 mg/dL Specimen Performing Laboratory Plasma specimen [facility] DEPARTMENT OF PATHOLOGY AND GENOMIC MEDICINE [address] [facility] [place] [address] * Magnesium level (03/28/2017 5:30 AM) Only the most recent of 6 results within the time period is included. Component Value Ref Range Magnesium 2.30 1.60 - 2.40 mg/dL Specimen Performing Laboratory Plasma specimen [facility] DEPARTMENT OF PATHOLOGY AND GENOMIC MEDICINE [address] [place] [address] * Salmonella/shigella culture (03/27/2017 4:08 PM) Component Value Ref Range Salmonella/shigella No Aeromonas isolated culture isolate Comment: Specimen Information Specimen Source: Stool Specimen Site: Nonpreserved Specimen Performing Laboratory [facility] [address] [address] * Gastrointestinal panel (03/27/2017 4:08 PM) Component [...] Site: Nonpreserved Specimen Performing Laboratory [facility] AND [address] [address] * ECG 12 lead (03/23/2017 12:30 PM) [...] has replaced Junctional rhythm- Specimen Performing Laboratory [facility] MUSE [address] [place] [address] * [place] Modified Barium Swallow (03/23/2017 12:10 PM) Specimen Performing Laboratory [facility] [address] [place] [address] Narrative EXAMINATION:FL MODIFIED BARIUM SWALLOW CLINICAL HISTORY:Dysphagia [...] Speech Pathology report for further details. [id number] Procedure Note Interface, Radiology Results Incoming - [...] Speech Pathology report for further details. [id number] * Vancomycin level, random (03/22/2017 6:00 AM) Only the most recent of 2 results within the time period is included. Component Value Ref Range Vancomycin, random 9.4 ug/mL Comment: Therapeutic Ranges: Peak 30.0 - 40.0 ug/mL Trough 10.0 - 20.0 ug/mL Specimen Performing Laboratory Blood [facility] DEPARTMENT OF PATHOLOGY AND GENOMIC MEDICINE [address] [place] [address] * Urea nitrogen, urine, random (03/21/2017 5:50 PM) Component Value Ref Range Urea nitrogen, urine, 1,122 mg/dL random Specimen Performing Laboratory Urine [facility] DEPARTMENT OF PATHOLOGY AND GENOMIC MEDICINE [address] [place] [address] * Sodium level, urine, random (03/21/2017 5:50 PM) Component Value Ref Range Sodium, urine, random 27 (A) mEQ/L Specimen Performing Laboratory Urine - Urine, clean [facility] DEPARTMENT OF PATHOLOGY AND GENOMIC MEDICINE catch [address] [place] [address] * Protein, urine, random (03/21/2017 5:50 PM) Component Value Ref Range Protein, urine random 222 mg/dL Specimen Performing Laboratory Urine - Urine, clean [facility] DEPARTMENT OF PATHOLOGY AND GENOMIC MEDICINE catch [address] [place] [address] * Potassium, urine, random (03/21/2017 5:50 PM) Component Value Ref Range Potassium, urine, random 29 mEq/L Specimen Performing Laboratory Urine - Urine, clean [facility] DEPARTMENT OF PATHOLOGY AND GENOMIC MEDICINE catch [address] [place] [address] * Creatinine level, urine, random (03/21/2017 5:50 PM) Component Value Ref Range Creatinine, urine, random 140 mg/dL Specimen Performing Laboratory Urine - Urine, clean [facility] DEPARTMENT OF PATHOLOGY AND GENOMIC MEDICINE catch [address] [place] [address] * C difficile toxin (03/21/2017 4:44 PM) Component Value Ref Range Clostridium difficile No Clostridium difficle toxin present toxin Comment: Specimen Information Specimen Source: Stool Specimen Site: Nonpreserved Specimen Performing Laboratory Stool - Nonpreserved [facility] DEPARTMENT OF PATHOLOGY AND GENOMIC MEDICINE [address] [place] [address] * PICC INSERTION (03/21/2017 12:51 PM) Georgia Pinzon RN 03/21/2017 12:51 PM PICC insertion Date/Time: 03/21/2017 12:47 PM Performed by: SENDY PINZON Authorized by: SHABBIR STEEL Consent: Consent obtained:Written Consent given by:Patient and spouse Risks discussed: arterial puncture, incorrect placement, nerve damage, bleeding, infection and pneumothorax Alternatives discussed:No treatment Ransom protocol: Procedure explained and questions answered to [...] (cm):47 Total Catheter Length (cm):47 Catheter Lot Number:[id number] Catheter Expiration Date:09/17/2017 Procedure Details: Landmarks identified: [...] Placement (03/19/2017 12:53 PM) Specimen Performing Laboratory [address] [address] Narrative Title:Nasogastric tube placement with steerable angiographic [...] left the radiology Department in good condition. [id number] Procedure Note Interface, Radiology Results Incoming - [...] left the radiology Department in good condition. [id number] * XR Chest 1 Vw Portable (03/18/2017 7:35 PM) Only the most recent of 5 results within the time period is included. Specimen Performing Laboratory [facility] [address] [place] [address] Narrative EXAMINATION:XR CHEST 1 VW PORTABLE CLINICAL HISTORY:Fever COMPARISON:Single view chest from 03/09/1717 IMPRESSION: No significant change in appearance of the chest when compared to previous exam. The lungs are clear. No focal consolidation or pleural effusion. No pneumothorax or midline shift. The mediastinal contours and cardiac silhouette are unchanged. Atherosclerotic disease. The bones are unremarkable. [id number] Procedure Note Interface, Radiology Results Incoming - [...] unchanged. Atherosclerotic disease. The bones are unremarkable. [facility]-[id number] * Blood culture, aerobic & anaerobic (03/18/2017 5:39 PM) Only the most recent of 4 results within the time period is included. Component Value Ref Range Blood culture isolate No growth after 5 days of incubation. Comment: Specimen Information Specimen Source: Blood Specimen Site: Hand Right Specimen Performing Laboratory Blood [facility] DEPARTMENT OF PATHOLOGY AND GENOMIC MEDICINE [address] [place] [address] * IR Lumbar Puncture by Radiology (03/17/2017 12:01 PM) Specimen Performing Laboratory [facility] [address] [place] [address] Narrative Examination: Fluoroscopic guided lumbar puncture. CLINICAL [...] condition. IMPRESSION: There were no complications. [id number] Procedure Note Interface, Radiology Results Incoming - [...] condition. IMPRESSION: There were no complications. [id number] * Gram stain only (03/17/2017 11:45 AM) Component Value Ref Range Gram stain result No WBC's or organisms seen Comment: Specimen Information Specimen Source: CSF (Spinal Fluid) Specimen Site: Tube 3 Specimen Performing Laboratory Cerebrospinal fluid - [facility] DEPARTMENT OF PATHOLOGY AND GENOMIC MEDICINE Tube [address] [place] [address] * West Nile virus by PCR, CSF (03/17/2017 11:45 AM) Component Value Ref Range West Nile virus PCR, CSF Not-Detected Not-Detected West Nile virus PCR, CSF See link below for PDF Lab ReportComment: Specimen Performing Laboratory Cerebrospinal fluid [facility] DEPARTMENT OF PATHOLOGY AND GENOMIC MEDICINE [address] [place] [address] Narrative CSF TUBE # 3 ABOUT 1CC [...] members of the Flaviviridae family, such as [place] encephalitis virus, show extensive cross-reactivity with West Nile virus, serologic testing specific for these species should be considered. The detection of antibodies to West Nile virus in cerebrospinal fluid may indicate central nervous system infection. However, consideration must be given to possible contamination by blood or transfer of serum antibodies across the blood-brain barrier. Test developed and characteristics determined by [employer]. See Compliance Statement B: [facility]/ Performed by [employer], [address] [place] [address] [email or web address], Murray Johnson MD - Lab. Director Specimen Performing Laboratory Cerebrospinal fluid [facility] [address] [place] [address] Narrative CSF TUBE # 3 ABOUT 1CC [...] members of the Flaviviridae family, such as [place] encephalitis virus, show extensive cross-reactivity with West Nile virus, serologic testing specific for these species should be considered. The detection of antibodies to West Nile virus in cerebrospinal fluid may indicate central nervous system infection. However, consideration must be given to possible contamination by blood or transfer of serum antibodies across the blood-brain barrier. Test developed and characteristics determined by [employer]. See Compliance Statement B: [facility]/CS Performed by [employer], [address] [place] [id number] [email or web address], Murray Johnson MD - Lab. Director Specimen Performing Laboratory Cerebrospinal fluid [address] [address] Narrative CSF TUBE # 3 ABOUT 1CC [...] analytical performance characteristics have been determined by [facility]. It has not been cleared or approved by FDA. This assay has been validated pursuant to the CLIA regulations and is used for clinical purposes. This is a temporary referral of an in house test [facility] reference ranges do not apply. Test performed by: [facility] [address] [place] [address] Performed at: [facility] [address] [place] [address] Histoplasma Ab mycelial <1:2 <1:2 CF, CSF [...] for remainder of this panel. Performed by [employer], [address] [place] [id number] [email or web address], Murray Johnson MD - Lab. Director Specimen Performing Laboratory Cerebrospinal fluid [facility] [address] [place] [address] Narrative CSF TUBE # 3 ABOUT 1CC * Miscellaneous referral test (03/17/2017 11:45 AM) Component Value Ref Range [facility] test name ARBOVIRUS PANEL TO [facility] test result SEE NOTE Comment: Arbovirus Ab Panel IgG and IgM, CSF [place] Encep Ab, IgG,CSF....<1:10 REFERENCE: <1:10 [place] Encep Ab, IgM,CSF....<1:10 REFERENCE: <1:10 [place] Enceph Ab, IgG, CSF....<1:10 REFERENCE: <1:10 [place] Enceph Ab, IgM, CSF....<1:10 REFERENCE: <1:10 [place] Enceph Ab, IgG, CSF....<1:10 REFERENCE: <1:10 [place] Enceph Ab, IgM, CSF....<1:10 REFERENCE: <1:10 [place] Enceph Ab, IgG, CSF....<1:10 REFERENCE: <1:10 [place] Enceph Ab, IgM, CSF....<1:10 REFERENCE: <1:10 Performing LAB [facility] [address] [place] [address] Specimen Performing Laboratory [facility] [address] [place] [address] Narrative CSF TUBE # 2 ABOUT 3CC- CHEMISTRY TUBE # 3 ABOUT 1CC- SEND OUTS TUBE # 3 ABOUT 3CC- HEMATOLOGY CSF CELLCOUNT DONE ON TUBE #4 * Herpes simplex virus by PCR (03/17/2017 11:45 AM) Component Value Ref Range Herpes virus, PCR Not-Detected Not-Detected Herpes virus, PCR See link below for PDF Lab ReportComment: Specimen Performing Laboratory [facility] DEPARTMENT OF PATHOLOGY AND GENOMIC MEDICINE [address] [place] [address] Narrative CSF TUBE # 3 ABOUT 1CC [...] Kelley MD Specimen Performing Laboratory Cerebrospinal fluid [facility] DEPARTMENT OF PATHOLOGY AND GENOMIC MEDICINE [address] [place] [address] * Gram stain (03/17/2017 11:45 AM) Only the most recent of 2 results within the time period is included. Component Value Ref Range Gram stain isolate Occasional WBC's No organisms seen Comment: Specimen Information Specimen Source: CSF (Spinal Fluid) Specimen Site: CSF (spinal fluid) Specimen Performing Laboratory Cerebrospinal fluid - CSF [facility] DEPARTMENT OF PATHOLOGY AND GENOMIC MEDICINE (spinal fluid) [address] [place] [address] Narrative CSF TUBE # 3 ABOUT 1CC * CSF culture (03/17/2017 11:45 AM) Component Value Ref Range CSF culture isolate No growth after 3 days. Comment: Specimen Information Specimen Source: CSF (Spinal Fluid) Specimen Site: CSF (spinal fluid) Specimen Performing Laboratory Cerebrospinal fluid - CSF [facility] DEPARTMENT OF PATHOLOGY AND GENOMIC MEDICINE (spinal fluid) [address] [place] [address] Narrative CSF TUBE # 3 ABOUT 1CC * CSF cell count with differential (03/17/2017 11:45 AM) Component Value Ref Range Color, CSF Colorless Appearance, CSF Clear CSF supernatant Colorless RBC, CSF 1 0 - 1 /CMM WBC, CSF 1 0 - 4 /CMM Lymphocytes, CSF 60 30 - 90 % Monocytes, CSF 40 10 - 50 % Specimen Performing Laboratory Cerebrospinal fluid [facility] DEPARTMENT OF PATHOLOGY AND GENOMIC MEDICINE [address] [place] [address] Narrative CSF TUBE # 2 ABOUT 3CC- CHEMISTRY TUBE # 3 ABOUT 1CC- SEND OUTS TUBE # 3 ABOUT 3CC- HEMATOLOGY * Protein, CSF (03/17/2017 11:45 AM) Component Value Ref Range Protein, CSF 81 (H) 12 - 60 mg/dL Specimen Performing Laboratory Cerebrospinal fluid [facility] DEPARTMENT OF PATHOLOGY AND GENOMIC MEDICINE [address] [place] [address] Narrative CSF TUBE # 2 ABOUT 3CC- CHEMISTRY TUBE # 3 ABOUT 1CC- SEND OUTS TUBE # 3 ABOUT 3CC- HEMATOLOGY * Glucose level, CSF (03/17/2017 11:45 AM) Component Value Ref Range Glucose, CSF 92 (H) 41 - 84 mg/dL Specimen Performing Laboratory Cerebrospinal fluid [facility] DEPARTMENT OF PATHOLOGY AND [facility] MEDICINE [address] [place] [id number] Narrative CSF TUBE # 2 ABOUT 3CC- [...] this result. Specimen Performing Laboratory Blood [facility] DEPARTMENT PATHOLOGY AND [facility] MEDICINE [address] [place] [address] * Prothrombin time with INR (03/17/2017 8:02 [...] over 4.0. Specimen Performing Laboratory Blood [facility] DEPARTMENT OF PATHOLOGY AND GENOMIC MEDICINE [address] [address] * Urinalysis screen and microscopy, with reflex [...] 34 /LPF Specimen Performing Laboratory Urine [facility] DEPARTMENT OF PATHOLOGY AND GENOMIC MEDICINE [address] [place] [address] * Urine culture (03/16/2017 1:51 PM) Component Value Ref Range Urine culture isolate Melba glabrata 10-4 cfu/ml The performance characteristics of this assay on this isolate were validated by the Microbiology Laboratory at [facility]. This source has not been approved by [...] Site: See UA Specimen Performing Laboratory Urine [facility] DEPARTMENT OF PATHOLOGY AND GENOMIC MEDICINE [address] [place] [address] Organism Antibiotic Method Susceptibility Melba glabrata Micafungin [...] 100 pg/mL Specimen Performing Laboratory Blood [facility] DEPARTMENT OF PATHOLOGY AND GENOMIC MEDICINE [address] [place] [address] [place] [address] * ECG ED Preliminary Interpretation - NOT AN ORDER (03/12/2017 8:17 AM) Narrative Matthias Parson Jr., MD 03/12/20178:17 AM ECG ED Preliminary Interpretation - Not an Order Performed by: MATTHIAS PARSON JR Authorized by: MATTHIAS PARSON JR ECG reviewed by ED Physician in the absence of a chief technologist: yes Interpretation: Interpretation: abnormal Rate: ECG rate:60 [...] gas (03/11/2017 5:34 PM) Component Value Ref [employer] HANK MACK Collection site LRA O2 therapy [...] 88.0 mmHg Specimen Performing Laboratory Blood [facility] DEPARTMENT OF PATHOLOGY AND GENOMIC MEDICINE [address] [place] [address] * Troponin (03/11/2017 8:00 AM) Only the [...] injury. Specimen Performing Laboratory Plasma specimen [facility] DEPARTMENT OF PATHOLOGY AND GENOMIC MEDICINE [address] [place] [address] * NM Lung Ventilation Perfusion (03/11/2017 7:49 AM) Specimen Performing Laboratory [facility] [address] [place] [address] Narrative PROCEDURE: NUCLEAR MEDICINENM LUNG VENTILATION PERFUSION [...] in the posterior, anterior, RPO, LPO, DYE, GEORGIAN, right and left lateral projections. The images were acquired on a dual head GE camera system. FINDINGS: The ventilation study demonstrates uniform uptake of isotope with good washout and no air trapping.. The lung perfusion study demonstrates no peripheral wedge-shaped perfusion defects. The correlative chest radiograph done within the past 24 hours shows pulmonary vascular congestion.. IMPRESSION: Low probability for pulmonary embolus. [id number] . Procedure Note Interface, Radiology Results Incoming [...] in the posterior, anterior, RPO, LPO, DYE, GEORGIAN, right and left lateral projections. The images were acquired on a dual head GE camera system. FINDINGS: The ventilation study demonstrates uniform uptake of isotope with good washout and no air trapping.. The lung perfusion study demonstrates no peripheral wedge-shaped perfusion defects. The correlative chest radiograph done within the past 24 hours shows pulmonary vascular congestion.. IMPRESSION: Low probability for pulmonary embolus. [id number] . * PV Duplex Venous Lower Extremity (03/11/2017 6:33 AM) Specimen Performing Laboratory [facility] [address] [place] [address] Narrative EXAMINATION:US DUPLEX VENOUS LOWER EXTREMITY LEFT [...] of the visualized left lower extremity veins. [facility]-[id number] Procedure Note Hm Interface, Radiology Results Incoming - 03/11/2017 6:38 AM [...] of the visualized left lower extremity veins. [facility]-[id number] * Venous blood gas (03/11/2017 4:42 AM) Component Value Ref Vegetable [employer] JDZD Collection site L WRIST O2 therapy [...] 18.0 g/dL Specimen Performing Laboratory Blood [facility] DEPARTMENT OF PATHOLOGY AND GENOMIC MEDICINE [address] [place] [address] * Creatine kinase, total (CPK) (03/11/2017 4:07 AM) Only the most recent of 3 results within the time period is included. Component Value Ref Range Creatine kinase 295 (H) 61 - 224 U/L Specimen Performing Laboratory Plasma specimen [facility] DEPARTMENT OF PATHOLOGY AND GENOMIC MEDICINE [address] [place] [address] * Comprehensive metabolic panel (03/11/2017 4:07 AM) [...] mg/dL Specimen Performing Laboratory Plasma specimen [facility] DEPARTMENT OF PATHOLOGY AND GENOMIC MEDICINE [address] [place] [address] * Surgical pathology request (10/06/2016 9:40 AM) Specimen Performing Laboratory Other [facility] DEPARTMENT OF PATHOLOGY AND GENOMIC MEDICINE [address] [place] [address] * Lipid panel (09/22/2016 4:49 AM) Component Value Ref Range Cholesterol 126 120 - 200 mg/dL Triglycerides 151 (H) 50 - 150 mg/dL HDL cholesterol 35 (L) 40 - 60 mg/dL LDL cholesterol 72Comment: Result obtained by direct LDL mg/dL measurement Specimen Performing Laboratory [facility] DEPARTMENT OF PATHOLOGY AND GENOMIC MEDICINE [address] [address] * Myoglobin (09/21/2016 2:08 PM) Component Value Ref Range Myoglobin 187.0 (H) 16.3 - 96.5 ng/mL Specimen Performing Laboratory [facility] DEPARTMENT OF PATHOLOGY AND GENOMIC MEDICINE [address] [address] * CK-MB (09/21/2016 2:08 PM) Only the most recent of 2 results within the time period is included. Component Value Ref Range CK-MB 6.1 (H) 0.5 - 3.2 ng/mL Specimen Performing Laboratory [facility] DEPARTMENT OF PATHOLOGY AND GENOMIC MEDICINE [address] [place] [address] after 09/11/2016 Insurance Payer Benefit Subscriber ID Type Phone Address Plan / Group [employer] xxxxxxxxx [facility]
[2017-09-12 20:40] LABS: BASOPHILS % 0.5 % (0.0-1.0); EOSINOPHILS # (AUTO) 0.3 (0.0-0.4); EOSINOPHILS % 3.5 % (0.0-6.0); HEMATOCRIT 28.2 % (38.2-49.6); HEMOGLOBIN 8.9 g/dL (14.0-18.0); LYMPHOCYTES # (AUTO) 1.2 (1.0-3.2); LYMPHOCYTES % 15.1 % (18.0-39.1); MEAN CORPUSCULAR HEMOGLOBIN 27.5 pg (28-32); MEAN CORPUSCULAR HGB CONC 31.6 g/dL (31-35); MONOCYTES # (AUTO) 0.5 (0.2-0.8); MONOCYTES % 6.4 % (4.4-11.3); NEUTROPHILS # (AUTO) 5.8 (2.1-6.9); NEUTROPHILS % 74.1 % (38.7-80.0); PLATELET COUNT 146 x10e3/uL (140-360); RED BLOOD COUNT 3.24 x10e6/uL (4.3-5.7)
[2017-09-12 20:57] LABS: ALBUMIN 2.9 g/dL (3.5-5.0); ALBUMIN/GLOBULIN RATIO 1.3 (0.8-2.0); ANION GAP 9.7 mmol/L (8-16); CALCIUM 8.7 mg/dL (8.4-10.2); CREATININE, SERUM 1.61 mg/dL (0.72-1.25); POTASSIUM 4.7 mmol/L (3.5-5.1)
[2017-09-12 21:03] LABS: CREATINE KINASE MB 11.8 ng/mL (0-5.0)
--- NOTE | 2017-09-12 22:53 | Diagnostic Imaging Report ---
CHEST SINGLE (PORTABLE), 09/12/2017 7:31 PM Technique: CHEST SINGLE (PORTABLE) Comparison: 08/20/2017 Clinical history: Shortness of breath, history of CHF Findings: Limited by portable technique. Electronic device overlies the right chest wall. Partially imaged ACDF. Impression: 1. Stable prominent cardiomediastinal silhouette. 2. Central vascular congestion and/or mild edema. Stable elevated right hemidiaphragm with bibasilar opacities, favor small effusions and atelectasis. Signed by: Dr Marisol Vallejo MD on 09/12/2017 10:50 PM
--- OUTSIDE RECORDS SUMMARY | 2017-09-13 00:14 | XMS REPORT | Clinical Summary ---
Author Author [facility] Organization [facility] Address Unknown Phone Unavailable Care Team Providers Care Trial Judge Name Role Phone Inocente Paulino MD PCP [...] MD Jason (Primary Dx); 04/19/2017 Hypoglycemia 03/11/2017 [facility] General Internal Medicine Matthias Parson COPD exacerbation - Encounter Isidro Sanders MD (Primary Dx) 03/28/2017 Shabbir Steel MD 10/11/2016 Office Visit Gastroenterology Daquan Mccurdy MD Tubular adenoma of colon (Primary Dx); Diverticulosis large intestine w/o perforation or abscess w/o bleeding; Internal hemorrhoids 10/06/2016 Hospital Gastroenterology Daquan Mccurdy MD Encounter 09/21/2016 [facility] General Internal Medicine Physician, Emergency, MD - Encounter Rehrer, Amilcar Obrien DO 09/22/2016 Shabbir Steel MD 09/21/2016 Orders Only General Internal Medicine Denton Huerta MD 09/21/2016 Orders Only Emergency Medicine Rehrer, Amilcar Obrien DO after 09/12/2016 Family History Medical History Relation Name Comments [...] Esophageal cancer Neg Hx GERD Neg Hx HOME HOSPICE AIDE Cancer Neg Hx Hemochromatosis Neg Hx Inflammatory [...] procedure are in the results section. after 09/12/2016 Results * POC glucose (04/19/2017 1:26 AM) Only the most recent of 105 results within the time period is included. Component Value Ref Range POC glucose 142 (H) 65 - 100 mg/dL Comment: Meter ID: [id number] 911 Emergency Services Dispatcher: Sandy Hernandez Specimen Performing Laboratory [facility] DEPARTMENT OF PATHOLOGY AND GENOMIC MEDICINE [facility] [place] [address] * Estimated GFR (04/19/2017 1:22 AM) Only [...] and Americans. Specimen Performing Laboratory Plasma specimen [facility] DEPARTMENT OF PATHOLOGY AND GENOMIC MEDICINE [address] [place] [address] * Basic metabolic panel (04/19/2017 1:22 AM) [...] 10.7 mg/dL Specimen Performing Laboratory Plasma specimen [facility] DEPARTMENT OF PATHOLOGY AND GENOMIC MEDICINE [address] [place] [address] * CBC with platelet and differential (04/18/2017 [...] - 1.0 % Specimen Performing Laboratory Blood [facility] DEPARTMENT OF PATHOLOGY AND GENOMIC MEDICINE [address] [place] [address] * CT Head Wo Contrast (04/18/2017 9:28 PM) Only the most recent of 3 results within the time period is included. Specimen Performing Laboratory [facility] [address] [place] [address] Narrative EXAMINATION: CT HEAD WO CONTRAST CLINICAL [...] detailed above with no acute intracranial abnormality. [id number] Procedure Note Interface, Radiology Results Incoming - [...] detailed above with no acute intracranial abnormality. [id number] * CT Cervical Spine Wo Contrast (03/28/2017 4:31 PM) [place] [address] Narrative EXAMINATION:CT CERVICAL SPINE WO CONTRAST CLINICAL [...] IMPRESSION: No acute cervical spine bony abnormality. [id number] Procedure Note Interface, Radiology Results [facility] - 03/28/2017 4:40 PM CDT EXAMINATION: [...] IMPRESSION: No acute cervical spine bony abnormality. [id number] * XR Abdomen 1 Vw (03/28/2017 3:20 PM) Specimen Performing Laboratory [facility] [address] [place] [address] Narrative PROCEDURE:XR ABDOMEN 1 VW CLINICAL HISTORY:ABDOMINAL [...] prior cholecystectomy. IMPRESSION: Nonspecific bowel gas pattern. [id number] . Procedure Note Interface, Radiology Results Incoming [...] prior cholecystectomy. IMPRESSION: Nonspecific bowel gas pattern. [id number] . * Phosphorus level (03/28/2017 5:30 AM) Only the most recent of 5 results within the time period is included. Component Value Ref Range Phosphorus 2.8 2.5 - 4.5 mg/dL Specimen Performing Laboratory Plasma specimen [facility] DEPARTMENT OF PATHOLOGY AND GENOMIC MEDICINE [address] [facility] [place] [address] * Magnesium level (03/28/2017 5:30 AM) Only the most recent of 6 results within the time period is included. Component Value Ref Range Magnesium 2.30 1.60 - 2.40 mg/dL Specimen Performing Laboratory Plasma specimen [facility] DEPARTMENT OF PATHOLOGY AND GENOMIC MEDICINE [address] [place] [address] * Salmonella/shigella culture (03/27/2017 4:08 PM) Component Value Ref Range Salmonella/shigella No Aeromonas isolated culture isolate Comment: Specimen Information Specimen Source: Stool Specimen Site: Nonpreserved Specimen Performing [facility] [address] [address] * Gastrointestinal panel (03/27/2017 4:08 PM) Component [...] Site: Nonpreserved Specimen Performing [facility] AND [address] [address] * ECG 12 lead (03/23/2017 12:30 PM) [...] has replaced Junctional rhythm- Specimen Performing Laboratory [facility] MUSE [address] [place] [address] * FL Modified Barium Swallow (03/23/2017 12:10 PM) Specimen Performing Laboratory [facility] [address] [place] [address] Narrative EXAMINATION:FL MODIFIED BARIUM SWALLOW CLINICAL HISTORY:Dysphagia [...] to Speech Pathology report for further details. [facility]-[id number] Procedure Note Interface, Radiology Results Incoming - [...] to Speech Pathology report for further details. [facility]-[id number] * Vancomycin level, random (03/22/2017 6:00 AM) Only the most recent of 2 results within the time period is included. Component Value Ref Range Vancomycin, random 9.4 ug/mL Comment: Therapeutic Ranges: Peak 30.0 - 40.0 ug/mL Trough 10.0 - 20.0 ug/mL Specimen Performing Laboratory Blood [facility] DEPARTMENT OF PATHOLOGY AND GENOMIC MEDICINE [address] [place] [address] * Urea nitrogen, urine, random (03/21/2017 5:50 PM) Component Value Ref Range Urea nitrogen, urine, 1,122 mg/dL random Specimen Performing Laboratory Urine [facility] DEPARTMENT OF PATHOLOGY AND GENOMIC MEDICINE [address] [place] [address] * Sodium level, urine, random (03/21/2017 5:50 PM) Component Value Ref Range Sodium, urine, random 27 (A) mEQ/L Specimen Performing Laboratory Urine - Urine, clean [facility] DEPARTMENT OF PATHOLOGY AND GENOMIC MEDICINE catch [address] [place] [address] * Protein, urine, random (03/21/2017 5:50 PM) Component Value Ref Range Protein, urine random 222 mg/dL Specimen Performing Laboratory Urine - Urine, clean [facility] DEPARTMENT OF PATHOLOGY AND GENOMIC MEDICINE catch [address] [place] [address] * Potassium, urine, random (03/21/2017 5:50 PM) Component Value Ref Range Potassium, urine, random 29 mEq/L Specimen Performing Laboratory Urine - Urine, clean [facility] DEPARTMENT OF PATHOLOGY AND GENOMIC MEDICINE catch [address] [place] [address] * Creatinine level, urine, random (03/21/2017 5:50 PM) Component Value Ref Range Creatinine, urine, random 140 mg/dL Specimen Performing Laboratory Urine - Urine, clean [facility] DEPARTMENT OF PATHOLOGY AND GENOMIC MEDICINE catch [address] [place] [address] * C difficile toxin (03/21/2017 4:44 PM) Component Value Ref Range Clostridium difficile No Clostridium difficle toxin present toxin Comment: Specimen Information Specimen Source: Stool Specimen Site: Nonpreserved Specimen Performing Laboratory Stool - Nonpreserved [facility] DEPARTMENT OF PATHOLOGY AND GENOMIC MEDICINE [address] [place] [address] * PICC INSERTION (03/21/2017 12:51 PM) Georgia Pinzon RN 03/21/2017 12:51 PM PICC insertion Date/Time: 03/21/2017 12:47 PM Performed by: SENDY PINZON Authorized by: SHABBIR STEEL Consent: Consent obtained:Written Consent given by:Patient and spouse Risks discussed: arterial puncture, incorrect placement, nerve damage, bleeding, infection and pneumothorax Alternatives discussed:No treatment [place] protocol: Procedure explained and questions answered to [...] (cm):47 Total Catheter Length (cm):47 Catheter Lot Number:[id number] Catheter Expiration Date:09/17/2017 Procedure Details: Landmarks identified: [...] Placement (03/19/2017 12:53 PM) Specimen Performing Laboratory [address] [address] Narrative Title:Nasogastric tube placement with steerable angiographic [...] left the radiology Department in good condition. [id number] Procedure Note Interface, Radiology Results Incoming - [...] left the radiology Department in good condition. [id number] * XR Chest 1 Vw Portable (03/18/2017 7:35 PM) Only the most recent of 5 results within the time period is included. Specimen Performing Laboratory [facility] [address] [place] [address] Narrative EXAMINATION:XR CHEST 1 VW PORTABLE CLINICAL HISTORY:Fever COMPARISON:Single view chest from 03/09/1717 IMPRESSION: No significant change in appearance of the chest when compared to previous exam. The lungs are clear. No focal consolidation or pleural effusion. No pneumothorax or midline shift. The mediastinal contours and cardiac silhouette are unchanged. Atherosclerotic disease. The bones are unremarkable. [id number] Procedure Note Interface, Radiology Results Incoming - [...] unchanged. Atherosclerotic disease. The bones are unremarkable. [id number] * Blood culture, aerobic & anaerobic (03/18/2017 5:39 PM) Only the most recent of 4 results within the time period is included. Component Value Ref Range Blood culture isolate No growth after 5 days of incubation. Comment: Specimen Information Specimen Source: Blood Specimen Site: Hand Right Specimen Performing Laboratory Blood [facility] DEPARTMENT OF PATHOLOGY AND GENOMIC MEDICINE [address] [place] [address] * IR Lumbar Puncture by Radiology (03/17/2017 12:01 PM) Specimen Performing Laboratory [facility] [address] [place] [address] Narrative Examination: Fluoroscopic guided lumbar puncture. CLINICAL [...] good condition. IMPRESSION: There were no complications. [facility]-[id number] Procedure Note Interface, Radiology Results Incoming - [...] good condition. IMPRESSION: There were no complications. [facility]-[id number] * Gram stain only (03/17/2017 11:45 AM) Component Value Ref Range Gram stain result No WBC's or organisms seen Comment: Specimen Information Specimen Source: CSF (Spinal Fluid) Specimen Site: Tube 3 Specimen Performing Laboratory Cerebrospinal fluid - [facility] DEPARTMENT OF PATHOLOGY AND GENOMIC MEDICINE Tube [address] [place] [address] * West Nile virus by PCR, CSF (03/17/2017 11:45 AM) Component Value Ref Range West Nile virus PCR, CSF Not-Detected Not-Detected West Nile virus PCR, CSF See link below for PDF Lab ReportComment: Specimen Performing Laboratory Cerebrospinal fluid [facility] DEPARTMENT OF PATHOLOGY AND GENOMIC MEDICINE [address] [place] [address] Narrative CSF TUBE # 3 ABOUT 1CC [...] members of the Flaviviridae family, such as [place] encephalitis virus, show extensive cross-reactivity with West Nile virus, serologic testing specific for these species should be considered. The detection of antibodies to West Nile virus in cerebrospinal fluid may indicate central nervous system infection. However, consideration must be given to possible contamination by blood or transfer of serum antibodies across the blood-brain barrier. Test developed and characteristics determined by [facility]. See Compliance Statement B: DLC/ Performed by [facility], [address] [place] [address] [email or web address], Murray Johnson MD - Lab. Director Specimen Performing Laboratory Cerebrospinal fluid [facility] [address] [place] [address] Narrative CSF TUBE # 3 ABOUT 1CC [...] members of the Flaviviridae family, such as [place] encephalitis virus, show extensive cross-reactivity with West Nile virus, serologic testing specific for these species should be considered. The detection of antibodies to West Nile virus in cerebrospinal fluid may indicate central nervous system infection. However, consideration must be given to possible contamination by blood or transfer of serum antibodies across the blood-brain barrier. Test developed and characteristics determined by [facility]. See Compliance Statement B: DLC/CS Performed by [facility], [address] [place] [id number] [email or web address], Murray Johnson MD - Lab. Director Specimen Performing Laboratory Cerebrospinal fluid [address] [address] Narrative CSF TUBE # 3 ABOUT 1CC [...] analytical performance characteristics have been determined by [facility]. It has not been cleared or approved by FDA. This assay has been validated pursuant to the CLIA regulations and is used for clinical purposes. This is a temporary referral of an in house test [facility] reference ranges do not apply. Test performed by: [facility] [address] [place] [address] Performed at: [facility] [address] [place] [address] Histoplasma Ab mycelial <1:2 <1:2 CF, CSF [...] for remainder of this panel. Performed by [facility], [address] [place] [id number] [email or web address], Murray Johnson MD - Lab. Director Specimen Performing Laboratory Cerebrospinal fluid [facility] [address] [place] [address] Narrative CSF TUBE # 3 ABOUT 1CC * Miscellaneous referral test (03/17/2017 11:45 AM) Component Value Ref Range [facility] test name ARBOVIRUS PANEL TO [facility] test result SEE NOTE Comment: Arbovirus Ab Panel IgG and IgM, CSF [place]) Encep Ab, IgG,CSF....<1:10 REFERENCE: <1:10 [place]) Encep Ab, IgM,CSF....<1:10 REFERENCE: <1:10 [place] Enceph Ab, IgG, CSF....<1:10 REFERENCE: <1:10 [place] Enceph Ab, IgM, CSF....<1:10 REFERENCE: <1:10 [place] Enceph Ab, IgG, CSF....<1:10 REFERENCE: <1:10 [place] Enceph Ab, IgM, CSF....<1:10 REFERENCE: <1:10 [place] Enceph Ab, IgG, CSF....<1:10 REFERENCE: <1:10 [place] Enceph Ab, IgM, CSF....<1:10 REFERENCE: <1:10 Performing LAB [facility] [address] [place] [address] Specimen Performing Laboratory [facility] [address] [place] [address] Narrative CSF TUBE # 2 ABOUT 3CC- CHEMISTRY TUBE # 3 ABOUT 1CC- SEND OUTS TUBE # 3 ABOUT 3CC- HEMATOLOGY CSF CELLCOUNT DONE ON TUBE #4 * Herpes simplex virus by PCR (03/17/2017 11:45 AM) Component Value Ref Range Herpes virus, PCR Not-Detected Not-Detected Herpes virus, PCR See link below for PDF Lab ReportComment: Specimen Performing Laboratory [facility] DEPARTMENT OF PATHOLOGY AND GENOMIC MEDICINE [address] [place] [address] Narrative CSF TUBE # 3 ABOUT 1CC [...] Kelley MD Specimen Performing Laboratory Cerebrospinal fluid [facility] DEPARTMENT OF PATHOLOGY AND GENOMIC MEDICINE [address] [place] [address] * Gram stain (03/17/2017 11:45 AM) Only the most recent of 2 results within the time period is included. Component Value Ref Range Gram stain isolate Occasional WBC's No organisms seen Comment: Specimen Information Specimen Source: CSF (Spinal Fluid) Specimen Site: CSF (spinal fluid) Specimen Performing Laboratory Cerebrospinal fluid - CSF [facility] DEPARTMENT OF PATHOLOGY AND GENOMIC MEDICINE (spinal fluid) [address] [place] [address] Narrative CSF TUBE # 3 ABOUT 1CC * CSF culture (03/17/2017 11:45 AM) Component Value Ref Range CSF culture isolate No growth after 3 days. Comment: Specimen Information Specimen Source: CSF (Spinal Fluid) Specimen Site: CSF (spinal fluid) Specimen Performing Laboratory Cerebrospinal fluid - CSF [facility] DEPARTMENT OF PATHOLOGY AND GENOMIC MEDICINE (spinal fluid) [address] [place] [address] Narrative CSF TUBE # 3 ABOUT 1CC * CSF cell count with differential (03/17/2017 11:45 AM) Component Value Ref Range Color, CSF Colorless Appearance, CSF Clear CSF supernatant Colorless RBC, CSF 1 0 - 1 /CMM WBC, CSF 1 0 - 4 /CMM Lymphocytes, CSF 60 30 - 90 % Monocytes, CSF 40 10 - 50 % Specimen Performing Laboratory Cerebrospinal fluid [facility] DEPARTMENT OF PATHOLOGY AND GENOMIC MEDICINE [address] [place] [address] Narrative CSF TUBE # 2 ABOUT 3CC- CHEMISTRY TUBE # 3 ABOUT 1CC- SEND OUTS TUBE # 3 ABOUT 3CC- HEMATOLOGY * Protein, CSF (03/17/2017 11:45 AM) Component Value Ref Range Protein, CSF 81 (H) 12 - 60 mg/dL Specimen Performing Laboratory Cerebrospinal fluid [facility] DEPARTMENT OF PATHOLOGY AND GENOMIC MEDICINE [address] [place] [address] Narrative CSF TUBE # 2 ABOUT 3CC- CHEMISTRY TUBE # 3 ABOUT 1CC- SEND OUTS TUBE # 3 ABOUT 3CC- HEMATOLOGY * Glucose level, CSF (03/17/2017 11:45 AM) Component Value Ref Range Glucose, CSF 92 (H) 41 - 84 mg/dL Specimen Performing Laboratory Cerebrospinal fluid [facility] DEPARTMENT OF PATHOLOGY AND [facility] [address] [place] [id number] Narrative CSF TUBE # 2 ABOUT 3CC- [...] validate this result. Specimen Performing Laboratory Blood [facility] DEPARTMENT PATHOLOGY AND [facility] MEDICINE [address] [place] [address] * Prothrombin time with INR (03/17/2017 8:02 [...] values over 4.0. Specimen Performing Laboratory Blood [facility] DEPARTMENT OF PATHOLOGY AND GENOMIC MEDICINE [address] [place] [address] * Urinalysis screen and microscopy, with reflex [...] UA 34 /LPF Specimen Performing Laboratory Urine [facility] DEPARTMENT OF PATHOLOGY AND GENOMIC MEDICINE [address] [place] [address] * Urine culture (03/16/2017 1:51 PM) Component Value Ref Range Urine culture isolate Melba glabrata 10-4 cfu/ml The performance characteristics of this assay on this isolate were validated by the Microbiology Laboratory at [facility]. This source has not been approved by [...] Site: See UA Specimen Performing Laboratory Urine [facility] DEPARTMENT OF PATHOLOGY AND GENOMIC MEDICINE [address] [place] [address] Organism Antibiotic Method Susceptibility Melba glabrata Micafungin [...] - 100 pg/mL Specimen Performing Laboratory Blood [facility] DEPARTMENT OF PATHOLOGY AND GENOMIC MEDICINE [address] [place] [address] [place] [address] * ECG ED Preliminary Interpretation - NOT AN ORDER (03/12/2017 8:17 AM) Narrative Matthias Parson Jr., MD 03/12/20178:17 AM ECG ED Preliminary Interpretation - Not an Order Performed by: MATTHIAS PARSON JR Authorized by: MATTHIAS PARSON JR ECG reviewed by ED Physician in the absence of a teacher learning disabled: yes Interpretation: Interpretation: abnormal Rate: ECG rate:60 [...] gas (03/11/2017 5:34 PM) Component Value Ref Capsule Maker HANK MACK Collection site LRA O2 therapy [...] A-a 88.0 mmHg Specimen Performing Laboratory Blood [facility] DEPARTMENT OF PATHOLOGY AND GENOMIC MEDICINE [address] [place] [address] * Troponin (03/11/2017 8:00 AM) Only the [...] myocardial injury. Specimen Performing Laboratory Plasma specimen [facility] DEPARTMENT OF PATHOLOGY AND GENOMIC MEDICINE [address] [place] [address] * NM Lung Ventilation Perfusion (03/11/2017 7:49 AM) Specimen Performing Laboratory [facility] [address] [place] [address] Narrative PROCEDURE: NUCLEAR MEDICINENM LUNG VENTILATION PERFUSION [...] in the posterior, anterior, RPO, LPO, DYE, LEBANESE, right and left lateral projections. The images were acquired on a dual head GE camera system. FINDINGS: The ventilation study demonstrates uniform uptake of isotope with good washout and no air trapping.. The lung perfusion study demonstrates no peripheral wedge-shaped perfusion defects. The correlative chest radiograph done within the past 24 hours shows pulmonary vascular congestion.. IMPRESSION: Low probability for pulmonary embolus. [id number] . Procedure Note Interface, Radiology Results Incoming [...] in the posterior, anterior, RPO, LPO, DYE, LEBANESE, right and left lateral projections. The images were acquired on a dual head GE camera system. FINDINGS: The ventilation study demonstrates uniform uptake of isotope with good washout and no air trapping.. The lung perfusion study demonstrates no peripheral wedge-shaped perfusion defects. The correlative chest radiograph done within the past 24 hours shows pulmonary vascular congestion.. IMPRESSION: Low probability for pulmonary embolus. [id number] . * PV Duplex Venous Lower Extremity (03/11/2017 6:33 AM) Specimen Performing Laboratory [facility] [address] [place] [address] Narrative EXAMINATION:US DUPLEX VENOUS LOWER EXTREMITY LEFT [...] of the visualized left lower extremity veins. [id number] Procedure Note Hm Interface, Radiology Results Incoming [...] of the visualized left lower extremity veins. [id number] * Venous blood gas (03/11/2017 4:42 AM) Component Value Ref Capsule Maker JDZD Collection site L WRIST O2 therapy [...] - 18.0 g/dL Specimen Performing Laboratory Blood [facility] DEPARTMENT OF PATHOLOGY AND GENOMIC MEDICINE [address] [place] [address] * Creatine kinase, total (CPK) (03/11/2017 4:07 AM) Only the most recent of 3 results within the time period is included. Component Value Ref Range Creatine kinase 295 (H) 61 - 224 U/L Specimen Performing Laboratory Plasma specimen [facility] DEPARTMENT OF PATHOLOGY AND GENOMIC MEDICINE [address] [place] [address] * Comprehensive metabolic panel (03/11/2017 4:07 AM) [...] 1.2 mg/dL Specimen Performing Laboratory Plasma specimen [facility] DEPARTMENT OF PATHOLOGY AND GENOMIC MEDICINE [place] [address] * Surgical pathology request (10/06/2016 9:40 AM) Specimen Performing Laboratory Other [facility] DEPARTMENT OF PATHOLOGY AND GENOMIC MEDICINE [address] [place] [address] * Lipid panel (09/22/2016 4:49 AM) Component Value Ref Range Cholesterol 126 120 - 200 mg/dL Triglycerides 151 (H) 50 - 150 mg/dL HDL cholesterol 35 (L) 40 - 60 mg/dL LDL cholesterol 72Comment: Result obtained by direct LDL mg/dL measurement Specimen Performing Laboratory [facility] DEPARTMENT OF PATHOLOGY AND GENOMIC MEDICINE [place] [address] * Myoglobin (09/21/2016 2:08 PM) Component Value Ref Range Myoglobin 187.0 (H) 16.3 - 96.5 ng/mL Specimen Performing Laboratory [facility] DEPARTMENT OF PATHOLOGY AND GENOMIC MEDICINE [place] [address] * CK-MB (09/21/2016 2:08 PM) Only the most recent of 2 results within the time period is included. Component Value Ref Range CK-MB 6.1 (H) 0.5 - 3.2 ng/mL Specimen Performing Laboratory [facility] [place] [facility] DEPARTMENT OF PATHOLOGY AND GENOMIC MEDICINE [address] [place] [address] after 09/12/2016 Insurance Payer Benefit Subscriber ID Type Phone Address Plan / Group [employer] xxxxxxxxx [facility]
[2017-09-13] MEDS ORDERED: SODIUM CHLORIDE FLUSH 10 ML SYR INJ PRN (00:15)
[2017-09-13] MEDS: FUROSEMIDE INJ 10 MG/ML 4 ML VIAL IV SCH ×3 (01:35→16:33)
[2017-09-13] MEDS ORDERED: HYDRALAZINE HCL 20 MG/ML VIAL IV STA (03:09)
[2017-09-13] MEDS ORDERED: CLONIDINE HCL 0.2 MG TAB PO ONE (05:00)
[2017-09-13] MEDS ORDERED: ALBUTEROL/IPRATROPIUM 3 ML NEB NEB ONE (05:15)
[2017-09-13 13:42] LABS: CREATINE KINASE MB 16.1 ng/mL (0-5.0)
[2017-09-13] MEDS ORDERED: LABETALOL HCL 5 MG/ML 20ML VIAL IV STA (16:01)
[2017-09-13] MEDS ORDERED: COMBIVENT RESPIM4 GM IH ×2 (16:38→16:46)
[2017-09-13] MEDS ORDERED: HYDRALAZINE HCL25 MG PO (17:03)
[2017-09-13] MEDS ORDERED: CLONIDINE HCL0.1 MG PO (17:03)
[2017-09-13] MEDS ORDERED: AZOPT10 ML OU (17:03)
[2017-09-13] MEDS ORDERED: AZELASTINE137 MCG/0. NS (17:03)
[2017-09-13] MEDS ORDERED: FERROUS SULFAT325 M1 PO (17:03)
[2017-09-13] MEDS ORDERED: PANTOPRAZOLE SO40 MG PO (17:05)
[2017-09-13] MEDS ORDERED: LORAZEPAM 0.5 MG TAB PO PRN (17:15)
[2017-09-13] MEDS ORDERED: CLONIDINE HCL 0.1 MG TAB PO PRN (17:15)
[2017-09-13] MEDS ORDERED: BISACODYL 10 MG SUPP PR PRN (17:15)
[2017-09-13] MEDS ORDERED: NON-FORMULARY MEDICATION (Ipratropium/Albuterol Sulfate (Combivent Respimat Inhal Spray) 4 IH SCH (18:00)
[2017-09-13] MEDS ORDERED: LIDODERM PATCH 5% TOP (18:34)
[2017-09-13] MEDS ORDERED: LIDODERM 5% TOP SCH (18:45)
[2017-09-13] MEDS ORDERED: LIDOCAINE 5% PATCH TP SCH (18:45)
[2017-09-13] MEDS: LIDOCAINE 5% PATCH TP SCH (19:20)
[2017-09-13] MEDS: IPRATROPIUM/ALBUTEROL SULFATE 4 GM INH INH SCH ×2 (19:30→23:00)
[2017-09-13] MEDS ORDERED: DEXTROSE 50% SYRINGE 50 ML IV PRN (20:45)
[2017-09-13] MEDS ORDERED: LATANOPROST(OPTH) 2.5 ML BTL OP SCH (21:00)
[2017-09-13] MEDS: INSULIN REGULAR, HUMAN 100 UNIT/1 ML 3ML VIAL SQ SCH (21:00)
[2017-09-13] MEDS ORDERED: BRINZOLAMIDE 1% OPTH SUSP 10 ML BTL OU SCH (21:00)
[2017-09-13] MEDS: TRAZODONE HCL 50 MG TAB PO SCH (21:11)
[2017-09-13] MEDS: GABAPENTIN 300 MG CAP PO SCH (21:11)
[2017-09-13] MEDS: SIMVASTATIN 40 MG TAB PO SCH (21:11)
[2017-09-13] MEDS: TAMSULOSIN HCL 0.4 MG CAP PO SCH (21:11)
[2017-09-13] MEDS: LATANOPROST(OPTH) 2.5 ML BTL OP SCH (21:35)
[2017-09-13] MEDS: BRINZOLAMIDE 1% OPTH SUSP 10 ML BTL OU SCH (21:35)
[2017-09-13 23:05] VITALS: BP 171/74
[2017-09-13 23:10] VITALS: BP 171/74
[2017-09-14 02:40] VITALS: BP 171/74
[2017-09-14] MEDS: IPRATROPIUM/ALBUTEROL SULFATE 4 GM INH INH SCH ×6 (03:00→23:00)
[2017-09-14 04:00] VITALS: BP 163/70
[2017-09-14] MEDS: INSULIN REGULAR, HUMAN 100 UNIT/1 ML 3ML VIAL SQ SCH ×4 (07:30→21:26)
[2017-09-14 08:22] VITALS: BP 180/80
[2017-09-14] MEDS: TIZANIDINE HCL 4 MG TAB PO SCH ×2 (09:00→17:00)
[2017-09-14] MEDS: HYDRALAZINE HCL 25 MG TAB PO SCH ×2 (09:00→17:00)
[2017-09-14] MEDS: AZELASTINE HCL 137 MCG NASAL SPRAY NS SCH ×2 (09:00→17:00)
[2017-09-14] MEDS: BRINZOLAMIDE 1% OPTH SUSP 10 ML BTL OU SCH ×3 (09:00→21:26)
[2017-09-14] MEDS: FERROUS SULFATE 325 MG TAB PO SCH ×2 (09:00→17:00)
[2017-09-14] MEDS: DOCUSATE SODIUM 100 MG CAP PO SCH ×2 (09:00→17:00)
[2017-09-14] MEDS: ASPIRIN 81 MG ENTERIC COATED PO SCH (09:00)
[2017-09-14] MEDS: FUROSEMIDE INJ 10 MG/ML 4 ML VIAL IV SCH ×2 (09:00→17:00)
[2017-09-14] MEDS: PANTOPRAZOLE SOD 40 MG TABEC PO SCH (09:00)
[2017-09-14] MEDS: INSULIN DETEMIR 100 UNIT/ML PEN SQ SCH (09:00)
[2017-09-14] MEDS: GABAPENTIN 300 MG CAP PO SCH ×3 (09:00→21:26)
[2017-09-14 11:54] VITALS: BP 187/87
[2017-09-14 16:52] VITALS: BP 192/79
[2017-09-14] MEDS: LIDOCAINE 5% PATCH TP SCH (18:45)
[2017-09-14 20:00] VITALS: BP 195/83
[2017-09-14] MEDS: LATANOPROST(OPTH) 2.5 ML BTL OP SCH (21:00)
[2017-09-14] MEDS: TAMSULOSIN HCL 0.4 MG CAP PO SCH (21:26)
[2017-09-14] MEDS: HYDRALAZINE HCL 20 MG/ML VIAL IV PRN (21:26)
[2017-09-14] MEDS: TRAZODONE HCL 50 MG TAB PO SCH (21:26)
[2017-09-14] MEDS: SIMVASTATIN 40 MG TAB PO SCH (21:26)
[2017-09-15] VITALS (8 sets, daily range): BP systolic 149–173; BP diastolic 65–72
[2017-09-15] MEDS: IPRATROPIUM/ALBUTEROL SULFATE 4 GM INH INH SCH ×6 (03:00→23:15)
[2017-09-15] MEDS: HYDRALAZINE HCL 20 MG/ML VIAL IV PRN (06:33)
[2017-09-15] MEDS: AZELASTINE HCL 137 MCG NASAL SPRAY NS SCH ×2 (09:01→17:55)
[2017-09-15] MEDS: INSULIN REGULAR, HUMAN 100 UNIT/1 ML 3ML VIAL SQ SCH ×4 (09:01→21:28)
[2017-09-15] MEDS: HYDRALAZINE HCL 25 MG TAB PO SCH ×3 (09:01→21:41)
[2017-09-15] MEDS: FUROSEMIDE INJ 10 MG/ML 4 ML VIAL IV SCH ×2 (09:01→17:55)
[2017-09-15] MEDS: ASPIRIN 81 MG ENTERIC COATED PO SCH (09:01)
[2017-09-15] MEDS: BRINZOLAMIDE 1% OPTH SUSP 10 ML BTL OU SCH ×3 (09:01→21:28)
[2017-09-15] MEDS: DOCUSATE SODIUM 100 MG CAP PO SCH ×2 (09:01→17:55)
[2017-09-15] MEDS: TIZANIDINE HCL 4 MG TAB PO SCH ×2 (09:02→17:56)
[2017-09-15] MEDS: GABAPENTIN 300 MG CAP PO SCH ×3 (09:02→21:28)
[2017-09-15] MEDS: FERROUS SULFATE 325 MG TAB PO SCH ×2 (09:02→17:55)
[2017-09-15] MEDS: PANTOPRAZOLE SOD 40 MG TABEC PO SCH (09:02)
[2017-09-15] MEDS: INSULIN DETEMIR 100 UNIT/ML PEN SQ SCH (09:04)
--- NOTE | 2017-09-15 10:20 | Consultation ---
DATE OF CONSULTATION: CARDIOLOGY CONSULTATION Thank you so much for asking me to see Mr. Veliz again in consultation. He is a very complex and elderly and 87-year-old man who returns to the emergency room with the complaint of shortness of breath. HISTORY OF PRESENT ILLNESS: Patient was discharged from [facility] last month with similar findings of COPD and CHF. He reports he has been more short of breath in the senior care. PAST MEDICAL HISTORY: Long and complex with right lower lobe lobectomy for lung cancer in 2009. He had a crush injury his right arm in 1997 with chronic pain, and had a nerve stimulator implanted that did not seem to be helpful, but remains in place. He was hospitalized in 2017 at [facility], [facility] and [facility] for recurrent pneumonia and urinary tract infections. CURRENT MEDICATION LIST: From the senior care includes: 1. Aspirin daily. 2. Astelin. 3. Dulcolax. 4. Colace. 5. Iron sulfate. 6. Furosemide. 7. Gabapentin. 8. Hydralazine. 9. Insulin. 10. Lidoderm patch. 11. Protonix. 12. Tamsulosin. 13. Clonidine. 14. Amlodipine 5 mg daily. 15. Pindolol 5 mg b.i.d. PHYSICAL EXAMINATION GENERAL: At this time, shows an alert and oriented white man who is wearing nasal cannula oxygen. VITALS: Blood pressure is 150/80. HEENT: Otherwise unremarkable. THORAX: There is a right thoracotomy scar with a device in the right side of the chest wall. HEART: Sounds S1 S2 are equal and regular. No distinct murmur. LUNGS: Diffuse rhonchi bilaterally. ABDOMEN: Protuberant. EXTREMITIES: With trace pedal edema. EKGs on the chart show sinus rhythm at 76. Repeat EKG showed junctional bradycardia at 38. CURRENT LABORATORY STUDIES: Show hemoglobin 8.9, hematocrit 28.2. BUN 38, creatinine 1.6. CPK and troponins were all normal. BNP is 371. ASSESSMENT 1. Severe end-stage chronic obstructive pulmonary disease. 2. Congestive heart failure with echocardiogram on August 17, 2017, showing ejection fraction of 50% to 55%. 3. Severe hypertension. 4. Episodic bradycardia. 5. Type 2 adult-onset diabetes. 6. Severe anemia. 7. Mild renal insufficiency. PLAN: Will withhold his slowing medications, including clonidine and if he is receiving any Pindolol. Will monitor his rhythm. He could be a candidate for pacemaker placement. Will monitor his volume status. Thank you for asking me to see him in consultation. Job#: [id number] JAMES
[2017-09-15] MEDS ORDERED: ACETAMINOPHEN 325 MG TAB PO PRN (11:00)
[2017-09-15] MEDS: LIDOCAINE 5% PATCH TP SCH (17:56)
[2017-09-15] MEDS ORDERED: HUMULIN R100 UNIT/2 (18:12)
[2017-09-15] MEDS: LATANOPROST(OPTH) 2.5 ML BTL OP SCH (21:28)
[2017-09-15] MEDS: TAMSULOSIN HCL 0.4 MG CAP PO SCH (21:28)
[2017-09-15] MEDS: SIMVASTATIN 40 MG TAB PO SCH (21:28)
[2017-09-15] MEDS: TRAZODONE HCL 50 MG TAB PO SCH (21:28)
[2017-09-16] VITALS: BP 144/73
[2017-09-16] MEDS: IPRATROPIUM/ALBUTEROL SULFATE 4 GM INH INH SCH ×6 (03:00→22:26)
[2017-09-16 04:00] VITALS: BP 140/63
[2017-09-16] MEDS: HYDRALAZINE HCL 25 MG TAB PO SCH ×3 (06:00→21:39)
[2017-09-16 07:16] LABS: BASOPHILS % 0.5 % (0.0-1.0); EOSINOPHILS # (AUTO) 0.3 (0.0-0.4); EOSINOPHILS % 3.4 % (0.0-6.0); HEMATOCRIT 31.5 % (38.2-49.6); HEMOGLOBIN 10.1 g/dL (14.0-18.0); LYMPHOCYTES % 25.9 % (18.0-39.1); MEAN CORPUSCULAR HEMOGLOBIN 27.3 pg (28-32); MEAN CORPUSCULAR HGB CONC 32.1 g/dL (31-35); MEAN CORPUSCULAR VOLUME 85.1 fL (81-99); MONOCYTES # (AUTO) 0.6 (0.2-0.8); MONOCYTES % 7.6 % (4.4-11.3); NEUTROPHILS # (AUTO) 4.9 (2.1-6.9); NEUTROPHILS % 62.3 % (38.7-80.0); PLATELET COUNT 185 x10e3/uL (140-360); RED CELL DISTRIBUTION WIDTH 14.8 % (11.7-14.4)
[2017-09-16] MEDS: INSULIN REGULAR, HUMAN 100 UNIT/1 ML 3ML VIAL SQ SCH ×4 (07:30→21:40)
[2017-09-16 07:49] LABS: ANION GAP 12.4 mmol/L (8-16); CALCIUM 9.3 mg/dL (8.4-10.2); CREATININE, SERUM 1.94 mg/dL (0.72-1.25); POTASSIUM 4.4 mmol/L (3.5-5.1)
[2017-09-16] MEDS ORDERED: CEFAZOLIN SOD 1 GM VIAL ONE (08:14)
[2017-09-16] MEDS ORDERED: LIDOCAINE HCL 2% LOCAL 20 ML VIAL ONE (08:17)
[2017-09-16] MEDS ORDERED: SODIUM CHLORIDE 0.9% 500ML 500 ML ONE ×2 (08:17→09:05)
[2017-09-16] MEDS ORDERED: SODIUM CHLORIDE 0.9% 1000ML 1,000 ML ONE (08:18)
[2017-09-16] MEDS ORDERED: AMIKACIN SULFATE 250 MG/ML 2ML VIAL ONE (08:19)
[2017-09-16] MEDS ORDERED: MIDAZOLAM HCL 2 MG/2 ML VIAL ONE (08:20)
[2017-09-16] MEDS ORDERED: FENTANYL CITRATE/PF 100MCG/2 ML INJ ONE (08:21)
[2017-09-16 08:25] VITALS: BP 174/75
[2017-09-16] MEDS ORDERED: IOPAMIDOL 300MG/ML 50ML INFUS..BTL IV ONE (08:49)
[2017-09-16] MEDS ORDERED: CEFAZOLIN SOD 1 GM in WATER STERILE 10ML VIAL 10 ML IV ONE (09:00)
[2017-09-16] MEDS: ASPIRIN 81 MG ENTERIC COATED PO SCH (09:00)
[2017-09-16] MEDS ORDERED: CEFAZOLIN SOD 1 GM VIAL IV NR (09:00)
[2017-09-16] MEDS ORDERED: DIPHENHYDRAMINE HCL INJ 50 MG/ML VIAL IV NR (09:00)
[2017-09-16] MEDS ORDERED: DIPHENHYDRAMINE HCL INJ 50 MG/ML VIAL ONE (09:05)
[2017-09-16] MEDS: DOCUSATE SODIUM 100 MG CAP PO SCH ×2 (10:50→16:41)
[2017-09-16] MEDS: FERROUS SULFATE 325 MG TAB PO SCH ×2 (10:50→16:40)
[2017-09-16] MEDS: TIZANIDINE HCL 4 MG TAB PO SCH ×2 (10:50→16:40)
[2017-09-16] MEDS: BRINZOLAMIDE 1% OPTH SUSP 10 ML BTL OU SCH ×3 (10:50→21:38)
[2017-09-16] MEDS: AZELASTINE HCL 137 MCG NASAL SPRAY NS SCH ×2 (10:50→16:40)
[2017-09-16] MEDS: PANTOPRAZOLE SOD 40 MG TABEC PO SCH (10:50)
[2017-09-16] MEDS: GABAPENTIN 300 MG CAP PO SCH ×3 (10:50→21:38)
[2017-09-16] MEDS: FUROSEMIDE INJ 10 MG/ML 4 ML VIAL IV SCH ×2 (10:50→16:40)
[2017-09-16] MEDS: HYDRALAZINE HCL 20 MG/ML VIAL IV PRN (10:50)
--- NOTE | 2017-09-16 12:06 | Diagnostic Imaging Report ---
PROCEDURE: A single AP view of the chest. COMPARISON: Chest radiograph 09/12/2017 INDICATIONS: S/P PACEMAKER INSERTION, LT. UPPER CHEST FINDINGS: Lines/tubes: * Interval placement of left chest wall cardiac pacer intact lead overlying the right ventricle. * Stable appearance of the right chest wall electronic device. Lungs: The lungs are well inflated. Stable right basilar opacity likely representing atelectasis secondary to adjacent effusion. Decreased central congestion/edema. Pleura: Blunting of the right costophrenic sulcus, stable. No pneumothorax Heart and mediastinum: Stable prominence of the cardiomediastinal silhouette. Aortic calcifications. Bones: No acute bony abnormality. Partially visualized lower cervical fusion hardware. IMPRESSION: 1. Interval placement of left chest wall cardiac pacer. 2. Decreased vascular congestion and pulmonary edema. 3. Stable small right pleural effusion with adjacent atelectasis. Dictated by: Ike Kuo M.D. on 09/16/2017 at 12:06 Electronically approved by: Ike Kuo M.D. on 09/16/2017 at 12:06
--- NOTE | 2017-09-16 13:26 | Operative Report ---
DATE OF PROCEDURE: ATTENDING PHYSICIAN: Alvaro Menon MD PROCEDURE: Permanent pacemaker implant. INDICATIONS: Sick sinus syndrome with heart rate as low as 25 beats per minute. PROCEDURE IN DETAIL: The patient was brought to the lab head in a fasting, partially sedated state, premedicated with Benadryl 50 mg IV push and also Ancef 1 g IV piggyback. With the patient in the supine position, the left subclavian area is scrubbed and draped with Ioban drape. A venogram was performed from the left arm, demonstrating the location of the subclavian vein. Then, the region was infiltrated with 1% Xylocaine. Using a percutaneous needle, the left subclavian vein was entered, and a wire was advanced into the right atrium and clipped to the drape. Then, using both sharp and blunt dissection, a pocket of adequate dimension was formed. Minor bleeding was controlled with pencil cautery and antibiotic-soaked 4 x 4. A 5-Italian sheath was placed over the J wire, and the ventricular lead was advanced through the sheath into the right ventricular apex and screwed into place. It was tested for both sensing and capture. R waves were sensed at 13 mV, and threshold is 0.5 msec at 0.8 volts. Then the lead was sewn to the muscle with #0 silk. The generator was attached to the lead, and the 4 x 4 was removed from the pocket. The pacemaker was tested for fit and found to be acceptable. Then #0 silk was used to attach the pacemaker generator to the muscle. The pacemaker was placed in the pocket, and the lead was tucked beneath the generator can. Then, after careful inspection and slightly more pencil cautery, the deep tissues were closed with 2-0 Vicryl, and the skin was closed with shawnee. Fluoroscopy shows good positioning of the leads and generator, and the lung greer appear unremarkable. The patient was stable and was returned to his room. There was no significant blood loss and no complications. The pacemaker generator is a [employer] [id number], serial number [id number]. The pacing lead for the right ventricle is a [employer] [id number], serial number [id number]. It is an MRI-compatible system. Job#: [id number] cc:ALVARO MENON MD
[2017-09-16] MEDS: INSULIN DETEMIR 100 UNIT/ML PEN SQ SCH (16:37)
[2017-09-16] MEDS: CEFAZOLIN SOD 1 GM VIAL IV SCH (16:40)
[2017-09-16] MEDS: BACITRACIN ZINC 15 GM OINT TOP SCH (17:00)
[2017-09-16] MEDS: LIDOCAINE 5% PATCH TP SCH (17:09)
[2017-09-16 20:00] VITALS: BP 142/65
[2017-09-16] MEDS: TAMSULOSIN HCL 0.4 MG CAP PO SCH (21:38)
[2017-09-16] MEDS: TRAZODONE HCL 50 MG TAB PO SCH (21:38)
[2017-09-16] MEDS: LATANOPROST(OPTH) 2.5 ML BTL OP SCH (21:38)
[2017-09-16] MEDS: SIMVASTATIN 40 MG TAB PO SCH (21:39)
[2017-09-17] VITALS (9 sets, daily range): BP systolic 132–199; BP diastolic 60–91
[2017-09-17] MEDS: CEFAZOLIN SOD 1 GM VIAL IV SCH (01:35)
[2017-09-17] MEDS: IPRATROPIUM/ALBUTEROL SULFATE 4 GM INH INH SCH ×6 (02:16→23:10)
[2017-09-17] MEDS: HYDRALAZINE HCL 25 MG TAB PO SCH ×3 (06:09→21:30)
[2017-09-17] MEDS: INSULIN REGULAR, HUMAN 100 UNIT/1 ML 3ML VIAL SQ SCH ×4 (07:30→21:30)
[2017-09-17] MEDS: INSULIN DETEMIR 100 UNIT/ML PEN SQ SCH (09:15)
[2017-09-17] MEDS: AZELASTINE HCL 137 MCG NASAL SPRAY NS SCH ×2 (09:15→17:59)
[2017-09-17] MEDS: BACITRACIN ZINC 15 GM OINT TOP SCH ×2 (09:55→17:30)
[2017-09-17] MEDS: DOCUSATE SODIUM 100 MG CAP PO SCH ×2 (09:55→17:59)
[2017-09-17] MEDS: GABAPENTIN 300 MG CAP PO SCH ×3 (09:55→21:30)
[2017-09-17] MEDS: FUROSEMIDE INJ 10 MG/ML 4 ML VIAL IV SCH (09:55)
[2017-09-17] MEDS: PANTOPRAZOLE SOD 40 MG TABEC PO SCH (09:55)
[2017-09-17] MEDS: TIZANIDINE HCL 4 MG TAB PO SCH ×2 (09:55→18:00)
[2017-09-17] MEDS: BRINZOLAMIDE 1% OPTH SUSP 10 ML BTL OU SCH ×3 (09:55→21:30)
[2017-09-17] MEDS: ASPIRIN 81 MG ENTERIC COATED PO SCH (09:55)
[2017-09-17] MEDS: FERROUS SULFATE 325 MG TAB PO SCH ×2 (09:55→17:59)
[2017-09-17] MEDS: HYDRALAZINE HCL 20 MG/ML VIAL IV PRN (16:45)
[2017-09-17] MEDS: CLONIDINE HCL 0.1 MG TAB PO SCH (17:59)
[2017-09-17] MEDS: LIDOCAINE 5% PATCH TP SCH (18:00)
--- NOTE | 2017-09-17 21:04 | Discharge Summary ---
HISTORY OF PRESENT ILLNESS: Patient is an 87-year-old male [facility] resident past medical history positive for chronic systolic, CHF, COPD, chronic renal failure, diabetes, anemia of chronic disease. She was admitted because of shortness of breath. He was found to have sick sinus syndrome. He had a permanent pacemaker placed by Dr. Burden. Patient going to be going back to the [facility] today. PHYSICAL EXAM VITALS: The blood pressure is 120/80, heart rate is 69 per minute, respiratory rate is 18 per minute, temperature 96.8, oxygen saturation 95%. HEART: Shows regular rhythm. Normal S1, S2 sounds. LUNGS: Clear bilaterally. ABDOMEN: Soft. EXTREMITIES: Show no evidence of cyanosis or trauma. On the BMP, sodium 140, potassium 4.4, chloride 104, CO2 28, BUN 45, creatinine 1.84, glucose 142. On the CBC, white blood count 7.5, hemoglobin 10.1, hematocrit 31.5, platelet 185,000. AST 25, ALT 33, total bilirubin 0.3, alkaline phosphatase 64. FINAL IMPRESSIONS 1. Chronic obstructive pulmonary disease exacerbation. 2. Chronic renal failure, stage 4. 3. Sick sinus syndrome, status post permanent pacemaker placement. 4. Anemia of chronic disease secondary to chronic renal failure. 5. Uncontrolled diabetes mellitus type 2 with diabetic nephropathy. 6. Chronic systolic congestive heart failure. PLAN OF TREATMENT: Continue 1. Albuterol and Atrovent q.4 h as needed for shortness of breath. 2. Aspirin 81 mg daily. 3. Papa 137 mcg daily twice a day. 4. Gabapentin 300 mg 3 times a day. 5. Simvastatin 40 mg daily. 6. 3 times a day. 7. Furosemide 40 mg daily. 8. Dulcolax 10 mg daily as needed. 9. Levemir 7 units daily. 10. 11. Flomax 0.4 mg daily. 12. Continue bacitracin twice a day. 13. Colace 100 mg twice a day. 14. Lorazepam 0.5 mg twice a day as needed. 15. Zanaflex 4 mg twice a day as needed. 16. Continue monitoring blood sugar a.c. nightly. 17. Continue hydralazine 25 mg q.8 h. 18. Continue with ferrous sulfate 325 mg twice a day. 19. Protonix 40 mg daily. 20. Trazodone 50 mg daily. 21. Latanoprost ophthalmic solution 1 drop to each eye at bedtime. 22. Tylenol 650 mg q.4 h as needed. 23. Clonidine 0.1 mg twice a day. Patient going to go back to [facility]. He is being discharged by Dr. Veloz, media law faculty member, already. Instructions have been given about the pacemaker. MT BAUGH MD Job#: [id number] CQ
[2017-09-17] MEDS: TRAZODONE HCL 50 MG TAB PO SCH (21:30)
[2017-09-17] MEDS: LATANOPROST(OPTH) 2.5 ML BTL OP SCH (21:30)
[2017-09-17] MEDS: TAMSULOSIN HCL 0.4 MG CAP PO SCH (21:30)
[2017-09-17] MEDS: SIMVASTATIN 40 MG TAB PO SCH (21:30)
[2017-09-18] VITALS (7 sets, daily range): BP systolic 90–177; BP diastolic 45–86
[2017-09-18] MEDS: IPRATROPIUM/ALBUTEROL SULFATE 4 GM INH INH SCH ×4 (03:10→14:42)
[2017-09-18] MEDS: HYDRALAZINE HCL 20 MG/ML VIAL IV PRN (06:33)
[2017-09-18] MEDS: AZELASTINE HCL 137 MCG NASAL SPRAY NS SCH (08:27)
[2017-09-18] MEDS: TIZANIDINE HCL 4 MG TAB PO SCH (08:27)
[2017-09-18] MEDS: INSULIN REGULAR, HUMAN 100 UNIT/1 ML 3ML VIAL SQ SCH ×2 (08:27→11:30)
[2017-09-18] MEDS: ASPIRIN 81 MG ENTERIC COATED PO SCH (08:27)
[2017-09-18] MEDS: HYDRALAZINE HCL 25 MG TAB PO SCH (08:27)
[2017-09-18] MEDS: GABAPENTIN 300 MG CAP PO SCH (08:27)
[2017-09-18] MEDS: PANTOPRAZOLE SOD 40 MG TABEC PO SCH (08:27)
[2017-09-18] MEDS: FERROUS SULFATE 325 MG TAB PO SCH (08:27)
[2017-09-18] MEDS: CLONIDINE HCL 0.1 MG TAB PO SCH (08:27)
[2017-09-18] MEDS: BRINZOLAMIDE 1% OPTH SUSP 10 ML BTL OU SCH (08:27)
[2017-09-18] MEDS: BACITRACIN ZINC 15 GM OINT TOP SCH (08:27)
[2017-09-18] MEDS: DOCUSATE SODIUM 100 MG CAP PO SCH (08:31)
[2017-09-18] MEDS ORDERED: INSULIN DETEMIR 100 UNIT/ML PEN SQ SCH (09:00)
[2017-09-18] MEDS ORDERED: FUROSEMIDE INJ 10 MG/ML 4 ML VIAL IV SCH (09:00)
[2017-09-18] MEDS ORDERED: FUROSEMIDE 40 MG TAB PO SCH (09:00)
[2017-09-18] MEDS ORDERED: AMLODIPINE BESYLATE 5 MG TAB PO SCH (09:00)
--- NOTE | 2017-09-18 18:25 | Discharge Summary ---
HISTORY OF PRESENT ILLNESS: Patient is finally going to be going home today. He is status post permanent pacemaker placement. This is an addendum to my discharge summary dictated yesterday. PHYSICAL EXAM: HEART: Regular rhythm. No murmur. No extra sounds. LUNGS: Clear bilaterally. ABDOMEN: Soft. EXTREMITIES: Show no evidence of cyanosis, edema or trauma. FINAL IMPRESSION 1. Sick sinus syndrome, status post permanent pacemaker placement. 2. Hypertensive; nephropathy. 3. Chronic renal disease stage 3. 4. Anemia of chronic disease. PLAN OF TREATMENT: He is going to be discharged on the medication I already dictated yesterday. He is going to be on albuterol and Atrovent q.4 hours as needed for shortness of breath. Aspirin 81 mg daily. Papa 137 micrograms p.o. twice a day, gabapentin 300 mg 3 times a day. Flomax 0.4 mg daily. Clonidine 0.1 mg twice a day, bisacodyl 10 mg daily as needed, lorazepam 0.5 mg q.8 hours. as needed for anxiety. Zanaflex 4 mg twice a day as needed. Continue monitoring blood sugar a.c. and nightly. Continue Tylenol 350 mg q.4 hours as needed. Furosemide 40 mg daily. Colace 100 mg twice a day. Protonix 40 mg daily. Trazodone 50 mg at bedtime. Latanoprost eye drops 1 drop to each eye at bedtime. Bacitracin zinc topically twice a day to affected area. Hydralazine 50 mg 3 times a day. Ferrous sulfate 325 mg twice a day. Simvastatin 40 mg daily. 3 times a day. Levemir 3 units at bedtime. He is going to be transferred to [facility] today. MT BAUGH MD Job#: [id number]
== END 2017-09-18 15:37 | DRG 242 ==
LOC: ER 18:52 → ERHOLD 09-13 00:12 → MED/SURG 09-13 21:52
PROC: 0JH604Z Insertion of Pacemaker, Single Chamber into Chest Subcutaneous Tissue and Fascia, Open Approach (ICD-10-PCS; principal; 2017-09-16)
PROC: 02HK3JZ Insertion of Pacemaker Lead into Right Ventricle, Percutaneous Approach (ICD-10-PCS; 2017-09-16)
DX: I49.5 Sick sinus syndrome (principal); I50.23 Acute on chronic systolic (congestive) heart failure; N18.4 Chronic kidney disease, stage 4 (severe); E11.22 Type 2 diabetes mellitus with diabetic chronic kidney disease; J44.1 Chronic obstructive pulmonary disease with (acute) exacerbation; I13.0 Hypertensive heart and chronic kidney disease with heart failure and stage 1 through stage 4 chronic kidney disease, or unspecified chronic kidney disease; D63.1 Anemia in chronic kidney disease; E11.65 Type 2 diabetes mellitus with hyperglycemia; I25.10 Atherosclerotic heart disease of native coronary artery without angina pectoris; Z66 Do not resuscitate
CPT/HCPCS: 36005; 36415; 71045; 77001; 77002; 80048; 80053; 82550; 82553; 82948; 83880; 84484; 85025; 93005; 94640; 96372; 99284; C1786; C1898; J0360; J0690; J1200; J1940; J2001; J2250; J7030; J7040

== ENCOUNTER 2017-11-06 18:38 | Inpatient (IN) | payer MEDICARE, OTHER ==
[~2017-11-06] VITALS: Ht 182.9 cm; Wt 87.5 kg
[~2017-11-06 18:38] MED LIST changes: +AZELASTINE137 MCG/0. NS; +AZOPT10 ML OU; +CLONIDINE HCL0.1 MG PO; +COMBIVENT RESPIM4 GM IH; +FERROUS SULFAT325 M1 PO; +HUMULIN R100 UNIT/2; +HYDRALAZINE HCL25 MG PO; +LIDODERM PATCH 5% TOP; +PANTOPRAZOLE SO40 MG PO
--- OUTSIDE RECORDS SUMMARY | 2017-11-06 18:40 | XMS REPORT | Clinical Summary ---
Author Author [facility] Organization [facility] Address Unknown Phone Unavailable Care Team Providers Care Spot Worker Name Role Phone Inocente Paulino MD PCP [...] continuously. mg/mL solution for nebulization 0.6 mg amoxicillin-pot TAKE 1 TABLET BY MOUTH 0 [...] MD Jason (Primary Dx); 04/19/2017 Hypoglycemia 03/11/2017 [facility] General Internal Medicine Matthias Parson COPD exacerbation - Encounter Isidro Sanders MD (Primary Dx) 03/28/2017 Shabbir Steel MD after 11/05/2016 Family History Medical History Relation Name Comments [...] Esophageal cancer Neg Hx GERD Neg Hx METAL WINDOW SCREEN ASSEMBLER Cancer Neg Hx Hemochromatosis Neg Hx Inflammatory [...] Health Maintenance Due Date Last Done Comments SHINGRIX VACCINE (#1) 1980 ZOSTER VACCINE 1990 PNEUMOCOCCAL 1995 POLYSACCHARIDE VACCINE AGE 65 AND OVER PNEUMOCOCCAL-13 1995 INFLUENZA VACCINE 01/18/2018 Procedures Procedure Name Priority Date/Time Associated Diagnosis Comments CATH DUAL LUMEN PICC Routine 03/21/2017 Results for this 12:51 PM CDT procedure are in the results section. US GUIDED VASCULAR Routine 03/21/2017 Results for this ACCESS 12:51 PM CDT procedure are in the results section. HC CVL PICC INSERT 5 YRS Routine 03/21/2017 Results for this OR > 12:51 PM CDT procedure are in the results section. EEG AWAKE/ASLEEP LESS Routine 03/15/2017 Results for this THAN 41 MIN 10:34 PM CDT procedure are in the results section. after 11/05/2016 Results * POC glucose (04/19/2017 1:26 AM) Only the most recent of 99 results within the time period is included. Component Value Ref Range POC glucose 142 (H) 65 - 100 mg/dL Comment: Meter ID: [id number] Workers Compensation Attorney: Sandy Hernandez Specimen Performing Laboratory [facility]OLOGY AND GENOMIC MEDICINE [address] [place] [address] * Estimated GFR (04/19/2017 1:22 AM) Only the most recent of 22 results within the time period is included. [...] and Americans. Specimen Performing Laboratory Plasma specimen [facility] DEPARTMENT OF PATHOLOGY AND GENOMIC MEDICINE [address] [place] [address] * Basic metabolic panel (04/19/2017 1:22 AM) [...] 10.7 mg/dL Specimen Performing Laboratory Plasma specimen [facility] DEPARTMENT OF PATHOLOGY AND GENOMIC MEDICINE [address] [facility] [place] [address] * CBC with platelet and differential (04/18/2017 9:41 PM) Only the most recent of 12 results within the time period is included. [...] - 1.0 % Specimen Performing Laboratory Blood [facility] DEPARTMENT OF PATHOLOGY AND GENOMIC MEDICINE [address] [facility] [place] [address] * CT Head Wo Contrast (04/18/2017 9:28 PM) Only the most recent of 3 results within the time period is included. Specimen Performing Laboratory [facility] [address] [place] [address] Narrative EXAMINATION: CT HEAD WO CONTRAST CLINICAL [...] detailed above with no acute intracranial abnormality. [facility]-[id number] Procedure Note Hm Interface, Radiology Results Incoming - 04/18/2017 9:36 [...] detailed above with no acute intracranial abnormality. [facility]-[id number] * CT Cervical Spine Wo Contrast (03/28/2017 4:31 PM) Specimen Performing Laboratory [facility] [address] [place] [address] Narrative EXAMINATION:CT CERVICAL SPINE WO CONTRAST CLINICAL [...] IMPRESSION: No acute cervical spine bony abnormality. [facility]-[id number] Procedure Note Interface, Radiology Results [facility] [...] IMPRESSION: No acute cervical spine bony abnormality. [facility]-[id number] * XR Abdomen 1 Vw (03/28/2017 3:20 PM) Specimen Performing Laboratory [facility] [address] [place] [address] Narrative PROCEDURE:XR ABDOMEN 1 VW CLINICAL HISTORY:ABDOMINAL [...] prior cholecystectomy. IMPRESSION: Nonspecific bowel gas pattern. [id number] . Procedure Note Hm [facility], Radiology Results Incoming - 03/28/2017 4:09 PM [...] prior cholecystectomy. IMPRESSION: Nonspecific bowel gas pattern. [id number] . * Phosphorus level (03/28/2017 5:30 AM) Only the most recent of 5 results within the time period is included. Component Value Ref Range Phosphorus 2.8 2.5 - 4.5 mg/dL Specimen Performing Laboratory Plasma specimen [facility] DEPARTMENT OF PATHOLOGY AND GENOMIC MEDICINE [address] [place] [address] * Magnesium level (03/28/2017 5:30 AM) Only the most recent of 6 results within the time period is included. Component Value Ref Range Magnesium 2.30 1.60 - 2.40 mg/dL Specimen Performing Laboratory Plasma specimen [facility] DEPARTMENT OF PATHOLOGY AND GENOMIC MEDICINE [address] [place] [address]. [place] [address] * Salmonella/shigella culture (03/27/2017 4:08 PM) Component Value Ref Range Salmonella/shigella No Aeromonas isolated culture isolate Comment: Specimen Information Specimen Source: Stool Specimen Site: Nonpreserved Specimen Performing Laboratory Stool - Nonpreserved [facility] DEPARTMENT OF PATHOLOGY AND GENOMIC MEDICINE [address] [place] [address] * Gastrointestinal panel (03/27/2017 4:08 PM) Component [...] Nonpreserved Specimen Performing Laboratory Stool - Nonpreserved [facility] DEPARTMENT OF PATHOLOGY AND GENOMIC MEDICINE [address] [place] [address] * ECG 12 lead (03/23/2017 12:30 PM) Only the most recent of 3 [...] has replaced Junctional rhythm- Specimen Performing Laboratory [facility] MUSE [address] [place] [address] * FL Modified Barium Swallow (03/23/2017 12:10 PM) Specimen Performing Laboratory [facility] [address] [place] [address] Narrative EXAMINATION:FL MODIFIED BARIUM SWALLOW CLINICAL HISTORY:Dysphagia [...] to Speech Pathology report for further details. [id number] Procedure Note Interface, Radiology Results Incoming - [...] to Speech Pathology report for further details. [facility]-[id number] * Vancomycin level, random (03/22/2017 6:00 AM) Only the most recent of 2 results within the time period is included. Component Value Ref Range Vancomycin, random 9.4 ug/mL Comment: Therapeutic Ranges: Peak 30.0 - 40.0 ug/mL Trough 10.0 - 20.0 ug/mL Specimen Performing Laboratory Blood [facility] DEPARTMENT OF PATHOLOGY AND GENOMIC MEDICINE [address] [place] [address] * Urea nitrogen, urine, random (03/21/2017 5:50 PM) Component Value Ref Range Urea nitrogen, urine, 1,122 mg/dL random Specimen Performing Laboratory Urine [facility] DEPARTMENT OF PATHOLOGY AND GENOMIC MEDICINE [address] [place] [address] * Sodium level, urine, random (03/21/2017 5:50 PM) Component Value Ref Range Sodium, urine, random 27 (A) mEQ/L Specimen Performing Laboratory Urine - Urine, [facility] DEPARTMENT OF PATHOLOGY AND GENOMIC MEDICINE catch [address] [place] [address] * Protein, urine, random (03/21/2017 5:50 PM) Component Value Ref Range Protein, urine random 222 mg/dL Specimen Performing Laboratory Urine - Urine, [facility] DEPARTMENT OF PATHOLOGY AND GENOMIC MEDICINE catch [address] [place] [address] * Potassium, urine, random (03/21/2017 5:50 PM) Component Value Ref Range Potassium, urine, random 29 mEq/L Specimen Performing Laboratory Urine - Urine, [facility] DEPARTMENT OF PATHOLOGY AND GENOMIC MEDICINE catch [address] [place] [address] * Creatinine level, urine, random (03/21/2017 5:50 PM) Component Value Ref Range Creatinine, urine, random 140 mg/dL Specimen Performing Laboratory Urine - Urine, [facility] DEPARTMENT OF PATHOLOGY AND GENOMIC MEDICINE catch [address] [place] [address] * C difficile toxin (03/21/2017 4:44 PM) Component Value Ref Range Clostridium difficile No Clostridium difficle toxin present toxin Comment: Specimen Information Specimen Source: Stool Specimen Site: Nonpreserved Specimen Performing Laboratory Stool - Nonpreserved [facility] DEPARTMENT OF PATHOLOGY AND GENOMIC MEDICINE [address] [place] [address] * PICC INSERTION (03/21/2017 12:51 PM) Narrative Agustina Pinzon RN 03/21/2017 12:51 PM PICC insertion Date/Time: 03/21/2017 12:47 PM Performed by: AGUSTINA PINZON Authorized by: SHABBIR STEEL Consent: Consent obtained:Written Consent given by:Patient and spouse Risks discussed: arterial puncture, incorrect placement, nerve damage, bleeding, infection and pneumothorax Alternatives discussed:No treatment [place] protocol: Procedure explained and questions answered to [...] (cm):47 Total Catheter Length (cm):47 Catheter Lot Number:[id number] Catheter Expiration Date:09/17/2017 Procedure Details: Landmarks identified: [...] Placement (03/19/2017 12:53 PM) Specimen Performing Laboratory [facility] [address] [place] [address] Narrative Title:Nasogastric tube placement with steerable angiographic [...] left the radiology Department in good condition. [id number] Procedure Note Interface, Radiology Results Incoming - [...] left the radiology Department in good condition. [id number] * XR Chest 1 Vw Portable (03/18/2017 7:35 PM) Only the most recent of 4 results within the time period is included. Specimen Performing Laboratory [address] [address] Narrative EXAMINATION:XR CHEST 1 VW PORTABLE CLINICAL HISTORY:Fever COMPARISON:Single view chest from 03/09/1717 IMPRESSION: No significant change in appearance of the chest when compared to previous exam. The lungs are clear. No focal consolidation or pleural effusion. No pneumothorax or midline shift. The mediastinal contours and cardiac silhouette are unchanged. Atherosclerotic disease. The bones are unremarkable. [facility][id number] Procedure Note Interface, Radiology Results Incoming - [...] unchanged. Atherosclerotic disease. The bones are unremarkable. [facility][id number] * Blood culture, aerobic & anaerobic (03/18/2017 5:39 PM) Only the most recent of 4 results within the time period is included. Component Value Ref Range Blood culture isolate No growth after 5 days of incubation. Comment: Specimen Information Specimen Source: Blood Specimen Site: Hand Right Specimen Performing Laboratory Blood [facility] DEPARTMENT OF PATHOLOGY AND GENOMIC MEDICINE [address] [place] [address] * IR Lumbar Puncture by Radiology (03/17/2017 12:01 PM) Specimen Performing Laboratory [facility] [address] [place] [address] Narrative Examination: Fluoroscopic guided lumbar puncture. CLINICAL [...] good condition. IMPRESSION: There were no complications. [facility]-[id number] Procedure Note [facility], Radiology Results Incoming - 03/17/2017 1:20 PM [...] good condition. IMPRESSION: There were no complications. [facility]-[id number] * Gram stain only (03/17/2017 11:45 AM) Component Value Ref Range Gram stain result No WBC's or organisms seen Comment: Specimen Information Specimen Source: CSF (Spinal Fluid) Specimen Site: Tube 3 Specimen Performing Laboratory Cerebrospinal fluid - [facility] DEPARTMENT OF PATHOLOGY AND GENOMIC MEDICINE Tube 3 [address] [place] [address] * West Nile virus by PCR, CSF (03/17/2017 11:45 AM) Component Value Ref Range West Nile virus PCR, CSF Not-Detected Not-Detected West Nile virus PCR, CSF See link below for PDF Lab ReportComment: Specimen Performing Laboratory Cerebrospinal fluid [facility] DEPARTMENT OF PATHOLOGY AND GENOMIC MEDICINE [address] [place] [address] Narrative CSF TUBE # 3 ABOUT 1CC [...] members of the Flaviviridae family, such as [place] encephalitis virus, show extensive cross-reactivity with West Nile virus, serologic testing specific for these species should be considered. The detection of antibodies to West Nile virus in cerebrospinal fluid may indicate central nervous system infection. However, consideration must be given to possible contamination by blood or transfer of serum antibodies across the blood-brain barrier. Test developed and characteristics determined by [facility]. See Compliance Statement B: [facility]/CS Performed by [facility], [address] [place] [id number] [email or web address], Murray Johnson MD - Lab. Director Specimen Performing Laboratory Cerebrospinal fluid [facility] [address] [address] Narrative CSF TUBE # 3 ABOUT 1CC [...] members of the Flaviviridae family, such as [place] encephalitis virus, show extensive cross-reactivity with West Nile virus, serologic testing specific for these species should be considered. The detection of antibodies to West Nile virus in cerebrospinal fluid may indicate central nervous system infection. However, consideration must be given to possible contamination by blood or transfer of serum antibodies across the blood-brain barrier. Test developed and characteristics determined by [facility]. See Compliance Statement B: [email or web address] Performed by [facility], [address] [place] [address] [email or web address], Murray Johnson MD - Lab. Director Specimen Performing Laboratory Cerebrospinal fluid [facility] [address] [place] [address] Narrative CSF TUBE # 3 ABOUT 1CC [...] analytical performance characteristics have been determined by [facility]. It has not been cleared or approved by FDA. This assay has been validated pursuant to the CLIA regulations and is used for clinical purposes. This is a temporary referral of an in house test [facility] reference ranges do not apply. Test performed by: [facility] [address] [place] [address] Performed at: [facility] [address] [place] [address], [place] [address] Histoplasma Ab mycelial <1:2 <1:2 CF, CSF [...] for remainder of this panel. Performed by [facility], [address] [place] [address] [email or web address], Murray Johnson MD - Lab. Director Specimen Performing Laboratory Cerebrospinal fluid [facility] [address] [place] [address] Narrative CSF TUBE # 3 ABOUT 1CC * Miscellaneous referral test (03/17/2017 11:45 AM) Component Value Ref Range [facility] test name ARBOVIRUS PANEL TO [facility] test result SEE NOTE Comment: Arbovirus Ab Panel IgG and IgM, CSF [place] Encep Ab, IgG,CSF....<1:10 REFERENCE: <1:10 [place] Encep Ab, IgM,CSF....<1:10 REFERENCE: <1:10 [place] Enceph Ab, IgG, CSF....<1:10 REFERENCE: <1:10 [place] Enceph Ab, IgM, CSF....<1:10 REFERENCE: <1:10 [place] Enceph Ab, IgG, CSF....<1:10 REFERENCE: <1:10 [place] Enceph Ab, IgM, CSF....<1:10 REFERENCE: <1:10 [place] Enceph Ab, IgG, CSF....<1:10 REFERENCE: <1:10 [place] Enceph Ab, IgM, CSF....<1:10 REFERENCE: <1:10 Performing LAB SDL [facility] [address] [facility] [address] Specimen Performing Laboratory [facility] [address] [place] [address] Narrative CSF TUBE # 2 ABOUT 3CC- CHEMISTRY TUBE # 3 ABOUT 1CC- SEND OUTS TUBE # 3 ABOUT 3CC- HEMATOLOGY CSF CELLCOUNT DONE ON TUBE #4 * Herpes simplex virus by PCR (03/17/2017 11:45 AM) Component Value Ref Range Herpes virus, PCR Not-Detected Not-Detected Herpes virus, PCR See link below for PDF Lab ReportComment: Specimen Performing Laboratory [facility] DEPARTMENT OF PATHOLOGY AND GENOMIC MEDICINE [address] [place] [address] Narrative CSF TUBE # 3 ABOUT 1CC [...] Kelley MD Specimen Performing Laboratory Cerebrospinal fluid [facility] DEPARTMENT OF PATHOLOGY AND GENOMIC MEDICINE [address] [place] [address] * Gram stain (03/17/2017 11:45 AM) Only the most recent of 2 results within the time period is included. Component Value Ref Range Gram stain isolate Occasional WBC's No organisms seen Comment: Specimen Information Specimen Source: CSF (Spinal Fluid) Specimen Site: CSF (spinal fluid) Specimen Performing Laboratory Cerebrospinal fluid - CSF [facility] DEPARTMENT OF PATHOLOGY AND GENOMIC MEDICINE (spinal fluid) [address] [place] [address] Narrative CSF TUBE # 3 ABOUT 1CC * CSF culture (03/17/2017 11:45 AM) Component Value Ref Range CSF culture isolate No growth after 3 days. Comment: Specimen Information Specimen Source: CSF (Spinal Fluid) Specimen Site: CSF (spinal fluid) Specimen Performing Laboratory Cerebrospinal fluid - CSF [facility] DEPARTMENT OF PATHOLOGY AND GENOMIC MEDICINE (spinal fluid) [address] [place] [address] Narrative CSF TUBE # 3 ABOUT 1CC * CSF cell count with differential (03/17/2017 11:45 AM) Component Value Ref Range Color, CSF Colorless Appearance, CSF Clear CSF supernatant Colorless RBC, CSF 1 0 - 1 /CMM WBC, CSF 1 0 - 4 /CMM Lymphocytes, CSF 60 30 - 90 % Monocytes, CSF 40 10 - 50 % Specimen Performing Laboratory Cerebrospinal fluid [facility] DEPARTMENT OF PATHOLOGY AND GENOMIC MEDICINE [address] [place] [address]. [place] [address] Narrative CSF TUBE # 2 ABOUT 3CC- CHEMISTRY TUBE # 3 ABOUT 1CC- SEND OUTS TUBE # 3 ABOUT 3CC- HEMATOLOGY * Protein, CSF (03/17/2017 11:45 AM) Component Value Ref Range Protein, CSF 81 (H) 12 - 60 mg/dL Specimen Performing Laboratory Cerebrospinal fluid [facility] DEPARTMENT OF PATHOLOGY AND GENOMIC MEDICINE [address] [place] [address]. [place] [address] Narrative CSF TUBE # 2 ABOUT 3CC- CHEMISTRY TUBE # 3 ABOUT 1CC- SEND OUTS TUBE # 3 ABOUT 3CC- HEMATOLOGY * Glucose level, CSF (03/17/2017 11:45 AM) Component Value Ref Range Glucose, CSF 92 (H) 41 - 84 mg/dL Specimen Performing Laboratory Cerebrospinal fluid [facility] DEPARTMENT OF PATHOLOGY AND GENOMIC MEDICINE [address] [place] [address] Narrative CSF TUBE # 2 ABOUT 3CC- [...] validate this result. Specimen Performing Laboratory Blood [facility] DEPARTMENT OF PATHOLOGY AND GENOMIC MEDICINE [address] [place] [address] * Prothrombin time with INR (03/17/2017 8:02 [...] values over 4.0. Specimen Performing Laboratory Blood [facility] DEPARTMENT OF PATHOLOGY AND GENOMIC MEDICINE [address] [place] [address] * Urinalysis screen and microscopy, with reflex [...] UA 34 /LPF Specimen Performing Laboratory Urine [facility] DEPARTMENT OF PATHOLOGY AND GENOMIC MEDICINE [address] [facility] [place] [address] * Urine culture (03/16/2017 1:51 PM) Component Value Ref Range Urine culture isolate Melba glabrata 10-4 cfu/ml The performance characteristics of this assay on this isolate were validated by the Microbiology Laboratory at [facility]. This source has not been approved [...] Site: See UA Specimen Performing Laboratory Urine [facility] DEPARTMENT OF PATHOLOGY AND GENOMIC MEDICINE [address] [place] [address] Organism Antibiotic Method Susceptibility Melba glabrata Micafungin [...] 6:40 AM) Only the most recent of 5 results within the time period is included. Component Value Ref Range BNP 239 (H) 0 - 100 pg/mL Specimen Performing Laboratory Blood [facility] DEPARTMENT OF PATHOLOGY AND GENOMIC MEDICINE [address] [place] [address] * ECG ED Preliminary Interpretation - NOT AN ORDER (03/12/2017 8:17 AM) Georgia Parson Jr., MD 03/12/20178:17 AM ECG ED Preliminary Interpretation - Not an Order Performed by: MATTHIAS PARSON JR Authorized by: MATTHIAS PARSON JR ECG reviewed by ED Physician in the absence of a mine administrator supervisor: yes Interpretation: Interpretation: abnormal Rate: ECG rate:60 [...] gas (03/11/2017 5:34 PM) Component Value Ref [employer] [facility] Collection site LRA O2 therapy 2L pH, [...] A-a 88.0 mmHg Specimen Performing Laboratory Blood [facility] DEPARTMENT OF PATHOLOGY AND GENOMIC MEDICINE [address] [facility] [place] [address] * Troponin (03/11/2017 8:00 AM) Only the most recent of 2 [...] myocardial injury. Specimen Performing Laboratory Plasma specimen [facility] DEPARTMENT OF PATHOLOGY AND GENOMIC MEDICINE [address] [place] [address] [place] [address] * NM Lung Ventilation Perfusion (03/11/2017 7:49 AM) Specimen Performing Laboratory [facility] [address] [place] [address] Narrative PROCEDURE: NUCLEAR MEDICINETN LUNG VENTILATION PERFUSION CLINICAL HISTORY:hx of lung [...] in the posterior, anterior, RPO, LPO, DYE, HONDURAN, right and left lateral projections. The images were acquired on a dual head [employer] camera system. FINDINGS: The ventilation study demonstrates uniform uptake of isotope with good washout and no air trapping.. The lung perfusion study demonstrates no peripheral wedge-shaped perfusion defects. The correlative chest radiograph done within the past 24 hours shows pulmonary vascular congestion.. IMPRESSION: Low probability for pulmonary embolus. [facility]-[id number] . Procedure Note Interface, Radiology Results Incoming - 03/11/2017 8:02 AM CDT PROCEDURE: NUCLEAR MEDICINE TN LUNG VENTILATION PERFUSION CLINICAL HISTORY:hx of lung [...] in the posterior, anterior, RPO, LPO, DYE, HONDURAN, right and left lateral projections. The images [...] pulmonary embolus. [facility]-[id number] . * PV Duplex Venous Lower Extremity (03/11/2017 6:33 AM) Specimen Performing Laboratory [address] [address] Narrative EXAMINATION:US DUPLEX VENOUS LOWER EXTREMITY LEFT [...] of the visualized left lower extremity veins. [facility]-[id number] Procedure Note [facility], Radiology Results [facility] - 03/11/2017 6:38 AM CDT EXAMINATION: US [...] of the visualized left lower extremity veins. [facility]-[id number] * Venous blood gas (03/11/2017 4:42 AM) Component Value Ref [employer] Collection site L WRIST O2 therapy [...] - 18.0 g/dL Specimen Performing Laboratory Blood [facility] DEPARTMENT OF PATHOLOGY AND GENOMIC MEDICINE [address] [place] [address] * Creatine kinase, total (CPK) (03/11/2017 4:07 AM) Component Value Ref Range Creatine kinase 295 (H) 61 - 224 U/L Specimen Performing Laboratory Plasma specimen [facility] DEPARTMENT OF PATHOLOGY AND GENOMIC MEDICINE [address] [place] [address] * Comprehensive metabolic panel (03/11/2017 4:07 AM) Component Value Ref Range Sodium 141 135 [...] 1.2 mg/dL Specimen Performing Laboratory Plasma specimen [facility] DEPARTMENT OF PATHOLOGY AND GENOMIC MEDICINE [address] [place] [address] after 11/05/2016 Insurance Payer Benefit Subscriber ID Type Phone Address Plan / Group [employer] TEXAN[employer] xxxxxxxxx [facility] MEDICAID MEDICAID xxxxxxxxx Medicaid
--- OUTSIDE RECORDS SUMMARY | 2017-11-06 18:40 | XMS REPORT | Continuity of Care Document ---
Author Author [facility] Organization [facility] Address [address] [place] [address] Phone Unavailable Care Team Providers Care Patch Sander Name Role Phone PURA MENON MD PCP Insurance Providers Guarantor Brian Veliz Address [address] [place] [address] Email [email or web address] Payer Medicare A & B Policy Number [id number] Subscriber's Name Brian Veliz Relationship 18 Self / Same As Patient Group Name RETIRED Effective Date 95 Advance Directives Directive Response Recorded Date/Time Does the patient have an advance directive? Yes 09/14/17 2:54am If yes, is advance directive on file with [facility]? No 09/14/17 2:54am If not on file with [facility] will patient provide a copy? Yes 09/14/17 2:54am Do you have a Directive to Physician? No 09/12/17 8:30pm Do you have a Medical Power of Attic Blower? No 09/12/17 8:30pm Do you have an out of hospital Do Not Resuscitate Order? No 09/12/17 8:30pm Do you have any special needs we should be aware of? No 09/12/17 8:30pm Do you have a support person here with you today? Yes 09/12/17 8:30pm Did patient receive Notice of Privacy Practices? Yes 09/12/17 8:30pm Did patient receive patient rights and responsibilities? Yes 09/12/17 8:30pm Problems Medical Problem Onset Date Status Anemia Unknown CHF (congestive heart failure) Unknown Fall Unknown Hypoglycemia Unknown Laceration of hand Unknown Nasal bone fracture Unknown Nasal laceration Unknown Pneumonia Unknown Renal insufficiency Unknown UTI (urinary tract infection) Unknown Medications Current Home Medications Medication Dose Units Route Directions Days Qty Instructions Start Date Aspirin (Aspirin Ec) 81 Mg Tablet.dr 81 Mg Oral Daily 30 Tab Azelastine Hcl 137 Mcg/0.137 Ml [place].pump 1 Sprays Nasal Twice A Day for Allergy Bisacodyl (Biscolax) 10 Mg Supp.rect 10 Supp Rectal Daily as needed for Constipation Brinzolamide (Azopt) 10 Ml Susp 1 Drop Each Eye Three Times A Day for Glaucoma Clonidine Hcl 0.1 Mg Tablet 1 Tab Oral Three Times A Day as needed for Htn 60 Tab Docusate Sodium 100 Mg Capsule 100 Mg Oral Twice A Day Ferrous Sulfate 325 Mg Tablet. 325 Mg Oral Twice A Day Gabapentin 300 Mg Capsule 300 Mg Oral Three Times A Day 60 Cap Insulin Glargine (Lantus 3ML Pen) 100 Units/1 Ml Inj 7 Units Subcutaneously Daily Insulin Regular, Human (Humulin R) 100 Unit/1 Ml Vial Ipratropium/Albuterol Sulfate (Combivent Respimat Inhal [place]) 4 Gm Aer.w.adap 4 Gm Inhalation Every 4 Hours for Shortness Of Breath Latanoprost 2.5 Ml Drops 2.5 Ml Ophthalmic Bedtime Lidoderm Patch 5% 1 Patch Topically Every 24 Hours Lorazepam (Ativan*) 0.5 Mg Tablet 0.5 Mg Oral Every 8 Hours as needed for Anxiety 60 Tab Pantoprazole Sodium (Protonix) 40 Mg Tablet.dr 40 Mg Oral Daily Simvastatin 40 Mg Tablet 40 Mg Oral Today At 9:00PM 30 Tab Tamsulosin Hcl 0.4 Mg Cap.er.24h 1 Tab Oral Bedtime Tizanidine Hcl 4 Mg Tablet 4 Mg Oral Twice A Day Trazodone Hcl 50 Mg Tablet 50 Mg Oral Bedtime 30 Tab Past Home Medications Medication Directions Ordered Status Acetaminophen 325 Mg Tablet, 650 Mg Oral Every 8 Hours as needed for Pain Discontinued Amlodipine Besylate 5 Mg Tablet, 5 Mg Oral Every 12 Hours Discontinued Amoxicillin/Potassium Clav (Augmentin 500-125 Tablet) 1 Each Tablet, 500 Mg Oral Every 12 Hours Discontinued Bimatoprost (Lumigan) 2.5 Ml Drops, 2.5 Ml Ophthalmic Bedtime Discontinued Brimonidine Tartrate 10 Ml Drops, 10 Ml Ophthalmic Three Times A Day Discontinued Clonidine 1 Each Patch.tdwk, 0.1 Mg Use As Directed Discontinued Dorzolamide Hcl/Timolol Maleat (Dorzolamide-Timolol Eye Drops) 10 Ml Drops, 10 Ml Ophthalmic Three Times A Day Discontinued Furosemide 40 Mg Tablet, 20 Mg Oral Twice A Day Discontinued Hydralazine Hcl 25 Mg Tab, 25 Mg Oral Twice A Day Discontinued Insulin Aspart (Novolog) 100 Units/1 Ml Inj, Subcutaneously Three Times A Day Discontinued Ipratropium/Albuterol Sulfate (Combivent Respimat Inhal [place]) 4 Gm Aer.w.adap , 4 Gm Inhalation Every 4 Hours for Shortness Of Breath Discontinued Lisinopril 10 Mg Tablet, 20 Mg Oral Twice A Day Discontinued Omeprazole 40 Mg Capsule.dr, 1 Cap Oral Daily Discontinued Pindolol 5 Mg Tablet, 1 Tab Oral Twice A Day Discontinued Potassium Chloride 10 Meq Tab.er.prt, 20 Meq Oral Daily Discontinued Social History Social History Problem Response Recorded Date/Time Onset Date Status Hx Psychiatric Problems Y - [facility] 09/14/2017 2:54am Not Applicable Not Applicable Hx Eating Disorder No 09/14/2017 2:54am Not Applicable Not Applicable Hx Substance Use Disorder Y - [facility] 09/14/2017 2:54am Not Applicable Not Applicable Hx Depression No 09/14/2017 2:54am Not Applicable Not Applicable Hx Alcohol Use No 09/14/2017 2:54am Not Applicable Not Applicable Hx Substance Use Treatment Y - [facility] 09/14/2017 2:54am Not Applicable Not Applicable Hx Physical Abuse No 09/14/2017 2:54am Not Applicable Not Applicable Smoking Status Start Date Stop Date Former smoker Hospital Discharge Instructions No hospital discharge instruction information available. Plan of Care Discharge Date 09/18/17 3:37pm Disposition [facility] Prescriptions See Medication Section Functional Status Query Response Date Recorded Assistive Devices Standard Walker September 14, 2017 2:40am Ambulation Ability Moderate Assistance September 14, 2017 2:40am Toileting Ability Minimum Assistance September 15, 2017 6:37pm Allergies, Adverse Reactions, Alerts No known allergies. Immunizations No immunization information available. Vital Signs Acute Vital Signs Vital Response Date/Time Temperature (Fahrenheit) 95.6 degrees F (97.6 - 99.5) 09/18/2017 1:03pm Pulse Pulse Rate (adult) 60 bpm (60 - 90) 09/18/2017 2:41pm Respiratory Rate 18 bpm (12 - 24) 09/18/2017 2:41pm Blood Pressure 90/45 mm Hg 09/18/2017 1:03pm Height 6 ft 0 in 09/12/2017 7:27pm Weight 193 lb 09/12/2017 7:27pm Body Mass Index 26.2 kg/m^2 09/14/2017 2:54am Results Laboratory Results Test Name Result Units [...] FEW H NONE 05/22/2017 3:10pm 05/22/2017 3:47pm Differential Total Cells Counted 100 08/22/2017 6:30am 08/22/2017 8 :39am Neutrophils % (Manual) 66 % 40-74 08/22/2017 6:30am 08/22/2017 8:39am Lymphocytes % (Manual) 26 % 19-48 08/22/2017 6:30am 08/22/2017 8:39am Monocytes % (Manual) 4 % 3.4-9.0 08/22/2017 6:30am 08/22/2017 8:39am Eosinophils % (Manual) 4 % 0-7 [...] CLEAR 08/16/2017 8:08pm 08/16/2017 8:28pm Urine Specific [place] 1.015 1.010-1.025 08/16/2017 8:08pm 2017 8:28pm Urine [...] MANY H RARE 08/16/2017 8:08pm 08/16/2017 8:38pm Influenza Virus Types A,B Antigen NEGATIVE NEGATIVE 08/16/2017 5:55pm 08/16/2017 6:47pm Magnesium Level 2.0 MG/DL 1.3-2.1 08/16/2017 5:55pm 08/16/2017 6:49pm Iron Level 17 ug/dL L 65-175 08/19/2017 6:00am 08/19/2017 9:15am Total Iron Binding Capacity 298 ug/dL 261-478 08/19/2017 6:00am 2017 9:15am Percent Iron Saturation 6 % L 15-50 08/19/2017 6:00am 08/19/2017 9:15am Transferrin 213 mg/dL 174-364 08/19/2017 6:00am 08/19/2017 9:15am Ferritin 129.96 ng/mL 21.81-274.66 08/22/2017 6:30am 08/22/2017 8:42am Vitamin B12 Level 255 pg/mL 213-816 08/19/2017 6:00am 08/19/2017 9: 44am Thyroid Stimulating Hormone (TSH) 2.999 uIU/mL 0.350-4.940 08/19/2017 6: 00am 08/19/2017 9:39am White Blood Count 7.85 x10e3/uL 4.8-10.8 09/16/2017 6:45am 09/16/2017 7 :46am Red Blood Count 3.70 x10e6/uL L 4.3-5.7 09/16/2017 6:45am 09/16/2017 7: 46am Hemoglobin 10.1 g/dL L 14.0-18.0 09/16/2017 6:45am 09/16/2017 7:46am Hematocrit 31.5 % L 38.2-49.6 09/16/2017 6:45am 09/16/2017 7:46am Mean Corpuscular Volume 85.1 fL 81-99 09/16/2017 6:45am 09/16/2017 7: 46am Mean Corpuscular Hemoglobin 27.3 pg L 28-32 09/16/2017 6:45am 2017 7:46am Mean Corpuscular Hemoglobin Concent 32.1 g/dL 31-35 09/16/2017 6:45am 09/16/2017 7:46am Red Cell Distribution Width 14.8 % H 11.7-14.4 09/16/2017 6:45am 2017 7:46am Platelet Count 185 x10e3/uL 140-360 09/16/2017 6:45am 09/16/2017 7: 46am Neutrophils (%) (Auto) 62.3 % 38.7-80.0 09/16/2017 6:45am 09/16/2017 7: 46am Lymphocytes (%) (Auto) 25.9 % 18.0-39.1 09/16/2017 6:45am 09/16/2017 7: 46am Monocytes (%) (Auto) 7.6 % 4.4-11.3 09/16/2017 6:45am 09/16/2017 7: 46am Eosinophils (%) (Auto) 3.4 % 0.0-6.0 09/16/2017 6:45am 09/16/2017 7: 46am Basophils (%) (Auto) 0.5 % 0.0-1.0 09/16/2017 6:4509/16/2017 7:46am IM GRANULOCYTES % 0.3 % 0.0-1.0 09/16/2017 6:4509/16/2017 7:46am Neutrophils # (Auto) 4.9 2.1-6.9 09/16/2017 6:45am 09/16/2017 7:46am Lymphocytes # (Auto) 2.0 1.0-3.2 09/16/2017 6:4509/16/2017 7:46am Monocytes # (Auto) 0.6 0.2-0.8 09/16/2017 6:45am 09/16/2017 7:46am Eosinophils # (Auto) 0.3 0.0-0.4 09/16/2017 6:45am 09/16/2017 7:46am Basophils # (Auto) 0.0 0.0-0.1 09/16/2017 6:4509/16/2017 7:46am Absolute Immature Granulocyte (auto 0.02 x10e3/uL 0-0.1 09/16/2017 6: 4509/16/2017 7:46am Sodium Level 140 mmol/L 136-145 09/16/2017 6:4509/16/2017 7:50am Potassium Level 4.4 mmol/L 3.5-5.1 09/16/2017 6:4509/16/2017 7:50am Chloride Level 104 mmol/L 98-107 09/16/2017 6:4509/16/2017 7:50am Carbon Dioxide Level 28 mmol/L 22-09/16/2017 6:4509/16/2017 7: 50am Anion Gap 12.4 mmol/L 8-16 09/16/2017 6:4509/16/2017 7:50am Blood Urea Nitrogen 45 mg/dL H 7-09/16/2017 6:45am 09/16/2017 7:50am Creatinine 1.94 mg/dL H 0.72-1.25 09/16/2017 6:45am 09/16/2017 7:50am BUN/Creatinine Ratio 23 6-25 09/16/2017 6:45am 09/16/2017 7:50am Estimat Glomerular Filtration Rate 33 ML/MIN L 60- 09/16/2017 6:45am 7:50am Ranges were taken from the National Kidney Disease Education Program and the National Kid[employer] Foundation literature. Reference ranges: 60 or greater: Normal 16-59 (for 3 consecutive months): Chronic kidney disease 15 or less: Kidney failure Glucose Level 142 mg/dL H 74-118 09/16/2017 6:45am 09/16/2017 7:50am Calcium Level 9.3 mg/dL 8.4-10.2 09/16/2017 6:45am 09/16/2017 7:50am Bedside Glucose 351 mg/dL H 70-120 09/18/2017 11:38am 09/18/2017 12: 06pm Meter ID: [id number] Total Bilirubin 0.3 mg/dL 0.2-1.2 09/12/2017 8:25pm 09/12/2017 9:01pm Aspartate Amino Transf (AST/SGOT) 25 IU/L 5-34 09/12/2017 8:25pm 2017 9:01pm Alanine Aminotransferase (ALT/SGPT) 33 IU/L 0-55 09/12/2017 8:25pm 9:01pm Total Protein 5.2 g/dL L 6.5-8.1 09/12/2017 8:25pm 09/12/2017 9:01pm Albumin 2.9 g/dL L 3.5-5.0 09/12/2017 8:25pm 09/12/2017 9:01pm Globulin 2.3 g/dL 2.3-3.5 09/12/2017 8:25pm 09/12/2017 9:01pm Albumin/Globulin Ratio 1.3 0.8-2.0 09/12/2017 8:25pm 09/12/2017 9: 01pm Alkaline Phosphatase 64 IU/L 40-150 09/12/2017 8:25pm 09/12/2017 9: 01pm B-Type Natriuretic Peptide 133.2 pg/mL H 0-100 09/16/2017 6:45am 2017 7:44am Creatine Kinase 145 IU/L 30-200 09/13/2017 1:15pm 09/13/2017 1:41pm Creatine Kinase MB 16.10 ng/mL H 0-5.0 09/13/2017 1:15pm 09/13/2017 1: 44pm Troponin I 0.032 ng/mL 0-0.300 09/13/2017 1:15pm 09/13/2017 1:44pm Microbiology Results Procedure Source Organism/Result Collection Date/Time Result Date/Time Result Status Urine Culture Urine,Random GUILLERMINA GLABRATA 05/22/2017 3:10pm 05/27/2017 6 :48am Final Blood Culture Blood NO GROWTH AFTER 5 DAYS, FINAL REPORT 08/16/2017 5:55pm 08/21/2017 6:27pm Final [place] [id number] Patient Name: BRIAN VELIZ MR # :[id number] : 1930 Age/Sex: 87/M Admit Physician: PURA MENON MD Admit Date: 09/13/17 [facility]: Report: Discharge Summary HISTORY OF PRESENT ILLNESS: Patient is an 87-year-old male intermediate resident past medical history positive for chronic systolic, CHF, COPD, chronic renal failure, diabetes, anemia of chronic disease. She was admitted because of shortness of breath. He was found to have sick sinus syndrome. He had a permanent pacemaker placed by Dr. Burden. Patient going to be going back to the intermediate today. PHYSICAL EXAM VITALS: The blood pressure is 120/80, heart rate is 69 per minute, respiratory rate is 18 per minute, temperature 96.8, oxygen saturation 95%. HEART: Shows regular rhythm. Normal S1, S2 sounds. LUNGS: Clear bilaterally. ABDOMEN: Soft. EXTREMITIES: Show no evidence of cyanosis or trauma. On the BMP, sodium 140, potassium 4.4, chloride 104, CO2 28, BUN 45, creatinine 1.84, glucose 142. On the CBC, white blood count 7.5, hemoglobin 10.1, hematocrit 31.5, platelet 185,000. AST 25, ALT 33, total bilirubin 0.3, alkaline phosphatase 64. FINAL IMPRESSIONS 1. Chronic obstructive pulmonary disease exacerbation. 2. Chronic renal failure, stage 4. 3. Sick sinus syndrome, status post permanent pacemaker placement. 4. Anemia of chronic disease secondary to chronic renal failure. 5. Uncontrolled diabetes mellitus type 2 with diabetic nephropathy. 6. Chronic systolic congestive heart failure. PLAN OF TREATMENT: Continue 1. Albuterol and Atrovent q.4 h as needed for shortness of breath. 2. Aspirin 81 mg daily. 3. Papa 137 mcg daily twice a day. 4. Gabapentin 300 mg 3 times a day. 5. Simvastatin 40 mg daily. 6. 3 times a day. 7. Furosemide 40 mg daily. 8. Dulcolax 10 mg daily as needed. 9. Levemir 7 units daily. 10. 11. Flomax 0.4 mg daily. 12. Continue bacitracin twice a day. 13. Colace 100 mg twice a day. 14. Lorazepam 0.5 mg twice a day as needed. 15. Zanaflex 4 mg twice a day as needed. 16. Continue monitoring blood sugar a.c. nightly. 17. Continue hydralazine 25 mg q.8 h. 18. Continue with ferrous sulfate 325 mg twice a day. 19. Protonix 40 mg daily. 20. Trazodone 50 mg daily. 21. Latanoprost ophthalmic solution 1 drop to each eye at bedtime. 22. Tylenol 650 mg q.4 h as needed. 23. Clonidine 0.1 mg twice a day. Patient going to go back to [facility]. He is being discharged by Dr. Veloz, shipper, already. Instructions have been given about the pacemaker. MT BAUGH MD Job#: [id number] CQ Dictated By: MT BAUGH MD Transcribed By: EDS on 09/17/17 <Electronically signed by MT BAUGH MD>09/18/17 1238 Procedures Procedure Status Date Provider(s) Computed tomography of brain without radiopaque contrast Active 04/20/17 HOUSTON CARRILLO MD Computed tomography of cervical spine without contrast Active 04/20/[address] maxillofacial area wo contrast Active 04/20/[address] of abdomen and pelvis without contrast Active 04/20/17 HOUSTON CARRLILO MD Ultrasound, renal Active 04/20/17 SHAN EVANGELISTA MD Computed tomography of pelvis with contrast Active 04/20/17 JACKIE GUAJRADO MD Computed tomography of brain without radiopaque contrast Active 05/22/17 ANAT GALVAN MD Ultrasound, renal Active 08/19/17 PURA MENON MD Encounters Encounter Location Arrival/Admit Date Discharge/Depart Date Attending Provider Discharged Inpatient [facility] 09/13/17 12:12am 3:37pm PURA MENON MD Discharged Inpatient [facility] 08/16/17 9:13pm 08/22/17 2:26pm PURA MENON MD Discharged Inpatient [facility] 05/22/17 6:00pm 05/27/17 4:01pm PURA MENON MD Discharged Inpatient [facility] 04/20/17 8:36am 04/22/17 3:59pm SHAN EVANGELISTA MD
[2017-11-06] MEDS ORDERED: IPRATROPIUM BROMIDE 0.02% 2.5 ML NEB NEB STA (19:08)
[2017-11-06] MEDS ORDERED: ALBUTEROL SULF 0.083% NEB SOLN 3 ML NEB NEB STA (19:08)
[2017-11-06] MEDS ORDERED: PIPER-TAZ 3.375 GM 50 ML IV STA (19:08)
[2017-11-06] MEDS ORDERED: ASPIRIN 81 MG CHEW TAB PO ONE ×2 (19:15→22:00)
[2017-11-06 19:22] LABS: BASOPHILS % 0.4 % (0.0-1.0); EOSINOPHILS # (AUTO) 0.2 (0.0-0.4); EOSINOPHILS % 2.2 % (0.0-6.0); HEMATOCRIT 26.8 % (38.2-49.6); LYMPHOCYTES # (AUTO) 0.8 (1.0-3.2); LYMPHOCYTES % 9.9 % (18.0-39.1); MEAN CORPUSCULAR HEMOGLOBIN 26.1 pg (28-32); MEAN CORPUSCULAR HGB CONC 29.9 g/dL (31-35); MEAN CORPUSCULAR VOLUME 87.3 fL (81-99); MONOCYTES # (AUTO) 0.7 (0.2-0.8); MONOCYTES % 8.7 % (4.4-11.3); NEUTROPHILS # (AUTO) 6.5 (2.1-6.9); NEUTROPHILS % 78.2 % (38.7-80.0); PLATELET COUNT 150 x10e3/uL (140-360); RED BLOOD COUNT 3.07 x10e6/uL (4.3-5.7); RED CELL DISTRIBUTION WIDTH 16.6 % (11.7-14.4)
[2017-11-06 19:34] LABS: INR 1.35; PROTHROMBIN TIME 15.7 seconds (11.9-14.5)
[2017-11-06 19:46] LABS: ALBUMIN 3.5 g/dL (3.5-5.0); ALBUMIN/GLOBULIN RATIO 1.3 (0.8-2.0); ANION GAP 13.8 mmol/L (8-16); B-TYPE NATRIURETIC PEPTIDE2 861.6 pg/mL (0-100); CALCIUM 9.3 mg/dL (8.4-10.2); CREATININE, SERUM 2.57 mg/dL (0.72-1.25); MAGNESIUM 2.2 MG/DL (1.3-2.1); POTASSIUM 5.8 mmol/L (3.5-5.1)
[2017-11-06] MEDS ORDERED: FUROSEMIDE INJ 10 MG/ML 4 ML VIAL IV ONE (20:00)
--- NOTE | 2017-11-06 21:05 | Diagnostic Imaging Report ---
EXAMINATION: CHEST SINGLE (PORTABLE) INDICATION: Shortness of breath COMPARISON: 09/12/2017 FINDINGS: TUBES and LINES: Interval placement of left-sided pacemaker with lead not well visualized. Right-sided electronic device is stable in the anterior right chest LUNGS: Lungs are not well inflated. There are bibasilar atelectasis. There is perihilar interstitial opacities, consistent with interstitial edema. PLEURA: Small right pleural effusion present. Trace of pleural effusion on the left. HEART AND MEDIASTINUM: The cardiomediastinal silhouette is unremarkable. BONES AND SOFT TISSUES: No acute osseous lesion. Soft tissues are unremarkable. UPPER ABDOMEN: No free air under the diaphragm. IMPRESSION: Cardiogenic pulmonary edema there is again noted with evidence of small bilateral pleural effusions right more than left Signed by: Dr. Martin Kaur M.D. on 11/06/2017 9:01 PM
[2017-11-06] MEDS ORDERED: DEXTROSE 50% SYRINGE 50 ML IV STA (21:41)
[2017-11-06] MEDS ORDERED: SODIUM BICARBONATE 8.4% INJ 50 ML SYR IV STA (21:41)
[2017-11-06] MEDS ORDERED: FUROSEMIDE INJ 10 MG/ML 2 ML VIAL IV ONE (21:45)
[2017-11-06] MEDS ORDERED: CALCIUM CHLORIDE 13.6 MEQ in SODIUM CHLORIDE 0.9% 100 ML 100 ML IV ONE (21:45)
[2017-11-06] MEDS ORDERED: INSULIN REGULAR, HUMAN 100 UNIT/1 ML 3ML VIAL IV ONE (21:45)
[2017-11-06] MEDS ORDERED: SODIUM CHLORIDE FLUSH 10 ML SYR INJ PRN (22:00)
[2017-11-06] MEDS ORDERED: SODIUM CHLORIDE 0.9% 100 ML ONE (22:03)
[2017-11-06] MEDS ORDERED: CALCIUM CHLORIDE 10% SYRINGE 10 ML IV ONE (22:06)
--- OUTSIDE RECORDS SUMMARY | 2017-11-06 22:22 | XMS REPORT | Clinical Summary ---
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 [address] * Estimated GFR (04/19/2017 1:22 AM) Only [...] and Americans. Specimen Performing Laboratory Plasma specimen [facility] DEPARTMENT OF PATHOLOGY AND GENOMIC MEDICINE [address] [place] [address] * Basic metabolic panel (04/19/2017 1:22 AM) [...] 10.7 mg/dL Specimen Performing Laboratory Plasma specimen [facility] DEPARTMENT OF PATHOLOGY AND GENOMIC MEDICINE [address] [facility] [place] [address] * CBC with platelet and differential (04/18/2017 [...] - 1.0 % Specimen Performing Laboratory Blood [facility] DEPARTMENT OF PATHOLOGY AND GENOMIC MEDICINE [address] [facility] [place] [address] * CT Head Wo Contrast (04/18/2017 9:28 PM) Only the most recent of 3 results within the time period is included. Specimen Performing Laboratory [facility] [address] [place] [address] Narrative EXAMINATION: CT HEAD WO CONTRAST CLINICAL [...] detailed above with no acute intracranial abnormality. [id number] Procedure Note Hm Interface, Radiology Results Incoming [...] detailed above with no acute intracranial abnormality. [id number] * CT Cervical Spine Wo Contrast (03/28/2017 4:31 PM) Specimen Performing Laboratory [facility] [address] [place] [address] Narrative EXAMINATION:CT CERVICAL SPINE WO CONTRAST CLINICAL [...] IMPRESSION: No acute cervical spine bony abnormality. [id number] Procedure Note Interface, Radiology Results [facility] - 03/28/2017 4:40 PM CDT EXAMINATION: [...] IMPRESSION: No acute cervical spine bony abnormality. [id number] * XR Abdomen 1 Vw (03/28/2017 3:20 PM) Specimen Performing Laboratory [facility] [address] [place] [address] Narrative PROCEDURE:XR ABDOMEN 1 VW CLINICAL HISTORY:ABDOMINAL [...] prior cholecystectomy. IMPRESSION: Nonspecific bowel gas pattern. [id number] . Procedure Note [facility], Radiology Results Incoming - 03/28/2017 4:09 PM [...] prior cholecystectomy. IMPRESSION: Nonspecific bowel gas pattern. [id number] . * Phosphorus level (03/28/2017 5:30 AM) Only the most recent of 5 results within the time period is included. Component Value Ref Range Phosphorus 2.8 2.5 - 4.5 mg/dL Specimen Performing Laboratory Plasma specimen [facility] DEPARTMENT OF PATHOLOGY AND GENOMIC MEDICINE [address] [place] [address] * Magnesium level (03/28/2017 5:30 AM) Only the most recent of 6 results within the time period is included. Component Value Ref Range Magnesium 2.30 1.60 - 2.40 mg/dL Specimen Performing Laboratory Plasma specimen [facility] DEPARTMENT OF PATHOLOGY AND GENOMIC MEDICINE [address] [place] [address]. [place] [address] * Salmonella/shigella culture (03/27/2017 4:08 PM) Component Value Ref Range Salmonella/shigella No Aeromonas isolated culture isolate Comment: Specimen Information Specimen Source: Stool Specimen Site: Nonpreserved Specimen Performing Laboratory Stool - Nonpreserved [facility] DEPARTMENT OF PATHOLOGY AND GENOMIC MEDICINE [address] [place] [address] * Gastrointestinal panel (03/27/2017 4:08 PM) Component [...] Nonpreserved Specimen Performing Laboratory Stool - Nonpreserved [facility] DEPARTMENT OF PATHOLOGY AND GENOMIC MEDICINE [address] [place] [address] * ECG 12 lead (03/23/2017 12:30 PM) [...] has replaced Junctional rhythm- Specimen Performing Laboratory [facility] MUSE [address] [place] [address] * FL Modified Barium Swallow (03/23/2017 12:10 PM) Specimen Performing Laboratory [facility] [address] [place] [address] Narrative EXAMINATION:FL MODIFIED BARIUM SWALLOW CLINICAL HISTORY:Dysphagia [...] to Speech Pathology report for further details. [id number] Procedure Note Interface, Radiology Results Incoming - [...] to Speech Pathology report for further details. [id number] * Vancomycin level, random (03/22/2017 6:00 AM) Only the most recent of 2 results within the time period is included. Component Value Ref Range Vancomycin, random 9.4 ug/mL Comment: Therapeutic Ranges: Peak 30.0 - 40.0 ug/mL Trough 10.0 - 20.0 ug/mL Specimen Performing Laboratory Blood [facility] DEPARTMENT OF PATHOLOGY AND GENOMIC MEDICINE [address] [place] [address] * Urea nitrogen, urine, random (03/21/2017 5:50 PM) Component Value Ref Range Urea nitrogen, urine, 1,122 mg/dL random Specimen Performing Laboratory Urine [facility] DEPARTMENT OF PATHOLOGY AND GENOMIC MEDICINE [address] [place] [address] * Sodium level, urine, random (03/21/2017 5:50 PM) Component Value Ref Range Sodium, urine, random 27 (A) mEQ/L Specimen Performing Laboratory Urine - Urine, [facility] DEPARTMENT OF PATHOLOGY AND GENOMIC MEDICINE catch [address] [place] [address] * Protein, urine, random (03/21/2017 5:50 PM) Component Value Ref Range Protein, urine random 222 mg/dL Specimen Performing Laboratory Urine - Urine, [facility] DEPARTMENT OF PATHOLOGY AND GENOMIC MEDICINE catch [address] [place] [address] * Potassium, urine, random (03/21/2017 5:50 PM) Component Value Ref Range Potassium, urine, random 29 mEq/L Specimen Performing Laboratory Urine - Urine, [facility] DEPARTMENT OF PATHOLOGY AND GENOMIC MEDICINE catch [address] [place] [address] * Creatinine level, urine, random (03/21/2017 5:50 PM) Component Value Ref Range Creatinine, urine, random 140 mg/dL Specimen Performing Laboratory Urine - Urine, [facility] DEPARTMENT OF PATHOLOGY AND GENOMIC MEDICINE catch [address] [place] [address] * C difficile toxin (03/21/2017 4:44 PM) Component Value Ref Range Clostridium difficile No Clostridium difficle toxin present toxin Comment: Specimen Information Specimen Source: Stool Specimen Site: Nonpreserved Specimen Performing Laboratory Stool - Nonpreserved [facility] DEPARTMENT OF PATHOLOGY AND GENOMIC MEDICINE [address] [place] [address] * PICC INSERTION (03/21/2017 12:51 PM) Narrative Agustina Pinzon RN 03/21/2017 12:51 PM PICC insertion Date/Time: 03/21/2017 12:47 PM Performed by: AGUSTINA PINZON Authorized by: SHABBIR STEEL Consent: Consent obtained:Written Consent given by:Patient and spouse Risks discussed: arterial puncture, incorrect placement, nerve damage, bleeding, infection and pneumothorax Alternatives discussed:No treatment [place] protocol: Procedure explained and questions answered to [...] (cm):47 Total Catheter Length (cm):47 Catheter Lot Number:[id number] Catheter Expiration Date:09/17/2017 Procedure Details: Landmarks identified: [...] Placement (03/19/2017 12:53 PM) Specimen Performing Laboratory [facility] [address] [place] [address] Narrative Title:Nasogastric tube placement with steerable angiographic [...] left the radiology Department in good condition. [id number] Procedure Note Interface, Radiology Results Incoming - [...] left the radiology Department in good condition. [id number] * XR Chest 1 Vw Portable (03/18/2017 7:35 PM) Only the most recent of 4 results within the time period is included. Specimen Performing Laboratory [address] [address] Narrative EXAMINATION:XR CHEST 1 VW PORTABLE CLINICAL HISTORY:Fever COMPARISON:Single view chest from 03/09/1717 IMPRESSION: No significant change in appearance of the chest when compared to previous exam. The lungs are clear. No focal consolidation or pleural effusion. No pneumothorax or midline shift. The mediastinal contours and cardiac silhouette are unchanged. Atherosclerotic disease. The bones are unremarkable. [id number] Procedure Note Interface, Radiology Results Incoming - [...] unchanged. Atherosclerotic disease. The bones are unremarkable. [id number] * Blood culture, aerobic & anaerobic (03/18/2017 5:39 PM) Only the most recent of 4 results within the time period is included. Component Value Ref Range Blood culture isolate No growth after 5 days of incubation. Comment: Specimen Information Specimen Source: Blood Specimen Site: Hand Right Specimen Performing Laboratory Blood [facility] DEPARTMENT OF PATHOLOGY AND GENOMIC MEDICINE [address] [place] [address] * IR Lumbar Puncture by Radiology (03/17/2017 12:01 PM) Specimen Performing Laboratory [facility] [address] [place] [address] Narrative Examination: Fluoroscopic guided lumbar puncture. CLINICAL [...] good condition. IMPRESSION: There were no complications. [id number] Procedure Note [facility], Radiology Results Incoming - 03/17/2017 1:20 PM [...] good condition. IMPRESSION: There were no complications. [id number] * Gram stain only (03/17/2017 11:45 AM) Component Value Ref Range Gram stain result No WBC's or organisms seen Comment: Specimen Information Specimen Source: CSF (Spinal Fluid) Specimen Site: Tube 3 Specimen Performing Laboratory Cerebrospinal fluid - [facility] DEPARTMENT OF PATHOLOGY AND GENOMIC MEDICINE Tube 3 [address] [facility] [place] [address] * West Nile virus by PCR, CSF (03/17/2017 11:45 AM) Component Value Ref Range West Nile virus PCR, CSF Not-Detected Not-Detected West Nile virus PCR, CSF See link below for PDF Lab ReportComment: Specimen Performing Laboratory Cerebrospinal fluid [facility] DEPARTMENT OF PATHOLOGY AND GENOMIC MEDICINE [address] [place] [address] Narrative CSF TUBE # 3 ABOUT 1CC [...] members of the Flaviviridae family, such as [address] encephalitis virus, show extensive cross-reactivity with West Nile virus, serologic testing specific for these species should be considered. The detection of antibodies to West Nile virus in cerebrospinal fluid may indicate central nervous system infection. However, consideration must be given to possible contamination by blood or transfer of serum antibodies across the blood-brain barrier. Test developed and characteristics determined by [facility]. See Compliance Statement B: [employer] Performed by [facility], [address] [place] [address] [email or web address], Murray Johnson MD - Lab. Director Specimen Performing Laboratory Cerebrospinal fluid [facility] [address] [address] Narrative CSF TUBE # 3 ABOUT 1CC [...] members of the Flaviviridae family, such as [address] encephalitis virus, show extensive cross-reactivity with West Nile virus, serologic testing specific for these species should be considered. The detection of antibodies to West Nile virus in cerebrospinal fluid may indicate central nervous system infection. However, consideration must be given to possible contamination by blood or transfer of serum antibodies across the blood-brain barrier. Test developed and characteristics determined by [facility]. See Compliance Statement B: [employer]/CS Performed by [facility], [address] [place] [address] [email or web address], Murray Johnson MD - Lab. Director Specimen Performing Laboratory Cerebrospinal fluid [facility] [address] [place] [address] Narrative CSF TUBE # 3 ABOUT 1CC [...] analytical performance characteristics have been determined by [facility] [employer] [facility]. It has not been cleared or approved by FDA. This assay has been validated pursuant to the CLIA regulations and is used for clinical purposes. This is a temporary referral of an in house test [facility] reference ranges do not apply. Test performed by: [facility] [address] [place] [address] Performed at: [facility] [address] [place] [address], [place] [address] Histoplasma Ab mycelial <1:2 <1:2 CF, CSF [...] for remainder of this panel. Performed by [facility], [address] [place] [address] [email or web address], Murray Johnson MD - Lab. Director Specimen Performing Laboratory Cerebrospinal fluid [facility] [address] [place] [address] Narrative CSF TUBE # 3 ABOUT 1CC * Miscellaneous referral test (03/17/2017 11:45 AM) Component Value Ref Range [facility] test name ARBOVIRUS PANEL TO [facility] test result SEE NOTE Comment: Arbovirus Ab Panel IgG and IgM, CSF [place] Encep Ab, IgG,CSF....<1:10 REFERENCE: <1:10 [place] Encep Ab, IgM,CSF....<1:10 REFERENCE: <1:10 [place] Enceph Ab, IgG, CSF....<1:10 REFERENCE: <1:10 [place] Enceph Ab, IgM, CSF....<1:10 REFERENCE: <1:[address] Enceph Ab, IgG, CSF....<1:[address] REFERENCE: <1:[address] Enceph Ab, IgM, CSF....<1:10 REFERENCE: <1:10 [place] Enceph Ab, IgG, CSF....<1:10 REFERENCE: <1:10 [place] Enceph Ab, IgM, CSF....<1:10 REFERENCE: <1:10 Performing LAB [facility] [address] [facility] [address] Specimen Performing Laboratory [facility] [address] [place] [address] Narrative CSF TUBE # 2 ABOUT 3CC- CHEMISTRY TUBE # 3 ABOUT 1CC- SEND OUTS TUBE # 3 ABOUT 3CC- HEMATOLOGY CSF CELLCOUNT DONE ON TUBE #4 * Herpes simplex virus by PCR (03/17/2017 11:45 AM) Component Value Ref Range Herpes virus, PCR Not-Detected Not-Detected Herpes virus, PCR See link below for PDF Lab ReportComment: Specimen Performing Laboratory [facility] DEPARTMENT OF PATHOLOGY AND GENOMIC MEDICINE [address] [place] [address] Narrative CSF TUBE # 3 ABOUT 1CC [...] Kelley MD Specimen Performing Laboratory Cerebrospinal fluid [facility] DEPARTMENT OF PATHOLOGY AND GENOMIC MEDICINE [address] [place] [address] * Gram stain (03/17/2017 11:45 AM) Only the most recent of 2 results within the time period is included. Component Value Ref Range Gram stain isolate Occasional WBC's No organisms seen Comment: Specimen Information Specimen Source: CSF (Spinal Fluid) Specimen Site: CSF (spinal fluid) Specimen Performing Laboratory Cerebrospinal fluid - CSF [facility] DEPARTMENT OF PATHOLOGY AND GENOMIC MEDICINE (spinal fluid) [address] [place] [address] Narrative CSF TUBE # 3 ABOUT 1CC * CSF culture (03/17/2017 11:45 AM) Component Value Ref Range CSF culture isolate No growth after 3 days. Comment: Specimen Information Specimen Source: CSF (Spinal Fluid) Specimen Site: CSF (spinal fluid) Specimen Performing Laboratory Cerebrospinal fluid - CSF [facility] DEPARTMENT OF PATHOLOGY AND GENOMIC MEDICINE (spinal fluid) [address] [place] [address] Narrative CSF TUBE # 3 ABOUT 1CC * CSF cell count with differential (03/17/2017 11:45 AM) Component Value Ref Range Color, CSF Colorless Appearance, CSF Clear CSF supernatant Colorless RBC, CSF 1 0 - 1 /CMM WBC, CSF 1 0 - 4 /CMM Lymphocytes, CSF 60 30 - 90 % Monocytes, CSF 40 10 - 50 % Specimen Performing Laboratory Cerebrospinal fluid [facility] DEPARTMENT OF PATHOLOGY AND GENOMIC MEDICINE [address] [place] [address]. [place] [address] Narrative CSF TUBE # 2 ABOUT 3CC- CHEMISTRY TUBE # 3 ABOUT 1CC- SEND OUTS TUBE # 3 ABOUT 3CC- HEMATOLOGY * Protein, CSF (03/17/2017 11:45 AM) Component Value Ref Range Protein, CSF 81 (H) 12 - 60 mg/dL Specimen Performing Laboratory Cerebrospinal fluid [facility] DEPARTMENT OF PATHOLOGY AND GENOMIC MEDICINE [address] [place] [address]. [place] [address] Narrative CSF TUBE # 2 ABOUT 3CC- CHEMISTRY TUBE # 3 ABOUT 1CC- SEND OUTS TUBE # 3 ABOUT 3CC- HEMATOLOGY * Glucose level, CSF (03/17/2017 11:45 AM) Component Value Ref Range Glucose, CSF 92 (H) 41 - 84 mg/dL Specimen Performing Laboratory Cerebrospinal fluid [facility] DEPARTMENT OF PATHOLOGY AND GENOMIC MEDICINE [address] [place] [address] Narrative CSF TUBE # 2 ABOUT 3CC- [...] validate this result. Specimen Performing Laboratory Blood [facility] DEPARTMENT OF PATHOLOGY AND GENOMIC MEDICINE [address] [place] [address] * Prothrombin time with INR (03/17/2017 8:02 [...] values over 4.0. Specimen Performing Laboratory Blood [facility] DEPARTMENT OF PATHOLOGY AND GENOMIC MEDICINE [address] [place] [address] * Urinalysis screen and microscopy, with reflex [...] UA 34 /LPF Specimen Performing Laboratory Urine [facility] DEPARTMENT OF PATHOLOGY AND GENOMIC MEDICINE [address] [facility] [place] [address] * Urine culture (03/16/2017 1:51 PM) Component [...] Site: See UA Specimen Performing Laboratory Urine [facility] DEPARTMENT OF PATHOLOGY AND GENOMIC MEDICINE [address] [place] [address] Organism Antibiotic Method Susceptibility Melba glabrata Micafungin [...] - 100 pg/mL Specimen Performing Laboratory Blood [facility] DEPARTMENT OF PATHOLOGY AND GENOMIC MEDICINE [address] [place] [address] * ECG ED Preliminary Interpretation - NOT AN ORDER (03/12/2017 8:17 AM) Georgia Parson Jr., MD 03/12/20178:17 AM ECG ED Preliminary Interpretation - Not an Order Performed by: MATTHIAS PARSON JR Authorized by: MATTHIAS PARSON JR ECG reviewed by ED Physician in the absence of a immunology specialist: yes Interpretation: Interpretation: abnormal Rate: ECG rate:60 [...] gas (03/11/2017 5:34 PM) Component Value Ref [employer] Sales [employer] Service Rep [facility] Collection site LRA O2 therapy 2L pH, [...] A-a 88.0 mmHg Specimen Performing Laboratory Blood [facility] DEPARTMENT OF PATHOLOGY AND GENOMIC MEDICINE [address] [place] [address] * Troponin (03/11/2017 8:00 AM) Only the [...] myocardial injury. Specimen Performing Laboratory Plasma specimen [facility] DEPARTMENT OF PATHOLOGY AND GENOMIC MEDICINE [address] [place] [address] [place] [address] * NM Lung Ventilation Perfusion (03/11/2017 7:49 AM) Specimen Performing Laboratory [facility] [address] [place] [address] Narrative PROCEDURE: NUCLEAR MEDICINEMS LUNG VENTILATION PERFUSION CLINICAL HISTORY:hx of lung [...] in the posterior, anterior, RPO, LPO, DYE, EMIRATI, right and left lateral projections. The images were acquired on a dual head i[employer] camera system. FINDINGS: The ventilation study demonstrates uniform uptake of isotope with good washout and no air trapping.. The lung perfusion study demonstrates no peripheral wedge-shaped perfusion defects. The correlative chest radiograph done within the past 24 hours shows pulmonary vascular congestion.. IMPRESSION: Low probability for pulmonary embolus. [id number] . Procedure Note Interface, Radiology Results Incoming - 03/11/2017 8:02 AM CDT PROCEDURE: NUCLEAR MEDICINE MS LUNG VENTILATION PERFUSION CLINICAL HISTORY:hx of lung [...] in the posterior, anterior, RPO, LPO, DYE, EMIRATI, right and left lateral projections. The images were acquired on a dual head GE camera system. FINDINGS: The ventilation study demonstrates uniform uptake of isotope with good washout and no air trapping.. The lung perfusion study demonstrates no peripheral wedge-shaped perfusion defects. The correlative chest radiograph done within the past 24 hours shows pulmonary vascular congestion.. IMPRESSION: Low probability for pulmonary embolus. [id number] . * PV Duplex Venous Lower Extremity (03/11/2017 6:33 AM) Specimen Performing Laboratory [address] [address] Narrative EXAMINATION:US DUPLEX VENOUS LOWER EXTREMITY LEFT [...] of the visualized left lower extremity veins. [id number] Procedure Note [facility], Radiology Results [facility] - 03/11/2017 6:38 AM CDT EXAMINATION: [...] of the visualized left lower extremity veins. [id number] * Venous blood gas (03/11/2017 4:42 AM) Component Value Ref [employer] Sales And Service Rep [employer] Collection site L WRIST O2 therapy [...] - 18.0 g/dL Specimen Performing Laboratory Blood [facility] DEPARTMENT OF PATHOLOGY AND GENOMIC MEDICINE [address] [place] [address] * Creatine kinase, total (CPK) (03/11/2017 4:07 AM) Component Value Ref Range Creatine kinase 295 (H) 61 - 224 U/L Specimen Performing Laboratory Plasma specimen [facility] DEPARTMENT OF PATHOLOGY AND GENOMIC MEDICINE [address] [place] [address] * Comprehensive metabolic panel (03/11/2017 4:07 AM) [...] 1.2 mg/dL Specimen Performing Laboratory Plasma specimen [facility] DEPARTMENT OF PATHOLOGY AND GENOMIC MEDICINE [address] [place] [address] after 11/05/2016 Insurance Payer Benefit Subscriber ID Type Phone Address Plan / Group [employer] xxxxxxxxx [facility] MEDICAID MEDICAID xxxxxxxxx Medicaid
[2017-11-06 22:23] LABS: ABG HCO3 19 mmol/L (23-28); ABG PCO2 36 mmHg (41-51); ABG PH 7.33 (7.31-7.41); ABG PO2 90 mmHg (80-105)
[2017-11-06] MEDS ORDERED: SOD POLYSTYRENE SULFONATE SUSP 15 GM/60 ML BTL PO ONE (22:45)
[2017-11-06 23:35] VITALS: BP 192/84
[2017-11-06 23:50] VITALS: BP 160/84
[2017-11-07] MEDS: DEXTROSE 50% SYRINGE 50 ML IV PRN ×2 (00:14→02:31)
[2017-11-07] MEDS: ALBUTEROL SULF 0.083% NEB SOLN 3 ML NEB NEB PRN ×4 (00:15→20:30)
[2017-11-07 04:00] VITALS: BP 185/79
--- NOTE | 2017-11-07 06:59 | Diagnostic Imaging Report ---
EXAMINATION: CHEST SINGLE (PORTABLE) INDICATION: CHF COMPARISON: 11/06/2017 FINDINGS: TUBES and LINES: Left-sided pacemaker with lead within the region of the right ventricle. Right-sided electronic device is stable in the anterior right chest LUNGS: Lungs are not well inflated. There are bibasilar atelectasis. There is perihilar interstitial opacities, consistent with interstitial edema. PLEURA: Small right pleural effusion present. Trace of pleural effusion on the left. HEART AND MEDIASTINUM: Cardiac size is mildly enlarged. BONES AND SOFT TISSUES: No acute osseous lesion. Soft tissues are unremarkable. UPPER ABDOMEN: No free air under the diaphragm. IMPRESSION: 1. Cardiogenic pulmonary edema there is again noted with evidence of small bilateral pleural effusions right more than left. 2. Stable chest. Signed by: Dr. Martin Kaur M.D. on 11/07/2017 6:56 AM
[2017-11-07 07:06] LABS: BASOPHILS % 0.2 % (0.0-1.0); EOSINOPHILS # (AUTO) 0.2 (0.0-0.4); EOSINOPHILS % 1.8 % (0.0-6.0); HEMATOCRIT 24.7 % (38.2-49.6); HEMOGLOBIN 7.6 g/dL (14.0-18.0); LYMPHOCYTES # (AUTO) 0.9 (1.0-3.2); LYMPHOCYTES % 8.5 % (18.0-39.1); MEAN CORPUSCULAR HEMOGLOBIN 26.1 pg (28-32); MEAN CORPUSCULAR HGB CONC 30.8 g/dL (31-35); MEAN CORPUSCULAR VOLUME 84.9 fL (81-99); MONOCYTES # (AUTO) 0.8 (0.2-0.8); MONOCYTES % 8.1 % (4.4-11.3); NEUTROPHILS # (AUTO) 8.2 (2.1-6.9); NEUTROPHILS % 80.6 % (38.7-80.0); PLATELET COUNT 153 x10e3/uL (140-360); RED BLOOD COUNT 2.91 x10e6/uL (4.3-5.7); RED CELL DISTRIBUTION WIDTH 16.5 % (11.7-14.4)
[2017-11-07] MEDS ORDERED: LORAZEPAM 0.5 MG TAB PO PRN (07:30)
[2017-11-07] MEDS: INSULIN REGULAR, HUMAN 100 UNIT/1 ML 3ML VIAL SQ SCH ×4 (07:30→21:37)
[2017-11-07] MEDS ORDERED: LIDODERM 5% TOP SCH (07:30)
[2017-11-07 07:32] LABS: ALBUMIN 3.4 g/dL (3.5-5.0); ALBUMIN/GLOBULIN RATIO 1.4 (0.8-2.0); ANION GAP 14.6 mmol/L (8-16); CALCIUM 9.7 mg/dL (8.4-10.2); CREATININE, SERUM 2.51 mg/dL (0.72-1.25); POTASSIUM 5.6 mmol/L (3.5-5.1)
[2017-11-07 07:52] VITALS: BP 197/79
[2017-11-07] MEDS: LIDOCAINE 5% PATCH TP SCH (09:00)
[2017-11-07] MEDS: FUROSEMIDE INJ 10 MG/ML 4 ML VIAL IV SCH ×2 (09:19→17:09)
[2017-11-07] MEDS: ASPIRIN 81 MG ENTERIC COATED PO SCH (09:19)
[2017-11-07] MEDS: DOCUSATE SODIUM 100 MG CAP PO SCH ×2 (09:19→17:09)
[2017-11-07] MEDS: TIZANIDINE HCL 4 MG TAB PO SCH ×2 (09:20→17:09)
[2017-11-07] MEDS: FERROUS SULFATE 325 MG TAB PO SCH ×2 (09:20→17:09)
[2017-11-07] MEDS: PANTOPRAZOLE SOD 40 MG TABEC PO SCH (09:20)
[2017-11-07] MEDS: GABAPENTIN 300 MG CAP PO SCH ×3 (09:20→21:36)
[2017-11-07] MEDS ORDERED: SODIUM BICARBONATE 8.4% INJ 50 ML SYR IV STA (11:08)
[2017-11-07] MEDS ORDERED: DEXTROSE 50% SYRINGE 50 ML IV STA (11:08)
[2017-11-07] MEDS ORDERED: CALCIUM GLUCONATE 10% INJ 4.65 MEQ in SODIUM CHLORIDE 0.9% 50ML 100 ML IV ONE (11:15)
[2017-11-07] MEDS ORDERED: INSULIN REGULAR, HUMAN 100 UNIT/1 ML 3ML VIAL IV ONE (11:15)
[2017-11-07] MEDS ORDERED: SOD POLYSTYRENE SULFONATE SUSP 15 GM/60 ML BTL PO ONE (11:15)
[2017-11-07 11:22] LABS: CREATINE KINASE MB 16.2 ng/mL (0-5.0)
[2017-11-07 12:12] VITALS: BP 165/79
[2017-11-07 12:39] LABS: FERRITIN 88.17 ng/mL (21.81-274.66)
[2017-11-07] MEDS: CLONIDINE HCL 0.1 MG TAB PO PRN ×2 (15:10→20:31)
[2017-11-07] MEDS: HYDRALAZINE HCL 25 MG TAB PO SCH (17:09)
--- NOTE | 2017-11-07 17:18 | Diagnostic Imaging Report ---
EXAM: Renal Ultrasound INDICATION: \S\CLARENCE COMPARISON: Renal ultrasound dated 08/19/2017 TECHNIQUE: Transverse and longitudinal images of the kidneys and bladder were obtained. FINDINGS: Limited study due to patient's shortness of breath. Right Kidney: Size: 10.4 cm Echogenicity: Mildly increased Parenchymal thickness: Normal Collecting system: No hydronephrosis Stones: None Cyst/Mass: 2.9 x 0.6 x 0.6 cm echogenic area adjacent to the right mid to inferior pole cortex, previously measured 2.1 x 0.7 x 2.7 cm and was characterized as perirenal fat. 1.6 cm inferior pole cyst, noted on prior ultrasound, is not visualized on today's exam. Left Kidney: Size: 9.5 cm Echogenicity: Mildly increased Parenchymal thickness: Normal Collecting system: No hydronephrosis Stones: None Cyst/Mass: 1.1 x 0.6 x 0.8 cm partially exophytic midpole cyst. Bladder: Unremarkable. Small amount of perisplenic ascites. IMPRESSION: Mildly increased renal parenchymal echogenicity, suggestive of medical renal disease. Left renal cyst, not significantly changed. Small amount of perisplenic ascites. Signed by: Dr. Tom Warren MD on 11/07/2017 5:15 PM
[2017-11-07 17:28] VITALS: BP 191/83
[2017-11-07 18:00] LABS: ANION GAP 14.9 mmol/L (8-16); CALCIUM 9.5 mg/dL (8.4-10.2); CREATININE, SERUM 2.49 mg/dL (0.72-1.25); POTASSIUM 4.9 mmol/L (3.5-5.1)
[2017-11-07 20:00] VITALS: BP 200/78
[2017-11-07] MEDS: SIMVASTATIN 40 MG TAB PO SCH (21:36)
[2017-11-07] MEDS: TAMSULOSIN HCL 0.4 MG CAP PO SCH (21:36)
[2017-11-07] MEDS: TRAZODONE HCL 50 MG TAB PO SCH (21:36)
[2017-11-07] MEDS: LATANOPROST(OPTH) 2.5 ML BTL OP SCH (21:37)
[2017-11-07 23:16] VITALS: BP 200/78
[2017-11-08] VITALS (8 sets, daily range): BP systolic 150–196; BP diastolic 64–95
[2017-11-08] MEDS: ALBUTEROL SULF 0.083% NEB SOLN 3 ML NEB NEB PRN ×2 (07:00→11:08)
[2017-11-08 07:24] LABS: ANION GAP 12.4 mmol/L (8-16); CALCIUM 9.3 mg/dL (8.4-10.2); CREATININE, SERUM 2.34 mg/dL (0.72-1.25); PHOSPHORUS 4.5 MG/DL (2.3-4.7); POTASSIUM 4.4 mmol/L (3.5-5.1)
[2017-11-08] MEDS: DOCUSATE SODIUM 100 MG CAP PO SCH ×2 (08:48→16:59)
[2017-11-08] MEDS: FUROSEMIDE INJ 10 MG/ML 4 ML VIAL IV SCH ×2 (08:48→16:58)
[2017-11-08] MEDS: TIZANIDINE HCL 4 MG TAB PO SCH ×2 (08:48→16:59)
[2017-11-08] MEDS: ASPIRIN 81 MG ENTERIC COATED PO SCH (08:48)
[2017-11-08] MEDS: HYDRALAZINE HCL 25 MG TAB PO SCH ×2 (08:48→16:59)
[2017-11-08] MEDS: FERROUS SULFATE 325 MG TAB PO SCH ×2 (08:48→16:59)
[2017-11-08] MEDS: PANTOPRAZOLE SOD 40 MG TABEC PO SCH (08:48)
[2017-11-08] MEDS: GABAPENTIN 300 MG CAP PO SCH ×3 (08:48→20:52)
[2017-11-08] MEDS: DOXAZOSIN MESYLATE 2 MG TAB PO SCH (08:48)
[2017-11-08] MEDS: LIDOCAINE 5% PATCH TP SCH (08:49)
[2017-11-08] MEDS: INSULIN REGULAR, HUMAN 100 UNIT/1 ML 3ML VIAL SQ SCH ×4 (08:51→20:52)
[2017-11-08] MEDS: LATANOPROST(OPTH) 2.5 ML BTL OP SCH (20:52)
[2017-11-08] MEDS: SIMVASTATIN 40 MG TAB PO SCH (20:52)
[2017-11-08] MEDS: TAMSULOSIN HCL 0.4 MG CAP PO SCH (20:52)
[2017-11-08] MEDS: TRAZODONE HCL 50 MG TAB PO SCH (20:52)
[2017-11-09] VITALS (7 sets, daily range): BP systolic 130–191; BP diastolic 70–86
[2017-11-09] MEDS: CLONIDINE HCL 0.1 MG TAB PO PRN ×2 (05:34→11:46)
[2017-11-09] MEDS: INSULIN REGULAR, HUMAN 100 UNIT/1 ML 3ML VIAL SQ SCH ×4 (07:30→21:00)
[2017-11-09] MEDS: TIZANIDINE HCL 4 MG TAB PO SCH ×2 (07:49→16:40)
[2017-11-09] MEDS: FUROSEMIDE INJ 10 MG/ML 4 ML VIAL IV SCH ×2 (07:49→16:39)
[2017-11-09] MEDS: PANTOPRAZOLE SOD 40 MG TABEC PO SCH (07:49)
[2017-11-09] MEDS: DOCUSATE SODIUM 100 MG CAP PO SCH ×2 (07:49→16:40)
[2017-11-09] MEDS: DOXAZOSIN MESYLATE 2 MG TAB PO SCH (07:49)
[2017-11-09] MEDS: ASPIRIN 81 MG ENTERIC COATED PO SCH (07:49)
[2017-11-09] MEDS: FERROUS SULFATE 325 MG TAB PO SCH ×2 (07:49→16:40)
[2017-11-09] MEDS: GABAPENTIN 300 MG CAP PO SCH ×3 (07:49→21:45)
[2017-11-09] MEDS: HYDRALAZINE HCL 25 MG TAB PO SCH ×2 (07:49→16:40)
[2017-11-09] MEDS: LIDOCAINE 5% PATCH TP SCH (07:50)
[2017-11-09 11:25] LABS: BASOPHILS % 0.4 % (0.0-1.0); EOSINOPHILS # (AUTO) 0.2 (0.0-0.4); EOSINOPHILS % 2.6 % (0.0-6.0); HEMATOCRIT 27.6 % (38.2-49.6); HEMOGLOBIN 8.4 g/dL (14.0-18.0); LYMPHOCYTES % 12.3 % (18.0-39.1); MEAN CORPUSCULAR HEMOGLOBIN 26.2 pg (28-32); MEAN CORPUSCULAR HGB CONC 30.4 g/dL (31-35); MONOCYTES # (AUTO) 0.7 (0.2-0.8); MONOCYTES % 7.9 % (4.4-11.3); NEUTROPHILS # (AUTO) 6.4 (2.1-6.9); NEUTROPHILS % 76.2 % (38.7-80.0); PLATELET COUNT 147 x10e3/uL (140-360); RED BLOOD COUNT 3.21 x10e6/uL (4.3-5.7); RED CELL DISTRIBUTION WIDTH 15.9 % (11.7-14.4)
[2017-11-09 13:54] LABS: TOTAL PROTEIN, URINE 47.8 mg/dL (1-14)
[2017-11-09 14:28] LABS: CREATININE,URINE RANDOM 16.01 mg/dL (63-166); SODIUM,URINE 109 mmol/L
[2017-11-09] MEDS: LATANOPROST(OPTH) 2.5 ML BTL OP SCH (21:00)
[2017-11-09] MEDS: TRAZODONE HCL 50 MG TAB PO SCH (21:10)
[2017-11-09 21:22] LABS: EOSINOPHIL SMEAR,URINE NONE SEEN (NONE SEEN)
[2017-11-09] MEDS: TAMSULOSIN HCL 0.4 MG CAP PO SCH (21:45)
[2017-11-09] MEDS: SIMVASTATIN 40 MG TAB PO SCH (21:50)
[2017-11-10] VITALS: BP 150/82
[2017-11-10 04:00] VITALS: BP 188/76
[2017-11-10] MEDS: CLONIDINE HCL 0.1 MG TAB PO PRN (05:53)
--- NOTE | 2017-11-10 06:51 | Diagnostic Imaging Report ---
EXAM: CHEST SINGLE (PORTABLE), AP 1 view INDICATION: Congestive heart failure COMPARISON: AP view of the chest November 07, 2017 FINDINGS: LINES/TUBES: Stable position left approach cardiac device. LUNGS: Bibasilar atelectasis and vascular congestion/interstitial edema. PLEURA: Small right pleural effusion. HEART AND MEDIASTINUM: Stable appearance. BONES AND SOFT TISSUES: No acute findings. IMPRESSION: No significant interval change. Signed by: Dr. Rama Martinez M.D. on 11/10/2017 6:47 AM
[2017-11-10] MEDS: INSULIN REGULAR, HUMAN 100 UNIT/1 ML 3ML VIAL SQ SCH ×2 (07:30→12:15)
[2017-11-10 07:45] VITALS: BP 188/76
[2017-11-10 07:48] LABS: ANION GAP 15.3 mmol/L (8-16); CALCIUM 8.9 mg/dL (8.4-10.2); CREATININE, SERUM 1.99 mg/dL (0.72-1.25); POTASSIUM 4.3 mmol/L (3.5-5.1)
[2017-11-10 07:55] VITALS: BP 162/68
[2017-11-10] MEDS: GABAPENTIN 300 MG CAP PO SCH ×2 (08:31→15:42)
[2017-11-10] MEDS: FERROUS SULFATE 325 MG TAB PO SCH (08:31)
[2017-11-10] MEDS: LIDOCAINE 5% PATCH TP SCH (08:31)
[2017-11-10] MEDS: TIZANIDINE HCL 4 MG TAB PO SCH (08:31)
[2017-11-10] MEDS: PANTOPRAZOLE SOD 40 MG TABEC PO SCH (08:31)
[2017-11-10] MEDS: HYDRALAZINE HCL 25 MG TAB PO SCH (08:31)
[2017-11-10] MEDS: DOCUSATE SODIUM 100 MG CAP PO SCH (08:31)
[2017-11-10] MEDS: ASPIRIN 81 MG ENTERIC COATED PO SCH (08:31)
[2017-11-10] MEDS: FUROSEMIDE INJ 10 MG/ML 4 ML VIAL IV SCH (08:31)
[2017-11-10] MEDS ORDERED: LASIX40 MG PO (10:42)
[2017-11-10] MEDS ORDERED: HYDRALAZINE HCL25 MG PO (10:42)
[2017-11-10] MEDS ORDERED: ACETAMINOPHEN650 MG PO (10:42)
[2017-11-10] MEDS ORDERED: CLONIDINE HCL0.1 MG PO (10:42)
[2017-11-10] MEDS ORDERED: AMLODIPINE BESYL5 MG PO (10:42)
[2017-11-10] MEDS ORDERED: LEVEMIR100 UNIT/1 SC (10:42)
[2017-11-10] MEDS ORDERED: ALDACTONE25 MG PO (10:42)
[2017-11-10 12:21] VITALS: BP 136/64
[2017-11-10 16:12] VITALS: BP 180/70
== END 2017-11-10 16:46 | DRG 291 ==
LOC: ER 18:38 → ERHOLD 22:19 → MED/SURG 22:41
DX: I13.0 Hypertensive heart and chronic kidney disease with heart failure and stage 1 through stage 4 chronic kidney disease, or unspecified chronic kidney disease (principal); I50.23 Acute on chronic systolic (congestive) heart failure; E11.22 Type 2 diabetes mellitus with diabetic chronic kidney disease; N18.3 Chronic kidney disease, stage 3 (moderate); Z95.0 Presence of cardiac pacemaker; D64.9 Anemia, unspecified; N40.1 Benign prostatic hyperplasia with lower urinary tract symptoms; R39.14 Feeling of incomplete bladder emptying; K42.9 Umbilical hernia without obstruction or gangrene; R35.1 Nocturia; R80.9 Proteinuria, unspecified; Z79.4 Long term (current) use of insulin
CPT/HCPCS: 36415; 36600; 71045; 76770; 80048; 80053; 81015; 82550; 82553; 82570; 82728; 82805; 82948; 83540; 83605; 83735; 83880; 84100; 84156; 84300; 84466; 84484; 85025; 85610; 85730; 87040; 87070; 87086; 87205; 93005; 94640; 96372; 99284; J0610; J1940; J2543; J7050; J7799

== ENCOUNTER 2017-12-09 14:17 | Inpatient (IN) | payer MEDICARE, OTHER ==
[~2017-12-09] VITALS: Ht 182.9 cm; Wt 94.8 kg
[~2017-12-09 14:17] MED LIST changes: +ACETAMINOPHEN650 MG PO; +ALDACTONE25 MG PO; +LASIX40 MG PO; +LEVEMIR100 UNIT/1 SC
[2017-12-09] MEDS ORDERED: ASPIRIN 81 MG CHEW TAB PO ONE (15:00)
[2017-12-09 15:21] LABS: BASOPHILS % 0.4 % (0.0-1.0); EOSINOPHILS # (AUTO) 0.2 (0.0-0.4); EOSINOPHILS % 2.2 % (0.0-6.0); HEMATOCRIT 24.6 % (38.2-49.6); HEMOGLOBIN 7.4 g/dL (14.0-18.0); LYMPHOCYTES % 12.3 % (18.0-39.1); MEAN CORPUSCULAR HEMOGLOBIN 26.1 pg (28-32); MEAN CORPUSCULAR HGB CONC 30.1 g/dL (31-35); MEAN CORPUSCULAR VOLUME 86.6 fL (81-99); MONOCYTES # (AUTO) 0.7 (0.2-0.8); MONOCYTES % 8.5 % (4.4-11.3); NEUTROPHILS % 75.7 % (38.7-80.0); PLATELET COUNT 131 x10e3/uL (140-360); RED BLOOD COUNT 2.84 x10e6/uL (4.3-5.7); RED CELL DISTRIBUTION WIDTH 17.7 % (11.7-14.4)
[2017-12-09 15:30] LABS: INR 1.32; PROTHROMBIN TIME 15.4 seconds (11.9-14.5)
[2017-12-09 15:38] LABS: ANION GAP 13.1 mmol/L (8-16); CALCIUM 9.1 mg/dL (8.4-10.2); CREATININE, SERUM 2.72 mg/dL (0.72-1.25)
[2017-12-09 15:39] LABS: POTASSIUM 5.1 mmol/L (3.5-5.1)
[2017-12-09 15:47] LABS: CREATINE KINASE MB 26.6 ng/mL (0-5.0)
--- NOTE | 2017-12-09 16:31 | Diagnostic Imaging Report ---
PROCEDURE:ABDOMEN ACUTE SERIES W/PA CXR COMPARISON:Patients [facility], DX, CHEST SINGLE (PORTABLE), 11/10/2017, 6:31. INDICATIONS:ABDOMINAL DISTENTION, CONSTIPATION, SHORTNESS OF BREATH FINDINGS: CHEST: Left upper chest and right chest cardiac devices. Right pleural effusion and associated right lower lobe compressive atelectasis. Patchy atelectatic changes in the left lower lobe. Central pulmonary venous congestion and mild prominence of the perihilar interstitial markings, likely reflecting mild edema. No acute bony abnormalities. BOWEL PATTERN: Nonobstructive bowel gas pattern. No air-filled, dilated loops of bowel. SOFT TISSUES: No abnormal calcifications. Cholecystectomy clips. BONES: No acute bony abnormalities. CONCLUSION: 1. right pleural effusion and associated right lower lobe compressive atelectasis. Patchy atelectatic changes in the left lower lobe. Central pulmonary venous congestion and mild perihilar interstitial edema. 2. No evidence of bowel obstruction. Steve Santos M.D. Dictated by: Steve Santos M.D. on 12/09/2017 at 16:35 Electronically approved by: Steve Santos M.D. on 12/09/2017 at 16:35
[2017-12-09 16:41] LABS: CLARITY,URINE CLEAR (CLEAR); COLOR,URINE YELLOW (YELLOW)
[2017-12-09 16:42] LABS: BILIRUBIN,URINE NEGATIVE (NEGATIVE); KETONES,URINE NEGATIVE (NEGATIVE); LEUKOCYTE ESTERASE ,URINE NEGATIVE (NEGATIVE); NITRITE,URINE NEGATIVE (NEGATIVE); PROTEIN,URINE DIPSTICK 1+ (NEGATIVE); URINE UROBILINOGEN 0.2 mg/dL (0.2 - 1)
[2017-12-09 16:49] LABS: EPITHELIAL CELLS,URINE RARE /LPF; RBC,URINE 0-5 /HPF (0-5); WBC,URINE (MAN) 0-5 /HPF (0-5)
[2017-12-09] MEDS ORDERED: ALBUTEROL SULF 0.083% NEB SOLN 3 ML NEB NEB ONE (16:49)
[2017-12-09] MEDS ORDERED: FUROSEMIDE INJ 10 MG/ML 4 ML VIAL IV SCH (17:15)
[2017-12-09] MEDS ORDERED: SODIUM CHLORIDE 0.9% 250ML 250 ML IV ONE (17:15)
[2017-12-09] MEDS ORDERED: PANTOPRAZOLE INJ 80 MG in SODIUM CHLORIDE 0.9% 100 ML IV SCH (17:15)
[2017-12-09] MEDS ORDERED: PANTOPRAZOLE 40 MG 10ML VIAL IV NR (17:45)
[2017-12-09] MEDS ORDERED: FUROSEMIDE INJ 10 MG/ML 4 ML VIAL IV ONE (18:30)
[2017-12-09] MEDS: SODIUM CHLORIDE FLUSH 10 ML SYR INJ PRN (22:12)
[2017-12-09] MEDS: PANTOPRAZOL 40MG/SOD CHL 0.9% 50 ML IV SCH (23:00)
[2017-12-09 23:34] VITALS: BP 175/89
[2017-12-09 23:59] VITALS: BP 175/89
[2017-12-10] VITALS (11 sets, daily range): BP systolic 116–189; BP diastolic 64–155
[2017-12-10] MEDS ORDERED: DEXTROSE 50% SYRINGE 50 ML IV PRN ×2 (00:15→15:00)
[2017-12-10] MEDS ORDERED: HYDRALAZINE HCL 20 MG/ML VIAL IV PRN (00:15)
[2017-12-10] MEDS ORDERED: BISACODYL 10 MG SUPP PR PRN (00:15)
[2017-12-10] MEDS: ALBUTEROL SULF 0.083% NEB SOLN 3 ML NEB NEB SCH ×6 (03:20→22:23)
[2017-12-10] MEDS: PANTOPRAZOL 40MG/SOD CHL 0.9% 50 ML IV SCH ×5 (04:00→19:00)
[2017-12-10 07:34] LABS: BASOPHILS % 0.3 % (0.0-1.0); EOSINOPHILS # (AUTO) 0.1 (0.0-0.4); EOSINOPHILS % 0.7 % (0.0-6.0); HEMATOCRIT 27.6 % (38.2-49.6); HEMOGLOBIN 8.7 g/dL (14.0-18.0); LYMPHOCYTES # (AUTO) 1.1 (1.0-3.2); LYMPHOCYTES % 9.5 % (18.0-39.1); MEAN CORPUSCULAR HEMOGLOBIN 26.8 pg (28-32); MEAN CORPUSCULAR HGB CONC 31.5 g/dL (31-35); MEAN CORPUSCULAR VOLUME 84.9 fL (81-99); MONOCYTES # (AUTO) 0.7 (0.2-0.8); MONOCYTES % 5.8 % (4.4-11.3); NEUTROPHILS # (AUTO) 9.2 (2.1-6.9); NEUTROPHILS % 82.4 % (38.7-80.0); PLATELET COUNT 148 x10e3/uL (140-360); RED BLOOD COUNT 3.25 x10e6/uL (4.3-5.7); RED CELL DISTRIBUTION WIDTH 17.8 % (11.7-14.4)
[2017-12-10 07:53] LABS: ANION GAP 15.7 mmol/L (8-16); CALCIUM 9.3 mg/dL (8.4-10.2); CREATININE, SERUM 2.62 mg/dL (0.72-1.25)
[2017-12-10 08:00] LABS: POTASSIUM 5.7 mmol/L (3.5-5.1)
[2017-12-10] MEDS: SPIRONOLACTONE 25 MG TAB PO SCH (09:00)
[2017-12-10] MEDS ORDERED: FUROSEMIDE 40 MG TAB PO SCH (09:00)
[2017-12-10] MEDS: AMLODIPINE BESYLATE 5 MG TAB PO SCH (09:00)
[2017-12-10] MEDS: AZELASTINE HCL 137 MCG NASAL SPRAY NS SCH ×2 (09:00→12:30)
[2017-12-10] MEDS: DOCUSATE SODIUM 100 MG CAP PO SCH ×2 (09:00→16:18)
[2017-12-10] MEDS ORDERED: HYDRALAZINE HCL 25 MG TAB PO SCH (09:00)
[2017-12-10] MEDS: PANTOPRAZOLE SOD 40 MG TABEC PO SCH (09:00)
[2017-12-10] MEDS: FERROUS SULFATE 325 MG TAB PO SCH ×2 (09:00→16:47)
[2017-12-10] MEDS: GABAPENTIN 300 MG CAP PO SCH ×3 (09:00→21:45)
[2017-12-10] MEDS: BRINZOLAMIDE 1% OPTH SUSP 10 ML BTL OU SCH ×3 (09:00→21:43)
[2017-12-10] MEDS: ASPIRIN 81 MG ENTERIC COATED PO SCH (09:00)
[2017-12-10] MEDS: CLONIDINE HCL 0.1 MG TAB PO SCH ×2 (09:00→16:46)
[2017-12-10] MEDS: HYDRALAZINE HCL 25 MG TAB PO SCH ×3 (09:00→21:48)
[2017-12-10] MEDS: TIZANIDINE HCL 4 MG TAB PO SCH ×2 (09:00→16:47)
[2017-12-10 10:31] LABS: CREATINE KINASE MB 24.4 ng/mL (0-5.0)
[2017-12-10 12:19] LABS: BASOPHILS % 0.3 % (0.0-1.0); EOSINOPHILS % 0.5 % (0.0-6.0); HEMATOCRIT 24.5 % (38.2-49.6); HEMOGLOBIN 7.7 g/dL (14.0-18.0); LYMPHOCYTES # (AUTO) 0.8 (1.0-3.2); LYMPHOCYTES % 10.6 % (18.0-39.1); MEAN CORPUSCULAR HEMOGLOBIN 26.5 pg (28-32); MEAN CORPUSCULAR HGB CONC 31.4 g/dL (31-35); MEAN CORPUSCULAR VOLUME 84.2 fL (81-99); MONOCYTES # (AUTO) 0.5 (0.2-0.8); MONOCYTES % 6.8 % (4.4-11.3); NEUTROPHILS % 80.9 % (38.7-80.0); PLATELET COUNT 130 x10e3/uL (140-360); RED BLOOD COUNT 2.91 x10e6/uL (4.3-5.7)
[2017-12-10] MEDS ORDERED: HYDRALAZINE HCL 25 MG TAB ONE (14:41)
[2017-12-10] MEDS ORDERED: SOD POLYSTYRENE SULFONATE SUSP 15 GM/60 ML BTL ONE (14:49)
[2017-12-10] MEDS ORDERED: SOD POLYSTYRENE SULFONATE SUSP 15 GM/60 ML BTL PO ONE (15:00)
[2017-12-10] MEDS: FUROSEMIDE 40 MG TAB PO PRN ×2 (16:16→16:17)
[2017-12-10] MEDS: INSULIN LISPRO 100 UNIT/1 ML 3ML VIAL SQ SCH ×2 (16:30→21:00)
--- NOTE | 2017-12-10 17:18 | History and Physical ---
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 Patient came to the emergency room and blood transfusion was in order. Patient had guaiac positive stools. Patient going to be seen by Dr. Desmond Martin who is going to do endoscopy. REVIEW OF SYSTEMS: CARDIOVASCULAR: No chest pain or palpitation. RESPIRATORY: No shortness of breath and no cough. GASTROINTESTINAL: No nausea, vomiting or diarrhea. GENITOURINARY: No frequency and no dysuria. ALLERGIES: NOT ALLERGIC TO ANY MEDICATIONS. SOCIAL HISTORY: He does smoke and does not drink. PAST MEDICAL HISTORY: Positive for COPD, diastolic congestive heart failure, anemia of chronic disease secondary to chronic renal failure, stage 4, diabetes mellitus with chronic renal failure, dysphagia, hypertension with hypertensive nephropathy. PHYSICAL EXAMINATION VITAL SIGNS: On the blood pressure is 137/66, temperature 96.8, heart rate 70 per minute, respiratory rate is 18 per minute. Oxygen pressure 100%. HEART: Regular rhythm. No murmur. No extra sounds. LUNGS: Decreased breath sounds bilaterally. ABDOMEN: Soft. EXTREMITIES: Show no evidence of cyanosis, edema or trauma. LABORATORY DATA: On the blood work we have BMP with a sodium 139, potassium 5.7, chloride 112. CO2 of 17. BUN 85, creatinine 2.62. Glucose 148. On the CBC white blood count 7.38, hemoglobin 7.7, hematocrit 34.5, platelet count 130,000. PT 15.4. INR 1.32. PTT 39.0. Urinalysis came back negative essentially. Chest x-ray according to the emergency room did not show any significant abnormality. He also had right pleural effusion with right lower lobe atelectasis, patchy atelectasis in the left lower lobe. Central pulmonary venous congestion and mild ____ interstitial edema. No evidence of bowel obstruction. FINAL IMPRESSION: 1. Acute anemia on chronic anemia. 2. Chronic obstructive pulmonary disease exacerbation. 3. History of chronic diastolic congestive heart failure. 4. Anemia of chronic disease. 5. Xvfcj-ge-pujhtat renal failure, stage 4. 6. Diabetes mellitus type 2 with chronic renal insufficiency. 7. Hypertensive nephropathy. 8. Hyperkalemia. 9. Dysphagia. PLAN OF TREATMENT: Patient will get Kayexalate because of high potassium. We are going to recheck the BMP today and also recheck the CBC tomorrow. Continue albuterol mg q.4 h. as needed for shortness of breath. Amlodipine 5 mg daily. Aspirin 81 mg daily. Astelin nasal spray twice a day. Dulcolax suppository 10 mg daily rectally as needed for constipation. Azopt 1% ophthalmic solution 1 drop to both eyes 3 times a day. Clonidine 0.1 mg twice a day. Continue Colace 100 mg twice a day. Continue ferrous sulfate 325 mg twice a day. Continue with furosemide 40 mg daily. Actually p.o. furosemide has been discontinued. Going to continue with Lasix 60 mg IV once a day. Continue gabapentin 300 mg 3 times a day. Hydralazine 50 mg 3 times a day. Continue with hydralazine also 10 mg IV push q.4 h. as needed for blood pressure more than 150/90. Continue Xalatan ophthalmic solution 1 drop to each eye at bedtime. Protonix 40 mg daily. Zocor 40 mg daily. Aldactone 12.5 mg daily. Flomax 0.4 mg daily. Zanaflex 4 mg twice a day and trazodone 50 mg at bedtime. We are going to give Kayexalate times one dose. Repeat BMP and CBC. Dr. Desmond Martin has been consulted from the gastroenterology point of view also. TIME SPENT: 45 minutes. Job#: [id number]
[2017-12-10 18:29] LABS: BASOPHILS % 0.4 % (0.0-1.0); EOSINOPHILS # (AUTO) 0.1 (0.0-0.4); EOSINOPHILS % 0.7 % (0.0-6.0); HEMATOCRIT 26.9 % (38.2-49.6); HEMOGLOBIN 8.5 g/dL (14.0-18.0); LYMPHOCYTES # (AUTO) 0.9 (1.0-3.2); LYMPHOCYTES % 8.6 % (18.0-39.1); MEAN CORPUSCULAR HEMOGLOBIN 26.6 pg (28-32); MEAN CORPUSCULAR HGB CONC 31.6 g/dL (31-35); MEAN CORPUSCULAR VOLUME 84.1 fL (81-99); MONOCYTES # (AUTO) 0.9 (0.2-0.8); NEUTROPHILS # (AUTO) 8.1 (2.1-6.9); NEUTROPHILS % 80.2 % (38.7-80.0); PLATELET COUNT 136 x10e3/uL (140-360); RED CELL DISTRIBUTION WIDTH 18.2 % (11.7-14.4)
[2017-12-10 18:54] LABS: CALCIUM 9.2 mg/dL (8.4-10.2); CREATININE, SERUM 2.76 mg/dL (0.72-1.25)
[2017-12-10] MEDS: LATANOPROST(OPTH) 2.5 ML BTL OP SCH (21:42)
[2017-12-10] MEDS: TRAZODONE HCL 50 MG TAB PO SCH (21:45)
[2017-12-10] MEDS: SIMVASTATIN 40 MG TAB PO SCH (21:45)
[2017-12-10] MEDS: TAMSULOSIN HCL 0.4 MG CAP PO SCH (21:45)
[2017-12-11] VITALS: BP 159/78
[2017-12-11] MEDS: PANTOPRAZOL 40MG/SOD CHL 0.9% 50 ML IV SCH ×6 (01:21→20:25)
[2017-12-11] MEDS: SODIUM CHLORIDE FLUSH 10 ML SYR INJ PRN (01:23)
[2017-12-11] MEDS: ALBUTEROL SULF 0.083% NEB SOLN 3 ML NEB NEB SCH ×6 (01:35→23:05)
[2017-12-11 02:00] VITALS: BP 157/87
--- NOTE | 2017-12-11 02:12 | Diagnostic Imaging Report ---
CHEST SINGLE (PORTABLE), 12/11/2017 1:24 AM Technique: CHEST SINGLE (PORTABLE) Comparison: 12/09/2017 Clinical history: Cough, tachypnea Findings: See Impression Impression: 1. Lines/Tubes: Stable left chest wall single lead pacer. Stable visualized right chest wall electronic device. 2. Stable mildly enlarged cardiomediastinal silhouette. 3. Diffuse opacities opacities, favor edema, with small right pleural effusion. Bibasilar opacities may reflect atelectasis and/or infection in the proper clinical context. Recommend attention on follow-up. Signed by: Dr Marisol Vallejo MD on 12/11/2017 2:09 AM
[2017-12-11] MEDS ORDERED: FUROSEMIDE INJ 10 MG/ML 4 ML VIAL IV ONE ×2 (03:00→16:30)
[2017-12-11] MEDS ORDERED: METHYLPREDNISOLONE SOD SUCC 125 MG/2ML VIAL IV ONE (03:00)
[2017-12-11] MEDS ORDERED: HALOPERIDOL LACTATE 5 MG/ML VIAL IV ONE (03:00)
[2017-12-11 07:04] VITALS: BP 182/79
[2017-12-11 07:28] LABS: BASOPHILS % 0.2 % (0.0-1.0); EOSINOPHILS % 0.1 % (0.0-6.0); HEMATOCRIT 27.8 % (38.2-49.6); HEMOGLOBIN 8.7 g/dL (14.0-18.0); LYMPHOCYTES # (AUTO) 0.3 (1.0-3.2); LYMPHOCYTES % 2.5 % (18.0-39.1); MEAN CORPUSCULAR HEMOGLOBIN 26.4 pg (28-32); MEAN CORPUSCULAR HGB CONC 31.3 g/dL (31-35); MEAN CORPUSCULAR VOLUME 84.5 fL (81-99); MONOCYTES # (AUTO) 0.3 (0.2-0.8); MONOCYTES % 2.1 % (4.4-11.3); NEUTROPHILS # (AUTO) 12.4 (2.1-6.9); NEUTROPHILS % 92.9 % (38.7-80.0); PLATELET COUNT 156 x10e3/uL (140-360); RED BLOOD COUNT 3.29 x10e6/uL (4.3-5.7); RED CELL DISTRIBUTION WIDTH 18.2 % (11.7-14.4)
[2017-12-11 07:41] VITALS: BP 182/79
[2017-12-11 07:46] LABS: ANION GAP 19.1 mmol/L (8-16); CALCIUM 9.4 mg/dL (8.4-10.2); CREATININE, SERUM 2.81 mg/dL (0.72-1.25); POTASSIUM 5.1 mmol/L (3.5-5.1)
[2017-12-11] MEDS: INSULIN LISPRO 100 UNIT/1 ML 3ML VIAL SQ SCH ×4 (07:49→21:24)
[2017-12-11] MEDS: HYDRALAZINE HCL 25 MG TAB PO SCH ×2 (07:53→17:04)
[2017-12-11] MEDS: CLONIDINE HCL 0.1 MG TAB PO SCH ×2 (07:53→17:04)
[2017-12-11] MEDS: ASPIRIN 81 MG ENTERIC COATED PO SCH (07:53)
[2017-12-11] MEDS: BRINZOLAMIDE 1% OPTH SUSP 10 ML BTL OU SCH ×3 (07:53→20:25)
[2017-12-11] MEDS: GABAPENTIN 300 MG CAP PO SCH ×3 (07:53→21:23)
[2017-12-11] MEDS: DOCUSATE SODIUM 100 MG CAP PO SCH ×2 (07:53→16:56)
[2017-12-11] MEDS: FERROUS SULFATE 325 MG TAB PO SCH ×2 (07:53→16:56)
[2017-12-11] MEDS: AMLODIPINE BESYLATE 5 MG TAB PO SCH (07:54)
[2017-12-11] MEDS: PANTOPRAZOLE SOD 40 MG TABEC PO SCH (07:54)
[2017-12-11] MEDS: TIZANIDINE HCL 4 MG TAB PO SCH ×2 (07:54→16:56)
[2017-12-11] MEDS: AZELASTINE HCL 137 MCG NASAL SPRAY NS SCH ×2 (08:02→16:56)
[2017-12-11 10:36] LABS: EOSINOPHILS % (MANUAL) 1 % (0-7); LYMPHOCYTES % (MANUAL) 2 % (19-48); MONOCYTES % (MANUAL) 2 % (3.4-9.0); NEUTROPHILS % (MANUAL) 95 % (40-74); PLATELET ESTIMATE ADEQUATE; PLATELET MORPHOLOGY COMMENT NORMAL; RBC MORPHOLOGY COMMENT NORMAL
[2017-12-11 12:36] LABS: BASOPHILS % 0.1 % (0.0-1.0); HEMATOCRIT 26.4 % (38.2-49.6); HEMOGLOBIN 8.3 g/dL (14.0-18.0); LYMPHOCYTES # (AUTO) 0.5 (1.0-3.2); MEAN CORPUSCULAR HEMOGLOBIN 26.4 pg (28-32); MEAN CORPUSCULAR HGB CONC 31.4 g/dL (31-35); MEAN CORPUSCULAR VOLUME 84.1 fL (81-99); MONOCYTES # (AUTO) 0.1 (0.2-0.8); MONOCYTES % 1.1 % (4.4-11.3); NEUTROPHILS # (AUTO) 7.6 (2.1-6.9); NEUTROPHILS % 91.7 % (38.7-80.0); PLATELET COUNT 128 x10e3/uL (140-360); RED BLOOD COUNT 3.14 x10e6/uL (4.3-5.7); RED CELL DISTRIBUTION WIDTH 18.4 % (11.7-14.4)
[2017-12-11] MEDS ORDERED: ACETAMINOPHEN 325 MG TAB PO PRN (13:15)
--- NOTE | 2017-12-11 13:29 | Progress Note ---
DATE: December 11, 2017 INTERNAL MEDICINE PROGRESS NOTE SUBJECTIVE: He is doing better today. PHYSICAL EXAM: VITAL SIGNS: Blood pressure 182/79. Temperature 96.7, heart rate 84 per minute. Respiratory rate is 18 per minute. Oxygen saturation is 100%. HEART: Regular rhythm. No murmur. No extra sounds. LUNGS: Clear bilaterally. ABDOMEN: Soft. EXTREMITIES: Show no evidence of cyanosis, edema or trauma. BLOOD WORK: We have BMP with a sodium 143, potassium 5.1, chloride 112, CO2 17. BUN 90, creatinine 2.81. On the blood sugar is 301. On the CBC white blood count 13.3, hemoglobin 8.7, hematocrit 27.8, platelet count 156,000. PT 15.4, INR 1.32. PTT 39.0. FINAL IMPRESSION: 1. Ipweh-fc-evjbjqf anemia with guaiac positive stools. So far the hemoglobin and hematocrit stable. Dr. Desmond Martin planning to do endoscopy. 2. Chronic obstructive pulmonary disease. 3. History of congestive heart failure. 4. Anemia of chronic disease. 5. Chronic renal failure stage 4. 6. Diabetes mellitus type 2 with chronic renal insufficiency. 7. Hypertensive nephropathy. 8. Status post hyperkalemia which is resolved. 9. Dysphagia. PLAN OF TREATMENT: Continue albuterol q.6 hour. Protonix drip. Continue with furosemide 40 mg daily. Continue with hydralazine 50 mg 3 times a day. Colace 100 mg twice a day. Flomax 0.4 mg at bedtime. Hydralazine 20 mg IV push every q.4 h. as needed for hypertension. Dulcolax suppository 10 mg daily as needed. Ferrous 325 mg twice a day. Zanaflex 4 mg twice a day. Continue monitoring blood sugar a.c. and nightly. Continue Norvasc 5 mg daily. Continue Protonix 40 mg daily. Continue trazodone 50 mg at bedtime. Aspirin is going to be replaced on hold because of guaiac positive stools. Continue gabapentin 300 mg 3 times a day. Simvastatin 40 mg daily. ____ IV push as needed for blood sugar less than 60. Going to go head and increase the hydralazine to 50 mg q.6 hours because of hypertension. As I said, Dr. Desmond Martin will decide about endoscopy, to do a workup for anemia with guaiac positive stools. So far the hemoglobin and hematocrit are stable. I discussed the case with the family. Job#: [id number] SHEA
[2017-12-11 14:48] LABS: ANISOCYTOSIS S; LYMPHOCYTES % (MANUAL) 10 % (19-48); MONOCYTES % (MANUAL) 1 % (3.4-9.0); NEUTROPHILS % (MANUAL) 89 % (40-74); RBC MORPHOLOGY COMMENT NORMAL
[2017-12-11 14:49] LABS: PLATELET ESTIMATE SLIGHTLY DECREASED; PLATELET MORPHOLOGY COMMENT NORMAL
[2017-12-11 17:03] VITALS: BP 174/89
[2017-12-11 18:31] LABS: HEMATOCRIT 23.7 % (38.2-49.6); HEMOGLOBIN 7.5 g/dL (14.0-18.0); LYMPHOCYTES # (AUTO) 0.5 (1.0-3.2); LYMPHOCYTES % 9.3 % (18.0-39.1); MEAN CORPUSCULAR HEMOGLOBIN 26.5 pg (28-32); MEAN CORPUSCULAR HGB CONC 31.6 g/dL (31-35); MEAN CORPUSCULAR VOLUME 83.7 fL (81-99); MONOCYTES # (AUTO) 0.1 (0.2-0.8); MONOCYTES % 1.3 % (4.4-11.3); NEUTROPHILS # (AUTO) 4.6 (2.1-6.9); NEUTROPHILS % 88.4 % (38.7-80.0); PLATELET COUNT 114 x10e3/uL (140-360); RED BLOOD COUNT 2.83 x10e6/uL (4.3-5.7); RED CELL DISTRIBUTION WIDTH 18.1 % (11.7-14.4)
[2017-12-11 19:47] LABS: ANISOCYTOSIS SLIGHT; OVALOCYTES FEW; PLATELET ESTIMATE SLIGHTLY DECREASED; PLATELET MORPHOLOGY COMMENT NORMAL; RBC MORPHOLOGY COMMENT NORMAL
[2017-12-11] MEDS: LATANOPROST(OPTH) 2.5 ML BTL OP SCH (20:25)
[2017-12-11] MEDS: SIMVASTATIN 40 MG TAB PO SCH (21:23)
[2017-12-11] MEDS: TRAZODONE HCL 50 MG TAB PO SCH (21:23)
[2017-12-11] MEDS: TAMSULOSIN HCL 0.4 MG CAP PO SCH (21:23)
[2017-12-11 22:48] VITALS: BP 148/75
--- NOTE | 2017-12-12 00:02 | Consultation ---
DATE OF CONSULTATION: RENAL CONSULT This is an 87-year-old male with the past history of COPD, diastolic congestive heart failure, chronic kidney disease stage 4, who was admitted with hemoglobin of 7.7 after feeling weak, so the patient was admitted. She will be evaluated by GI. ALLERGIES: NO KNOWN DRUG ALLERGIES. PAST MEDICAL HISTORY 1. Diastolic congestive heart failure. 2. COPD. 3. CKD, stage 4, with the last creatinine October 2017 of 1.99. 4. Anemia of chronic disease. 5. Type-2 diabetes mellitus. 6. Dysphagia. 7. Hypertension. 8. Hypertensive nephropathy. CURRENT MEDICATIONS: Furosemide, azelastine, Colace, latanoprost, tizanidine, insulin, hydralazine, bisacodyl, iron sulfate, Protonix, trazodone, hydralazine, sodium chloride p.r.n., amlodipine, benzamide, Lasix, simvastatin, aspirin, clonidine, Neurontin, and prednisone. REVIEW OF SYSTEMS: Positive shortness of breath. No nausea, no vomiting, no blood in the stool. Positive weakness. No sensory loss, no changes in vision, no changes in motor skills. No enlarged lymph nodes. Otherwise negative. PHYSICAL EXAM GENERAL: Alert, following commands. HEENT: Pupils equal, reactive to light, and accommodation. NECK: No JVD, no bruit. LUNGS: No rhonchi, no rales. HEART: Regular rate and rhythm. No S3, no S4. ABDOMEN: Nontender, nondistended. No hepatosplenomegaly. EXTREMITIES: +1 edema. RADIOLOGY: Chest x-ray, stable left chest wall, single-lead pacer stable, mildly enlarged cardiomediastinal silhouette, diffuse opacities, edema with right pleural effusion, bibasilar opacity may reflect atelectasis and/or infection. ASSESSMENT AND PLAN 1. Mvkmh-js-sgkwygz kidney disease, acute failure might be secondary to worsening cardiorenal symptoms, worsening hemoglobin and causing some more prerenal status. For now, will order renal ultrasound to evaluate status of his kidneys, and will also order fractional excretion of sodium and urine eosinophils. The patient is on Lasix IV to help with his pulmonary status. Full gastrointestinal evaluation to follow. 2. Chronic kidney disease, most likely secondary to diabetes and hypertension. He definitely with worsening renal function since October. 3. Hyperkalemia, resolved. 4. Chronic obstructive pulmonary disease exacerbation, currently improving. Job#: [id number] CQ
--- NOTE | 2017-12-12 00:11 | Consultation ---
DATE OF CONSULTATION: December 11, 2017 PULMONARY/CRITICAL CARE MEDICINE CONSULT REFERRING PHYSICIAN: Dr. Martin REASON FOR REFERRAL: Abnormal chest radiography. HISTORY: Mr. Veliz is a pleasant 87-year-old gentleman with abnormal chest radiography. Patient has been hospitalized off and on multiple times recently. At [facility], he was seen a lot by Dr. Dye, who was taking care of his COPD and chronic hypoxemia. However, due to chronic kidney disease, he is having more and more difficulties with fluid overload. Patient was recently at his rehab facility, but he became more short of breath. He was sent to [facility]. Here, chest x-ray showed small to moderate right-sided effusion with some overload appearance. Patient had BNP level of 1001 on December 09. ABG, 7.33/36/90. He was admitted to the hospital where he was getting some diuresis as well as treatment for his chronic pulmonary disease. Patient was having slow progress and actually symptoms started to worsen overnight. Therefore, I am consulted emergently. PAST MEDICAL HISTORY: Diabetes, stroke in 2002, right eye blindness, macular degeneration in left eye, diabetic nephropathy, lung cancer with right partial lung resection in 2009, BPH, MODERATE ALLERGIES, mild GERD. No history of asthma. PAST SURGICAL HISTORY: Right arm nerve stimulator, cholecystectomy, partial lung resection. MEDICATIONS: Medication list reviewed per electronic record. He is on multiple medicines. ALLERGIES: NO KNOWN DRUG ALLERGIES. FAMILY HISTORY: Noncontributory here. SOCIAL HISTORY: No drinking, no drugs. Patient smoked from age 5 to 35, 2 packs per day. He was born in [place]. 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 Able to walk half a mile which he still does regularly. REVIEW OF SYSTEMS: GENERAL: No weight changes. OPHTHALMOLOGIC: No double vision. ENT: No dry mouth. PULMONARY: No asthma. CARDIAC: No heart attacks. GI: No constipation. : No blood in urine. NEUROLOGIC: No seizures. DERMATOLOGIC: No rashes. PSYCHIATRIC: No depression right now. OBJECTIVE: VITAL SIGNS: Afebrile, vital signs noted per electronic record. GENERAL: In no acute distress, alert and calm. HEENT: Normocephalic, atraumatic. NECK: Supple. Throat midline. LUNGS: Bilateral air entry, few rhonchi, breath sounds decreased bilaterally. CARDIOVASCULAR: S1, S2. No murmurs, rubs, or gallops. ABDOMEN: Soft, nontender. EXTREMITIES: No clubbing, no cyanosis, there is 1+ edema. INTEGUMENT: No rash, no purpura. LABS: 13 white count, 28 hematocrit, 156,000 platelets. 5.1 potassium, 17 bicarbonate, 2.8 creatinine. IMPRESSION AND PLAN: 1. Shortness of breath, multifactorial. 2. Fluid overload. 3. Possible pleural effusion. 4. Chronic obstructive pulmonary disease with exacerbation. 5. Chronic hypoxemia, on home oxygen at night. 6. INTERMITTENT ALLERGIES. 7. History of lung resection surgery. 8. Former lung cancer. 9. Former smoker, quit long ago. 10. History of diabetes, blindness, chronic kidney disease, benign prostatic hypertrophy. At this time, will recommend to continue little more diuresis and to follow the kidney function. At the same time, will check ultrasound of the chest to see how much pleural effusion there is. Patient needs optimization of acid-base status to decrease the work load on the lungs. I will review outside radiography, but for now patient will continue to be treated for predominant chronic obstructive pulmonary disease and fluid overload. Thank you very much, Dr. Martin for allowing me the chance to participate in care of Mr. Veliz. Do not hesitate to contact me if I can help in any way. Job#: [id number]
[2017-12-12] MEDS: ALBUTEROL SULF 0.083% NEB SOLN 3 ML NEB NEB SCH ×7 (02:50→22:55)
[2017-12-12] MEDS: PANTOPRAZOL 40MG/SOD CHL 0.9% 50 ML IV SCH ×5 (03:17→20:03)
[2017-12-12] MEDS: HYDRALAZINE HCL 25 MG TAB PO SCH ×5 (06:05→23:51)
[2017-12-12 06:25] LABS: BASOPHILS % 0.1 % (0.0-1.0); HEMATOCRIT 28.2 % (38.2-49.6); HEMOGLOBIN 8.8 g/dL (14.0-18.0); LYMPHOCYTES # (AUTO) 0.5 (1.0-3.2); LYMPHOCYTES % 3.6 % (18.0-39.1); MEAN CORPUSCULAR HEMOGLOBIN 26.3 pg (28-32); MEAN CORPUSCULAR HGB CONC 31.2 g/dL (31-35); MEAN CORPUSCULAR VOLUME 84.4 fL (81-99); MONOCYTES # (AUTO) 0.6 (0.2-0.8); MONOCYTES % 4.2 % (4.4-11.3); NEUTROPHILS # (AUTO) 13.5 (2.1-6.9); NEUTROPHILS % 91.1 % (38.7-80.0); PLATELET COUNT 146 x10e3/uL (140-360); RED BLOOD COUNT 3.34 x10e6/uL (4.3-5.7); RED CELL DISTRIBUTION WIDTH 18.4 % (11.7-14.4)
[2017-12-12 06:41] LABS: CALCIUM 9.6 mg/dL (8.4-10.2); CREATININE, SERUM 2.94 mg/dL (0.72-1.25); MAGNESIUM 2.1 MG/DL (1.3-2.1)
[2017-12-12 07:15] VITALS: BP 162/73
[2017-12-12] MEDS: INSULIN LISPRO 100 UNIT/1 ML 3ML VIAL SQ SCH ×4 (07:38→21:11)
[2017-12-12 07:57] VITALS: BP 162/73
[2017-12-12] MEDS: PREDNISONE 20 MG TAB PO SCH (08:02)
[2017-12-12] MEDS: AZELASTINE HCL 137 MCG NASAL SPRAY NS SCH ×2 (08:02→16:03)
[2017-12-12] MEDS: BRINZOLAMIDE 1% OPTH SUSP 10 ML BTL OU SCH ×3 (08:02→21:12)
[2017-12-12] MEDS: ASPIRIN 81 MG ENTERIC COATED PO SCH (08:02)
[2017-12-12] MEDS: AMLODIPINE BESYLATE 5 MG TAB PO SCH (08:02)
[2017-12-12] MEDS: PANTOPRAZOLE SOD 40 MG TABEC PO SCH (08:02)
[2017-12-12] MEDS: FERROUS SULFATE 325 MG TAB PO SCH ×2 (08:02→16:04)
[2017-12-12] MEDS: DOCUSATE SODIUM 100 MG CAP PO SCH ×2 (08:02→16:04)
[2017-12-12] MEDS: TIZANIDINE HCL 4 MG TAB PO SCH ×2 (08:02→16:05)
[2017-12-12] MEDS: GABAPENTIN 300 MG CAP PO SCH ×3 (08:02→20:33)
[2017-12-12] MEDS: CLONIDINE HCL 0.1 MG TAB PO SCH ×2 (08:02→16:04)
[2017-12-12 12:00] VITALS: BP 134/74
[2017-12-12 12:09] LABS: BASOPHILS % 0.1 % (0.0-1.0); HEMATOCRIT 25.7 % (38.2-49.6); HEMOGLOBIN 8.3 g/dL (14.0-18.0); LYMPHOCYTES # (AUTO) 0.6 (1.0-3.2); LYMPHOCYTES % 3.1 % (18.0-39.1); MEAN CORPUSCULAR HGB CONC 32.3 g/dL (31-35); MEAN CORPUSCULAR VOLUME 83.7 fL (81-99); MONOCYTES # (AUTO) 1.2 (0.2-0.8); MONOCYTES % 6.7 % (4.4-11.3); NEUTROPHILS % 89.3 % (38.7-80.0); PLATELET COUNT 141 x10e3/uL (140-360); RED BLOOD COUNT 3.07 x10e6/uL (4.3-5.7); RED CELL DISTRIBUTION WIDTH 18.4 % (11.7-14.4)
--- NOTE | 2017-12-12 12:20 | Diagnostic Imaging Report ---
PROCEDURE:US CHEST (INCL MEDIASTINUM) COMPARISON:Chest x-ray dated 12/11/2017. INDICATIONS:Pleural effusion FINDINGS:There are bilateral mild-moderate sized pleural effusions. CONCLUSION:Bilateral pleural effusions. Chilango Josue D.O. Dictated by: Chilango Josue D.O. on 12/12/2017 at 12:24 Electronically approved by: Chilango Josue D.O. on 12/12/2017 at 12:24
--- NOTE | 2017-12-12 12:36 | Diagnostic Imaging Report ---
PROCEDURE:US RETROPERITONEAL ( KIDNEY ). COMPARISON:Patients [facility] [place], US, US RETROPERITONEAL ( KIDNEY )., 11/07/2017, 15:59. INDICATIONS:lorenza TECHNIQUE: Hercules-scale and color sonographic images of the kidneys and bladder where obtained in transverse and longitudinal planes. FINDINGS: RIGHT KIDNEY: 10.4 cm in length. The cortex is thin. Cysts: None Solid masses: None Stones: Hyperechoic, non-shadowing focus area in the lower pole measures 9 x 12 x 26 mm (previously, 6 x 6 x 29 mm). Hydronephrosis: None Echogenicity: Increased LEFT KIDNEY: 9.4 cm in length. The cortex is thin. Cysts: Upper pole, measuring 6 x 12 mm and is stable. Solid masses: None Stones: None Hydronephrosis: None Echogenicity: Increased Bladder: Collapsed around a Shepherd catheter . Prostate: Not-visualized CONCLUSION: 1. Increased renal echotexture consistent with medical renal disease. No hydronephrosis. 2. Hyperechoic area adjacent to the lower pole of the right kidney is stable and suggestive of fat. Dictated by: Kalyan Garcia M.D. on 12/12/2017 at 12:40 Electronically approved by: Kalyan Garcia M.D. on 12/12/2017 at 12:40
[2017-12-12 15:33] LABS: ABG HCO3 20 mmol/L (23-28); ABG PCO2 37 mmHg (41-51); ABG PH 7.34 (7.31-7.41); ABG PO2 92 mmHg (80-105)
[2017-12-12 18:15] LABS: BASOPHILS % 0.1 % (0.0-1.0); HEMOGLOBIN 7.9 g/dL (14.0-18.0); LYMPHOCYTES # (AUTO) 0.6 (1.0-3.2); LYMPHOCYTES % 4.5 % (18.0-39.1); MEAN CORPUSCULAR HEMOGLOBIN 26.6 pg (28-32); MEAN CORPUSCULAR HGB CONC 31.6 g/dL (31-35); MEAN CORPUSCULAR VOLUME 84.2 fL (81-99); MONOCYTES # (AUTO) 0.9 (0.2-0.8); MONOCYTES % 7.4 % (4.4-11.3); NEUTROPHILS # (AUTO) 10.7 (2.1-6.9); NEUTROPHILS % 87.3 % (38.7-80.0); PLATELET COUNT 128 x10e3/uL (140-360); RED BLOOD COUNT 2.97 x10e6/uL (4.3-5.7); RED CELL DISTRIBUTION WIDTH 18.5 % (11.7-14.4)
[2017-12-12 20:00] VITALS: BP 146/72
[2017-12-12] MEDS: SIMVASTATIN 40 MG TAB PO SCH (20:33)
[2017-12-12] MEDS: TRAZODONE HCL 50 MG TAB PO SCH (20:33)
[2017-12-12] MEDS: TAMSULOSIN HCL 0.4 MG CAP PO SCH (20:33)
[2017-12-12] MEDS: LATANOPROST(OPTH) 2.5 ML BTL OP SCH (21:12)
[2017-12-12 22:35] VITALS: BP 146/72
[2017-12-12 23:50] VITALS: BP 147/77
[2017-12-13] VITALS (9 sets, daily range): BP systolic 118–176; BP diastolic 59–82
[2017-12-13] MEDS: PANTOPRAZOL 40MG/SOD CHL 0.9% 50 ML IV SCH ×5 (01:45→22:30)
[2017-12-13] MEDS: ALBUTEROL SULF 0.083% NEB SOLN 3 ML NEB NEB SCH ×6 (03:15→23:30)
[2017-12-13 06:09] LABS: BASOPHILS % 0.1 % (0.0-1.0); EOSINOPHILS % 0.2 % (0.0-6.0); HEMATOCRIT 25.5 % (38.2-49.6); LYMPHOCYTES # (AUTO) 0.9 (1.0-3.2); LYMPHOCYTES % 8.3 % (18.0-39.1); MEAN CORPUSCULAR HEMOGLOBIN 26.7 pg (28-32); MEAN CORPUSCULAR HGB CONC 31.4 g/dL (31-35); MONOCYTES # (AUTO) 0.8 (0.2-0.8); MONOCYTES % 7.5 % (4.4-11.3); NEUTROPHILS # (AUTO) 8.5 (2.1-6.9); PLATELET COUNT 127 x10e3/uL (140-360); RED CELL DISTRIBUTION WIDTH 18.5 % (11.7-14.4)
[2017-12-13 06:18] LABS: INR 1.27; PROTHROMBIN TIME 14.9 seconds (11.9-14.5)
[2017-12-13 06:19] LABS: PARTIAL THROMBOPLASTIN TIME 37.7 seconds (23.8-35.5)
[2017-12-13] MEDS: HYDRALAZINE HCL 25 MG TAB PO SCH ×3 (06:29→17:36)
[2017-12-13 06:31] LABS: ANION GAP 14.5 mmol/L (8-16); CALCIUM 8.9 mg/dL (8.4-10.2); CREATININE, SERUM 2.73 mg/dL (0.72-1.25); MAGNESIUM 2.1 MG/DL (1.3-2.1); POTASSIUM 4.5 mmol/L (3.5-5.1)
--- NOTE | 2017-12-13 07:01 | Diagnostic Imaging Report ---
CHEST SINGLE (PORTABLE), 12/13/2017 5:00 AM Technique: CHEST SINGLE (PORTABLE) Comparison: 12/11/2017 Clinical history: CHF Findings: See Impression Impression: 1. Lines/Tubes: Stable left chest wall single lead pacer. Stable visualized right chest wall electronic device. 2. Stable mildly enlarged cardiomediastinal silhouette. 3. Diffuse interstitial edema, with small right pleural effusion. 4. Bibasilar opacities may reflect atelectasis Signed by: Dr. Martin Kaur M.D. on 12/13/2017 6:58 AM
[2017-12-13] MEDS: INSULIN LISPRO 100 UNIT/1 ML 3ML VIAL SQ SCH ×4 (07:22→21:00)
[2017-12-13] MEDS: CLONIDINE HCL 0.1 MG TAB PO SCH ×2 (08:06→17:21)
[2017-12-13] MEDS: DOCUSATE SODIUM 100 MG CAP PO SCH ×2 (08:06→17:21)
[2017-12-13] MEDS: ASPIRIN 81 MG ENTERIC COATED PO SCH (08:06)
[2017-12-13] MEDS: AZELASTINE HCL 137 MCG NASAL SPRAY NS SCH ×2 (08:06→17:21)
[2017-12-13] MEDS: BRINZOLAMIDE 1% OPTH SUSP 10 ML BTL OU SCH ×3 (08:06→20:50)
[2017-12-13] MEDS: AMLODIPINE BESYLATE 5 MG TAB PO SCH (08:07)
[2017-12-13] MEDS: PREDNISONE 20 MG TAB PO SCH (08:07)
[2017-12-13] MEDS: TIZANIDINE HCL 4 MG TAB PO SCH ×2 (08:07→17:21)
[2017-12-13] MEDS: GABAPENTIN 300 MG CAP PO SCH ×3 (08:07→20:51)
[2017-12-13] MEDS: PANTOPRAZOLE SOD 40 MG TABEC PO SCH (08:07)
[2017-12-13] MEDS: FERROUS SULFATE 325 MG TAB PO SCH ×2 (08:07→17:21)
[2017-12-13 16:19] LABS: BODY FLUID APPEARANCE SL.CLOUDY; BODY FLUID COLOR STRAW; BODY FLUID TYPE PLEURAL
[2017-12-13 16:45] LABS: RBC,BODY FLUID 557 cells/uL; WBC,BODY FLUID 8 cells/uL
--- NOTE | 2017-12-13 17:14 | Diagnostic Imaging Report ---
PROCEDURE: CHEST XRAY POST PROCEDURE COMPARISON: Patients [facility], DX, CHEST SINGLE (PORTABLE), 12/13/2017, 5:42. INDICATIONS: STATUS POST RIGHT THORACENTESIS FINDINGS: See conclusion. CONCLUSION: 1. Interval decrease in right-sided pleural effusion. 2. No pneumothorax is identified. 3. Otherwise, no interval change. Steve Santos M.D. Dictated by: Steve Santos M.D. on 12/13/2017 at 17:18 Electronically approved by: Steve Santos M.D. on 12/13/2017 at 17:18
[2017-12-13 17:16] LABS: LYMPHOCYTES,BODY FLUID 24 %; MONO/MACROPHG,BODY FLUID 52 %; NEUTROPHILS,BODY FLUID 24 %
[2017-12-13] MEDS: CEFEPIME HCL 1 GM VIAL IV SCH (17:20)
[2017-12-13] MEDS: AZITHROMYCIN 250MG/NS 100 ML 100 ML IV SCH (17:36)
--- NOTE | 2017-12-13 18:01 | Progress Note ---
DATE: December 12, 2017 PULMONARY MEDICINE PROGRESS NOTE SUBJECTIVE: Mr. Veliz was seen and examined at bedside. He continues with 0.8 L in, 440 mL out recorded. He was feeling slightly worse and more shortness of breath. 99% oxygen saturation on 2 L per minute oxygen by nasal cannula. I discussed prognosis with his family. REVIEW OF SYSTEMS: No bleeding, no rash. OBJECTIVE: VITAL SIGNS: Afebrile. Vital signs noted per electronic record. GENERAL: No acute distress. Intermittent cough. HEENT: Normocephalic, atraumatic. NECK: Supple. Throat midline. LUNGS: Bilateral air entry. Decreased breath sounds. A few rhonchi. CARDIOVASCULAR: S1, S2. No murmurs, rubs or gallops. ABDOMEN: Soft, nontender. EXTREMITIES: No clubbing, no cyanosis. There is 1+ edema. INTEGUMENT: No rash or purpura. LABS: BUN 104, creatinine 2.9. White count 15, hematocrit 28, platelets 146,000. BNP 953. Chest ultrasound shows bilateral vpdm-jw-liwzlyix sized pleural effusions. Renal ultrasound with medical renal disease. IMPRESSION: 1. Shortness of breath, multifactorial. 2. Bilateral pleural effusions. 3. Fluid overload. 4. Pneumonia. 5. Chronic obstructive pulmonary disease with exacerbation. 6. Chronic hypoxemia, on home oxygen at night mainly. 7. Intermittent allergies. 8. History of lung resective surgery. 9. Former lung cancer. 10. Former smoker, quit long ago. 11. Chronic kidney disease. PLAN: Continue diuretics. We will order ultrasound with thoracentesis. Continue to follow up kidney function very closely. to start antibiotics if he worsens. Continue prednisone and wean as needed. We will follow up closely. Job#: [id number]
--- NOTE | 2017-12-13 19:05 | Diagnostic Imaging Report ---
PROCEDURE: Ultrasound-guided thoracentesis. CLINICAL HISTORY: Right pleural effusion HEMODIALYSIS TECHNICIAN: Steve Santos M.D. MEDICATION: None. EBL: <1 cc. DISCUSSION: The right posterior chest/back was prepped and draped in sterile fashion after informed consent was obtained and the procedure was explained to the patient. 1% lidocaine was utilized for local anesthesia. Under ultrasonic guidance, a centesis needle was advanced into the right pleural space and documented on ultrasound. Approximately 900 cc of bloody pleural fluid were obtained and sent to the lab. The patient tolerated the procedure well and there were no immediate postprocedure complications. IMPRESSION: 1. Successful ultrasound-guided fine right thoracentesis.. 2. Chest x-ray to follow Signed by: Dr. Steve Santos M.D. on 12/13/2017 7:01 PM
[2017-12-13] MEDS: LATANOPROST(OPTH) 2.5 ML BTL OP SCH (20:50)
[2017-12-13] MEDS: TRAZODONE HCL 50 MG TAB PO SCH (20:50)
[2017-12-13] MEDS: SIMVASTATIN 40 MG TAB PO SCH (20:51)
[2017-12-13] MEDS: TAMSULOSIN HCL 0.4 MG CAP PO SCH (20:51)
[2017-12-14] VITALS (7 sets, daily range): BP systolic 132–167; BP diastolic 56–74
--- NOTE | 2017-12-14 00:10 | Progress Note ---
DATE: December 13, 2017 PULMONARY MEDICINE PROGRESS NOTE SUBJECTIVE: Mr. Veliz was seen and examined at bedside. He continues to have some weakness. A 97% oxygen saturation on 2 L per minute oxygen by nasal cannula. A 1.0 L in, 1.9 L out. Patient had ultrasound of the forearm with thoracentesis. Appearance of transudate is suggested. Patient had 900 mL of bloody clear fluid that was extracted. No pneumothorax identified post procedure. REVIEW OF SYSTEMS: No bleeding, no rash. OBJECTIVE VITAL SIGNS: Afebrile. Vital signs noted per electronic record. GENERAL: No acute distress. Alert and calm. HEENT: Normocephalic, atraumatic. NECK: Supple. Throat midline. LUNGS: Bilateral air entry. Decreased breath sounds at base. Decreased breath sounds throughout. CARDIOVASCULAR: S1, S2. No murmurs, rubs or gallops. ABDOMEN: Soft, nontender. EXTREMITIES: No clubbing, no cyanosis. There is 1+ edema. INTEGUMENT: No rash or purpura. LABS: Reviewed per electronic record. 10 white count, 112 BUN, 2.7 creatinine, 4.5 potassium. IMPRESSIONS 1. Shortness of breath, multifactorial. 2. Fluid overload. 3. Pleural effusion, status post thoracentesis. 4. Chronic obstructive pulmonary disease with exacerbation. 5. Chronic hypoxemia, on home oxygen. 6. Intermittent allergies. 7. History of lung resection surgery. 8. History of former lung cancer. 9. Chronic kidney disease. Continue current treatment. Await completion of pleural fluid analysis, but looks like a transudate. Follow up creatinine and renal function. Patient remains at this time on some prednisone, which we were weaning slowly. Cautious intermittent diuretics being given. I would like to temporarily hold on this. Continue blood pressure medicines. Follow up kidney function and if show improvement as appropriate. PT is being ordered to try to get the patient mobilize further. Will follow along closely. Job#: [id number] CQ
[2017-12-14] MEDS: PANTOPRAZOL 40MG/SOD CHL 0.9% 50 ML IV SCH ×3 (03:44→13:10)
[2017-12-14] MEDS: ALBUTEROL SULF 0.083% NEB SOLN 3 ML NEB NEB SCH ×6 (04:02→23:05)
[2017-12-14] MEDS: HYDRALAZINE HCL 25 MG TAB PO SCH ×4 (05:30→17:24)
[2017-12-14] MEDS: INSULIN LISPRO 100 UNIT/1 ML 3ML VIAL SQ SCH ×4 (07:30→20:21)
[2017-12-14] MEDS: AZELASTINE HCL 137 MCG NASAL SPRAY NS SCH ×2 (08:20→16:16)
[2017-12-14] MEDS: CLONIDINE HCL 0.1 MG TAB PO SCH ×2 (08:20→16:16)
[2017-12-14] MEDS: DOCUSATE SODIUM 100 MG CAP PO SCH ×2 (08:20→16:16)
[2017-12-14] MEDS: ASPIRIN 81 MG ENTERIC COATED PO SCH (08:20)
[2017-12-14] MEDS: BRINZOLAMIDE 1% OPTH SUSP 10 ML BTL OU SCH ×3 (08:20→20:29)
[2017-12-14] MEDS: AMLODIPINE BESYLATE 5 MG TAB PO SCH (08:21)
[2017-12-14] MEDS: FERROUS SULFATE 325 MG TAB PO SCH ×2 (08:21→16:16)
[2017-12-14] MEDS: GABAPENTIN 300 MG CAP PO SCH ×3 (08:21→20:29)
[2017-12-14] MEDS: TIZANIDINE HCL 4 MG TAB PO SCH ×2 (08:21→16:16)
[2017-12-14] MEDS: PREDNISONE 20 MG TAB PO SCH (08:21)
[2017-12-14] MEDS: PANTOPRAZOLE SOD 40 MG TABEC PO SCH (08:21)
[2017-12-14] MEDS: CEFEPIME HCL 1 GM VIAL IV SCH (16:16)
[2017-12-14] MEDS: AZITHROMYCIN 250MG/NS 100 ML 100 ML IV SCH (17:35)
[2017-12-14] MEDS: TRAZODONE HCL 50 MG TAB PO SCH (20:29)
[2017-12-14] MEDS: LATANOPROST(OPTH) 2.5 ML BTL OP SCH (20:29)
[2017-12-14] MEDS: TAMSULOSIN HCL 0.4 MG CAP PO SCH (20:29)
[2017-12-14] MEDS: SIMVASTATIN 40 MG TAB PO SCH (20:29)
--- NOTE | 2017-12-14 23:34 | Progress Note ---
DATE: December 14, 2017 PULMONARY MEDICINE PROGRESS NOTE SUBJECTIVE: Mr. Veliz was seen and examined at bedside. He continues to have much better breathing today. Yesterday, he had the thoracentesis, but he has not had any pneumothorax from that and he continues to improve. His night was uneventful and the best in a long time. REVIEW OF SYSTEMS: No bleeding, no rash. OBJECTIVE VITAL SIGNS: Afebrile. Vital signs noted per the chart record. GENERAL: No acute distress. Alert and calm. HEENT: Normocephalic, atraumatic. NECK: Supple. Throat midline. LUNGS: Bilateral air entry. Decreased breath sounds. CARDIOVASCULAR: S1, S2. No murmurs, rubs, or gallops. ABDOMEN: Soft, nontender. EXTREMITIES: No clubbing, no cyanosis. There is only trace edema. INTEGUMENT: No rash or purpura. LABS: No new updates. IMPRESSIONS 1. Pleural effusion, serosanguineous but transudative so far. 2. Postoperative day, status post thoracentesis. 3. Chronic obstructive pulmonary disease with exacerbation. 4. Weakness. 5. Allergies. PLAN 1. Continue current treatment. 2. At this time, the prednisone will continue to be weaned slowly. 3. Patient furthermore will have further care and followup. 4. Continue to keep patient slightly dry as tolerated. 5. Patient furthermore will have PT evaluate and see if he could do more now that he had thoracentesis. We will follow along closely. Job#: [id number]
[2017-12-15 00:05] VITALS: BP 117/61
[2017-12-15] MEDS: HYDRALAZINE HCL 25 MG TAB PO SCH ×4 (01:33→18:06)
[2017-12-15] MEDS: ALBUTEROL SULF 0.083% NEB SOLN 3 ML NEB NEB SCH ×5 (03:02→19:10)
[2017-12-15 04:13] VITALS: BP 130/82
[2017-12-15 06:18] LABS: ANION GAP 11.5 mmol/L (8-16); CALCIUM 8.7 mg/dL (8.4-10.2); MAGNESIUM 2.2 MG/DL (1.3-2.1); POTASSIUM 4.5 mmol/L (3.5-5.1)
[2017-12-15] MEDS: INSULIN LISPRO 100 UNIT/1 ML 3ML VIAL SQ SCH ×4 (07:30→20:49)
[2017-12-15] MEDS: GABAPENTIN 300 MG CAP PO SCH ×3 (08:05→20:58)
[2017-12-15] MEDS: AZELASTINE HCL 137 MCG NASAL SPRAY NS SCH ×2 (08:05→17:32)
[2017-12-15] MEDS: PANTOPRAZOLE SOD 40 MG TABEC PO SCH (08:05)
[2017-12-15] MEDS: CLONIDINE HCL 0.1 MG TAB PO SCH ×2 (08:05→18:06)
[2017-12-15] MEDS: FERROUS SULFATE 325 MG TAB PO SCH ×2 (08:05→17:00)
[2017-12-15] MEDS: ASPIRIN 81 MG ENTERIC COATED PO SCH (08:05)
[2017-12-15] MEDS: DOCUSATE SODIUM 100 MG CAP PO SCH ×2 (08:05→17:00)
[2017-12-15] MEDS: PREDNISONE 20 MG TAB PO SCH (08:05)
[2017-12-15] MEDS: BRINZOLAMIDE 1% OPTH SUSP 10 ML BTL OU SCH ×3 (08:05→20:58)
[2017-12-15] MEDS: TIZANIDINE HCL 4 MG TAB PO SCH ×2 (08:06→17:00)
[2017-12-15] MEDS ORDERED: AMLODIPINE BESYLATE 5 MG TAB PO SCH (09:00)
[2017-12-15 12:00] VITALS: BP 166/64
[2017-12-15] MEDS ORDERED: PROPOFOL IV EMULSION 10 MG/ML 20 ML VIAL ONE (15:35)
[2017-12-15 15:44] VITALS: BP 159/79
[2017-12-15] MEDS: AZITHROMYCIN 250MG/NS 100 ML 100 ML IV SCH (18:06)
[2017-12-15] MEDS: CEFEPIME HCL 1 GM VIAL IV SCH (18:06)
[2017-12-15 19:30] VITALS: BP 153/63
[2017-12-15] MEDS: SIMVASTATIN 40 MG TAB PO SCH (20:58)
[2017-12-15] MEDS: TAMSULOSIN HCL 0.4 MG CAP PO SCH (20:58)
[2017-12-15] MEDS: LATANOPROST(OPTH) 2.5 ML BTL OP SCH (20:58)
[2017-12-15] MEDS: TRAZODONE HCL 50 MG TAB PO SCH (20:58)
[2017-12-16] MEDS ORDERED: PREDNISONE 20 MG TAB PO SCH (09:00)
[2017-12-16] MEDS ORDERED: PREDNISONE 10 MG TAB PO SCH (09:00)
--- NOTE | 2017-12-19 08:29 | Progress Note ---
DATE: December 15, 2017 PULMONARY MEDICINE PROGRESS NOTE SUBJECTIVE: Mr. Veliz was seen and examined at bedside. Had 0.6 L in and 2.8 L out recorded. One bowel movement achieved. Overall, the patient continues to feel better since he had the fluid taken out. He did, however, have some small, soft, black stools that are getting monitored. He is eating small amounts. REVIEW OF SYSTEMS: No bleeding, no rash. OBJECTIVE VITAL SIGNS: Afebrile. Vital signs noted per the chart record. GENERAL: No acute distress. Alert and calm but weak. HEENT: Normocephalic, atraumatic. NECK: Supple. Throat midline. LUNGS: Bilateral air entry. A few rhonchi. Decreased breath sounds throughout. CARDIOVASCULAR: S1, S2. No murmurs, rubs, or gallops. ABDOMEN: Soft, nontender. EXTREMITIES: No clubbing, no cyanosis. No edema. INTEGUMENT: No rash or purpura. LABS: Include 85 BUN, 2.0 creatinine, 4.5 potassium, 10 white count, 26 hematocrit, 127 platelets. IMPRESSION 1. Pleural effusion, status post thoracentesis. 2. Pulmonary edema. 3. Treat for pneumonia. 4. Weakness. 5. Chronic obstructive pulmonary disease with exacerbation. PLAN: Continue prednisone weaning. Will go down to 10 mg of prednisone per day. Continue antibiotics. Will follow along closely. Continue aggressive PT and OT. Job#: [id number]
--- NOTE | 2018-02-01 16:04 | Discharge Summary ---
CHIEF COMPLAINT: Acute upper GI bleed, anemia, and shortness of breath. FINAL DIAGNOSES 1. Sepsis. 2. Aspiration pneumonia. 3. Acute over chronic congestive heart failure. 4. Anemia. PROCEDURES: Transfusion of packed cells, EGD, and ultrasound-guided thoracentesis, right lung. DISPOSITION: [facility]. 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 alf individual. At the alf, he was noted to be very weak. Laboratory studies revealed anemia with a hemoglobin in the 7s. He was transferred from the alf to the emergency room here for evaluation. In the ER, he was noted have a hemoglobin of 7.7. Chest x-ray in the ER was revealing a right pleural effusion with right lower lobe atelectasis, patchy atelectasis in the left lower lobe. Admitted for care regarding findings of acute anemia on chronic anemia, chronic obstructive pulmonary disease with exacerbation, history of chronic diastolic congestive heart failure, acute on chronic renal failure stage 4, diabetes type 2, hypertensive nephropathy, hyperkalemia, and dysphagia. With the noted elevated potassium, the patient was started on Kayexalate with admission. Will be typed and crossed matched for packed RBCs. Will be requesting a GI follow. With admission, the patient was undergoing a pulmonary follow due to abnormal chest x-ray, was being seen by Dr. Kelly. With his evaluation of the patient following his review of data, his findings were shortness of breath, multifactorial; fluid overload; possible pleural effusion; chronic obstructive lung disease with exacerbation; chronic hypoxemia, on home O2 at night; history of lung resection surgery; former lung CA; former smoker. Recommend continuing further diuresis. Monitor kidney functions. Obtain ultrasound of the chest. Monitor the pleural effusion. Monitoring the patient's acid-base balance. His renal status is being reviewed by Dr. Mora and with his evaluation, his assessment was [id number] kidney disease with acute failure that might be secondary to worsening cardiorenal symptoms. Will be requesting renal ultrasound. Chronic kidney disease most likely secondary to diabetes and hypertension. There are worsening findings of his renal function since October of this year. He was then being seen by GI regarding the issues of anemia as well as having guaiac positive stools and following Dr. Desmond Martin's evaluation, his impression was anemia, positive for dark stools, guaiac positive stools, could be having an GI bleed upper, will be needing an EGD with his medical status as maximized. From the ER, he was upgraded to IMCU. He was on a clear liquid diet. He was started on respiratory treatment, started on PPIs. His MAR sheet from the alf will be continued. Undergoing type and cross match for packed RBCs leading to transfusion. His initial labs were showing electrolytes with a potassium of 5.7. Kidney functions, BUN 85, creatinine 2.62, and glucose 148. CBC; hemoglobin 7.7. As he continued, he was having BMs, but there was no evidence of melena or bright red blood per rectum with medications for potassium correction. His followup potassium was 5. After receiving some transfusions, his hemoglobin now was at 8.5. Now on a clear liquid diet, which he was tolerating quite well. EGD is continued to be on hold until his medical status is maximized. On December 12, it was noted that his kidney functions had increased. BUN was now 104, creatinine was 2.94, glucose 353. White cell count had risen to 17,900. He is now undergoing care regarding the pulmonary edema with pulmonary effusion. Continued on IV Lasix and diuresis. Regarding the concern in the chest x-ray, Dr. eKlly requested thoracentesis and the patient underwent right thoracentesis. The 900 mL of bloody serosanguineous fluid was removed. The procedure was carried out in the usual fashion. There is no pneumothorax post procedure. Continued to be maintained in IMCU, was beginning to feel better. Overall, his potassium now responding quite well was at 4.5. However, BUN continued to be inflated, it was now at 112. On 12/13/2017, it was noted by GI that his condition had maximized. He was being set for the EGD for 12/14/2017. It was put off for 12/15/2017. He underwent the EGD in the usual fashion. No complications. On 12/15/2017, now his BUN was at 85, creatinine 2.00. White blood cell count now was at 10,000. Continued to respond well post EGD. The patient will continue to require further management of care. From the case management assistance, the patient was able to be transferred to [facility] on 12/16/2017 in stable condition. EKGs are showing accelerated junctional rhythm, low voltage QRS, T-wave abnormality consider inferior ischemia, consider anterolateral ischemia. PROCEDURES: EGD by Dr. Desmond Martin conducted on 12/15/2017. Preop diagnosis was melena, guaiac-positive stools. Postoperative diagnosis was rule out samir esophagitis, hiatal hernia small sliding, gastritis. Patient tolerated the procedure well. We will begin PPIs. His other procedure was the thoracentesis. He was transferred after being stabilized from his procedures to [facility] for further management. Continuation of care. His MAR sheet was copied and will be continued. His IV access will continue. We will be slowly increasing his diet as tolerated. Activity level was somewhat limited. The patient is noted to be bedbound. We will be evaluating the patient's status on a daily basis and adjustments will be made as needed. Dictated By: RYNE Dyer Job#: [id number] JOSHUA
--- NOTE | 2018-02-02 08:07 | Operative Report ---
DATE OF PROCEDURE: December 15, 2017 REFERRING PHYSICIAN: Dr. Rick Menon PROCEDURE PERFORMED: Esophagogastroduodenoscopy with biopsies and esophageal brushings. INDICATIONS FOR EGD: History of melena, guaiac-positive stools. MEDICATION: Patient was done under MAC. Please see anesthesiologist's note. PROCEDURE: With the patient in the left lateral decubitus position, the flexible fiberoptic Olympus gastroscope was introduced into the esophagus under direct visualization without any difficulty. There were some scattered whitish plaques noted in the esophagus, and those were brushed to rule out samir esophagitis. The scope was then advanced with ease into the stomach, traversing a small hiatal hernia. Mucosa overlying the antrum and the body revealed some patchy areas of erythema and low-grade to moderate edema, and biopsies were obtained and sent to stain for H. pylori. The pylorus was of normal contour and shape. It was intubated with ease, and the scope was advanced all the way to the 2nd portion of the duodenum. The scope was then withdrawn slowly. Mucosa overlying the proximal 2nd portion and the duodenal bulb appeared to be within normal limits. The scope was then withdrawn back into the stomach and retroflexed. Mucosa overlying the fundus and the cardia appeared to be within normal limits. The scope was then straightened out. The stomach was decompressed. The scope was subsequently withdrawn. Patient tolerated the procedure well. IMPRESSION 1. Rule out samir esophagitis. 2. Small sliding hiatal hernia. 3. Gastritis, biopsied. Biopsies sent to stain for H. pylori. PLAN: Follow up histology. Initiate Protonix 40 mg 1 p.o. q.a.m. a.c. Job#: [id number] cc:RICK MENON MD
== END 2017-12-16 02:59 | DRG 871 ==
LOC: ER 14:17 → ERHOLD 17:24 → IMCU 20:15
PROC: 30233N1 Transfusion of Nonautologous Red Blood Cells into Peripheral Vein, Percutaneous Approach (ICD-10-PCS; principal; 2017-12-09)
PROC: 0W993ZX Drainage of Right Pleural Cavity, Percutaneous Approach, Diagnostic (ICD-10-PCS; 2017-12-13)
PROC: 0DB78ZX Excision of Stomach, Pylorus, Via Natural or Artificial Opening Endoscopic, Diagnostic (ICD-10-PCS; 2017-12-15)
PROC: 0DD58ZX Extraction of Esophagus, Via Natural or Artificial Opening Endoscopic, Diagnostic (ICD-10-PCS; 2017-12-15)
DX: A41.9 Sepsis, unspecified organism (principal); I50.23 Acute on chronic systolic (congestive) heart failure; J69.0 Pneumonitis due to inhalation of food and vomit; I13.0 Hypertensive heart and chronic kidney disease with heart failure and stage 1 through stage 4 chronic kidney disease, or unspecified chronic kidney disease; J90 Pleural effusion, not elsewhere classified; N17.9 Acute kidney failure, unspecified; N18.4 Chronic kidney disease, stage 4 (severe); K92.1 Melena; J44.1 Chronic obstructive pulmonary disease with (acute) exacerbation; B37.81 Candidal esophagitis; D64.9 Anemia, unspecified; E87.5 Hyperkalemia; Z95.0 Presence of cardiac pacemaker; D63.8 Anemia in other chronic diseases classified elsewhere; E11.22 Type 2 diabetes mellitus with diabetic chronic kidney disease; D63.1 Anemia in chronic kidney disease; Z85.118 Personal history of other malignant neoplasm of bronchus and lung; Z86.73 Personal history of transient ischemic attack (TIA), and cerebral infarction without residual deficits; K21.9 Gastro-esophageal reflux disease without esophagitis; Z87.891 Personal history of nicotine dependence; R09.02 Hypoxemia; E87.70 Fluid overload, unspecified; I48.91 Unspecified atrial fibrillation; K29.70 Gastritis, unspecified, without bleeding; K44.9 Diaphragmatic hernia without obstruction or gangrene; H54.7 Unspecified visual loss
CPT/HCPCS: 32555; 36415; 36430; 36600; 43235; 43239; 51700; 71045; 74022; 76604; 76770; 80048; 81001; 82550; 82553; 82805; 82948; 83615; 83735; 83880; 84157; 84165; 84484; 85014; 85018; 85025; 85379; 85610; 85730; 86850; 86900; 86920; 87070; 87102; 87106; 87205; 87206; 88112; 88305; 88312; 89051; 93005; 94640; 96361; 96366; 96372; 99285; J0692; J1630; J1940; J2930; J7050; P9016

== ENCOUNTER 2018-02-09 10:55 | Inpatient (IN) | payer MEDICARE, OTHER ==
[~2018-02-09] VITALS: Ht 185.4 cm; Wt 84.6 kg
[2018-02-09] MEDS ORDERED: HYDRALAZINE HCL 20 MG/ML VIAL IV ONE (11:15)
[2018-02-09] MEDS ORDERED: ENALAPRILAT IV INJ 1.25 MG/ML VIAL IV STA ×2 (11:30→12:21)
[2018-02-09 11:44] LABS: BASOPHILS % 0.4 % (0.0-1.0); EOSINOPHILS # (AUTO) 0.2 (0.0-0.4); EOSINOPHILS % 1.9 % (0.0-6.0); HEMATOCRIT 36.8 % (38.2-49.6); HEMOGLOBIN 11.6 g/dL (14.0-18.0); LYMPHOCYTES # (AUTO) 1.7 (1.0-3.2); LYMPHOCYTES % 17.6 % (18.0-39.1); MEAN CORPUSCULAR HEMOGLOBIN 27.8 pg (28-32); MEAN CORPUSCULAR HGB CONC 31.5 g/dL (31-35); MONOCYTES # (AUTO) 0.5 (0.2-0.8); MONOCYTES % 5.4 % (4.4-11.3); NEUTROPHILS # (AUTO) 7.1 (2.1-6.9); NEUTROPHILS % 74.2 % (38.7-80.0); PLATELET COUNT 172 x10e3/uL (140-360); RED BLOOD COUNT 4.18 x10e6/uL (4.3-5.7); RED CELL DISTRIBUTION WIDTH 15.3 % (11.7-14.4)
[2018-02-09 12:05] LABS: ALBUMIN/GLOBULIN RATIO 1.2 (0.8-2.0); ANION GAP 15.5 mmol/L (8-16); CALCIUM 9.1 mg/dL (8.4-10.2); CREATININE, SERUM 1.85 mg/dL (0.72-1.25); POTASSIUM 4.5 mmol/L (3.5-5.1)
[2018-02-09 12:49] LABS: CREATINE KINASE MB 6.1 ng/mL (0-5.0)
[2018-02-09 13:48] LABS: CLARITY,URINE SL CLOUDY (CLEAR); COLOR,URINE YELLOW (YELLOW); LEUKOCYTE ESTERASE ,URINE 1+ (NEGATIVE); NITRITE,URINE NEGATIVE (NEGATIVE)
[2018-02-09 13:49] LABS: BILIRUBIN,URINE NEGATIVE (NEGATIVE); KETONES,URINE NEGATIVE (NEGATIVE); PROTEIN,URINE DIPSTICK 2+ (NEGATIVE); URINE UROBILINOGEN 0.2 mg/dL (0.2 - 1)
[2018-02-09 13:55] LABS: AMORPHOUS SEDIMENT,URINE RARE (FEW); BACTERIA,URINE FEW /HPF; EPITHELIAL CELLS,URINE RARE /LPF; YEAST,URINE RARE
[2018-02-09] MEDS ORDERED: DILTIAZEM HCL VIAL 5 ML ONE (14:30)
[2018-02-09] MEDS ORDERED: ALBUTEROL SULF 0.083% NEB SOLN 3 ML NEB NEB PRN (14:45)
[2018-02-09] MEDS ORDERED: DILTIAZEM HCL 5 MG/ML 5 ML VIAL IV ONE (14:45)
[2018-02-09 15:50] VITALS: BP 185/86
[2018-02-09 16:45] VITALS: BP 185/86
[2018-02-09] MEDS ORDERED: ALBUTEROL0.63 MG/3 INH (16:47)
--- NOTE | 2018-02-09 16:55 | Diagnostic Imaging Report ---
ADDENDUM #1 Addendum: Additional IMPRESSION item 6. Enlarged right upper paratracheal lymph node of indeterminate clinical significance. No other mediastinal or any hilar or axillary adenopathy. Signed by: Dr. Steve Santos M.D. on 02/09/2018 4:59 PM ORIGINAL REPORT EXAMINATION: CT of the chest, abdomen and pelvis with and without contrast. TECHNIQUE: Spiral CT images of the chest, abdomen and pelvis were performed from the lung apices to the lesser trochanters before and after the intravenous administration of 100 cc of Isovue 370 and the oral administration of water. Coronal and sagittal reformatted images were obtained. COMPARISON: None. CLINICAL HISTORY:Hypertension, abdominal pain DISCUSSION: Aorta and proximal branches: The thoracic aorta is normal in caliber without evidence of aneurysm or dissection. There is no evidence of intramural or periaortic hematoma. Atherosclerotic calcification of the thoracic aorta, predominantly involving the arch, aortic arch branches and descending aorta, as well as extensive atherosclerotic calcification of the coronary arteries particularly the LAD. The innominate, proximal subclavian, and common carotid arteries are normal in size. Common origin of the right brachiocephalic and left common carotid arteries. The suprarenal abdominal aorta is within normal limits. The celiac trunk, SMA, and FREDI are patent. Single right renal artery, which are patent. Main left and accessory left renal arteries, which are patent The iliac and femoral arteries are normal in size and patent. Moderate to marked atherosclerotic disease of the abdominal aorta, predominantly the infrarenal portion, extending into the iliac arteries. Marked atherosclerotic plaque at the origin/proximal portion of the SMA, with at least 70 % luminal reduction. No evidence of dissection or aneurysmal dilation. No intramural or periaortic hematoma. Measurements of the aorta are as follows: 3.8 cm at the level of the Sinus of Valsalva, 3.4 cm in the proximal ascending aorta, 3.3 cm in the mid ascending aorta, 3.0 cm in the mid aortic arch, 2.7 cm in the proximal descending aorta, 2.8 cm in the mid descending aorta, 2.6 cm at the level of the diaphragmatic hiatus, 2.4 cm at the level of the celiac trunk, 2.2 cm at the level of the SMA, 2.2 cm at level of the renal arteries, 2.0 cm just above the level of the bifurcation. CHEST: Exam mildly limited as it was acquired during partial expiration LINES/TUBES: Left upper chest cardiac device with lead distal tip in the right ventricle. A metallic device is noted in the soft tissues of the right upper chest, however, the distal tip is not visualized. LUNGS AND AIRWAYS: Mildly increased attenuation of the pulmonary parenchyma secondary to exam performed during partial expiration. Compressive atelectasis of the right lower lobe and right upper lobe. Mild compressive atelectasis of the left lower lobe. 2 mm pulmonary nodule in the left lateral lower lobe (series 6, image 21). PLEURA: Moderate right-sided pleural effusion, which is partially loculated in the right upper lobe. Trace to small left pleural effusion. HEART AND MEDIASTINUM: Thyroid is unremarkable. Mild to moderate cardiomegaly. No pericardial effusion. Main pulmonary artery is enlarged, measuring 3.7 cm. LYMPH NODES: Enlarged right upper paratracheal lymph node which measures 2.0 cm in short axis (series 2, image 12). No other mediastinal or hilar or axillary adenopathy. BONES AND SOFT TISSUES: No bony destructive lesions. Degenerative changes in the thoracic spine. Mild bilateral gynecomastia.. ABDOMEN/PELVIS: HEPATOBILIARY: No focal hepatic lesions. No intrahepatic biliary ductal dilation. Mild dilation of the common bile duct, which measures approximately 11 mm at the geneva hepatis. No radiopaque intraluminal filling defects. GALLBLADDER: Cholecystectomy clips. SPLEEN: No splenomegaly. PANCREAS: No focal masses or ductal dilatation. ADRENALS: No adrenal nodules. KIDNEYS/URETERS: No hydronephrosis, stones, or solid mass lesions. Renal vascular calcifications. PELVIC ORGANS/BLADDER: Bladder is decompressed and there is a Shepherd catheter in place. PERITONEUM/RETROPERITONEUM: No free air or fluid. LYMPH NODES: No intra-abdominal,retroperitoneal, pelvic or inguinal lymphadenopathy. VESSELS: See above GI TRACT: No bowel dilation or evidence of obstruction. Descending and sigmoid colon diverticulosis, without diverticulitis. BONES AND SOFT TISSUES: No aggressive lesions. Degenerative disc changes in the lumbosacral spine, predominantly L5-S1. IMPRESSION: 1. No CT evidence of aneurysmal dilation or dissection. 2. Moderate to marked atherosclerotic disease of the aorta, aortic branches and extending to the iliac vessels. Vessels remain patent. Marked atherosclerotic plaque at the origin/proximal portion of the SMA, with at least to 70 % luminal reduction. This may relate to patient's abdominal pain. 3. Mild to moderate cardiomegaly. Enlargement pulmonary artery suggesting pulmonary hypertension. 4. Moderate right-sided pleural effusion, which is partly loculated in the right upper lobe. Trace to small left pleural effusion. Associated bilateral lower lobe and right upper lobe compressive atelectasis. 5. Mild dilation of the common bile duct, likely reflecting post cholecystectomy status. Signed by: Dr. Steve Santos M.D. on 02/09/2018 4:52 PM
[2018-02-09] MEDS ORDERED: THEOPHYLLINE A200 MG PO (17:02)
[2018-02-09] MEDS ORDERED: FLOMAX0.4 MG PO (17:02)
[2018-02-09] MEDS ORDERED: NORCO 5-325 TA1 EACH PO (17:02)
[2018-02-09] MEDS ORDERED: FINASTERIDE5 MG PO (17:02)
[2018-02-09] MEDS ORDERED: BUDESONIDE0.5 MG/2 M NEB (17:02)
[2018-02-09] MEDS ORDERED: DEXTROSE 50% SYRINGE 50 ML IV PRN (17:15)
[2018-02-09] MEDS ORDERED: HYDROCODONE/APAP 5MG-325MG TAB PO PRN (18:00)
[2018-02-09] MEDS ORDERED: HYDROCODONE/APAP 5MG-325MG TAB PO SCH (18:00)
[2018-02-09] MEDS: CEFTRIAXONE SOD 1 GM VIAL IV SCH (18:19)
[2018-02-09] MEDS: METOPROLOL TARTRATE INJ 1 MG/ML VIAL IV PRN (18:19)
[2018-02-09 18:25] VITALS: BP 175/75
[2018-02-09] MEDS ORDERED: BISACODYL 10 MG SUPP PR PRN (18:30)
[2018-02-09 20:00] VITALS: BP 189/88
[2018-02-09] MEDS ORDERED: BALSAM PERU/CASTOR OIL 60 GM OINT...G. TP SCH (21:00)
[2018-02-09] MEDS ORDERED: SODIUM CHLORIDE 0.9% 100 ML 100 ML ONE (21:11)
[2018-02-09] MEDS ORDERED: IOPAMIDOL 370 MG/ML 200 ML INFUS..BTL INJ ONE (21:12)
[2018-02-09] MEDS: LATANOPROST(OPTH) 2.5 ML BTL OP SCH (21:42)
[2018-02-09] MEDS: CLONIDINE HCL 0.1 MG TAB PO SCH (21:49)
[2018-02-09] MEDS: TAMSULOSIN HCL 0.4 MG CAP PO SCH (21:50)
[2018-02-09] MEDS: INSULIN LISPRO 100 UNIT/1 ML 3ML VIAL SQ SCH (21:50)
[2018-02-09] MEDS: INSULIN DETEMIR 100 UNIT/ML PEN SQ SCH (21:51)
[2018-02-09] MEDS: GABAPENTIN 300 MG CAP PO SCH (21:52)
[2018-02-09] MEDS: BALSAM PERU/CASTOR OIL 60 GM OINT...G. TP SCH (21:52)
[2018-02-09 23:49] VITALS: BP 189/88
[2018-02-10] VITALS (8 sets, daily range): BP systolic 135–206; BP diastolic 63–89
[2018-02-10 06:01] LABS: BASOPHILS # (AUTO) 0.1 (0.0-0.1); BASOPHILS % 0.6 % (0.0-1.0); EOSINOPHILS # (AUTO) 0.2 (0.0-0.4); EOSINOPHILS % 2.2 % (0.0-6.0); HEMATOCRIT 34.7 % (38.2-49.6); HEMOGLOBIN 10.9 g/dL (14.0-18.0); LYMPHOCYTES # (AUTO) 1.8 (1.0-3.2); LYMPHOCYTES % 20.9 % (18.0-39.1); MEAN CORPUSCULAR HEMOGLOBIN 27.7 pg (28-32); MEAN CORPUSCULAR HGB CONC 31.4 g/dL (31-35); MEAN CORPUSCULAR VOLUME 88.1 fL (81-99); MONOCYTES # (AUTO) 0.7 (0.2-0.8); MONOCYTES % 7.8 % (4.4-11.3); NEUTROPHILS # (AUTO) 5.9 (2.1-6.9); NEUTROPHILS % 67.7 % (38.7-80.0); PLATELET COUNT 179 x10e3/uL (140-360); RED BLOOD COUNT 3.94 x10e6/uL (4.3-5.7); RED CELL DISTRIBUTION WIDTH 15.4 % (11.7-14.4)
[2018-02-10 06:25] LABS: ALBUMIN 2.6 g/dL (3.5-5.0); ALBUMIN/GLOBULIN RATIO 1.3 (0.8-2.0); ANION GAP 11.9 mmol/L (8-16); CALCIUM 8.9 mg/dL (8.4-10.2); CREATININE, SERUM 1.69 mg/dL (0.72-1.25); POTASSIUM 3.9 mmol/L (3.5-5.1)
[2018-02-10] MEDS: INSULIN LISPRO 100 UNIT/1 ML 3ML VIAL SQ SCH ×4 (07:30→21:58)
[2018-02-10] MEDS: ASPIRIN 81 MG ENTERIC COATED PO SCH (09:39)
[2018-02-10] MEDS: CLONIDINE HCL 0.1 MG TAB PO SCH ×2 (09:39→21:58)
[2018-02-10] MEDS: FERROUS SULFATE 325 MG TAB PO SCH ×2 (09:40→17:20)
[2018-02-10] MEDS: DOCUSATE SODIUM 100 MG CAP PO SCH ×2 (09:40→17:00)
[2018-02-10] MEDS: BALSAM PERU/CASTOR OIL 60 GM OINT...G. TP SCH ×2 (09:40→21:58)
[2018-02-10] MEDS: FINASTERIDE 5 MG TAB PO SCH (09:40)
[2018-02-10] MEDS: THEOPHYLLINE 200 MG TABCR PO SCH (09:40)
[2018-02-10] MEDS: PANTOPRAZOLE SOD 40 MG TABEC PO SCH (09:40)
[2018-02-10] MEDS: FUROSEMIDE 40 MG TAB PO SCH ×2 (09:40→17:20)
[2018-02-10] MEDS: AZELASTINE HCL 137 MCG NASAL SPRAY NS SCH ×2 (09:55→17:19)
[2018-02-10] MEDS: INSULIN DETEMIR 100 UNIT/ML PEN SQ SCH ×2 (09:56→21:58)
[2018-02-10] MEDS: METOPROLOL TARTRATE INJ 1 MG/ML VIAL IV PRN (12:45)
[2018-02-10] MEDS: GABAPENTIN 300 MG CAP PO SCH ×2 (14:00→21:58)
[2018-02-10] MEDS ORDERED: HYDRALAZINE HCL 20 MG/ML VIAL IV PRN (15:00)
[2018-02-10] MEDS: HYDRALAZINE HCL 25 MG TAB PO SCH ×2 (15:43→21:58)
[2018-02-10] MEDS: ACETAMINOPHEN 325 MG TAB PO PRN (16:20)
[2018-02-10] MEDS: CEFTRIAXONE SOD 1 GM VIAL IV SCH (17:19)
[2018-02-10] MEDS: LATANOPROST(OPTH) 2.5 ML BTL OP SCH (21:57)
[2018-02-10] MEDS: TAMSULOSIN HCL 0.4 MG CAP PO SCH (21:58)
[2018-02-11] VITALS (7 sets, daily range): BP systolic 145–208; BP diastolic 53–90
[2018-02-11] MEDS: METOPROLOL TARTRATE INJ 1 MG/ML VIAL IV PRN (01:00)
[2018-02-11] MEDS: GABAPENTIN 300 MG CAP PO SCH ×3 (06:03→22:06)
[2018-02-11] MEDS: INSULIN LISPRO 100 UNIT/1 ML 3ML VIAL SQ SCH ×6 (07:30→21:00)
[2018-02-11] MEDS: HYDRALAZINE HCL 25 MG TAB PO SCH ×4 (08:10→22:06)
[2018-02-11] MEDS: CLONIDINE HCL 0.1 MG TAB PO SCH ×2 (08:10→22:06)
[2018-02-11] MEDS: INSULIN DETEMIR 100 UNIT/ML PEN SQ SCH ×2 (09:00→21:00)
[2018-02-11] MEDS: FERROUS SULFATE 325 MG TAB PO SCH ×2 (09:00→17:30)
[2018-02-11] MEDS: THEOPHYLLINE 200 MG TABCR PO SCH (09:00)
[2018-02-11] MEDS: BALSAM PERU/CASTOR OIL 60 GM OINT...G. TP SCH ×2 (09:00→22:06)
[2018-02-11] MEDS: ASPIRIN 81 MG ENTERIC COATED PO SCH (09:00)
[2018-02-11] MEDS: DOCUSATE SODIUM 100 MG CAP PO SCH ×2 (09:00→17:00)
[2018-02-11] MEDS: FUROSEMIDE 40 MG TAB PO SCH ×2 (09:00→17:30)
[2018-02-11] MEDS: FINASTERIDE 5 MG TAB PO SCH (09:00)
[2018-02-11] MEDS: PANTOPRAZOLE SOD 40 MG TABEC PO SCH (09:00)
[2018-02-11] MEDS: AZELASTINE HCL 137 MCG NASAL SPRAY NS SCH ×2 (10:25→17:30)
[2018-02-11] MEDS ORDERED: CLONIDINE HCL 0.2 MG TAB PO PRN (11:15)
--- NOTE | 2018-02-11 12:51 | Progress Note ---
DATE: February 11, 2018 INTERNAL MEDICINE PROGRESS NOTE SUBJECTIVE: He is doing well. No significant complaints. PHYSICAL EXAMINATION VITAL SIGNS: Blood pressure 208/90. Temperature is 97.3. Heart rate 59 per minute. Respiratory rate is 13 per minute. Oxygen saturation 97%. HEART: Regular rhythm. Normal S1, S2 sounds. LUNGS: Clear bilaterally. ABDOMEN: Soft. EXTREMITIES: No evidence of cyanosis, edema or trauma. LABS: On the BMP, sodium 141, potassium 3.9, chloride 103, CO2 30, BUN 36, creatinine 1.69, glucose 84. On the CBC, white blood count 8.67, hemoglobin 10.9, hematocrit 34.7, platelet count 179,000. AST 14, ALT 11, total bilirubin 0.3, alkaline phos 69. FINAL IMPRESSION 1. History of [id number] congestive heart failure. 2. Uncontrolled hypertension with hypertensive nephropathy. 3. Chronic renal insufficiency, stage 3 to 4, secondary to hypertensive nephropathy. 4. Uncontrolled diabetes mellitus, type 2, with chronic renal failure. 5. Diabetic neuropathy. 6. Anemia of chronic disease secondary to chronic renal insufficiency. 7. Also, he has history of benign prostatic hypertrophy. PLAN OF TREATMENT 1. We are going to continue albuterol q.4 h. and budesonide twice a day. 2. Metoprolol 5 mg IV q.8 h. as needed. 3. Furosemide 80 mg in the morning. 4. Continue gabapentin 300 mg q.8 h. 1. Levemir 10 units twice a day. 2. [place] 1 tablet q.6 h. as needed for pain. 3. Tylenol 350 mg q.6 h. as needed for pain and fever. 4. Furosemide 40 mg in the evening. 5. Colace 100 mg twice a day. 6. twice a day. 7. Continue monitoring blood sugar a.c. and nightly. 8. Continue Dulcolax 10 mg daily. 9. Ceftriaxone 1 gram daily. 10. Aspirin 81 mg daily. 11. Ferrous sulfate 325 mg twice a day. 12. Flomax 0.8 mg daily. 13. Theophylline 200 mg daily. 14. Hydralazine is going to be discontinued because there is no more hydralazine in the hospital. Instead, we are going to give him clonidine 0.2 q.4 h. as needed for hypertension. 15. Proscar 5 mg daily. 16. Latanoprost at bedtime. 17. Protonix 40 mg daily. 18. He was taking hydralazine 25 mg 3 times a day, which I am going to increase to hydralazine 50 mg 3 times a day. Job#: [id number]
[2018-02-11] MEDS: CEFTRIAXONE SOD 1 GM VIAL IV SCH (17:30)
[2018-02-11] MEDS: ALBUTEROL SULF 0.083% NEB SOLN 3 ML NEB INH SCH ×2 (19:15→23:20)
[2018-02-11] MEDS: BUDESONIDE 0.5MG/2 ML NEB NEB SCH (19:15)
[2018-02-11] MEDS: LATANOPROST(OPTH) 2.5 ML BTL OP SCH (22:06)
[2018-02-11] MEDS: TAMSULOSIN HCL 0.4 MG CAP PO SCH (22:06)
[2018-02-12] VITALS (8 sets, daily range): BP systolic 121–169; BP diastolic 58–72
[2018-02-12] MEDS: ALBUTEROL SULF 0.083% NEB SOLN 3 ML NEB INH SCH ×6 (03:10→23:30)
[2018-02-12] MEDS: GABAPENTIN 300 MG CAP PO SCH ×3 (05:36→21:50)
[2018-02-12] MEDS: INSULIN LISPRO 100 UNIT/1 ML 3ML VIAL SQ SCH ×8 (07:30→21:47)
[2018-02-12] MEDS: BUDESONIDE 0.5MG/2 ML NEB NEB SCH ×2 (08:05→20:00)
[2018-02-12] MEDS: INSULIN DETEMIR 100 UNIT/ML PEN SQ SCH ×2 (09:00→21:47)
[2018-02-12] MEDS: FINASTERIDE 5 MG TAB PO SCH (09:16)
[2018-02-12] MEDS: ASPIRIN 81 MG ENTERIC COATED PO SCH (09:16)
[2018-02-12] MEDS: PANTOPRAZOLE SOD 40 MG TABEC PO SCH (09:16)
[2018-02-12] MEDS: FUROSEMIDE 40 MG TAB PO SCH ×2 (09:16→17:25)
[2018-02-12] MEDS: FERROUS SULFATE 325 MG TAB PO SCH ×2 (09:16→17:25)
[2018-02-12] MEDS: CLONIDINE HCL 0.1 MG TAB PO SCH ×2 (09:16→21:30)
[2018-02-12] MEDS: THEOPHYLLINE 200 MG TABCR PO SCH (09:16)
[2018-02-12] MEDS: DOCUSATE SODIUM 100 MG CAP PO SCH ×2 (09:16→17:26)
[2018-02-12] MEDS: HYDRALAZINE HCL 25 MG TAB PO SCH ×3 (09:16→21:30)
[2018-02-12] MEDS: BALSAM PERU/CASTOR OIL 60 GM OINT...G. TP SCH ×2 (09:17→21:50)
[2018-02-12] MEDS: AZELASTINE HCL 137 MCG NASAL SPRAY NS SCH ×2 (10:54→17:26)
--- NOTE | 2018-02-12 15:54 | Progress Note ---
DATE: February 12, 2018 INTERNAL MEDICINE PROGRESS NOTE SUBJECTIVE: This is an 87-year-old male complaining that his blood sugar was low yesterday. He is complaining of constipation, but apparently he was refusing to yesterday. PHYSICAL EXAMINATION VITAL SIGNS: Blood pressure is 121/58. Temperature 96.6. Heart rate 64 per minute. Respiratory rate 18 per minute. Oxygen saturation 97%. HEART: Regular rhythm. Normal S1, S2 sounds. LUNGS: Clear bilaterally. ABDOMEN: Soft. EXTREMITIES: No evidence of cyanosis, edema or trauma. LABS: On the BMP, sodium 141, potassium 3.9, chloride 103, CO2 30, BUN 36, creatinine 1.69. Glucose 84. On the CBC, white blood count 8.67, hemoglobin 10.9, hematocrit 34.7, platelet count 179,000. AST 14, ALT 11, total bilirubin 0.3, alkaline phosphatase 69. FINAL IMPRESSION 1. Uncontrolled hypertension, which is a lot better, with hypertensive nephropathy. 2. Chronic systolic congestive heart failure with diastolic component. 3. Peripheral vascular disease. 4. Constipation. 5. Diabetes mellitus, type 2, with chronic renal insufficiency. 6. Benign prostatic hypertrophy. 7. Gastroesophageal reflux disease. 8. Diabetic neuropathy. PLAN OF TREATMENT 1. Continue albuterol q.4 h. 2. Budesonide twice a day. 3. Metoprolol 5 mg IV q.8 h. as needed. 4. Continue furosemide 40 mg daily. 5. Colace 100 mg twice a day. 6. twice a day. 7. Monitor blood sugar a.c. and at bedtime. 8. Bisacodyl 10 mg daily. 9. Humalog 4 units before each meal. 10. Ceftriaxone 1 gram once a day for UTI. 11. Aspirin 81 mg daily. 12. Ferrous sulfate 325 mg twice a day for anemia. 13. Flomax 0.8 mg at bedtime. 14. Theophylline 200 mg daily. 15. Hydralazine 10 mg IV q.6 h. as needed for hypertension. 16. Balsam Grulla/castor oil to affected open area on the skin twice a day. 17. Clonidine 0.1 mg twice a day. 18. Proscar 5 mg daily. 19. Latanoprost at bedtime. 20. Protonix 40 mg daily. 21. Clonidine 0.2 mg q.4 h. as needed for blood pressure more than 160/90. 22. Continue furosemide 80 mg in the morning. 23. Dextrose 50, 1 amp IV push as needed for blood sugar greater than 60. 24. Gabapentin 300 mg q.8 h. 25. Continue Levemir 10 units twice a day. 26. Hansen 1 tablet q.6 h. as needed. 27. Hydralazine 50 mg 3 times a day. 28. Dr. Alvaro Martin will resume the care in the morning. 29. Patient is told to take snacks between meals also to prevent hypoglycemia. Job#: [id number]
[2018-02-12] MEDS: CEFTRIAXONE SOD 1 GM VIAL IV SCH (17:26)
[2018-02-12] MEDS: TAMSULOSIN HCL 0.4 MG CAP PO SCH (21:30)
[2018-02-12] MEDS: LATANOPROST(OPTH) 2.5 ML BTL OP SCH (21:46)
[2018-02-13] VITALS (7 sets, daily range): BP systolic 142–173; BP diastolic 53–73
[2018-02-13] MEDS: ALBUTEROL SULF 0.083% NEB SOLN 3 ML NEB INH SCH ×5 (03:00→23:00)
[2018-02-13] MEDS: GABAPENTIN 300 MG CAP PO SCH ×3 (05:47→21:18)
[2018-02-13] MEDS: BUDESONIDE 0.5MG/2 ML NEB NEB SCH ×2 (07:00→19:15)
[2018-02-13] MEDS: AZELASTINE HCL 137 MCG NASAL SPRAY NS SCH ×2 (08:54→17:42)
[2018-02-13] MEDS: HYDRALAZINE HCL 25 MG TAB PO SCH ×3 (08:54→21:16)
[2018-02-13] MEDS: CLONIDINE HCL 0.1 MG TAB PO SCH ×2 (08:55→21:16)
[2018-02-13] MEDS: FERROUS SULFATE 325 MG TAB PO SCH ×2 (08:55→17:42)
[2018-02-13] MEDS: ASPIRIN 81 MG ENTERIC COATED PO SCH (08:55)
[2018-02-13] MEDS: DOCUSATE SODIUM 100 MG CAP PO SCH ×2 (08:55→17:42)
[2018-02-13] MEDS: FINASTERIDE 5 MG TAB PO SCH (08:55)
[2018-02-13] MEDS: FUROSEMIDE 40 MG TAB PO SCH ×2 (08:55→17:42)
[2018-02-13] MEDS: BALSAM PERU/CASTOR OIL 60 GM OINT...G. TP SCH (08:55)
[2018-02-13] MEDS: THEOPHYLLINE 200 MG TABCR PO SCH (08:55)
[2018-02-13] MEDS: PANTOPRAZOLE SOD 40 MG TABEC PO SCH (08:55)
[2018-02-13] MEDS: ACETAMINOPHEN 325 MG TAB PO PRN (09:02)
[2018-02-13] MEDS: INSULIN LISPRO 100 UNIT/1 ML 3ML VIAL SQ SCH ×8 (09:03→21:00)
[2018-02-13] MEDS: INSULIN DETEMIR 100 UNIT/ML PEN SQ SCH ×2 (09:10→21:17)
[2018-02-13] MEDS ORDERED: MEROPENEM 1GRAM 1 GM in SODIUM CHLORIDE 0.9% 100 ML 100 ML IV SCH (11:00)
[2018-02-13] MEDS ORDERED: SODIUM CHLORIDE 0.9% 250ML 250 ML ONE (11:25)
[2018-02-13] MEDS: LINEZOLID 600 MG/D5W 300ML 300 ML IV SCH ×2 (12:16→23:58)
[2018-02-13] MEDS: MEROPENEM 1 GM VIAL IV SCH ×2 (12:16→23:58)
[2018-02-13] MEDS ORDERED: BALSAM PERU/CASTOR OIL 60 GM OINT...G. TP PRN (18:00)
[2018-02-13] MEDS: TAMSULOSIN HCL 0.4 MG CAP PO SCH (21:16)
[2018-02-13] MEDS: LATANOPROST(OPTH) 2.5 ML BTL OP SCH (21:16)
[2018-02-14 01:53] VITALS: BP 136/78
[2018-02-14] MEDS: ALBUTEROL SULF 0.083% NEB SOLN 3 ML NEB INH SCH ×4 (02:30→15:30)
[2018-02-14] MEDS: GABAPENTIN 300 MG CAP PO SCH ×2 (05:36→12:09)
[2018-02-14 06:30] VITALS: BP 167/71
[2018-02-14 08:00] VITALS: BP_SYST 133; BP_SYST 167; BP_DIAS 58; BP_DIAS 71
[2018-02-14] MEDS: BUDESONIDE 0.5MG/2 ML NEB NEB SCH (08:00)
[2018-02-14] MEDS: INSULIN LISPRO 100 UNIT/1 ML 3ML VIAL SQ SCH ×4 (08:02→12:09)
[2018-02-14] MEDS: ASPIRIN 81 MG ENTERIC COATED PO SCH (08:02)
[2018-02-14] MEDS: HYDRALAZINE HCL 25 MG TAB PO SCH ×2 (08:02→16:23)
[2018-02-14] MEDS: AZELASTINE HCL 137 MCG NASAL SPRAY NS SCH ×2 (08:02→16:23)
[2018-02-14] MEDS: CLONIDINE HCL 0.1 MG TAB PO SCH (08:02)
[2018-02-14] MEDS: FINASTERIDE 5 MG TAB PO SCH (08:03)
[2018-02-14] MEDS: PANTOPRAZOLE SOD 40 MG TABEC PO SCH (08:03)
[2018-02-14] MEDS: FUROSEMIDE 40 MG TAB PO SCH ×2 (08:03→16:23)
[2018-02-14] MEDS: DOCUSATE SODIUM 100 MG CAP PO SCH ×2 (08:03→16:23)
[2018-02-14] MEDS: INSULIN DETEMIR 100 UNIT/ML PEN SQ SCH (08:03)
[2018-02-14] MEDS: FERROUS SULFATE 325 MG TAB PO SCH ×2 (08:03→16:23)
[2018-02-14] MEDS: THEOPHYLLINE 200 MG TABCR PO SCH (08:03)
[2018-02-14] MEDS ORDERED: BALSAM PERU/CASTOR OIL 60 GM OINT...G. TP SCH (09:00)
[2018-02-14] MEDS: MEROPENEM 1 GM VIAL IV SCH (11:52)
[2018-02-14] MEDS: LINEZOLID 600 MG/D5W 300ML 300 ML IV SCH (11:52)
[2018-02-14 12:00] VITALS: BP 147/60
[2018-02-14 16:24] VITALS: BP 166/70
== END 2018-02-14 16:30 | DRG 871 ==
LOC: ER 10:55 → ERHOLD 14:23 → MED/SURG3 15:36
DX: A41.9 Sepsis, unspecified organism (principal); I50.43 Acute on chronic combined systolic (congestive) and diastolic (congestive) heart failure; I13.0 Hypertensive heart and chronic kidney disease with heart failure and stage 1 through stage 4 chronic kidney disease, or unspecified chronic kidney disease; N39.0 Urinary tract infection, site not specified; N18.4 Chronic kidney disease, stage 4 (severe); B96.89 Other specified bacterial agents as the cause of diseases classified elsewhere; E11.22 Type 2 diabetes mellitus with diabetic chronic kidney disease; K21.9 Gastro-esophageal reflux disease without esophagitis; I73.9 Peripheral vascular disease, unspecified; E11.65 Type 2 diabetes mellitus with hyperglycemia; N18.3 Chronic kidney disease, stage 3 (moderate); D63.1 Anemia in chronic kidney disease; I25.10 Atherosclerotic heart disease of native coronary artery without angina pectoris; B95.2 Enterococcus as the cause of diseases classified elsewhere; Z66 Do not resuscitate; E11.40 Type 2 diabetes mellitus with diabetic neuropathy, unspecified; E11.51 Type 2 diabetes mellitus with diabetic peripheral angiopathy without gangrene; Z79.4 Long term (current) use of insulin; K59.00 Constipation, unspecified
CPT/HCPCS: 36415; 71275; 74174; 80053; 81001; 82550; 82553; 82948; 84484; 85025; 87086; 87186; 93005; 94640; 96372; 97139; 99284; J0696; J2020; J2185; J7050; J7799; Q9967

== ENCOUNTER 2018-04-12 08:06 | Inpatient (IN) | payer MEDICARE, OTHER ==
--- NOTE | 2018-04-07 12:52 | Diagnostic Imaging Report ---
EXAMINATION: PA and lateral views of the chest. COMPARISON: CT chest with contrast 02/09/2018 CLINICAL HISTORY: Preoperative study for prostate surgery DISCUSSION: Left subclavian approach implantable cardiac device body and leads are unchanged in position. Right chest wall electronic device is also stable in position. Left hemithorax is clear. Small right pleural effusion is again noted. No airspace consolidation or pneumothorax. Stable cardiomediastinal contour with tortuosity of the thoracic aorta. No acute osseous abnormality. Cervical spine fusion hardware partially visualized. IMPRESSION: Small right pleural effusion. Otherwise no acute cardiopulmonary abnormality. Signed by: Dr. Blas Fragoso M.D. on 04/07/2018 12:48 PM
[2018-04-07 13:01] LABS: BASOPHILS % 0.3 % (0.0-1.0); EOSINOPHILS # (AUTO) 0.1 (0.0-0.4); EOSINOPHILS % 0.7 % (0.0-6.0); HEMATOCRIT 35.7 % (38.2-49.6); HEMOGLOBIN 10.9 g/dL (14.0-18.0); LYMPHOCYTES # (AUTO) 1.5 (1.0-3.2); LYMPHOCYTES % 12.1 % (18.0-39.1); MEAN CORPUSCULAR HEMOGLOBIN 27.1 pg (28-32); MEAN CORPUSCULAR HGB CONC 30.5 g/dL (31-35); MEAN CORPUSCULAR VOLUME 88.8 fL (81-99); MONOCYTES # (AUTO) 0.7 (0.2-0.8); MONOCYTES % 5.8 % (4.4-11.3); NEUTROPHILS # (AUTO) 9.9 (2.1-6.9); NEUTROPHILS % 80.5 % (38.7-80.0); PLATELET COUNT 156 x10e3/uL (140-360); RED BLOOD COUNT 4.02 x10e6/uL (4.3-5.7); RED CELL DISTRIBUTION WIDTH 17.1 % (11.7-14.4)
[2018-04-07 13:18] LABS: ANION GAP 17.6 mmol/L (8-16); CALCIUM 9.4 mg/dL (8.4-10.2); CREATININE, SERUM 2.56 mg/dL (0.72-1.25); POTASSIUM 4.6 mmol/L (3.5-5.1)
[~2018-04-12] VITALS: Ht 185.4 cm; Wt 81.6 kg
[~2018-04-12 08:06] MED LIST changes: +ALBUTEROL0.63 MG/3 INH; +BISACODYL5 MG; +BISACODYL5 MG PO; +BUDESONIDE0.5 MG/2 M NEB; +CLONIDINE HCL0.2 MG MT; +DULCOLAX SUPP10 MG RC; +FERROUS SULFAT325 MG; +FINASTERIDE5 MG PO; +FLOMAX0.4 MG PO; +FUROSEMIDE80 MG; +GLUCAGEN1 M1 IM; +GLUCOSE15 GM/59 M PO; +GLUCOSE4 GM PO; +Insulin; +NORCO 5-325 TA1 EACH PO; +NOVOLOG100 UNIT/1; +THEOPHYLLINE A200 MG PO; +[UNRECOGNIZED DRUG - OTHER] PO; +lantus SQ
--- OUTSIDE RECORDS SUMMARY | 2018-04-12 08:09 | XMS REPORT | Clinical Summary ---
Author Author [facility] Organization [facility] Address Unknown Phone Unavailable Care Team Providers Care Cemetery Manager Name Role Phone Mars Paulino MD PCP Allergies No Known Allergies [...] by mouth Active enteric coated tablet daily. latanoprost (XALATAN) Administer 1 drop to the 1.5 mL 0 03/25/20 04/24/20 0.005 % ophthalmic right eye nightly for 30 17 17 solution days. potassium chloride Take 15 mL (20 mEq total) 450 mL 0 03/25/20 04/24/20 (KAYCIEL) 20 mEq/15 mL by mouth daily for 30 17 17 solution days. Active Problems Problem Noted Date SOB (shortness of breath) 03/11/2017 Tubular adenoma of colon 10/11/2016 Diverticulosis large intestine w/o perforation or abscess w/o bleeding 10/11/2016 Internal hemorrhoids 10/11/2016 Personal history of colonic polyps 09/09/2016 Heme positive stool 09/09/2016 Encounters Date Type Specialty Care Team Description 04/18/2017 Emergency Emergency Medicine Jose Douglas (acute kidney injury) - MD Jason (Primary Dx); 04/19/2017 Hypoglycemia after 04/11/2017 Family History Medical History Relation Name Comments [...] Esophageal cancer Neg Hx GERD Neg Hx [employer]PER[employer] HELPER Cancer Neg Hx Hemochromatosis Neg [...] CDT Inhaled Oxygen - - Concentration Weight - - Height 182.9 cm (6') 04/18/2017 8:44 PM CDT Body Mass Index - - Plan of Treatment Health Maintenance Due Date Last Done Comments SHINGRIX VACCINE (#1) 1980 ZOSTER VACCINE 1990 PNEUMOCOCCAL 1995 POLYSACCHARIDE VACCINE AGE 65 AND OVER PNEUMOCOCCAL-13 1995 INFLUENZA VACCINE 01/18/2018 Procedures Procedure Name Priority Date/Time Associated Diagnosis Comments POC GLUCOSE Routine 04/19/2017 Results for this 1:26 AM CDT procedure are in the results section. ZZESTIMATED GFR Timed 04/19/2017 Results for this 1:22 AM CDT procedure are in the results section. BASIC METABOLIC PANEL Timed 04/19/2017 Results for this 1:22 AM CDT procedure are in the results section. ZZESTIMATED GFR STAT 04/18/2017 Results for this 9:41 PM CDT procedure are in the results section. HC COMPLETE BLD COUNT STAT 04/18/2017 Results for this W/AUTO DIFF 9:41 PM CDT procedure are in the results section. BASIC METABOLIC PANEL STAT 04/18/2017 Results for this 9:41 PM CDT procedure are in the results section. CT HEAD WO CONTRAST STAT 04/18/2017 Results for this 9:28 PM CDT procedure are in the results section. POC GLUCOSE Routine 04/18/2017 Results for this 8:42 PM CDT procedure are in the results section. after 04/11/2017 Results * POC glucose (04/19/2017 1:26 AM) Only the most recent of 2 results within the time period is included. POC glucose 142 (H) 65 - 100 mg/dL [facility] DEPARTMENT OF Comment: PATHOLOGY AND Meter ID: [id number] GENOMIC MEDICINE Cigarette Making Examiner: Sandy Hernandez Performing Organization Address City/State/Zipcode Phone Number [address] [place] [address] PATHOLOGY AND [employer] [facility] * Estimated GFR (04/19/2017 1:22 AM) Only the most recent of 2 results within the time period is included. GFR Non Af Amer 36 (A) mL/min/1.73 m2 [facility] DEPARTMENT OF PATHOLOGY AND [employer] MEDICINE GFR Af Amer 43 (A) mL/min/1.73 m2 [facility] DEPARTMENT OF Comment: PATHOLOGY AND Chronic kidney disease: <60 [facility] mL/min/1.73m2 Kidney failure: <15 mL/min/1.73m2 The estimated GFR is calculated from the IDMS-traceable Modification of Diet in Renal Disease Equation. The accuracy of the calculation is poor when the creatinine is normal. Calculated values >90 mL/min/1.73m2 are not reported. This equation has not been validated in children (<18 years), women, the elderly (>70 years), or ethnic groups other than Caucasians and Americans. Specimen Plasma specimen Performing Organization Address City/[facility]/Zipcode Phone Number [address] [place], [place] [address] [place] [address] [employer] [facility] * Basic metabolic panel (04/19/2017 1:22 AM) Only the most recent of 2 results within the time period is included. Sodium 143 135 - 150 mEq/L [facility] OF PATHOLOGY AND [employer] MEDICINE Potassium 3.5 3.5 - 5.0 mEq/L [facility] DEPARTMENT OF PATHOLOGY AND [employer] MEDICINE Chloride 112 (H) 100 - 109 mEq/L [facility] DEPARTMENT OF PATHOLOGY AND [employer] MEDICINE CO2 23 (L) 24 - 32 mmol/L [facility] OF PATHOLOGY AND [employer] MEDICINE Anion gap 8 7 - 15 mEq/L [facility] DEPARTMENT OF Comment: PATHOLOGY AND Starting from September [facility] , anion gap calculation no longer incorporates potassium. Please note the change. BUN 33 (H) 7 - 18 mg/dL [facility] DEPARTMENT OF PATHOLOGY AND [employer] MEDICINE Creatinine 1.8 (H) 0.8 - 1.5 mg/dL [facility] DEPARTMENT OF PATHOLOGY AND [employer] MEDICINE Glucose 121 (H) 65 - 100 mg/dL [facility] DEPARTMENT OF PATHOLOGY AND [employer] MEDICINE Calcium 7.6 (L) 8.6 - 10.7 mg/dL [facility] DEPARTMENT OF PATHOLOGY AND GENOMIC MEDICINE Specimen Plasma specimen Performing Organization Address City/[facility]/Zipcode Phone Number [facility] [address] [place] [address] PATHOLOGY AND GENOMIC MEDICINE * CBC with platelet and differential (04/18/2017 9:41 PM) WBC 11.0 4.2 - 11.0 k/uL [facility] DEPARTMENT OF PATHOLOGY AND GENOMIC MEDICINE RBC 3.56 (L) 4.04 - 5.86 m/uL [facility] DEPARTMENT OF PATHOLOGY AND GENOMIC MEDICINE HGB 10.0 (L) 13.0 - 17.3 g/dL [facility] DEPARTMENT OF PATHOLOGY AND GENOMIC MEDICINE HCT 31.5 (L) 34.0 - 45.0 % [facility] DEPARTMENT OF PATHOLOGY AND GENOMIC MEDICINE MCV 88.5 80.0 - 98.0 fL [facility] DEPARTMENT OF PATHOLOGY AND GENOMIC MEDICINE MCH 28.1 27.0 - 34.0 pg [facility] DEPARTMENT OF PATHOLOGY AND GENOMIC MEDICINE MCHC 31.7 31.5 - 36.5 g/dL [facility] DEPARTMENT OF PATHOLOGY AND GENOMIC MEDICINE RDW - SD 51.1 (H) 37.0 - 51.0 fL [facility] DEPARTMENT OF PATHOLOGY AND GENOMIC MEDICINE MPV 10.3 7.4 - 10.4 fL [facility] DEPARTMENT OF PATHOLOGY AND GENOMIC MEDICINE Platelet count 232 150 - 400 k/uL [facility] DEPARTMENT OF PATHOLOGY AND GENOMIC MEDICINE Nucleated RBC 0.00 /100 WBC [facility] DEPARTMENT OF PATHOLOGY AND GENOMIC MEDICINE Neutrophils 74.2 (H) 36.0 - 66.0 % [facility] DEPARTMENT OF PATHOLOGY AND GENOMIC MEDICINE Lymphocytes 16.3 (L) 24.0 - 44.0 % [facility] DEPARTMENT OF PATHOLOGY AND GENOMIC MEDICINE Monocytes 7.6 (H) 0.0 - 6.0 % [facility] DEPARTMENT OF PATHOLOGY AND GENOMIC MEDICINE Eosinophils 1.0 0.0 - 6.0 % [facility] DEPARTMENT OF PATHOLOGY AND GENOMIC MEDICINE Basophils 0.3 0.0 - 1.2 % [facility] DEPARTMENT OF PATHOLOGY AND GENOMIC MEDICINE Immature granulocytes 0.6 0.0 - 1.0 % [facility] DEPARTMENT OF PATHOLOGY AND GENOMIC MEDICINE Specimen Blood Performing Organization Address City/[facility]/Zipcode Phone Number [facility] [address] [place] [address] PATHOLOGY AND GENOMIC MEDICINE * CT Head Wo Contrast (04/18/2017 9:28 PM) Narrative Performed At EXAMINATION: CT HEAD WO CONTRAST HM [facility] CLINICAL HISTORY: fall COMPARISON:04/16/[address] TECHNIQUE: [...] detailed above with no acute intracranial abnormality. [facility]-[id number] Procedure Note [facility], Radiology Results Incoming - 04/18/2017 9:36 PM [...] detailed above with no acute intracranial abnormality. [facility]-[id number] Performing Organization Address City/State/Zipcode Phone Number [facility] [address] [place] [address] after 04/11/2017 Insurance Payer Benefit Subscriber ID Type Phone Address Plan / Group TEXAN[employer]US TEXANPLUS xxxxxxxxx O [facility] MEDICAID MEDICAID xxxxxxxxx [place] [address]
[2018-04-12] MEDS ORDERED: FLUCONAZOLE100 MG PO (08:53)
[2018-04-12] MEDS ORDERED: METOPROLOL TART25 MG PO (08:54)
[2018-04-12] MEDS ORDERED: GENTAMICIN 80MG/NS 100 ML 100 ML IV ONE (08:57)
[2018-04-12] MEDS ORDERED: CEFTRIAXONE SOD 1 GM VIAL ONE (08:57)
[2018-04-12] MEDS ORDERED: INSULIN REGULAR, HUMAN 100 UNIT/1 ML 3ML VIAL ONE (09:25)
[2018-04-12] MEDS ORDERED: IOPAMIDOL 610MG/1ML 300 MG/ML VIAL IV ONE (10:37)
[2018-04-12] MEDS ORDERED: DIPHENHYDRAMINE HCL 25 MG CAP PO PRN (14:00)
[2018-04-12] MEDS ORDERED: DIPHENHYDRAMINE HCL INJ 50 MG/ML VIAL IM PRN (14:00)
[2018-04-12] MEDS ORDERED: ONDANSETRON HCL INJ 2 MG/ML VIAL IV PRN (14:00)
[2018-04-12] MEDS ORDERED: MEROPENEM 500 MG VIAL IV SCH (14:00)
[2018-04-12] MEDS ORDERED: BELLADONNA/OPIUM 60 MG SUPP PR PRN (14:00)
--- OUTSIDE RECORDS SUMMARY | 2018-04-12 14:07 | XMS REPORT | Clinical Summary ---
Author Author [facility] [place] [facility] Address Unknown Phone Unavailable Care Team Providers Care Manager Support Name Role Phone Mars Paulino MD PCP [...] Esophageal cancer Neg Hx GERD Neg Hx [employer] Cancer Neg Hx Hemochromatosis Neg Hx Inflammatory [...] glucose 142 (H) 65 - 100 mg/dL [facility] OF Comment: PATHOLOGY AND Meter ID: [id number] GENOMIC MEDICINE Lithograph Operator: Sandy Hernandez Performing Organization Address City/State/Zipcode Phone Number [address] [place] [address] [address] [employer] [facility] * Estimated GFR (04/19/2017 1:22 AM) Only the most recent of 2 results within the time period is included. GFR Non Af Amer 36 (A) mL/min/1.73 m2 [facility] DE[facility] OF PATHOLOGY AND [employer] MEDICINE GFR Af Amer 43 (A) mL/min/1.73 m2 [facility] DEPARTMENT OF Comment: PATHOLOGY AND Chronic kidney disease: <60 [facility] mL/min/1.73m2 Kidney failure: <15 mL/min/1.73m2 The estimated [...] Americans. Specimen Plasma specimen Performing Organization Address City/[facility]/Zipcode Phone Number [address] [place], [place] [phone] [place] [address] [facility] * Basic metabolic panel (04/19/2017 1:22 AM) Only the most recent of 2 results within the time period is included. Sodium 143 135 - 150 mEq/L [facility] OF PATHOLOGY AND [employer] MEDICINE Potassium 3.5 3.5 - 5.0 mEq/L [facility] DE[facility]MENT OF PATHOLOGY AND [employer] MEDICINE Chloride 112 (H) 100 - 109 mEq/L [facility] DEPARTMENT OF PATHOLOGY AND [employer] MEDICINE CO2 23 (L) 24 - 32 mmol/L [facility] OF PATHOLOGY AND [employer] MEDICINE Anion gap 8 7 - 15 mEq/L [facility] DE[facility] OF Comment: PATHOLOGY AND Starting from September [facility] , anion gap calculation no longer incorporates potassium. Please note the change. BUN 33 (H) 7 - 18 mg/dL [facility] DE[facility]MENT OF PATHOLOGY AND [employer] MEDICINE Creatinine 1.8 (H) 0.8 - 1.5 mg/dL [facility]MENT OF PATHOLOGY AND [employer] MEDICINE Glucose 121 (H) 65 - 100 mg/dL [facility] DE[facility]MENT OF PATHOLOGY AND [employer] MEDICINE Calcium 7.6 (L) 8.6 - 10.7 mg/dL [facility] DEPARTMENT OF PATHOLOGY AND GENOMIC MEDICINE Specimen Plasma specimen Performing Organization Address City/[facility]/Zipcode Phone Number [facility] [address] [place] [address] PATHOLOGY AND GENOMIC MEDICINE * CBC with platelet and differential (04/18/2017 9:41 PM) WBC 11.0 4.2 - 11.0 k/uL [facility]MENT OF PATHOLOGY AND GENOMIC MEDICINE RBC 3.56 (L) 4.04 - 5.86 m/uL [facility] DE[facility]MENT OF PATHOLOGY AND GENOMIC MEDICINE HGB 10.0 (L) 13.0 - 17.3 g/dL [facility] DE[facility]MENT OF PATHOLOGY AND GENOMIC MEDICINE HCT 31.5 (L) 34.0 - 45.0 % [facility] DE[facility]MENT OF PATHOLOGY AND GENOMIC MEDICINE MCV 88.5 80.0 - 98.0 fL [facility]MENT OF PATHOLOGY AND GENOMIC MEDICINE MCH 28.1 27.0 - 34.0 pg [facility] OF PATHOLOGY AND GENOMIC MEDICINE MCHC 31.7 31.5 - 36.5 g/dL [facility] OF PATHOLOGY AND GENOMIC MEDICINE RDW - SD 51.1 (H) 37.0 - 51.0 fL [facility] OF PATHOLOGY AND GENOMIC MEDICINE MPV 10.3 7.4 - 10.4 fL [facility] OF PATHOLOGY AND GENOMIC MEDICINE Platelet count 232 150 - 400 k/uL [facility] OF PATHOLOGY AND GENOMIC MEDICINE Nucleated RBC 0.00 /100 WBC [facility] OF PATHOLOGY AND GENOMIC MEDICINE Neutrophils 74.2 (H) 36.0 - 66.0 % [facility] OF PATHOLOGY AND GENOMIC MEDICINE Lymphocytes 16.3 (L) 24.0 - 44.0 % [facility]MENT OF PATHOLOGY AND GENOMIC MEDICINE Monocytes 7.6 (H) 0.0 - 6.0 % [facility] DE[facility]MENT OF PATHOLOGY AND GENOMIC MEDICINE Eosinophils 1.0 0.0 - 6.0 % [facility] DE[facility]MENT OF PATHOLOGY AND GENOMIC MEDICINE Basophils 0.3 0.0 - 1.2 % [facility] DE[facility]MENT OF PATHOLOGY AND GENOMIC MEDICINE Immature granulocytes 0.6 0.0 - 1.0 % [facility] DE[facility]MENT OF PATHOLOGY AND GENOMIC MEDICINE Specimen Blood Performing Organization Address City/[facility]/Zipcode Phone Number [facility] [address] [address] PATHOLOGY AND GENOMIC MEDICINE * CT Head [...] detailed above with no acute intracranial abnormality. [facility]-[id number] Procedure Note [facility], Radiology Results Incoming - 04/18/2017 9:36 PM [...] detailed above with no acute intracranial abnormality. [facility]-[id number] Performing Organization Address City/State/Zipcode Phone Number [facility] [address] [place] [address] after 04/11/2017 Insurance Payer Benefit Subscriber ID Type Phone Address Plan / Group [employer] TEX[employer]PLUS xxxxxxxxx O [facility] MEDICAID MEDICAID xxxxxxxxx [place] [address]
[2018-04-12 14:30] VITALS: BP 168/73
[2018-04-12] MEDS: ACETAMINOPHEN/CODEINE 300MG - 30MG TAB PO PRN (15:40)
[2018-04-12] MEDS ORDERED: DEXTROSE 50% SYRINGE 50 ML IV PRN (15:45)
[2018-04-12] MEDS ORDERED: FENTANYL CITRATE/PF 100MCG/2 ML INJ ONE (15:54)
[2018-04-12 16:00] VITALS: BP 193/81
[2018-04-12 16:38] VITALS: BP 168/73
[2018-04-12] MEDS: ALBUTEROL SULF 0.083% NEB SOLN 3 ML NEB INH SCH ×2 (17:30→19:00)
[2018-04-12] MEDS: BUDESONIDE 0.5MG/2 ML NEB NEB SCH (17:40)
[2018-04-12] MEDS: SODIUM CHLORIDE 0.9% 1000ML 1,000 ML IV SCH ×2 (17:41→23:47)
[2018-04-12] MEDS: FERROUS SULFATE 325 MG TAB PO SCH (17:43)
[2018-04-12] MEDS: DOCUSATE SODIUM 100 MG CAP PO SCH (17:43)
[2018-04-12] MEDS: METOPROLOL TARTRATE 25 MG TAB PO SCH (17:43)
[2018-04-12] MEDS: INSULIN REGULAR, HUMAN 100 UNIT/1 ML 3ML VIAL SQ SCH ×2 (17:43→22:40)
[2018-04-12] MEDS ORDERED: PROPOFOL IV EMULSION 10 MG/ML 20 ML VIAL ONE (18:30)
[2018-04-12] MEDS ORDERED: LIDOCAINE HCL 2% LOCAL INJ 5 ML SDV VIAL INJ ONE (18:30)
[2018-04-12] MEDS ORDERED: ONDANSETRON HCL INJ 2 MG/ML VIAL ONE (18:30)
[2018-04-12] MEDS ORDERED: SEVOFLURANE INHAL SOLN 250 ML PEN BTL ONE (18:30)
[2018-04-12 19:45] VITALS: BP 124/59
[2018-04-12] MEDS ORDERED: MEROPENEM 500MG 500 MG in SODIUM CHLORIDE 0.9% 50ML 50 ML IV SCH (21:00)
[2018-04-12] MEDS: CLONIDINE HCL 0.1 MG TAB PO SCH (21:00)
[2018-04-12] MEDS: LATANOPROST(OPTH) 2.5 ML BTL OP SCH (22:30)
[2018-04-12] MEDS: GABAPENTIN 300 MG CAP PO SCH (22:30)
[2018-04-12] MEDS: TAMSULOSIN HCL 0.4 MG CAP PO SCH (22:30)
[2018-04-12] MEDS: MEROPENEM 500 MG VIAL IV SCH (22:30)
[2018-04-12] MEDS: HYDROCODONE/APAP 5MG-325MG TAB PO SCH (22:30)
[2018-04-13] VITALS (7 sets, daily range): BP systolic 114–189; BP diastolic 50–83
[2018-04-13] MEDS: ALBUTEROL SULF 0.083% NEB SOLN 3 ML NEB INH SCH ×7 (00:30→23:18)
[2018-04-13] MEDS: GABAPENTIN 300 MG CAP PO SCH ×3 (06:05→21:12)
[2018-04-13 06:14] LABS: BASOPHILS % 0.3 % (0.0-1.0); EOSINOPHILS # (AUTO) 0.1 (0.0-0.4); EOSINOPHILS % 0.7 % (0.0-6.0); HEMATOCRIT 34.6 % (38.2-49.6); HEMOGLOBIN 10.6 g/dL (14.0-18.0); LYMPHOCYTES # (AUTO) 1.6 (1.0-3.2); LYMPHOCYTES % 15.4 % (18.0-39.1); MEAN CORPUSCULAR HEMOGLOBIN 27.4 pg (28-32); MEAN CORPUSCULAR HGB CONC 30.6 g/dL (31-35); MEAN CORPUSCULAR VOLUME 89.4 fL (81-99); MONOCYTES # (AUTO) 0.9 (0.2-0.8); MONOCYTES % 8.5 % (4.4-11.3); NEUTROPHILS # (AUTO) 7.6 (2.1-6.9); NEUTROPHILS % 74.3 % (38.7-80.0); PLATELET COUNT 146 x10e3/uL (140-360); RED BLOOD COUNT 3.87 x10e6/uL (4.3-5.7); RED CELL DISTRIBUTION WIDTH 16.7 % (11.7-14.4)
[2018-04-13 06:33] LABS: ANION GAP 14.7 mmol/L (8-16); CALCIUM 8.6 mg/dL (8.4-10.2); CREATININE, SERUM 2.63 mg/dL (0.72-1.25); POTASSIUM 3.7 mmol/L (3.5-5.1)
[2018-04-13] MEDS: BUDESONIDE 0.5MG/2 ML NEB NEB SCH ×2 (07:00→19:35)
[2018-04-13] MEDS: INSULIN REGULAR, HUMAN 100 UNIT/1 ML 3ML VIAL SQ SCH ×4 (09:10→21:00)
[2018-04-13] MEDS: MEROPENEM 500 MG VIAL IV SCH ×2 (09:10→21:10)
[2018-04-13] MEDS: PANTOPRAZOLE SOD 40 MG TABEC PO SCH (09:10)
[2018-04-13] MEDS: ASPIRIN 81 MG ENTERIC COATED PO SCH (09:10)
[2018-04-13] MEDS: FLUCONAZOLE 100 MG TAB PO SCH (09:11)
[2018-04-13] MEDS: DOCUSATE SODIUM 100 MG CAP PO SCH ×2 (09:11→18:15)
[2018-04-13] MEDS: BISACODYL 10 MG SUPP PR SCH (09:11)
[2018-04-13] MEDS: HYDROCODONE/APAP 5MG-325MG TAB PO SCH ×3 (09:11→21:11)
[2018-04-13] MEDS: CLONIDINE HCL 0.1 MG TAB PO SCH ×3 (09:11→21:11)
[2018-04-13] MEDS: THEOPHYLLINE 200 MG TABCR PO SCH (09:11)
[2018-04-13] MEDS: FERROUS SULFATE 325 MG TAB PO SCH ×2 (09:11→18:15)
[2018-04-13] MEDS: METOPROLOL TARTRATE 25 MG TAB PO SCH ×2 (09:11→18:16)
[2018-04-13] MEDS: FINASTERIDE 5 MG TAB PO SCH (09:11)
[2018-04-13] MEDS: SODIUM CHLORIDE 0.9% 1000ML 1,000 ML IV SCH ×2 (09:47→19:47)
[2018-04-13] MEDS ORDERED: ALBUTEROL SULF 0.083% NEB SOLN 3 ML NEB NEB ONE (16:24)
[2018-04-13] MEDS ORDERED: FUROSEMIDE INJ 10 MG/ML 4 ML VIAL ONE (16:24)
[2018-04-13] MEDS ORDERED: FUROSEMIDE INJ 10 MG/ML 4 ML VIAL IV ONE (16:30)
--- NOTE | 2018-04-13 16:52 | Diagnostic Imaging Report ---
EXAMINATION: CHEST SINGLE (PORTABLE) INDICATION: ^SOB; TACHYPNEA COMPARISON: Chest radiograph 04/07/2018 and CTA chest 02/09/2018 FINDINGS: AP view TUBES and LINES: Left upper chest cardiac device with lead distal tip in the right ventricle. A metallic device is noted in the soft tissues of the right upper chest, however, the distal tip is not visualized. LUNGS: Lungs are well inflated. Interval development of bilateral pulmonary edema. Bibasilar atelectasis. PLEURA: Small to moderate right pleural effusion, increased. Trace left pleural effusion. HEART AND MEDIASTINUM: Mild enlargement of the cardiac silhouette is unchanged. Tortuous thoracic aorta. BONES AND SOFT TISSUES: No acute osseous lesion. Soft tissues are unremarkable. UPPER ABDOMEN: No free air under the diaphragm. IMPRESSION: Interval development of bilateral pulmonary edema with increased small to moderate right pleural effusion. Signed by: Dr. Marika Dumont M.D. on 04/13/2018 4:49 PM
[2018-04-13 18:34] LABS: ANION GAP 13.6 mmol/L (8-16); CALCIUM 8.8 mg/dL (8.4-10.2); CREATININE, SERUM 2.8 mg/dL (0.72-1.25); POTASSIUM 3.6 mmol/L (3.5-5.1)
[2018-04-13] MEDS: FUROSEMIDE INJ 10 MG/ML 4 ML VIAL IV SCH (21:10)
[2018-04-13] MEDS: TAMSULOSIN HCL 0.4 MG CAP PO SCH (21:10)
[2018-04-13] MEDS: LATANOPROST(OPTH) 2.5 ML BTL OP SCH (21:10)
[2018-04-14] VITALS (11 sets, daily range): BP systolic 130–193; BP diastolic 55–83
[2018-04-14] MEDS ORDERED: ACETAMINOPHEN 325 MG TAB PO PRN
[2018-04-14] MEDS: ALBUTEROL SULF 0.083% NEB SOLN 3 ML NEB INH SCH ×6 (03:25→23:40)
[2018-04-14] MEDS: SODIUM CHLORIDE 0.9% 1000ML 1,000 ML IV SCH ×4 (05:47→15:47)
[2018-04-14 05:57] LABS: BASOPHILS % 0.3 % (0.0-1.0); EOSINOPHILS % 0.3 % (0.0-6.0); HEMATOCRIT 35.3 % (38.2-49.6); HEMOGLOBIN 10.6 g/dL (14.0-18.0); LYMPHOCYTES # (AUTO) 1.3 (1.0-3.2); MEAN CORPUSCULAR HEMOGLOBIN 26.8 pg (28-32); MEAN CORPUSCULAR VOLUME 89.4 fL (81-99); MONOCYTES # (AUTO) 0.8 (0.2-0.8); MONOCYTES % 7.3 % (4.4-11.3); NEUTROPHILS # (AUTO) 8.8 (2.1-6.9); NEUTROPHILS % 79.3 % (38.7-80.0); PLATELET COUNT 167 x10e3/uL (140-360); RED BLOOD COUNT 3.95 x10e6/uL (4.3-5.7); RED CELL DISTRIBUTION WIDTH 16.7 % (11.7-14.4)
[2018-04-14] MEDS: GABAPENTIN 300 MG CAP PO SCH ×3 (06:00→20:35)
[2018-04-14 06:15] LABS: INR 1.05; PROTHROMBIN TIME 14.7 seconds (11.9-14.5)
[2018-04-14 06:25] LABS: ANION GAP 16.4 mmol/L (8-16); CALCIUM 8.9 mg/dL (8.4-10.2); CREATININE, SERUM 3.18 mg/dL (0.72-1.25); POTASSIUM 4.4 mmol/L (3.5-5.1)
[2018-04-14] MEDS: BUDESONIDE 0.5MG/2 ML NEB NEB SCH ×2 (07:00→18:55)
[2018-04-14] MEDS: PANTOPRAZOLE SOD 40 MG TABEC PO SCH (07:30)
[2018-04-14] MEDS: INSULIN REGULAR, HUMAN 100 UNIT/1 ML 3ML VIAL SQ SCH ×4 (07:30→21:00)
[2018-04-14] MEDS ORDERED: ACETAMINOPHEN 1000 MG/100 ML IV STA (07:53)
[2018-04-14] MEDS ORDERED: LORAZEPAM INJ 2 MG/ML VIAL IV STA (07:57)
[2018-04-14] MEDS ORDERED: VANCOMYCIN HCL 1.25 GM in SODIUM CHLORIDE 0.9% 250ML 250 ML IV ONE (08:00)
[2018-04-14] MEDS ORDERED: SODIUM CHLORIDE 0.9% 1000ML 2,000 ML ONE (08:01)
[2018-04-14] MEDS ORDERED: ACETAMINOPHEN 1000 MG/100 ML IV PRN (08:15)
--- NOTE | 2018-04-14 08:21 | Diagnostic Imaging Report ---
PROCEDURE: A single AP view of the chest. COMPARISON: Chest radiograph 04/13/18 INDICATIONS: SHORTNESS OF BREATH FINDINGS: TUBES and LINES: Left upper chest cardiac device with lead distal tip in the right ventricle. A metallic device is noted in the soft tissues of the right upper chest, however, the distal tip is not visualized. LUNGS: Moderate inflation of the lungs. Persistent bilateral interstitial opacities. Patchy opacities persistent at the lung bases, right greater than left. PLEURA: Moderate right pleural effusion. Trace left pleural effusion. No evidence of pneumothorax. HEART AND MEDIASTINUM: Mild enlargement of the cardiac silhouette is unchanged. Tortuous thoracic aorta is again noted. BONES AND SOFT TISSUES: No acute osseous lesion. Soft tissues are unremarkable. UPPER ABDOMEN: No free air under the diaphragm. IMPRESSION: Persistent moderate pulmonary interstitial edema with small to moderate right pleural effusion. Patchy opacities at the lung bases, likely atelectasis. Dictated by: KAREN DYE M.D. on 04/14/2018 at 8:29 Electronically approved by: KAREN DYE M.D. on 04/14/2018 at 8:29
[2018-04-14 08:35] LABS: BASOPHILS % 0.3 % (0.0-1.0); EOSINOPHILS % 0.3 % (0.0-6.0); HEMATOCRIT 35.5 % (38.2-49.6); HEMOGLOBIN 10.7 g/dL (14.0-18.0); LYMPHOCYTES # (AUTO) 1.8 (1.0-3.2); LYMPHOCYTES % 14.8 % (18.0-39.1); MEAN CORPUSCULAR HEMOGLOBIN 26.8 pg (28-32); MEAN CORPUSCULAR HGB CONC 30.1 g/dL (31-35); MEAN CORPUSCULAR VOLUME 88.8 fL (81-99); MONOCYTES # (AUTO) 0.9 (0.2-0.8); MONOCYTES % 7.3 % (4.4-11.3); NEUTROPHILS # (AUTO) 9.2 (2.1-6.9); NEUTROPHILS % 76.3 % (38.7-80.0); PLATELET COUNT 158 x10e3/uL (140-360); RED CELL DISTRIBUTION WIDTH 16.7 % (11.7-14.4)
[2018-04-14 08:57] LABS: ALBUMIN 2.7 g/dL (3.5-5.0); ANION GAP 16.4 mmol/L (8-16); CALCIUM 8.9 mg/dL (8.4-10.2); CREATININE, SERUM 3.13 mg/dL (0.72-1.25); POTASSIUM 4.4 mmol/L (3.5-5.1)
[2018-04-14] MEDS: FERROUS SULFATE 325 MG TAB PO SCH ×2 (09:00→17:00)
[2018-04-14] MEDS: FINASTERIDE 5 MG TAB PO SCH (09:00)
[2018-04-14] MEDS: FLUCONAZOLE 100 MG TAB PO SCH (09:00)
[2018-04-14] MEDS: METOPROLOL TARTRATE 25 MG TAB PO SCH ×2 (09:00→17:00)
[2018-04-14] MEDS: BISACODYL 10 MG SUPP PR SCH (09:00)
[2018-04-14] MEDS: THEOPHYLLINE 200 MG TABCR PO SCH (09:00)
[2018-04-14] MEDS: DOCUSATE SODIUM 100 MG CAP PO SCH ×2 (09:00→17:00)
[2018-04-14] MEDS: HYDROCODONE/APAP 5MG-325MG TAB PO SCH ×3 (09:00→20:35)
[2018-04-14] MEDS: ASPIRIN 81 MG ENTERIC COATED PO SCH (09:00)
[2018-04-14] MEDS: CLONIDINE HCL 0.1 MG TAB PO SCH ×3 (09:00→20:35)
[2018-04-14] MEDS: MEROPENEM 500 MG VIAL IV SCH ×2 (09:47→20:35)
--- NOTE | 2018-04-14 10:42 | Diagnostic Imaging Report ---
PROCEDURE: ULTRASOUND GUIDED RIGHT DIAGNOSTIC THORACENTESIS INDICATIONS: PLEURAL EFFUSION COMPARISON: None. TECHNIQUE: The patient/proxy was informed of the nature of the proposed procedure. The purposes, alternatives, risks, and benefits were explained and discussed. All questions were answered and written consent was obtained. MEDICATIONS: 5 cc 1% Xylocaine DESCRIPTION/FINDINGS: Sterile technique was used. Preliminary ultrasound demonstrated a small right pleural effusion. The effusion was considered too small for therapeutic drainage, which was discussed with the referring team. After infiltrating the skin with 1% xylocaine, a 20 gauge needle was advanced into the right pleural space and 10 cc of serous fluid was removed. The needle was removed without immediate complication. Samples were sent for analysis. IMPRESSION: Ultrasound guided right sided diagnostic thoracentesis. Dictated by: KAREN DYE M.D. on 04/14/2018 at 10:50 Electronically approved by: KAREN DYE M.D. on 04/14/2018 at 10:50
[2018-04-14] MEDS: FUROSEMIDE INJ 10 MG/ML 4 ML VIAL IV SCH ×2 (12:00→20:35)
[2018-04-14 12:20] LABS: BASOPHILS % 0.2 % (0.0-1.0); EOSINOPHILS % 0.2 % (0.0-6.0); HEMATOCRIT 31.9 % (38.2-49.6); HEMOGLOBIN 9.7 g/dL (14.0-18.0); LYMPHOCYTES # (AUTO) 0.6 (1.0-3.2); LYMPHOCYTES % 6.7 % (18.0-39.1); MEAN CORPUSCULAR HEMOGLOBIN 27.1 pg (28-32); MEAN CORPUSCULAR HGB CONC 30.4 g/dL (31-35); MEAN CORPUSCULAR VOLUME 89.1 fL (81-99); MONOCYTES # (AUTO) 0.6 (0.2-0.8); MONOCYTES % 6.9 % (4.4-11.3); NEUTROPHILS # (AUTO) 7.1 (2.1-6.9); NEUTROPHILS % 84.7 % (38.7-80.0); PLATELET COUNT 133 x10e3/uL (140-360); RED BLOOD COUNT 3.58 x10e6/uL (4.3-5.7); RED CELL DISTRIBUTION WIDTH 16.6 % (11.7-14.4)
--- NOTE | 2018-04-14 12:32 | Consultation ---
DATE OF CONSULTATION: April 14, 2018 CARDIOLOGY CONSULTATION ATTENDING PHYSICIAN: Alvaro Martin MD Thank you so much for asking me to see Mr. Veliz again in consultation. He is an elderly and chronically ill, 87-year-old man who was admitted on the for transurethral resection of the prostate for prostate symptoms and renal insufficiency. Patient had an episode this morning when a rapid response was called for him having shortness of breath and anxiety. PAST MEDICAL HISTORY: Long and complex. He has severe lung disease with previous right lower lobe lobectomy for lung cancer in 2009. He had a crush injury to his right arm in 1997 with a nerve stimulator implanted into the right arm that did not seem to help. He has had recurring hospitalizations at [facility], [facility] and [facility] for recurrent pneumonia and urinary tract infections. He also had a hospitalization at [facility] in January of 2018 for upper GI bleed. He is currently a resident of [facility]. CURRENT MEDICATIONS: Include: 1. Meropenem 500 mg q.12 h. 2. Pulmicort 2 mg. 3. Albuterol. 4. Acetaminophen. 5. Hydrocodone. 6. Clonidine 0.1 mg t.i.d. 7. Furosemide 40 mg IV q.12. 8. Tamsulosin 0.4 mg at bedtime. 9. Xalatan drops. 10. Metoprolol tartrate 25 mg b.i.d. 11. Sravan-Dur tablets. 12. Fluconazole. 13. Diflucan 100 mg daily. 14. Proscar 5 mg daily. 15. Pantoprazole 40 mg daily. 16. Aspirin 81 mg daily. 17. Sliding-scale Humulin R. 18. Gabapentin. 19. Lorazepam. SURGICAL HISTORY: Please note patient had permanent pacemaker implant on September 16, 2017, for sinus node dysfunction and bradycardia. PERSONAL AND SOCIAL HISTORY: He has not smoked in many years. REVIEW OF SYSTEMS: Cardiac: He has never known of any coronary disease or chest pains. PHYSICAL EXAMINATION GENERAL: Exam at this time shows an elderly white man who is sleepy after being given medications but does awaken and is conversant. VITALS: Temperature is 101.3. Blood pressure 130/50. HEENT: Relatively unremarkable. NECK: No jugular venous distention visible. THORAX: There is a pacemaker site in the left subclavian area. He has a right thoracotomy scar, and there is a device on the right side of his chest as well that is the pain stimulator. HEART: Regular rate and rhythm. LUNGS: Bilateral moderate rhonchi. ABDOMEN: Protuberant. EXTREMITIES: Sequential compression devices. EKG shows pacing. PERTINENT LABORATORY STUDIES: BUN 69, creatinine 3.1, glucose 252. White count 12.0. ASSESSMENT 1. Status post transurethral resection of the prostate. 2. Advanced renal insufficiency. 3. Congestive heart failure with ejection fraction of 65% on echocardiogram on April 27, 2017, while he was hospitalized at [facility] with some diastolic dysfunction. 4. Severe lung disease with a right lower lobe lobectomy for lung cancer in 2009. 5. Pacemaker with appropriate function. 6. Recent upper gastrointestinal bleed with gastritis in January 2018. 7. Type-2 adult-onset diabetes. PLAN: Agree with management. Will follow him closely with you. Prognosis is guarded. Thank your for asking me to see him in consultation. Job#: [id number] cc:MD JACKIE AVALOS MD MUHAMMAD FAISAL, M.D. ZAHER SHEBIB, MD
[2018-04-14 12:41] LABS: ANION GAP 16.3 mmol/L (8-16); CALCIUM 8.4 mg/dL (8.4-10.2); CREATININE, SERUM 3.08 mg/dL (0.72-1.25); POTASSIUM 4.3 mmol/L (3.5-5.1)
--- NOTE | 2018-04-14 15:51 | Consultation ---
DATE OF CONSULTATION: April 14, 2018 REASON FOR CONSULTATION: Concern about infection, UTI, pneumonia. HISTORY OF PRESENT ILLNESS: This patient, who is an 87-year-old white gentleman, was admitted on April 12 for transurethral resection of the prostate for prostate enlargement. Patient has history of renal insufficiency and history of lung disease. Had cancer in 2009 with right lower lobe lobectomy. He has history of crush injury to his right arm in 1987 and nerve stimulator implanted into his right arm. Patient does not really provide any complaints at present time. Patient was admitted on April 12 and underwent surgery by Dr. Coker. The patient is noted to have fever, so infectious disease was consulted. He is currently having no specific complaint. He is lying in bed comfortably. LABORATORY DATA: Blood cultures and urine cultures obtained are pending. White count today is 8.4, on admission 12.29. Hemoglobin 10.9, hematocrit 35, and platelets 156. Sodium 143, potassium 4.4, creatinine 3.3. Chest x-ray showed moderate pulmonary interstitial edema. REVIEW OF SYSTEMS: At the present time, he denies any. HEENT: Negative. PULMONARY: Negative. CARDIAC: Negative. : Negative. When he first came, he had temperature of 100.4, but on the it was 102.8. MEDICATIONS: Patient is currently on Proventil, insulin, meropenem 500 q.12, Tylenol, theophylline, fluconazole. PHYSICAL EXAMINATION GENERAL: He is currently alert. Does not seem to be in acute distress. VITALS: Stable, afebrile. HEENT: He is not icteric. NECK: Supple. CHEST: Clear. HEART: S1 and S2. No murmur. ABDOMEN: Soft. Bowel sounds are present. No tenderness. IMPRESSION AND PLAN 1. Fever. Concern about infection. Source is unclear. Agree with meropenem. Agree with blood cultures. Clinically seems to be stable. 2. Pleural effusion. Would recommend thoracocentesis. Send for culture and sensitivity, cell count and diff and protein. Recheck CBC. Will follow. Job#: [id number]
[2018-04-14] MEDS: LORAZEPAM INJ 2 MG/ML VIAL IV PRN (16:10)
[2018-04-14] MEDS ORDERED: METHYLPREDNISOLONE SOD SUCC 125 MG/2ML VIAL IV ONE (18:20)
[2018-04-14] MEDS: TAMSULOSIN HCL 0.4 MG CAP PO SCH (20:35)
[2018-04-14] MEDS ORDERED: CLONIDINE HCL 0.3MG/24 HR PATCH TOP SCH (20:45)
[2018-04-14] MEDS: HYDRALAZINE HCL 20 MG/ML VIAL IV PRN (21:02)
[2018-04-14] MEDS: LATANOPROST(OPTH) 2.5 ML BTL OP SCH (22:36)
[2018-04-15] VITALS (7 sets, daily range): BP systolic 133–178; BP diastolic 64–78
[2018-04-15] MEDS: ALBUTEROL SULF 0.083% NEB SOLN 3 ML NEB INH SCH ×6 (04:00→22:35)
[2018-04-15 05:40] LABS: BASOPHILS % 0.3 % (0.0-1.0); HEMATOCRIT 37.7 % (38.2-49.6); HEMOGLOBIN 11.3 g/dL (14.0-18.0); LYMPHOCYTES # (AUTO) 0.3 (1.0-3.2); LYMPHOCYTES % 3.2 % (18.0-39.1); MEAN CORPUSCULAR HEMOGLOBIN 26.8 pg (28-32); MEAN CORPUSCULAR VOLUME 89.5 fL (81-99); MONOCYTES # (AUTO) 0.1 (0.2-0.8); MONOCYTES % 0.9 % (4.4-11.3); NEUTROPHILS # (AUTO) 8.2 (2.1-6.9); NEUTROPHILS % 92.8 % (38.7-80.0); PLATELET COUNT 153 x10e3/uL (140-360); RED BLOOD COUNT 4.21 x10e6/uL (4.3-5.7); RED CELL DISTRIBUTION WIDTH 16.8 % (11.7-14.4)
[2018-04-15] MEDS: VANCOMYCIN 1GM/NS 250 ML 250 ML IV SCH (05:54)
[2018-04-15] MEDS: ACETAMINOPHEN/CODEINE 300MG - 30MG TAB PO PRN (06:09)
[2018-04-15] MEDS: GABAPENTIN 300 MG CAP PO SCH ×2 (06:09→14:00)
--- NOTE | 2018-04-15 06:09 | Diagnostic Imaging Report ---
CHEST SINGLE (PORTABLE), 04/15/2018 5:00 AM Technique: CHEST SINGLE (PORTABLE) Comparison: 04/14/2018 Clinical history: Aspiration Findings: See Impression Impression: 1. Lines/Tubes: Stable left chest wall single-lead pacer, electronic device over the right chest wall. 2. Stable mildly enlarged cardiomediastinal silhouette. 3. Central vascular congestion with stable small right pleural effusion. 4. Patchy left basilar opacity suspicious for aspiration/infection. Signed by: Dr Marisol Vallejo MD on 04/15/2018 6:05 AM
[2018-04-15] MEDS: LORAZEPAM INJ 2 MG/ML VIAL IV PRN (06:10)
[2018-04-15 06:17] LABS: ANION GAP 20.7 mmol/L (8-16); CALCIUM 9.3 mg/dL (8.4-10.2); CREATININE, SERUM 3.08 mg/dL (0.72-1.25); POTASSIUM 4.7 mmol/L (3.5-5.1)
[2018-04-15 06:56] LABS: BAND NEUTROPHILS % (MANUAL) 1 %; LYMPHOCYTES % (MANUAL) 5 % (19-48); MONOCYTES % (MANUAL) 2 % (3.4-9.0); NEUTROPHILS % (MANUAL) 92 % (40-74); PLATELET ESTIMATE ADEQUATE; PLATELET MORPHOLOGY COMMENT NORMAL; RBC MORPHOLOGY COMMENT NORMAL
[2018-04-15] MEDS: BUDESONIDE 0.5MG/2 ML NEB NEB SCH ×2 (07:30→18:55)
[2018-04-15] MEDS: PANTOPRAZOLE SOD 40 MG TABEC PO SCH (07:30)
[2018-04-15] MEDS: INSULIN REGULAR, HUMAN 100 UNIT/1 ML 3ML VIAL SQ SCH ×4 (08:30→21:03)
[2018-04-15] MEDS: MEROPENEM 500 MG VIAL IV SCH ×2 (08:45→21:03)
[2018-04-15] MEDS: FUROSEMIDE INJ 10 MG/ML 4 ML VIAL IV SCH ×2 (08:45→21:03)
[2018-04-15] MEDS: CLONIDINE HCL 0.1 MG TAB PO SCH ×4 (09:00→21:03)
[2018-04-15] MEDS: FLUCONAZOLE 100 MG TAB PO SCH ×2 (09:00→10:22)
[2018-04-15] MEDS: HYDROCODONE/APAP 5MG-325MG TAB PO SCH ×2 (09:00→10:22)
[2018-04-15] MEDS: DOCUSATE SODIUM 100 MG CAP PO SCH ×2 (09:00→21:03)
[2018-04-15] MEDS: METOPROLOL TARTRATE 25 MG TAB PO SCH ×2 (09:00→10:22)
[2018-04-15] MEDS: ASPIRIN 81 MG ENTERIC COATED PO SCH ×2 (09:00→10:22)
[2018-04-15] MEDS: BISACODYL 10 MG SUPP PR SCH (09:00)
[2018-04-15] MEDS: FINASTERIDE 5 MG TAB PO SCH (09:00)
[2018-04-15] MEDS: FERROUS SULFATE 325 MG TAB PO SCH ×2 (09:00→17:00)
[2018-04-15] MEDS: THEOPHYLLINE 200 MG TABCR PO SCH (09:00)
--- NOTE | 2018-04-15 14:05 | Consultation ---
DATE OF CONSULTATION: April 14, 2018 PULMONARY MEDICINE CONSULT REFERRING PHYSICIAN: Dr. Martin. REASON FOR REFERRAL: Shortness of breath. HISTORY OF PRESENT ILLNESS: Mr. Veliz is a 87-year-old gentleman with shortness of breath. Patient was admitted to [facility] facility on April 12, 2018. He had transurethral resection of the prostate for prostate symptoms and urine insufficiency. He is very well known to me from previous hospitalizations and close associations. Patient was having more shortness of breath today. He has Shepherd in place, and he is receiving multiple continuous flushing of Shepherd and bladder. Patient was having increased wheezing. He is having small amounts of secretions as well. Chest x-ray demonstrated increased edema pattern. He went for thoracentesis but only 10 mL were removed. He also had fever of 101.3 and altered mental status for 1 day. PAST MEDICAL HISTORY 1. Right lower lobe lobectomy for lung cancer in 2009. 2. Crush injury to right arm, 1997, with nerve stimulator. 3. History of CKD and urinary tract infections. MEDICATIONS: Medication list reviewed per the chart record. ALLERGIES: NO KNOWN DRUG ALLERGIES. SOCIAL HISTORY: No drinking, no drugs. He smoked from age 5 to 35, 2 packs per day. 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 Just recently, he was able to walk half a mile if he needed to. FAMILY HISTORY: Noncontributory. REVIEW OF SYSTEMS: Cannot get as he is altered. OBJECTIVE VITAL SIGNS: Afebrile. Vital signs noted per electronic record. GENERAL: His fevers has become better. He is still disoriented. HEENT: Normocephalic, atraumatic. NECK: Supple. Throat midline. LUNGS: Bilateral air entry is moderate with moderate to large amount of wheezes, few rhonchi. CARDIOVASCULAR: S1, S2. No murmurs, rubs, or gallops. ABDOMEN: Soft, nontender. EXTREMITIES: No clubbing, no cyanosis, there is 1+ edema. INTEGUMENT: No rash, no purpura. LABS: BUN 69, creatinine 3.1, albumin is 2.7, white count 8, hematocrit 32, platelets 133. IMPRESSION 1. Abnormal chest radiography, possible aspiration. 2. Abnormal chest radiography, possible fluid overload. 3. Occasional choking on food, possible dysphagia and even aspiration. 4. History of chronic obstructive pulmonary disease with exacerbation. 5. Chronic hypoxemia, on home oxygen at night. 6. Intermittent allergies. 7. History lung resection surgery for lung cancer. 8. Former smoker, quit long ago. 9. Very small pleural effusion. 10. History of diabetes; blindness, chronic kidney disease; benign prostatic hypertrophy, status post transurethral resection of prostate. PLAN: Dose him on steroids starting today. Continue bronchodilators. Continue to allow him to mobilize and expectorate as possible. His April 2017 echo showed LVEF of 65%. Continue to optimize medications as needed. Thank you very much, Dr. Martin, for allowing me the chance to participate in care of Mr. Veliz. Please call for questions. Job#: [id number] YVES
[2018-04-15] MEDS ORDERED: HYDROCODONE/APAP 5MG-325MG TAB PO PRN (15:00)
--- NOTE | 2018-04-15 15:04 | Progress Note ---
DATE:April 15, 2018 INTERNAL MEDICINE PROGRESS NOTE SUBJECTIVE: Patient is sleeping. PHYSICAL EXAM VITAL SIGNS: Blood pressure 155/67, temperature 96 degrees, heart rate 99 per minute, respiratory rate 20 per minute, oxygen saturation 98%. HEART: Regular rhythm. Normal S1, S2 sounds. LUNGS: Clear bilaterally. ABDOMEN: Soft. EXTREMITIES: Show no evidence of cyanosis, edema, or trauma. FINAL IMPRESSION 1. Status post fever. 2. Pleural effusion. 3. . 4. Benign prostatic hypertrophy, status post transurethral resection of the prostate. 5. 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 6. Lqqyz-io-iwrklce renal failure, stage 3 to 4. 7. Mild anemia of chronic disease. 8. Dementia with agitation. 9. History of chronic obstructive pulmonary disease. 10. Diabetic neuropathy. 11. Gastroesophageal reflux disease. 12. Hypertension with chronic renal insufficiency. PLAN OF TREATMENT: We are going to going to continue albuterol q.4 hours, budesonide twice a day, vancomycin 1 gram IV once a day, Zofran 4 mg IV q.8 hours, Tylenol with Codeine 1 tablet q.6 hours as needed for pain, fluconazole 100 mg daily, theophylline 200 mg daily, latanoprost 1 drop to each eye at bedtime, lorazepam 1 mg q.3 hours as needed for anxiety, Benadryl 25 mg q.4 hours as needed, belladonna and opium 60 mg q.6 hours, clonidine 0.1 mg 3 times a day, gabapentin 300 mg q.8 hours, [place] 1 tablet 3 times a day as needed for pain, Protonix 40 mg daily, clonidine 0.1 mg once a week patch, Benadryl 25 mg q.4 hours as needed, meropenem 500 mg IV twice a day, ferrous sulfate 325 mg twice a day, dextrose 50 mL as needed for hypoglycemia. Continue monitoring blood sugar a.c. and h.s. Continue furosemide 40 mg IV twice a day. Continue hydralazine 20 mg q.3 hours as needed, Colace 100 mg twice a day, aspirin 81 mg daily, finasteride 5 mg daily, Flomax 0.8 mg at bedtime, metoprolol 25 mg twice a day, Tylenol 975 mg q.6 hours as needed, Levemir 10 units at bedtime and Humalog 5 units before each meal. Diet, purred diet thickened liquids, diabetic and renal diet. Job#: [id number] FLORENTIN
[2018-04-15] MEDS: INSULIN LISPRO 100 UNIT/1 ML 3ML VIAL SQ SCH (17:30)
--- NOTE | 2018-04-15 20:30 | Consultation ---
DATE OF CONSULTATION: April 15, 2018 ATTENDING PHYSICIAN: Dr. Muñoz. REASON FOR CONSULTATION: Myumk-dh-lnmhray kidney disease stage 3. HISTORY OF PRESENT ILLNESS: Patient is currently with altered mental status, unable to give me any history. History is obtained from other doctor's note. Patient is an 87-year-old male with past medical history of diabetes type 2, right lower lobe lobectomy for lung cancer in 2011, crush injury of the right arm in 1997 with nerve stimulator placement, history of CKD stage 3. Baseline creatinine from January 2018 was 1.6 with GFR of 39 mL per minute, who was admitted after a TURP. Patient had TURP done by Dr. Coker. Since then, patient has been on continuous bladder irrigation. During this hospitalization, he spike a fever, seen by ID. Patient is currently on meropenem and vancomycin. Blood and urine cultures are so far negative. Patient also had chest x-ray done that showed pleural effusion. Had diagnostic thoracentesis and fluid culture is pending. Patient's creatinine on admission on April 07, 2018 was 2.56 that went up to 3.08 that is the reason for the nephrology consultation. Patient was started on Lasix 40 mg IV q.12 hours as he has been having difficulty breathing and had to have rapid response done yesterday per nurse. Patient has been urinating well, but has been altered and not getting much pain medications. PAST MEDICAL HISTORY: As above. PAST SURGICAL HISTORY: Right lobe lobectomy, nerve stimulator placement. ALLERGIES: NO KNOWN DRUG ALLERGIES. SOCIAL HISTORY: Smokes 2 packs per day until he was 35 years old. FAMILY HISTORY: No history of any kidney disease. REVIEW OF SYSTEMS: Unable to obtain. MEDICATION: Currently, the patient is on insulin, metoprolol, fluconazole, aspirin, Lasix 40 mg IV q.12 hours, meropenem 500 q.12 hours, lorazepam p.r.n., vancomycin 1 g q.24 hours started today, hydralazine, clonidine patch, Flomax, theophylline, pantoprazole, gabapentin 300 mg p.o., and finasteride. PHYSICAL EXAMINATION VITAL SIGNS: Blood pressure 135/75, pulse of 70, respirations 20, temperature 96.7, 97% on 2 liters nasal cannula. GENERAL: The patient is sleeping with tactile stimulation, open eyes, but does not follow command. HEART: S1 and S2. LUNGS: Bilateral crackles. ABDOMEN: Soft. Bowel sounds positive. EXTREMITIES: No edema. NEUROLOGICAL: Arousable. No focal deficit. LABS: White count 8.8, hemoglobin 11.3, platelet count is 153. INR 1.05. Sodium 146, potassium 4.7, chloride 109, CO2 of 21, BUN 76, creatinine 3.08, calcium is 9.3. Lactic acid level was 19.9 on April 14, 2018. Cultures as per HPI. Chest x-ray, mild enlarged cardiac silhouette, central pulmonary vascular congestion, patchy left basilar opacity suspicious for aspiration infection. ASSESSMENT AND PLAN 1. Ulnaa-mk-estdfuy kidney disease stage 3, likely acute tubular necrosis secondary to infection. Monitor the vancomycin level closely. Currently, still with volume overload. We will continue with Lasix today. Repeat the lab in the morning. Also check BNP. We will discontinue gabapentin. 2. Status post transurethral resection of prostate. Dr. Coker is following. 3. Diabetes type 2 per primary team. 4. Fever. Workup is in progress. Infectious disease is following, on Merrem and vancomycin. 5. Diastolic congestive heart failure, currently with volume overload. Continue with Lasix for now. Further recommendations will depend on the patient's hospital course. Patient is DNR. Prognosis is guarded. I want to thank Dr. Martin for the consult. Job#: [id number] TYRELL
[2018-04-15] MEDS: LATANOPROST(OPTH) 2.5 ML BTL OP SCH (21:03)
[2018-04-15] MEDS: INSULIN DETEMIR 100 UNIT/ML PEN SQ SCH (21:03)
[2018-04-15] MEDS: TAMSULOSIN HCL 0.4 MG CAP PO SCH (21:03)
--- NOTE | 2018-04-15 21:30 | Consultation ---
DATE OF CONSULTATION: April 15, 2018 PULMONARY CRITICAL CARE CONSULTATION REFERRING PHYSICIAN: Dr. Martin. CHIEF COMPLAINT: Lower lobe infiltrate and increased congestion. HISTORY OF PRESENT ILLNESS: The patient is an 87-year-old man. He has a history of prior lung cancer that required a right lower lobe lobectomy in 2009. He also has a history of intermittent confusion and prior episodes of aspiration pneumonitis. He has been hospitalized several times according to the daughter and has received IV antibiotics and speech therapy. He was admitted on this hospitalization on the for transurethral resection of prostate. He was noted to have some fever and confusion postoperatively. A subsequent chest x-ray showed a small t0 moderate right pleural effusion. He underwent a thoracentesis per radiology, was only able to obtain 10 mL. On subsequent x-rays, he appears to have more of a left basal infiltrate consistent with aspiration. PAST SURGICAL HISTORY 1. Status post right lower lobe lobectomy in 2009. 2. Status post pacemaker placement in August of 2017. PAST MEDICAL HISTORY 1. Organic brain syndrome. 2. Renal insufficiency. 3. Chronic recurrent aspiration. 4. Type 2 diabetes. 5. Bradycardia, requiring a pacemaker. SOCIAL HISTORY: The patient is not an active smoker or drinker. He has good family support. FAMILY HISTORY: Family history is noncontributory. REVIEW OF SYSTEMS: The patient has no fevers. He does not complain of headache. He does have some increased confusion. He does not have neck pain. He has increased chest congestion. He has no chest pain. He has some cough. There is no abdominal pain. There is no nausea or vomiting. There is no leg edema or swelling. PHYSICAL EXAMINATION VITAL SIGNS: The patient is afebrile. The saturation is 99% on 2 liters. HEENT: Shows no facial swelling or erythema. The patient has a poor dentition and is edentulous. LYMPHATIC: Shows no submandibular, cervical, or supraclavicular adenopathy. CARDIAC: Reveals a regular rate and rhythm with normal S1 and S2. There are no murmurs or rubs. LUNGS: Auscultation of the lungs reveals rhonchorous breath sounds bilaterally. There is no wheezing. ABDOMEN: Soft, nontender. There is no rebound or guarding. EXTREMITIES: Shows no leg edema or calf tenderness. NEUROLOGIC: Shows confusion, but no focal abnormalities. LABORATORY DATA: White blood cell count is 8.8 and hemoglobin is 11.3. The platelet count is 153. The BUN and creatinine ratio 76 to 3.08 and the blood sugar is elevated at 304. IMPRESSION 1. Aspiration pneumonia. 2. Oropharyngeal dysphagia. 3. Chronic obstructive pulmonary disease with acute exacerbation. 4. Chronic renal insufficiency stage 4. 5. Recent transurethral prostate resection. 6. Remote history of lung cancer with a right lower lobe lobectomy. PLAN 1. Continue current antibiotics. 2. Speech therapy. 3. Continue bronchodilators. 4. Very judicious use of Solu-Medrol; because of his elevated blood sugar, we want to limit the dose as much as possible. 5. Nephrology evaluation. 6. Physical therapy. 7. Speech pathology. Job#: [id number] ROBIN
[2018-04-16] VITALS (9 sets, daily range): BP systolic 116–164; BP diastolic 55–77
[2018-04-16] MEDS: ALBUTEROL SULF 0.083% NEB SOLN 3 ML NEB INH SCH ×6 (02:58→23:15)
[2018-04-16 06:25] LABS: BASOPHILS % 0.3 % (0.0-1.0); HEMATOCRIT 34.6 % (38.2-49.6); HEMOGLOBIN 10.6 g/dL (14.0-18.0); LYMPHOCYTES # (AUTO) 0.6 (1.0-3.2); LYMPHOCYTES % 4.2 % (18.0-39.1); MEAN CORPUSCULAR HEMOGLOBIN 27.2 pg (28-32); MEAN CORPUSCULAR HGB CONC 30.6 g/dL (31-35); MEAN CORPUSCULAR VOLUME 88.9 fL (81-99); MONOCYTES # (AUTO) 0.6 (0.2-0.8); MONOCYTES % 4.2 % (4.4-11.3); NEUTROPHILS # (AUTO) 12.1 (2.1-6.9); NEUTROPHILS % 90.2 % (38.7-80.0); PLATELET COUNT 162 x10e3/uL (140-360); RED BLOOD COUNT 3.89 x10e6/uL (4.3-5.7); RED CELL DISTRIBUTION WIDTH 16.7 % (11.7-14.4)
[2018-04-16] MEDS: VANCOMYCIN 1GM/NS 250 ML 250 ML IV SCH (06:44)
[2018-04-16 06:51] LABS: ALBUMIN 2.5 g/dL (3.5-5.0); ALBUMIN/GLOBULIN RATIO 0.9 (0.8-2.0); ANION GAP 14.3 mmol/L (8-16); CALCIUM 9.2 mg/dL (8.4-10.2); CREATININE, SERUM 3.2 mg/dL (0.72-1.25); POTASSIUM 4.3 mmol/L (3.5-5.1)
[2018-04-16] MEDS: INSULIN REGULAR, HUMAN 100 UNIT/1 ML 3ML VIAL SQ SCH ×4 (07:30→21:47)
[2018-04-16] MEDS: INSULIN LISPRO 100 UNIT/1 ML 3ML VIAL SQ SCH ×3 (07:30→16:30)
[2018-04-16] MEDS: BUDESONIDE 0.5MG/2 ML NEB NEB SCH ×2 (08:15→19:38)
[2018-04-16] MEDS: PANTOPRAZOLE SOD 40 MG TABEC PO SCH (08:51)
[2018-04-16] MEDS: MEROPENEM 500 MG VIAL IV SCH ×2 (08:52→21:42)
[2018-04-16] MEDS: ASPIRIN 81 MG ENTERIC COATED PO SCH (08:52)
[2018-04-16] MEDS: DOCUSATE SODIUM 100 MG CAP PO SCH ×2 (08:52→21:47)
[2018-04-16] MEDS: FLUCONAZOLE 100 MG TAB PO SCH (08:52)
[2018-04-16] MEDS: FUROSEMIDE INJ 10 MG/ML 4 ML VIAL IV SCH (08:52)
[2018-04-16] MEDS: FERROUS SULFATE 325 MG TAB PO SCH ×2 (08:52→17:13)
[2018-04-16] MEDS: BISACODYL 10 MG SUPP PR SCH (08:53)
[2018-04-16] MEDS: THEOPHYLLINE 200 MG TABCR PO SCH (08:53)
[2018-04-16] MEDS: METOPROLOL TARTRATE 25 MG TAB PO SCH ×2 (08:53→17:14)
[2018-04-16] MEDS: FINASTERIDE 5 MG TAB PO SCH (08:53)
[2018-04-16] MEDS: CLONIDINE HCL 0.1 MG TAB PO SCH ×3 (08:55→21:47)
[2018-04-16 09:35] LABS: BAND NEUTROPHILS % (MANUAL) 11 %; LYMPHOCYTES % (MANUAL) 4 % (19-48); MONOCYTES % (MANUAL) 6 % (3.4-9.0); NEUTROPHILS % (MANUAL) 79 % (40-74)
[2018-04-16 09:36] LABS: PLATELET ESTIMATE ADEQUATE; PLATELET MORPHOLOGY COMMENT NORMAL; RBC MORPHOLOGY COMMENT NORMAL
--- NOTE | 2018-04-16 10:40 | Progress Note ---
DATE: April 16, 2018 PULMONARY/CRITICAL CARE PROGRESS NOTE SUBJECTIVE: Patient has improved just slightly today. He has less wheezing and less congestion. He does not have fever. PHYSICAL EXAMINATION VITAL SIGNS: The patient is afebrile. The blood pressure is 160/70 and the saturation is 98% on 2 liters. The pulse is 62. HEENT: Shows no facial swelling or erythema. The nasal mucosa is normal. The oropharynx is normal. LYMPHATIC: Shows no submandibular, cervical, or supraclavicular adenopathy. CARDIAC: Reveals regular rate and rhythm with a normal S1 and S2. LUNGS: Auscultation of lungs reveals clear breath sounds bilaterally. There is no wheezing. ABDOMEN: Soft and nontender. There is no rebound or guarding. LABORATORY DATA: White blood cell count is 13.4 and the hemoglobin is 10.6. The platelet count is 162. The glucose is 163. The sodium is 149 and the BUN to creatinine ratio is increased to 105:3.2. IMPRESSION 1. Aspiration pneumonia. 2. Chronic obstructive pulmonary disease with acute exacerbation. 3. Chtkt-pe-bezvzyb renal failure. 4. Remote history of lung cancer with right lower lobe lobectomy. 5. History of recent transurethral prostate resection. PLAN 1. Continue current antibiotics. 2. Continue speech therapy. 3. Monitor and control blood sugars. 4. Discussed stopping diuretics with nephrology due to the increased creatinine and sodium. Job#: [id number] FLORENTIN
[2018-04-16] MEDS: LORAZEPAM INJ 2 MG/ML VIAL IV PRN (11:19)
[2018-04-16] MEDS ORDERED: HALOPERIDOL 5 MG TAB PO PRN (12:30)
[2018-04-16] MEDS ORDERED: SODIUM CHLORIDE 0.9% 1000ML 1,000 ML IV SCH (12:30)
[2018-04-16] MEDS ORDERED: RISPERIDONE 0.5 MG TAB PO PRN (12:30)
--- NOTE | 2018-04-16 13:33 | Progress Note ---
DATE: April 16, 2018 INTERNAL MEDICINE PROGRESS NOTE SUBJECTIVE: Patient is extremely agitated today. PHYSICAL EXAMINATION VITAL SIGNS: Blood pressure 160/70, temperature 95.3, heart rate 62 per minute, respiratory rate 18 per minute, ox saturation 97%. HEART: Regular rhythm. Normal S1, S2 sound. LUNGS: Clear bilaterally. ABDOMEN: Soft. EXTREMITIES: Show no evidence of cyanosis, edema, or trauma. BLOOD WORK: We have BMP; sodium 149, potassium 4.3, chloride 114, CO2 of 25, BUN 105, creatinine 3.20, glucose 163. On the CBC; white blood count 13.4, hemoglobin 10.6, hematocrit 34.6, platelet count 162,000. PT 14.7, PTT 43.0, INR 1.05. AST 30, ALT 11, total bilirubin 0.4, alkaline phosphatase 60. FINAL IMPRESSION 1. Fever. 2. Possible aspiration pneumonia. 3. Pleural effusion. 4. Uncontrolled diabetes mellitus type 2 with chronic renal failure. 5. Chronic obstructive pulmonary disease. 6. Batak-cg-tuithsj renal failure, stage 4. 7. Hypertension with chronic renal insufficiency. 8. Dementia with agitation. 9. Hyponatremia. PLAN OF TREATMENT: Continue albuterol q.4 hours as needed, budesonide twice a day. He is on vancomycin 1 gram IV once a day, Zofran 4 mg IV q.8 hours as needed, clonidine 0.1 mg 3 times a day, Flomax 0.8 mg daily, latanoprost 1 drop to each eye at bedtime, lorazepam 1 mg IV q.3 hours as needed for agitation. Continue Humalog 5 units before meals, Benadryl 25 mg q.4 hours, meropenem 500 mg IV twice a day or every 12 hours, Proscar 5 mg daily, theophylline 200 mg daily, Protonix 40 mg daily, clonidine 0.1 mg q.7 days, [place] 5/325 three times a day as needed, Benadryl 25 mg q.4 hours as needed, aspirin 81 mg daily, fluconazole 100 mg daily, furosemide 40 mg twice a day, hydralazine 20 mg q.3 hours as needed, Colace 100 mg twice a day, Tylenol with Codeine 1 tablet q.6 hours as needed, bisacodyl 10 mg daily as needed for constipation, D50 IV push as needed for hypoglycemia, metoprolol 25 mg twice a day, Tylenol 975 mg q.6 hours as needed, Levemir 10 units at bedtime, ferrous sulfate 325 mg twice a day. Diet; diabetic and renal diet. Continue monitoring BUN and creatinine very carefully. Job#: [id number] RIP
[2018-04-16] MEDS: LATANOPROST(OPTH) 2.5 ML BTL OP SCH (21:00)
[2018-04-16] MEDS: INSULIN DETEMIR 100 UNIT/ML PEN SQ SCH (21:46)
[2018-04-16] MEDS: TAMSULOSIN HCL 0.4 MG CAP PO SCH (21:47)
[2018-04-17] VITALS (8 sets, daily range): BP systolic 127–181; BP diastolic 65–74
[2018-04-17] MEDS: ALBUTEROL SULF 0.083% NEB SOLN 3 ML NEB INH SCH ×5 (02:55→19:37)
[2018-04-17 06:02] LABS: ANION GAP 15.2 mmol/L (8-16); CREATININE, SERUM 3.23 mg/dL (0.72-1.25); POTASSIUM 4.2 mmol/L (3.5-5.1)
[2018-04-17] MEDS: VANCOMYCIN 1GM/NS 250 ML 250 ML IV SCH (06:36)
[2018-04-17] MEDS: BUDESONIDE 0.5MG/2 ML NEB NEB SCH ×2 (07:24→19:37)
[2018-04-17] MEDS: INSULIN LISPRO 100 UNIT/1 ML 3ML VIAL SQ SCH ×3 (07:30→16:23)
[2018-04-17] MEDS: INSULIN REGULAR, HUMAN 100 UNIT/1 ML 3ML VIAL SQ SCH ×3 (07:30→16:23)
[2018-04-17] MEDS: PANTOPRAZOLE SOD 40 MG TABEC PO SCH (07:30)
[2018-04-17] MEDS: FERROUS SULFATE 325 MG TAB PO SCH ×2 (08:00→16:41)
[2018-04-17] MEDS: BISACODYL 10 MG SUPP PR SCH (08:36)
[2018-04-17] MEDS: MEROPENEM 500 MG VIAL IV SCH (08:42)
[2018-04-17] MEDS: THEOPHYLLINE 200 MG TABCR PO SCH (09:00)
[2018-04-17] MEDS: FLUCONAZOLE 100 MG TAB PO SCH (09:00)
[2018-04-17] MEDS ORDERED: DOCUSATE SODIUM LIQD 100 MG/10 ML UDC NG SCH (09:00)
[2018-04-17] MEDS: CLONIDINE HCL 0.1 MG TAB PO SCH ×2 (09:00→15:00)
[2018-04-17] MEDS: FINASTERIDE 5 MG TAB PO SCH (09:00)
[2018-04-17] MEDS: METOPROLOL TARTRATE 25 MG TAB PO SCH ×2 (09:00→16:41)
[2018-04-17] MEDS: ASPIRIN 81 MG ENTERIC COATED PO SCH (09:00)
--- NOTE | 2018-04-17 11:15 | Progress Note ---
DATE: April 17, 2018 PULMONARY MEDICINE PROGRESS NOTE SUBJECTIVE: Patient was seen and examined at bedside. Had 1.7 liters in and 2.7 liters out. Good urine output via Shepherd catheter. Bowel movements daily. The patient is without any new fevers. Patient on 4 liters per minute nasal cannula with 96% oxygen saturation. Blood pressure is mildly high. Still with confusion, not eating too much. REVIEW OF SYSTEMS: Cannot get as he is altered. OBJECTIVE VITAL SIGNS: Afebrile. Vital signs noted per electronic record. GENERAL: No acute distress, lying in bed. No respiratory distress. HEENT: Normocephalic, atraumatic. NECK: Supple. Throat midline. LUNGS: Bilateral air entry. Very mild wheezes. Rare rhonchi. CARDIOVASCULAR: S1, S2. No murmurs, rubs, or gallops. ABDOMEN: Soft, nontender. EXTREMITIES: No clubbing, no cyanosis. There is no edema. INTEGUMENT: No rash, no purpura. LABS: White count 13, 35 hematocrit, 162 platelets, 151 sodium, 114 BUN, creatinine 3.2. Vancomycin trough is 13. IMPRESSION AND PLAN 1. Acute pneumonia. 2. Possible fluid overload. 3. Encephalopathy. 4. Anorexia. 5. Chronic obstructive pulmonary disease with exacerbation. 6. Remote history of lung cancer and lobectomy. Continue inhaled corticosteroids. Continue theophylline and bronchodilators. The patient from a pulmonary point of view has gotten better. There is still lingering encephalopathy and anorexia. The patient can continue antibiotics and continue to try to undergo skilled therapy. The patient is still not ready to go home. Long-term acute care facility transfer is expected. Job#: [id number]
[2018-04-17] MEDS: LORAZEPAM INJ 2 MG/ML VIAL IV PRN ×2 (11:35→20:50)
[2018-04-17] MEDS ORDERED: SALINE 0.65% NAS SOLN 1 SPRAY BTL PRN (12:30)
[2018-04-17] MEDS ORDERED: DEXTROSE 5%/0.225% SOD CHL 1,000 ML IV SCH (16:30)
[2018-04-17] MEDS: HYDRALAZINE HCL 20 MG/ML VIAL IV PRN (16:33)
[2018-04-17 18:54] LABS: ANION GAP 13.2 mmol/L (8-16); CALCIUM 8.9 mg/dL (8.4-10.2); CREATININE, SERUM 3.14 mg/dL (0.72-1.25); POTASSIUM 4.2 mmol/L (3.5-5.1)
--- NOTE | 2018-05-25 01:48 | Operative Report ---
DATE OF PROCEDURE: April 12, 2018 PREOPERATIVE DIAGNOSES 1. Obstructive BPH. 2. Incomplete bladder emptying. POSTOPERATIVE DIAGNOSES 1. Obstructive BPH. 2. Incomplete bladder emptying. OPERATIONS PERFORMED 1. Cystourethroscopy with bilateral ureteral catheterization and retrograde ureteropyelography (separate procedure performed for the incomplete bladder emptying). 2. Interpretation of retrograde ureteropyelography. 3. Cystourethroscopy with transurethral resection of the prostate utilizing the plasma button electrode. ANESTHESIA: General. CLINICAL SUMMARY: Brian Veliz is an 87-year-old man with complicated history. The patient is a very ill patient with multiple medical problems. He had a history of urinary retention. Urodynamics revealed a very high pressure very low flow bladder voiding pattern. The options were carefully discuss with the family, as well as with the patient. Options included chronic catheterization with either suprapubic tube or Shepherd catheter, as well as various modalities of handling BPH. The family elected to proceed with the surgery as planned. They are aware of the risks of bleeding infection injury to adjacent structures, the greatly increased risk of perioperative complication in this sick elderly remained. They understood all these risks and elected to proceed. We plan on admitting the patient postoperatively due to his multiple medical problems. OPERATIVE PROCEDURE IN DETAIL: Informed consent was verified. Brian Veliz was properly identified, taken to operating room, placed on the cystoscopy table in supine position. Anesthesia was uneventfully begun. The patient was then carefully and gently repositioned in the dorsal lithotomy position with all pressure points well padded. His genitalia were prepared and draped in usual sterile fashion. The 22.5-Afghan cystoscope sheath with visual obturator in place was atraumatically inserted in patient's urethra. It was guided down the unremarkable distal urethra. Through, the urethra exhibited some erosion just outside the sphincteric region. We passed to the normal sphincter and went through the prostate bed, was significant for trilobar prostatic hypertrophy with kissing lateral lobes, as well as a prominent and obstructing and ball-valving intravesical median lobe. Panendoscopy of urinary bladder revealed no suspicious mucosal lesions. Grade-3 trabeculations were noted with diffuse cellule formation. An 8-Afghan catheter was used to cannulate each ureter and retrograde ureteropyelograms were performed. Interpretation of retrograde ureteropyelography: Contrast was instilled in retrograde fashion bilaterally. There were no tumors, no stones, and no diverticula. Unobstructed drainage was observed bilaterally fluoroscopically. The bladder was drained. The resectoscope was atraumatically placed. We utilized the plasma electrode to vaporize the median lobe. We injuring the ureteral orifices. We then proceeded with working on both lateral lobes from the bladder neck to but never past the verumontanum and down to the surgical capsule. Pinpoint electrocautery was utilized to achieve hemostasis. The resectoscope was withdrawn. The Shepherd catheter was placed. It was placed in continuous irrigation. The patient was uneventfully reversed from anesthesia and taken to recovery room in stable condition. There were no complications of the procedure. He tolerated the procedure well. He was stable throughout the procedure and en route to the recovery room. Plans will be to proceed with routine postoperative care including intravenous antibiotics and continuous bladder irrigation and will follow the patient up postoperatively. Job#: [id number] CQ
--- NOTE | 2018-06-03 17:22 | Discharge Summary ---
CHIEF COMPLAINT: Benign prostatic hypertrophy post TURP. FINAL DIAGNOSES 1. [id number] congestive heart failure. 2. Cardiac arrhythmia. 3. Chronic obstructive pulmonary disease. 4. Aspiration pneumonia. 5. Chronic kidney disease, stage 3. PROCEDURES 1. Patient is status post cystoscopy and retrograde pyelograms, transurethral resection and vaporization of the prostate by Dr. Coker. 2. Thoracentesis due to right pleural effusion, carried out by interventional radiology. DISPOSITION: [facility]. HOSPITAL COURSE: An 87-year-old male, known historian of chronic congestive heart failure, COPD, chronic renal insufficiency, diabetes type 2, and benign prostatic hypertrophy, underwent outpatient TURP procedure by Dr. Coker. Postprocedure, he was admitted to the facility due to chest congestion along with uncontrolled diabetes. Has been complaining of congestion and frequent nonproductive cough. Chest review of the patient was showing inspiratory crackles. Patient has a Shepherd in place. Medically admitted for evaluation, status post TURP, diabetes type 2, COPD, chronic congestive heart failure, arrhythmias, chronic renal insufficiency. Will begin nebulizer treatments. Will culture the urine. Will be monitoring the patient's blood sugars. As mentioned, the operation procedures were performed by Dr. Coker. Service was given to me per Dr. Coker for further medical care and diabetic control as he will continue his postop follow. Was on the med/surg floor post procedure. Was on his daily medications. Was also receiving his routine insulin protocols. Was receiving meropenem 500 mg IV daily q.12. Respiratory treatments were underway. Laboratory studies are showing stable electrolytes. Kidney function, his BUN 66, creatinine 2.63, glucose 230. CBC; hemoglobin 10.6 and white cell count of 10,000. He was having already complaints of chest congestion, shortness of breath, wheezing and in addition to his respiratory treatments, he was also receiving supplemental O2 nasal cannula. His antibiotics were continued. Was put on a fluid restriction. Followup BUN 69, creatinine was 3.13, glucose 252. Continues to have shortness of breath and wheezing. Concern for possible questionable aspiration pneumonia. Chest x-rays were showing evidence of large pleural effusion with acute pulmonary edema. He was now being reviewed by Dr. Burden, cardiology. He states the patient has congestive heart failure with an ejection fraction of 65%, which was noted on echo April 2017, history of lung disease with right lower lobe lobectomy for lung CA in 2009. Does have history of pacemaker. Shepherd was continuing to undergo irrigation as needed. Thoracentesis was carried out by intervention radiology regarding the pleural effusion. Now, he was being reviewed by infectious disease. Agree with medical care that he is receiving. It is noted at the time of the consult on April 15, 2018, the BUN was 76, creatinine was 3.08, and glucose was 304. White cell count improved to 8800. Continue to be managed on the med/surg floor. On April 15, 2018, blood sugar was 462. Continue to receive nebulizer treatments. Was noted to have an overall ill-looking appearance. Patient was weak. Vancomycin was now being started as well as fluconazole. White cell count gopal to 13,400 on April 16, 2018. BUN was now 105, creatinine was 3.20. Was showing issues of being confused. Further BUN was at 114. Blood cultures and urine cultures returned negative. Patient will be requiring further care regarding his condition. Monitoring management of his IV antibiotics as well as his other medications. Case management was called to assist transferred to [facility]. The patient was approved to that facility and was transferred there on April 17, 2018 for continuation of care. EKGs on the patient were showing electronic ventricular pacemaker capture. He was transferred to [facility]. He will continue his current MARs. I will be continuing following his progress on a daily basis. Request continued consults by Dr. Barrow and Dr. Coker. The patient will transfer with Shepherd on board, IV access on board. Dictated By: RYNE Dyer Job#: [id number] ROBIN
== END 2018-04-17 21:06 | DRG 713 ==
LOC: OR 08:06 → PACU V 13:48 → MED/SURG 14:12
PROC: 0T788ZZ Dilation of Bilateral Ureters, Via Natural or Artificial Opening Endoscopic (ICD-10-PCS; 2018-04-12)
PROC: BT141ZZ Fluoroscopy of Kidneys, Ureters and Bladder using Low Osmolar Contrast (ICD-10-PCS; 2018-04-12)
PROC: 0V508ZZ Destruction of Prostate, Via Natural or Artificial Opening Endoscopic (ICD-10-PCS; principal; 2018-04-12 09:30)
PROC: 0W993ZX Drainage of Right Pleural Cavity, Percutaneous Approach, Diagnostic (ICD-10-PCS; 2018-04-14)
DX: N40.1 Benign prostatic hyperplasia with lower urinary tract symptoms (principal); J69.0 Pneumonitis due to inhalation of food and vomit; N17.0 Acute kidney failure with tubular necrosis; J96.20 Acute and chronic respiratory failure, unspecified whether with hypoxia or hypercapnia; I50.33 Acute on chronic diastolic (congestive) heart failure; J44.1 Chronic obstructive pulmonary disease with (acute) exacerbation; I13.0 Hypertensive heart and chronic kidney disease with heart failure and stage 1 through stage 4 chronic kidney disease, or unspecified chronic kidney disease; J90 Pleural effusion, not elsewhere classified; F03.91 Unspecified dementia, unspecified severity, with behavioral disturbance; I50.32 Chronic diastolic (congestive) heart failure; G93.40 Encephalopathy, unspecified; E87.1 Hypo-osmolality and hyponatremia; E11.22 Type 2 diabetes mellitus with diabetic chronic kidney disease; E11.65 Type 2 diabetes mellitus with hyperglycemia; Z79.4 Long term (current) use of insulin; Z85.118 Personal history of other malignant neoplasm of bronchus and lung; R39.14 Feeling of incomplete bladder emptying; Z66 Do not resuscitate; Z95.0 Presence of cardiac pacemaker; F09 Unspecified mental disorder due to known physiological condition; R13.12 Dysphagia, oropharyngeal phase; H54.7 Unspecified visual loss; D63.8 Anemia in other chronic diseases classified elsewhere; E11.42 Type 2 diabetes mellitus with diabetic polyneuropathy; N18.3 Chronic kidney disease, stage 3 (moderate)
CPT/HCPCS: 32555; 36415; 71045; 71046; 74420; 74470; 80048; 80053; 80202; 82947; 82948; 83605; 83735; 83880; 85025; 85610; 85730; 87040; 87070; 87086; 87205; 87493; 93005; 94640; 96361; 96372; J0360; J0696; J1580; J1940; J2001; J2060; J2185; J2405; J2930; J3370; J7030; J7050